=== PATIENT | female | born 1980 | race Caucasian/White ===

== ENCOUNTER 2019-08-19 11:46 | Outpatient (CLI) | payer BC, SELFPAY ==
--- NOTE | ~2019-08-19 | XR_ITS ---
EXAMINATION: XR abdomen/kub 1V INDICATION: Left flank pain TECHNIQUE: Supine views of the abdomen were obtained on 2 radiographs. COMPARISON: 09/08/2018 FINDINGS: There is unchanged bilateral nephrolithiasis. The largest stone on the right measures 5 mm. The largest on the left measures 8 mm. No stones are identified along the expected courses of the ur eters or in the bladder. Surgical clips in the right upper quadrant are likely from prior cholecystec brian. Phleboliths noted in the right pelvis. The bowel gas pattern is normal. IMPRESSION: 1. Unchanged bilateral nephrolithiasis. Reviewed, dictated and finalized at location A.
[2019-08-19 12:22] LABS: Add Urine Microscopic? YES; Appearance Urine Cloudy (Clear); Bacteria Urine 1+ /hpf; Bilirubin Urine Negative (Negative); Blood Urine 1+ (Negative); Color Urine Straw (Yellow); Glucose Urine UA Negative (Negative); Ketones Urine Negative (Negative); Leukocyte Esterase Ur 2+ LEU/UL (NEGATIVE); Mucus Urine Rare /lpf; Nitrate Urine Negative (Negative); Protein Urine Negative (Negative); Specific Grav Ur 1.005 (1.001-1.035); Squamous Epithelial Cell Urine Many /hpf (Few); Urobilinogen Urine Negative mg/dL (<2.0); WBC Urine 16-20 /hpf (0-3)
== END 2019-08-19 11:47 | disposition home or self-care (01) ==
LOC: ANHLAB 11:50
PROVIDERS: Visit Provider Nurse Practitioner Adult Health
DX: R10.9 Unspecified abdominal pain (principal)
CPT/HCPCS: 74018; 81001; 87086; 87088

== ENCOUNTER 2020-01-25 16:48 | Outpatient (CLI) | payer BC, SELFPAY ==
--- NOTE | ~2020-01-25 | XR_ITS ---
XR abdomen/kub 1V 01/25/2020 17:12 Indication: History of kidney stones. Procedure: KUB Comparison: Comparison to multiple prior studies sequentially, with oldest reviewed study dated 12/17. Findings: Bowel gas pattern is nonobstructive. There are multiple bilateral renal stones. There are c holecystectomy clips. No acute osseous abnormality. Lung bases unremarkable. Impression: 1: Bilateral nephrolithiasis without significant interval change. Reviewed, dictated and finalized at location A. Impression: 1: Bilateral nephrolithiasis without significant interval change.
== END 2020-01-25 16:49 | disposition home or self-care (01) ==
PROVIDERS: PCP Internal Medicine; Visit Provider Urology
DX: N20.0 Calculus of kidney (principal)
CPT/HCPCS: 74018

== ENCOUNTER 2020-06-27 09:01 | Outpatient (CLI) | payer BC, SELFPAY ==
--- NOTE | ~2020-06-27 | XR_ITS ---
XR abdomen/kub 1V 06/27/2020 09:16 Indication: History of kidney stones Procedure: KUB Comparison: Comparison to multiple prior studies sequentially, with oldest reviewed study dated 05/12. Findings: There are multiple bilateral renal stones, unchanged from prior examination. Bowel gas preet arturo nonobstructive. No acute osseous abnormality. There are cholecystectomy clips. Impression: 1: Stable bilateral nephrolithiasis. Reviewed, dictated and finalized at location B. Impression: 1: Stable bilateral nephrolithiasis.
== END 2020-06-27 09:02 | disposition home or self-care (01) ==
LOC: ANHIMG 09:03
PROVIDERS: PCP Internal Medicine; Visit Provider Urology
DX: N20.0 Calculus of kidney (principal)
CPT/HCPCS: 74018

== ENCOUNTER 2020-06-29 11:51 | Outpatient (CLI) | payer BC, SELFPAY ==
--- NOTE | ~2020-06-29 | CT_ITS ---
EXAMINATION: CT abdomen pelvis wo con DATE: 06/29/2020 12:13 INDICATION: Left-sided renal stone. One week of right flank pain. TECHNIQUE: Computed tomography (CT) of the abdomen and pelvis was performed without intravenous contr ast. Automated exposure control and iterative reconstruction technique were employed. The dose-length product was 583.92 mGy-cm. COMPARISON: 11/20/2017 FINDINGS: Subtle mosaic attenuation along with small pneumatocele at the posterior left lower lobe which sugges ts possibility of mild emphysema/small airway disease. Heart size is normal. No pericardial or pleura l effusion. Cholecystectomy clips at the gallbladder fossa. Diffuse hepatic steatosis. Spleen, pancre as and bilateral adrenal glands are normal. No bowel obstruction. Normal appendix. Bilateral nephrolithiasis with approximately 10 stones on the left measuring up to 1 mm and 15-20 sto dena on the right measuring up to 3-4 mm. No ureteral stones or hydronephrosis. Bladder is normal. 3.7 cm cystic structure in the region of the cervix, likely a nabothian cyst. No free intraperitoneal ga s or fluid. No pathologically enlarged abdominal or pelvic lymphadenopathy. Minimal scattered degener ative skeletal changes. IMPRESSION: 1. Bilateral nonobstructing nephrolithiasis. 2. 3.7 cm cystic structure in the region of the cervix, likely a corpus luteum cyst but would correla te with beta hCG level to exclude ectopic . Could consider ultrasound for further evaluation . Reviewed, dictated and finalized at location A. IMPRESSION: 1. Bilateral nonobstructing nephrolithiasis. 2. 3.7 cm cystic structure in the region of the cervix, likely a corpus luteum cyst but would correlate with beta hCG level to exclude ectopic . Coul d consider ultrasound for further evaluation.
== END 2020-06-29 11:52 | disposition home or self-care (01) ==
LOC: ANHIMG 11:58
PROVIDERS: PCP Internal Medicine; Visit Provider Urology
DX: N20.0 Calculus of kidney (principal)
CPT/HCPCS: 74176

== ENCOUNTER 2020-08-12 11:00 | Emergency (ER) | payer BC, SELFPAY ==
[2020-08-12] VITALS (7 sets, daily range): BP systolic 93–137; BP diastolic 52–87; PULSE 80–96; RESP 18–20; TEMP 36.8; O2SAT 98–100
--- NOTE | ~2020-08-12 | US_ITS ---
US pelvic complete w TV DATE: 08/12/2020 13:18 INDICATION: Pelvic pain. Irregular vaginal bleeding. TECHNIQUE: Real-time imaging via transabdominal and transvaginal approaches COMPARISON: 06/29/2020 CT abdomen pelvis examination FINDINGS: The uterus measures approximately 12 cm height and 5 cm AP dimension, up to 6.3 cm transver se dimension. There is enlargement of the uterus and the cervical area with a large approximately 4.9 x 5.2 x 3.5 c m heterogeneous irregular hypoechoic mass. Cervical carcinoma must be excluded. The central inner lateral there is up to 1.4 cm in the uterine fundus. Obstetrical consultation and possible diagnostic uterine dilatation and curettage should be considere d. Right ovary measures 3.1 x 2.3 x 1.9 cm, with evidence of vascular flow. Left ovary measures 5 x 2.8 x 2.5 cm, with evidence of vascular flow. 3.5 x 1.9 x 1.8 cm right ovaria n cyst. 1.1 x 0.9 x 1.1 cm interval involuting cyst. No pelvic free fluid collection is noted. IMPRESSION: Uterine cervical heterogeneous hypoechoic mass measuring up to 5.2 cm; cervical cancer ca nnot be excluded. Obstetrical consultation with consideration for uterine dilatation curettage is rec ommended Left ovarian cysts Reviewed, dictated and finalized at Location A. Reviewed, dictated and finalized at location A. IMPRESSION: Uterine cervical heterogeneous hypoechoic mass measuring up to 5.2 cm; cervical cancer cannot be excluded. Obstetrical consultation with considera tion for uterine dilatation curettage is recommended Left ovarian cysts
--- NOTE | ~2020-08-12 | CT_ITS ---
EXAMINATION: CT abdomen pelvis wo con EXAM DATE: 08/12/2020 14:41 INDICATION: Lower abdominal pain, hx kidney stones TECHNIQUE: Spiral CT of the abdomen and pelvis was performed without contrast. Axial, coronal and sag ittal images were reviewed. The dose-length product (DLP) for this examination was 1206.79 mGy-cm. The exposure was tailored according to patient size (auto mA exposure control), and iterative reconst ruction (ASIR) was used as additional dose reduction technique. Comparison is made to prior examinati on from 06/29/2020. FINDINGS: Patient had a cystic region in the cervix on prior study, which measured 3.7 cm. On today's examination this cystic region measures 5.5 cm, has heterogeneous density in the inferior portion, p robably layering protein (from blood more likely than infection). Nabothian cyst typically do not inc rease in size over short interval. Differential diagnosis includes infected nabothian cyst, hemorrhag ic nabothian cysts, cervical inflammation or cancer with obstruction of the cervical canal, ectopic c ervical . Correlated with laboratory evaluation, recommend follow-up NEUROPSYCHOLOGY MEDICAL CONSULTANT consult. Multiple bilateral kidney stones measuring up to about 1 cm. There are no ureteral stones, no hydrone phrosis. The bladder is unremarkable. There is hepatic steatosis without suspicious focal lesion id entified. Spleen, adrenal glands, pancreas are unremarkable. There are cholecystectomy clips. There is no retroperitoneal or pelvic lymphadenopathy. The appendix is normal. The stomach and small bowel are unremarkable. There is expected amount of c olonic stool. No free intraperitoneal gas. The heart is normal in size. There are no pericardial or pleural effusions. The lung bases are unremarkable. There are no osteoblastic or osteolytic les ions identified. IMPRESSION: 1. Increase in size of cervical cystic region or dilated cervical canal containing proteinaceous flui d now over 5 cm. Differential diagnosis includes infected or hemorrhagic nabothian cyst, cervical inf lammation or cancer with obstruction of the cervical canal, ectopic cervical . Correlate wit h laboratory evaluation, NEUROPSYCHOLOGY MEDICAL CONSULTANT consult. Pelvic sonogram could be obtained but would not likely change t he differential diagnosis. 2. Large bilateral nephrolithiasis. No obstructive nephropathy. 3. Hepatic steatosis. Reviewed, dictated and finalized at location A. IMPRESSION: 1. Increase in size of cervical cystic region or dilated cervical canal contain ing proteinaceous fluid now over 5 cm. Differential diagnosis includes infected or hemorrhagic nabothian cyst, cervical inflammation or cancer with obstructio n of the cervical canal, ectopic cervical . Correlate with laboratory evaluation, NEUROPSYCHOLOGY MEDICAL CONSULTANT consult. Pelvic sonogram could be obtained but would not likely change the differential diagnosis. 2. Large bilateral nephrolithiasis. No obstructive nephropathy. 3. Hepatic steatosis.
[2020-08-12 11:35] LABS: Basophils Absolute Auto 0.1 K/mm3 (0.0-0.1); Basophils Percent Auto 0.6 % (0.2-1.2); Eosinophils Absolute Auto 0.2 K/mm3 (0-0.3); Eosinophils Percent Auto 1.3 % (0-4.4); Hematocrit 40.9 % (37.0-47.0); Hemoglobin 13.7 g/dL (12.0-15.0); Immature Granulocyte Absolute 0.04 K/mm3 (0.00-0.031); Immature Granulocyte Percent A 0.3 % (0-0.5); Lymphocytes Absolute Auto 1.27 K/mm3 (0.9-3.2); Lymphocytes Percent Auto 10.2 % (18.3-44.2); Mean Corpuscular HGB Conc 33.5 g/dl (32-36); Mean Corpuscular Hemoglobin 28.9 pg (26-34); Mean Corpuscular Volume 86.3 fl (80-100); Mean Platelet Volume 9.8 fl (7.4-10.4); Monocytes Percent Auto 8.3 % (2.6-8.5); Neutrophils Absolute Auto 9.8 K/mm3 (1.3-6.7); Neutrophils Percent Auto 79.3 % (45.5-73.1); Platelet Count Result 209 k/mm3 (150-375); Red Blood Count 4.74 M/mm3 (4.2-5.4); Red Cell Distribution Width 12.8 % (11.5-14.5); White Blood Count 12.4 K/mm3 (4.5-10.0)
--- NOTE | 2020-08-12 11:48 | ED.ABDPAIN ---
HPI - Abdominal Pain General Chief Complaint: Abdominal Pain Stated Complaint: PELVIC PAIN Time Seen by Provider: 08/12/20 11:33 Source: patient Mode of arrival: ambulatory Limitations: no limitations History of Present Illness HPI narrative: This is a 40-year-old female that presents to the emergency department for pelvic pain starting this morning. Reports the pain is sharp and constant in nature. Reports she has been having trouble with abnormal cycles over the last 5 months. She has been constantly spotting and will intermittently have heavy cycles. Her OB started her on progesterone a couple of days ago for this. Reports she has history of ovarian cyst and has an ultrasound scheduled in the next couple of weeks. Does also report history of kidney stones, but that this pain feels different. Denies fever, vomiting, dysuria, or hematuria. Related Data Home Medications Medication Instructions Recorded Confirmed amlodipine 5 mg PO DAILY 02/21/19 02/21/19 buspirone 7.5 mg PO DAILY 02/21/19 02/21/19 escitalopram oxalate mg 08/12/20 esomeprazole magnesium [Nexium] mg 08/12/20 loratadine [Claritin] 10 mg PO DAILY 08/12/20 potassium chloride meq PO 08/12/20 progesterone micronized mg 08/12/20 Allergies Allergy/AdvReac Type Severity Reaction Status Date / Time sulfamethoxazole Allergy Unknown RASH Verified 08/12/20 11:19 trimethoprim Allergy Unknown RASH Verified 08/12/20 11:19 iohexol Allergy Unknown Verified 08/12/20 11:19 [From CONTRAST - CT, XRAY] moxifloxacin Allergy Unknown Verified 08/12/20 11:19 Review of Systems Review of Systems: Narrative: CONSTITUTIONAL: Denies fever GASTROINTESTINAL: Reports abdominal/pelvic pain. Denies nausea, vomiting GENITOURINARY: Denies dysuria or hematuria. All systems reviewed & are unremarkable except as noted in HPI and below PMFSH Past Medical History Medical History (Updated 08/12/20 @ 15:56 by Ermelinda Hdz PA-C) HTN (hypertension) Kidney stones Surgical History Surgical History H/O lithotripsy History of extraction of renal calculus Hx of cholecystectomy Family History Family History Mother Hypertension Family history of heart disease in male family member before age 55 Father Family history of elevated blood lipids Other Family history of allergic disorder Social History Social History Smoking status: Never smoker Gender identity (if verbalized by the patient): Female Exam Narrative: Exam Narrative: GENERAL: Well-appearing, obese, and in no acute distress. HEAD: Normocephalic, atraumatic. EYES: EOMI. CHEST: Clear to auscultation. No respiratory distress. No wheezes rales or rhonchi HEART: Regular rate and rhythm. No murmur heard. Normal peripheral pulses. ABDOMEN: Soft, nondistended, normal active bowel sounds. Tender to palpation throughout the lower abdomen/pelvis, without guarding. No CVA tenderness EXTREMITIES: Normal range of motion. No edema. SKIN: Warm, dry, no rash. NEURO: No focal deficits. Alert and oriented x3. PSYCH: Normal mood and affect PELVIC: Normal appearing cervix, small amount of dark red blood in the vaginal vault Course Vital Signs Vital signs: Vital Signs Temperature 98.3 F 08/12/20 11:14 Pulse Rate 95 08/12/20 11:14 Respiratory Rate 20 08/12/20 11:14 Blood Pressure 137/87 08/12/20 11:14 Pulse Oximetry 98 08/12/20 11:14 Temperature 98.3 F 08/12/20 12:40 Pulse Rate 80 08/12/20 15:12 Respiratory Rate 18 08/12/20 15:12 Blood Pressure 121/78 08/12/20 15:12 Pulse Oximetry 98 08/12/20 15:12 MDM - Abdominal Pain MDM Narrative Medical decision making narrative: Patient presents the emergency department for lower abdominal/pelvic pain since this morning. She is afebrile and nontoxic-appearing. Her vital
[2020-08-12 11:49] LABS: Alanine Aminotransferase 26 U/L (4-35); Albumin Level 4.1 g/dL (3.5-5.1); Alkaline Phosphatase 55 U/L (38-126); Anion Gap 7 mmol/L (8-16); Aspartate Amino Transferase 28 U/L (14-36); Bilirubin,Total 0.6 mg/dL (0.2-1.3); Blood Urea Nitrogen 10 mg/dL (7-17); Calcium 9.1 mg/dL (8.4-10.2); Carbon Dioxide 27 mmol/L (22-30); Chloride 104 mmol/L (98-107); Estimated CRCL calculation 96 ml/min; Estimated Glomerular Filt Rate > 60; Glucose 94 mg/dL (65-105); Lipase 142 U/L (23-300); Potassium 3.8 mmol/L (3.4-5.0); Sodium 138 mmol/L (137-145)
[2020-08-12 11:52] LABS: Add Urine Microscopic? YES; Appearance Urine Clear (Clear); Bilirubin Urine Negative (Negative); Blood Urine 3+ (Negative); Color Urine Yellow (Yellow); Glucose Urine UA Negative (Negative); Ketones Urine Negative (Negative); Leukocyte Esterase Ur Trace LEU/UL (Negative); Mucus Urine Rare /lpf; Nitrate Urine Negative (Negative); Protein Urine 1+ mg/dL (Negative); RBC Urine 0-2 /hpf (0-2); Specific Grav Ur 1.011 (1.001-1.035); Squamous Epithelial Cell Urine Moderate /hpf (Few); Urobilinogen Urine Negative mg/dL (<2.0)
[2020-08-12] MEDS: MORPHINE SULFATE (*CRX) 4 MG/ML INJ IV PUSH ×2 (12:10→15:12)
[2020-08-12] MEDS: ONDANSETRON INJ 4 MG/2 ML VIAL IV PUSH (12:10)
[2020-08-12 12:29] LABS: Prothrombin Time 13.5 Seconds (11.1-14.7)
[2020-08-12 12:30] LABS: Partial Thromboplastin Time 26.9 SECONDS (22.3-36.8)
== END 2020-08-12 16:18 | disposition home or self-care (01) ==
PROVIDERS: Physician Assistant; Emergency Provider Emergency Medicine; PCP Internal Medicine
DX: N83.202 Unspecified ovarian cyst, left side (principal); N88.9 Noninflammatory disorder of cervix uteri, unspecified; I10 Essential (primary) hypertension; Z87.442 Personal history of urinary calculi; N20.0 Calculus of kidney; K76.0 Fatty (change of) liver, not elsewhere classified
CPT/HCPCS: 36415; 74176; 76830; 76856; 80053; 81001; 81025; 83690; 85025; 85610; 85730; 86850; 86900; 86901; 96365; 96375; 99284; J0131; J2270; J2405

== ENCOUNTER 2020-08-15 16:10 | Outpatient (CLI) | payer BC, SELFPAY ==
[2020-08-15 17:18] LABS: Hematocrit 38.2 % (37.0-47.0); Hemoglobin 12.7 g/dL (12.0-15.0); Mean Corpuscular HGB Conc 33.2 g/dl (32-36); Mean Corpuscular Hemoglobin 28.6 pg (26-34); Mean Platelet Volume 10.1 fl (7.4-10.4); Platelet Count Result 259 k/mm3 (150-375); Red Blood Count 4.44 M/mm3 (4.2-5.4); Red Cell Distribution Width 13.2 % (11.5-14.5); White Blood Count 9.6 K/mm3 (4.5-10.0)
== END 2020-08-15 16:11 | disposition home or self-care (01) ==
LOC: ANHLAB 16:11
PROVIDERS: PCP Internal Medicine; Visit Provider Obstetrics & Gynecology
DX: N93.8 Other specified abnormal uterine and vaginal bleeding (principal)
CPT/HCPCS: 36415; 85027

== ENCOUNTER 2020-08-16 10:58 | Outpatient (CLI) | payer BC, SELFPAY ==
[2020-08-16 11:21] LABS: Basophils Absolute Auto 0.1 K/mm3 (0.0-0.1); Basophils Percent Auto 1.1 % (0.2-1.2); Eosinophils Absolute Auto 0.3 K/mm3 (0-0.3); Eosinophils Percent Auto 4.1 % (0-4.4); Hematocrit 36.1 % (37.0-47.0); Hemoglobin 11.9 g/dL (12.0-15.0); Immature Granulocyte Absolute 0.02 K/mm3 (0.00-0.031); Immature Granulocyte Percent A 0.3 % (0-0.5); Lymphocytes Absolute Auto 1.93 K/mm3 (0.9-3.2); Lymphocytes Percent Auto 27.3 % (18.3-44.2); Mean Corpuscular Hemoglobin 28.5 pg (26-34); Mean Corpuscular Volume 86.4 fl (80-100); Mean Platelet Volume 9.8 fl (7.4-10.4); Monocytes Absolute Auto 0.6 K/mm3 (0.1-0.6); Monocytes Percent Auto 7.9 % (2.6-8.5); Neutrophils Absolute Auto 4.2 K/mm3 (1.3-6.7); Neutrophils Percent Auto 59.3 % (45.5-73.1); Platelet Count Result 241 k/mm3 (150-375); Red Blood Count 4.18 M/mm3 (4.2-5.4); Red Cell Distribution Width 13.2 % (11.5-14.5); White Blood Count 7.1 K/mm3 (4.5-10.0)
== END 2020-08-16 10:59 | disposition home or self-care (01) ==
LOC: ANHLAB 11:00
PROVIDERS: PCP Internal Medicine; Visit Provider Obstetrics & Gynecology
DX: N92.0 Excessive and frequent menstruation with regular cycle (principal)
CPT/HCPCS: 36415; 85025

== ENCOUNTER → 2020-08-31 02:57 | Outpatient (CLI) | payer BC, SELFPAY ==
[2020-08-31 18:15] LABS: SARS-CoV-2 RNA PCR Negative
== END ==
PROVIDERS: PCP Internal Medicine; Visit Provider Obstetrics & Gynecology
DX: Z01.812 Encounter for preprocedural laboratory examination (principal); Z20.822 Contact with and (suspected) exposure to COVID-19
CPT/HCPCS: C9803; U0003; U0005

== ENCOUNTER 2020-08-31 08:37 | Outpatient (CLI) | payer BC, SELFPAY ==
--- NOTE | 2020-08-31 08:45 | ECG_ITS ---
Measurements Intervals [place] Rate: 79 P: 48 AL: 170 QRS: 53 QRSD: 95 T: 41 QT: 357 QTc: 410 Interpretive Statements SINUS RHYTHM DELAYED PRECORDIAL R/S TRANSITION BASELINE ARTIFACT- I, III, AVL BORDERLINE ECG Electronically Signed On 08-31-2020 9:15:36 CDT by Kyle Fontanez D.O.
== END 2020-08-31 08:38 | disposition home or self-care (01) ==
LOC: ANHSURGERY 08:41
PROVIDERS: PCP Internal Medicine; Visit Provider Obstetrics & Gynecology
DX: N92.1 Excessive and frequent menstruation with irregular cycle (principal); I10 Essential (primary) hypertension; Z01.818 Encounter for other preprocedural examination
CPT/HCPCS: 36415; 86850; 86900; 86901; 93005

== ENCOUNTER 2020-09-03 01:03 | Day surgery (SDC) | payer BC, SELFPAY ==
[2020-08-22 10:05] VITALS: BMI 40.8
[2020-09-03] VITALS (15 sets, daily range): BP systolic 103–140; BP diastolic 57–85; PULSE 83–103; RESP 14–24; TEMP 36.5–36.9; O2SAT 91–99
[2020-09-03] MEDS: LACTATED RINGERS 1,000 ML 30 ML IV CONT ×3 (11:20→15:50)
[2020-09-03] MEDS: ACETAMINOPHEN 500 MG TABLET 1000 MG PO (11:25)
[2020-09-03] MEDS: KETOROLAC 15 MG/ML VIAL (*BKC) IV PUSH (11:25)
--- NOTE | 2020-09-03 12:09 | WPDANESEPPF ---
Anes - Initial Pre Proc Eval Procedure: Operation Date: 09/03/20 12:30 Proposed Procedures p Total Laparoscopic Hysterectomy with Bilateral Salpingectomy - Violet Rushing MD Date/Time: 09/03/20 12:09 Surgeon: Violet Rushing MD Pre Op Diagnosis: menometrorrhaghia Patient Data Age: 40 Gender: F Height: 5 ft 4 in Weight: 110.9 kg Last Vital Signs Temp 97.7 F 09/03/20 10:38 Pulse 101 H 09/03/20 10:38 Resp 20 09/03/20 10:38 BP 140/85 09/03/20 10:38 Pulse Ox 99 09/03/20 10:38 Allergies Allergy/AdvReac Type Severity Reaction Status Date / Time iohexol AdvReac Mild Rash Verified 09/03/20 11:10 [From CONTRAST - CT, XRAY] moxifloxacin AdvReac Mild Rash Verified 09/03/20 11:10 sulfamethoxazole AdvReac Mild RASH Verified 09/03/20 11:10 trimethoprim AdvReac Mild RASH Verified 09/03/20 11:10 Home Medications Medication Instructions Recorded Confirmed Type amlodipine 5 mg PO DAILY 02/21/19 09/03/20 History buspirone 7.5 mg PO DAILY 02/21/19 09/03/20 History escitalopram oxalate 10 mg PO DAILY 08/12/20 09/03/20 History esomeprazole magnesium [Nexium] 20 mg PO DAILY 08/12/20 09/03/20 History loratadine [Claritin] 10 mg PO DAILY 08/12/20 09/03/20 History potassium chloride 20 meq PO DAILY 08/12/20 09/03/20 History progesterone micronized 200 mg PO DAILY 08/12/20 09/03/20 History Patient hx anesthesia problems: post op nausea/vomiting (given scopolamine patch) Family hx anesthesia problems: none PMFSH Past Medical History Medical History (Updated 08/13/20 @ 00:00 by Moises Jarvis) HTN (hypertension) Kidney stones Surgical History Surgical History H/O lithotripsy History of extraction of renal calculus Hx of cholecystectomy Family History Family History Mother Hypertension Family history of heart disease in male family member before age 55 Father Family history of elevated blood lipids Other Family history of allergic disorder Social History Social History Smoking status: Never smoker Alcohol intake: current Alcohol use details: RARE Substance use: never Substance use type: does not use Living arrangements: with family Additional living arrangements comments: DAUGHTER Gender identity (if verbalized by the patient): Female Spiritual care concerns: No Anes - Eval Final PreProcedure Day of Procedure 09/03/20 12:09 Patient weight: morbidly obese Heart: regular rate and rhythm Lungs: clear to auscultation Airway: Mallampati scale class III Neurological: alert and oriented Last oral intake: >/= 8 hours ASA classification: III Emergent: no Anesthetic plan: proceed Anesthesia type and monitoring: general ETT and standard monitoring Informed Consent: The patient's anesthetic plan and its attendant risks and benefits were discussed with the patient/family/POA. Questions were solicited and answers provided to the satisfaction of the patient/family/POA.
[2020-09-03] MEDS: SCOPOLAMINE 1.5 MG PATCH TRANSDERM (12:20)
--- NOTE | 2020-09-03 12:35 | WPDHPUPDATE1 ---
History and Physical Update Update Date/Time: 09/03/20 12:35 History and Physical has been reviewed, including an updated exam of the patient. There are NO changes in the patient's condition. Risks, benefits, and alternatives have been discussed and questions answered. Patient agrees to proceed with procedure.
[2020-09-03] MEDS: ceFAZolin 2 GM/D5W 50 ML 2 GM/50 ML BAG IVPB (12:44)
--- NOTE | 2020-09-03 14:56 | W.PM.PROC2 ---
Procedure Note - Detailed Date of Procedure 09/03/20 Pre-op Diagnosis menometrorrhaghia Post-op Diagnosis same Procedure Performed Total laparoscopic hysterectomy and bilateral salpingectomy. Surgeon Violet Rushing MD Anesthesia general Indications Severe menometrorrhagia, possible cervical mass Findings Moderate sized uterus with a long cervix, open space in the endocervical canal, normal appearing ovaries and normal-appearing tubes. Ovarian cyst on the left ovary that was removed. Description of Procedure This patient was taken to the operating room. She was prepped and draped in the dorsal lithotomy position after induction of general anesthesia. A 5 mm skin incision was made in the left upper quadrant the abdomen. A 5 mm trocar was inserted into the intrauterine cavity under direct visualization of the scope. Pneumoperitoneum was achieved. A left lower quadrant 11 mm incision was made with scalpel. An 11 mm trocar was inserted into the anterior abdominal cavity under direct visualization the scope. A 5 mm infraumbilical incision was made with a scalpel and a 5 mm trocar was inserted the intra-abdominal cavity under direct visualization of the scope. The uterine manipulator and Coke per were placed. This was done with a speculum. The speculum was placed. The cervix was grasped with a tenaculum. The stay sutures were placed at 3 and 9:00 a.m.. The stay sutures of 0 Vicryl were brought through the appropriately sized Taran cup. The tip of the TOMASA manipulator was placed in the intrauterine cavity. The cup was slid into place around the cervix and into the fornices. It was locked into place. The sutures were then wrapped around the handle and tied under tension. Bilateral ureteral lysis was performed. This was done from the pelvic brim down to the uterine artery. This was done with careful dissection using sharp and blunt dissection. The fallopian tubes were removed bilaterally. The mesosalpinx around the fallopian tubes were cauterized transected with LigaSure cautery. This was done in a bilateral fashion from the ovary to the uterine cornua. The fallopian tube was transected at the uterine cornu and amputated. The tube was taken out the left lower quadrant trocar site. In a stepwise fashion along the lateral aspects of the uterus the round ligament and broad ligaments were cauterized transected down to the level of the uterine arteries. A bladder flap was created in the bladder was moved distally to the end of the cervix and over the Taran cup. The bilateral uterine arteries were cauterized and transected. Colpotomy was then performed. In a circumferential fashion the vagina was transected using unipolar cautery. The incision was made down on the Taran. The uterus and cervix were taken out through the vagina. A pneumo occluder was placed in the vagina. The vaginal cuff was closed with a 0 V lock suture. The pelvis was irrigated with copious amounts antibiotic irrigation. The ureters were again examined and found to be intact and flowing freely under the uterine arteries into the bladder. The bladder was intact. It was examined directly. The vagina was irrigated with Betadine solution after removal of the Pneumo occluder. The patient was taken to recovery room. She was stable condition. Sponge lap and needle counts were correct x2. Drains Yes Packing No Pathology yes Complications No immediate complications Condition stable Disposition floor
[2020-09-03] MEDS: ONDANSETRON INJ 4 MG/2 ML VIAL IV PUSH ×2 (15:37→22:49)
[2020-09-03] MEDS: fentaNYL CITRATE INJ (*CRX) 100 MCG/2 ML VIAL 25 MCG IV PUSH ×2 (15:37→15:50)
[2020-09-03] MEDS: HYDROmorphone HCL INJ (*CRX) 1 MG/ML SYR 0.25 MG IV PUSH (16:16)
[2020-09-03] MEDS: DEXTROSE 5%/0.45% SOD CHL 1,000 ML 125 ML IV CONT (18:05)
[2020-09-03] MEDS: KETOROLAC 30 MG/ML VIAL (*BKC) IV PUSH (18:10)
[2020-09-03] MEDS: HYDROcodone/acetaminophen (*CRX) 5-325 MG TABLET 1 TAB PO (19:49)
--- NOTE | 2020-09-03 20:08 | PC.NURSE ---
1735 Pt admitted to room 280 per bed from PACU after total lap hyst, bilateral salpingectomy and L ovarian cyst removal today with Dr. Rushing. Pt awake, responding appropriately; her mother is present. Pt's VSS and assessment WNL.
[2020-09-03] MEDS: POTASSIUM CHLORIDE 20 MEQ TABLET.ER PO (20:50)
[2020-09-03] MEDS: HYDROcodone/acetaminophen (*CRX) 10-325 MG TABLET 1 TAB PO (22:49)
[2020-09-04 06:01] VITALS: BP 111/62; PULSE 91; RESP 18; TEMP 36.9; O2SAT 95
--- NOTE | 2020-09-04 07:47 | PM.GYNPNOP ---
MALLET CUTTER - A/P Postoperative Procedures: Procedures Operation Date: 09/03/20 12:30 Actual Procedure Side Surgeon p Total Laparoscopic Hysterectomy with Bilateral Salpingectomy, Left ovarian cystectomy Bilateral Violet Rushing MD Postoperative day: 1 Postoperative status: doing well and other (Tollerating Regular Diet) Postoperative plan: routine post-op care and discharge Time Spent With Patient Time: Total time spent is greater than 50% in coordination of care (as documented) at patient's floor/unit and/or counseling patient: Time with patient: 15 - 25 minutes MALLET CUTTER- PN:Subj Post-Op Subjective Date/time seen: 09/04/20 07:47 Subjective: patient reports feeling better, pain is well controlled and patient is tolerating oral intake Exam Const: General: cooperative, healthy appearing, comfortable and no acute distress Resp: Auscultation: no crackles, no rales, no rhonchi and no wheezes Cardio: Rhythm: regular rhythm Heart sounds: no click and no murmurs GI: Inspection: non-distended Auscultation: normal bowel sounds Other: Incisions - CDI Extrem: General: normal to inspection, no pedal edema and no calf tenderness MALLET CUTTER - PN: Obj Data Vital Signs Vital Signs: Vital Signs - 24 hr 09/03/20 10:38 09/03/20 14:59 09/03/20 15:14 Temperature 97.7 F 98.3 F Pulse Rate 101 H 83 92 Respiratory Rate 20 18 18 Blood Pressure 140/85 108/63 104/67 Pulse Oximetry 99 91 91 09/03/20 15:15 09/03/20 15:20 09/03/20 15:30 Temperature Pulse Rate 89 86 87 Respiratory Rate 17 16 16 Blood Pressure 103/63 103/60 Pulse Oximetry 92 96 92 09/03/20 15:45 09/03/20 16:00 09/03/20 16:15 Temperature Pulse Rate 83 86 87 Respiratory Rate 15 16 14 Blood Pressure 103/60 113/66 Pulse Oximetry 97 99 94 09/03/20 16:30 09/03/20 16:45 09/03/20 17:00 Temperature Pulse Rate 89 88 93 Respiratory Rate 24 H 19 18 Blood Pressure 103/60 107/57 L 107/58 L Pulse Oximetry 92 92 94 09/03/20 17:40 09/03/20 19:51 09/03/20 23:01 Temperature 97.7 F 98.4 F 98.4 F Pulse Rate 83 102 H 103 H Respiratory Rate 18 18 18 Blood Pressure 107/61 106/63 115/60 Pulse Oximetry 95 96 95 09/04/20 06:01 Temperature 98.5 F Pulse Rate 91 Respiratory Rate 18 Blood Pressure 111/62 Pulse Oximetry 95 Intake/Output Intake/Output: Intake & Output 09/01/20 09/02/20 09/03/20 09/04/20 23:59 23:59 23:59 23:59 Intake Total 1350 500 Output Total 110 1800 Balance 1240 -1300 Meds/Results Medications: Active Medications Generic Name Dose Route Start Last Admin Trade Name Freq PRN Reason Stop Dose Admin Hydrocodone Bitart/Acetaminophen 1 tab 09/03/20 17:16 09/03/20 19:49 Hydrocodone/Acetaminophen (*Crx) 5-325 Mg Tablet PO 1 tab Q3H PRN Administration Pain Rated 5 or Less Hydrocodone Bitart/Acetaminophen 1 tab 09/03/20 17:16 09/03/20 22:49 Hydrocodone/Acetaminophen (*Crx) 10-325 Mg Tablet PO 1 tab Q3H PRN Administration Pain Rated 6 or Greater Amlodipine Besylate 5 mg 09/04/20 09:00 Amlodipine Besylate 5 Mg Tablet PO DAILY DIANDRA Buspirone HCl 2.5 mg 09/04/20 09:00 Buspirone Hcl 2.5 Mg Tablet PO DAILY DIANDRA Buspirone HCl 5 mg 09/04/20 09:00 Buspirone Hcl 5 Mg Tablet PO DAILY DIANDRA Escitalopram Oxalate 10 mg 09/04/20 09:00 Escitalopram Oxalate 10 Mg Tablet PO DAILY DIANDRA Dextrose/Sodium Chloride 1,000 mls @ 125 mls/hr 09/03/20 17:16 09/04/20 05:33 Dextrose 5% Sodium Chloride 0.45% IV CONT Not Given .Q8H DIANDRA Ibuprofen 600 mg 09/03/20 17:16 Ibuprofen 600 Mg Tablet PO Q6H PRN Cramping Ketorolac Tromethamine 30 mg 09/03/20 17:16 09/03/20 18:10 Ketorolac 30 Mg/Ml Vial (*Bkc) IV PUSH 09/08/20 17:17 30 mg Q6H PRN Administration Pain Rated 4-6 Loratadine 10 mg 09/04/20 09:00 Loratadine 10 Mg Tablet PO DAILY [facility] Naloxone HCl 0.1 mg 09/03/20 17:16 Naloxone Hcl 0.4 Mg/Ml Vial IV PUSH Q2M PRN Respir
[2020-09-04 08:30] VITALS: BP 114/62; PULSE 87; RESP 16; TEMP 37.1; O2SAT 100
[2020-09-04] MEDS: POTASSIUM CHLORIDE 20 MEQ TABLET.ER PO (10:33)
[2020-09-04] MEDS: amLODIPine BESYLATE 5 MG TABLET PO (10:34)
[2020-09-04] MEDS: busPIRone HCL 2.5 MG TABLET PO (10:35)
[2020-09-04] MEDS: busPIRone HCL 5 MG TABLET PO (10:35)
[2020-09-04] MEDS: ESCITALOPRAM OXALATE 10 MG TABLET PO (10:35)
[2020-09-04] MEDS: PANTOPRAZOLE 40 MG TABLET PO (10:36)
[2020-09-04] MEDS: HYDROcodone/acetaminophen (*CRX) 10-325 MG TABLET 1 TAB PO (10:36)
[2020-09-04] MEDS: LORATADINE 10 MG TABLET PO (10:36)
--- NOTE | 2020-09-04 10:53 | WPDANESPN ---
Anes - Prog Note Post-Op Date/Time: 09/04/20 10:53 Cardiovascular status: normal Respiratory status: normal Airway patency: baseline Mental status: baseline Post-Op hydration status: normal Vital Signs: Last Vital Signs Temp 37.1 C 09/04/20 08:30 Pulse 87 09/04/20 08:30 Resp 16 09/04/20 08:30 BP 114/62 09/04/20 08:30 Pulse Ox 100 09/04/20 08:30 Pain Score (VAS): 0/10. Patient resting in bed at time of assessment, appears comfortable. Patient described mild nausea with relief with prn meds. I/O: Intake & Output 09/03/20 09/04/20 09/04/20 23:59 07:59 15:59 Intake Total 800 500 Output Total 110 1800 Balance 690 -1300 Post-procedural complaints: nausea (with relief with prn meds. ) Patient Feedback: Patient satisfied with anesthetic care.
[2020-09-04 11:53] VITALS: BP 123/70; PULSE 91; RESP 16; TEMP 37.1; O2SAT 97
== END 2020-09-04 12:36 | disposition home or self-care (01) ==
LOC: ANHSURGERY 12:14 → ANHOB2 17:17
PROVIDERS: PCP Internal Medicine; Visit Provider Obstetrics & Gynecology
PROC: 0UT9FZZ Resection of Uterus, Via Natural or Artificial Opening With Percutaneous Endoscopic Assistance (ICD-10-PCS; CPT 58570; principal; 2020-09-03 12:30)
DX: N92.1 Excessive and frequent menstruation with irregular cycle (principal); N83.02 Follicular cyst of left ovary; N80.0 Endometriosis of uterus; I10 Essential (primary) hypertension; E66.01 Morbid (severe) obesity due to excess calories; Z68.41 Body mass index [BMI] 40.0-44.9, adult
CPT/HCPCS: 58570; 58662; 88305; 88307; 94660; 99199; A9270; J0690; J1100; J1170; J1885; J2250; J2405; J2704; J2710; J3010; J7030; J7120

== ENCOUNTER 2021-04-22 09:30 | Emergency (ER) | payer BC, SELFPAY ==
--- NOTE | ~2021-04-22 | XR_ITS ---
XR abdomen/kub 1V 04/22/2021 14:09 Indication: Renal stones Procedure: KUB Comparison: Comparison to multiple prior studies sequentially, with oldest reviewed study dated 09/08. Findings: There are multiple bilateral renal stones. Bowel gas pattern is nonobstructive. There are c holecystectomy clips. No acute osseous abnormality. Impression: 1: Bilateral nephrolithiasis. Reviewed, dictated and finalized at location B. GAGE CLOSING CLERK Impression: 1: Bilateral nephrolithiasis.
--- NOTE | ~2021-04-22 | CT_ITS ---
EXAMINATION: CT abdomen pelvis wo con DATE: 04/22/2021 12:06 INDICATION: Right flank pain TECHNIQUE: Computed tomography (CT) of the abdomen and pelvis was performed without intravenous contr ast. The dose-length product was 1402.18 mGy-cm. Automated exposure control and iterative reconstruct ion technique were employed. COMPARISON: CT dated 08/12/2020. FINDINGS: Lung bases are unremarkable. Heart size normal. No significant pleural or pericardial effus ion. No significant vascular abnormality. No lymphadenopathy. Fatty infiltration of the liver. Status post cholecystectomy. The spleen, pancreas, adrenal glands ar e unremarkable. There are multiple nonobstructing bilateral renal stones. There is an 8 mm left UPJ s tone with mild hydronephrosis. There is no right ureteral stone or significant hydronephrosis. Bladde r is decompressed. No free air or free fluid. Status post hysterectomy. No acute osseous abnormality. IMPRESSION: 1. Bilateral nephrolithiasis with a left UPJ stone causing mild hydronephrosis. 2: Hepatic steatosis. Reviewed, dictated and finalized at location B. STERED VASCULAR TECHNOLOGIST (RVT)
[2021-04-22 09:33] VITALS: BP 138/80; PULSE 104; RESP 20; TEMP 36.9; O2SAT 98
[2021-04-22] MEDS: SODIUM CHLORIDE 0.9% IV 1,000 ML 999 ML IV CONT (11:52)
[2021-04-22] MEDS: ONDANSETRON INJ 4 MG/2 ML VIAL IV PUSH (11:53)
[2021-04-22] MEDS: HYDROmorphone HCL INJ (*CRX) 1 MG/ML SYR 0.5 MG IV PUSH (11:53)
[2021-04-22 12:11] LABS: Basophils Absolute Auto 0.1 K/mm3 (0.0-0.1); Basophils Percent Auto 0.8 % (0.2-1.2); Eosinophils Absolute Auto 0.2 K/mm3 (0-0.3); Eosinophils Percent Auto 2.4 % (0-4.4); Hematocrit 34.2 % (37.0-47.0); Hemoglobin 10.6 g/dL (12.0-15.0); Immature Granulocyte Absolute 0.05 K/mm3 (0.00-0.031); Immature Granulocyte Percent A 0.6 % (0-0.5); Mean Corpuscular Hemoglobin 25.5 pg (26-34); Mean Corpuscular Volume 82.2 fl (80-100); Mean Platelet Volume 9.4 fl (7.4-10.4); Monocytes Absolute Auto 1.2 K/mm3 (0.1-0.6); Neutrophils Absolute Auto 5.3 K/mm3 (1.3-6.7); Neutrophils Percent Auto 63.2 % (45.5-73.1); Platelet Count Result 311 k/mm3 (150-375); Red Blood Count 4.16 M/mm3 (4.2-5.4); Red Cell Distribution Width 17.1 % (11.5-14.5); White Blood Count 8.4 K/mm3 (4.5-10.0)
[2021-04-22 12:18] LABS: Alanine Aminotransferase 29 U/L (4-35); Alkaline Phosphatase 104 U/L (38-126); Anion Gap 13 mmol/L (8-16); Aspartate Amino Transferase 34 U/L (14-36); Bilirubin,Total 0.6 mg/dL (0.2-1.3); Blood Urea Nitrogen 6 mg/dL (7-17); Calcium 8.9 mg/dL (8.4-10.2); Carbon Dioxide 22 mmol/L (22-30); Chloride 106 mmol/L (98-107); Estimated CRCL calculation 88 ml/min; Estimated Glomerular Filt Rate > 60; Glucose 121 mg/dL (65-110); Sodium 141 mmol/L (137-145)
[2021-04-22 12:34] LABS: Add Urine Microscopic? YES; Appearance Urine Cloudy (Clear); Bacteria Urine Trace /hpf; Bilirubin Urine Negative (Negative); Blood Urine 2+ (Negative); Color Urine Yellow (Yellow); Glucose Urine UA Negative (Negative); Ketones Urine Negative (Negative); Leukocyte Esterase Ur 3+ LEU/UL (Negative); Mucus Urine Rare /lpf; Nitrate Urine Negative (Negative); Protein Urine 1+ mg/dL (Negative); Specific Grav Ur 1.006 (1.001-1.035); Squamous Epithelial Cell Urine Rare /hpf (Few); Urobilinogen Urine Negative mg/dL (<2.0); WBC Clumps Urine Present /HPF; WBC Urine >75 /hpf
[2021-04-22 12:45] VITALS: BP 137/74; PULSE 100; RESP 12; O2SAT 97
[2021-04-22] MEDS: cefTRIAXone 2 GM in SODIUM CHLORIDE 0.9% IV 100 ML 200 ML IVPB (13:59)
--- NOTE | 2021-04-22 14:04 | ED.GENADULT ---
HPI - General Adult General Chief complaint: Urogenital-Female <JULIO Mckinley Last Filed: 04/22/21 15:38> Stated complaint: flank pain, fever <JULIO Mckinley Last Filed: 04/22/21 15:38> Time Seen by Provider: 04/22/21 11:28 <JULIO Mckinley Last Filed: 04/22/21 15:38> Source: patient <JULIO Mckinley Last Filed: 04/22/21 15:38> Mode of arrival: ambulatory <JULIO Mckinley Last Filed: 04/22/21 15:38> Limitations: no limitations <JULIO Mckinley Last Filed: 04/22/21 15:38> History of Present Illness HPI narrative: Patient is a 40-year-old female with history of kidney stones presenting with chief complaint of right flank pain, increased urination, nausea and vomiting that began on Thursday. Patient reports she has history of kidney stones and normally sees Dr. Schrader. She reports that she began taking the Flomax and Toradol that she had at home but her symptoms persisted so she came to the emergency department. He denies fever, syncope, chest pain, shortness of breath. Patient denies chance of . <JULIO Mckinley Last Filed: 04/22/21 15:38> Related Data Home medications: Home Medications Medication Instructions Recorded Confirmed amlodipine 5 mg PO DAILY 02/21/19 09/03/20 buspirone 7.5 mg PO DAILY 02/21/19 09/03/20 escitalopram oxalate 10 mg PO DAILY 08/12/20 09/03/20 esomeprazole magnesium [Nexium] 20 mg PO DAILY 08/12/20 09/03/20 loratadine [Claritin] 10 mg PO DAILY 08/12/20 09/03/20 potassium chloride 20 meq PO DAILY 08/12/20 09/03/20 progesterone micronized 200 mg PO DAILY 08/12/20 09/03/20 <JULIO Mckinley Last Filed: 04/22/21 15:38> Allergies/adverse reactions: Allergies Allergy/AdvReac Type Severity Reaction Status Date / Time iohexol Allergy Mild Rash Verified 09/03/20 13:56 [From CONTRAST - CT, XRAY] moxifloxacin Allergy Mild Rash Verified 09/03/20 13:56 sulfamethoxazole Allergy Mild RASH Verified 09/03/20 13:56 trimethoprim Allergy Mild RASH Verified 09/03/20 13:56 <Sandra Mathias PA-C - Last Filed: 04/22/21 15:38> Review of Systems Review of Systems: CONSTITUTIONAL: Denies fever, chills, or sweats. EYES: Denies visual changes, redness, or discharge. ENT: Denies rhinorrhea, congestion, sore throat, or otalgia. CARDIOVASCULAR: Denies chest pain, palpitations, or edema. RESPIRATORY: Denies cough or dyspnea. GASTROINTESTINAL: Reports nausea and vomiting denies abdominal pain or diarrhea. GENITOURINARY: Reports increased urinary frequency and right flank pain denies dysuria or hematuria. SKIN: Denies rash or itching. MUSCULOSKELETAL: Denies back pain, joint pain, or myalgia. NEUROLOGIC: Denies headache, numbness, dizziness, or weakness. PSYCHIATRIC: Denies anxiety or depression. <Sandra Mathias PA-C - Last Filed: 04/22/21 15:38> [facility] Past Medical History Medical History: Medical History (Updated 04/22/21 @ 15:30 by Sandra Mathias PA-C) HTN (hypertension) Kidney stones <Sandra Mathias PA-C - Last Filed: 04/22/21 15:38> Surgical History Surgical History: Surgical History H/O lithotripsy History of extraction of renal calculus Hx of cholecystectomy <Sandra Mathias PA-C - Last Filed: 04/22/21 15:38> Family History Family History: Family History Mother Hypertension Family history of heart disease in male family member before age 55 Father Family history of elevated blood lipids Other Family history of allergic disorder <Sandra Mathias PA-C - Last Filed: 04/22/21 15:38> Social History Social History: Social History Smoking status: Never smoker Alcohol intake: never Alcohol use details: RARE Substance use: never Substance use type: does not use Additional living a
[2021-04-22 15:33] VITALS: BP 116/68; PULSE 99; RESP 18; O2SAT 96
== END 2021-04-22 16:03 | disposition home or self-care (01) ==
PROVIDERS: Physician Assistant; Emergency Provider Emergency Medicine; PCP Internal Medicine
DX: N13.2 Hydronephrosis with renal and ureteral calculous obstruction (principal); N30.01 Acute cystitis with hematuria; I10 Essential (primary) hypertension; Z87.442 Personal history of urinary calculi; K76.0 Fatty (change of) liver, not elsewhere classified
CPT/HCPCS: 36415; 74018; 74176; 80053; 81001; 85025; 87077; 87086; 87186; 96361; 96365; 96375; 99284; J0696; J1170; J2405; J7030

== ENCOUNTER 2021-04-24 13:26 | Outpatient (CLI) | payer BC, SELFPAY ==
[2021-04-24 14:18] LABS: INR 1.1; Prothrombin Time 13.8 Seconds (11.1-14.7)
[2021-04-24 14:19] LABS: Partial Thromboplastin Time 30.7 SECONDS (22.3-36.8)
== END 2021-04-24 13:27 | disposition home or self-care (01) ==
LOC: ANHSURGERY 13:29
PROVIDERS: PCP Internal Medicine; Visit Provider Urology
DX: N20.0 Calculus of kidney (principal); Z01.818 Encounter for other preprocedural examination
CPT/HCPCS: 36415; 85610; 85730

== ENCOUNTER 2021-04-26 00:48 | Day surgery (SDC) | payer BC, SELFPAY ==
[2021-04-24 09:39] VITALS: BMI 42.9
--- NOTE | 2021-04-24 09:47 | PC.NURSE ---
Report to the Outpatient Waiting Room, entrance under the green pavilion located off [facility], at time 8:30 on date 04/26/21. OR Time: 10:30. - You will be asked a series of questions to screen for COVID 19 for your protection. - A mask is required within the hospital. - No visitors are allowed at this time. Preoperative COVID Testing Requirements: No COVID Test needed if: (proof is required; if not received patient will have Rapid Test prior to entry) - Patient has received COVID Vaccine at least 14 days prior to procedure date or - Patient has positive COVID test result within last 90 days of surgery date. COVID Test needed if above criteria is not met Patients may have clear liquids (water, carbonated beverages, clear teas, apple juice) until 3 hours prior to surgery (7:30) with a maximum of 20 ounces. - No food from midnight until time of surgery Take the following medications with a SIP of water the morning of surgery: AMLODIPINE, BUSPIRONE, ANTIBIOTIC, ESCITALOPRAM, PAIN PILL (IF NEEDED) Medications to discontinue per physician: VITAMINS/SUPPLEMENTS Date to take last dose: 04/24/21 Please no make-up, nail faroese, hairspray, perfume, deodorant, or body powder the day of surgery. No jewelry (including any body piercings) or valuables the day of surgery, leave them at home. Please take a shower or bath the night before, or the morning of, surgery with an antibacterial soap. Wear comfortable, loose fitting clothing. - Jewelry must be removed prior to entering the operating room. Rings and piercings that are not removed may be cut off. - The hospital will not accept responsibility for valuables. - Please leave all valuables, including medications, at home the day of surgery. If you are going home after surgery, a licensed electric mule driver must drive you home. - NO public transportation without another adult. - We recommend that an adult stay with you for 24 hours following discharge. - We also recommend that you do not drive, make important decision, drink alcoholic beverages, or take any drugs that were not prescribed by your health care provider for at least 24 hours after your discharge time. Follow any additional instructions given to you from your surgeon. Telephone instructions given to EMORY WILLIS and asked if any additional questions and then verbalized understanding. Patient advised to call surgeon office or pre surgery nurse liaison [phone] if any additional questions.
--- NOTE | 2021-04-24 13:16 | PM.HPGS ---
History of Present Illness History of Present Illness Consent: Risks, benefits, and alternatives have been discussed and questions answered. Patient agrees to proceed with procedure. Chief complaint: left ureteral stone Narrative: Annalisa Lemus is a 40 year old female who is well known to our practice with recurrent urolithiasis. She recently called was seen as a virtual visit with left flank pain. Imaging demonstrates an obstructing calcified left proximal ureteral / UPJ stone. After discussion of options she has elected for left ESWL. She is aware of the risk including, but not limited to, persistent residual fragments, recurrent urolithiasis an injury to her kidney. Review of Systems Cardiovascular: Cardiovascular: Denies chest pain, Denies lightheadedness, Denies palpitations and Denies dyspnea Respiratory: Respiratory: Denies dyspnea Gastrointestinal: Gastrointestinal: Denies diarrhea, Denies nausea and Denies vomiting Genitourinary: Genitourinary: Denies hematuria and Denies dysuria Endocrine: Endocrine: Denies palpitations PMFSH Past Medical History Medical History (Updated 04/24/21 @ 13:17 by Leroy Rubio MD) HTN (hypertension) Kidney stones Surgical History Surgical History H/O lithotripsy History of extraction of renal calculus Hx of cholecystectomy Family History Family History Mother Hypertension Family history of heart disease in male family member before age 55 Father Family history of elevated blood lipids Other Family history of allergic disorder Social History Social History Smoking status: Never smoker Alcohol intake: never Alcohol use details: RARE Substance use: never Substance use type: does not use Additional living arrangements comments: DAUGHTER Gender identity (if verbalized by the patient): Female Sexual Orientation (if Verbalized by the Patient): Straight or Heterosexual Spiritual care concerns: No Meds Home Medications and Allergies Home Medications Medication Instructions Recorded Confirmed Type amlodipine 5 mg PO DAILY 02/21/19 04/24/21 History buspirone 7.5 mg PO DAILY 02/21/19 04/24/21 History escitalopram oxalate 10 mg PO DAILY 08/12/20 04/24/21 History esomeprazole magnesium [Nexium] 20 mg PO DAILY 08/12/20 04/24/21 History loratadine [Claritin] 10 mg PO DAILY 08/12/20 04/24/21 History potassium chloride 20 meq PO DAILY 08/12/20 04/24/21 History cephalexin 500 mg PO Q8H 7 Days #21 cap 04/22/21 04/24/21 Rx hydrocodone-acetaminophen 1 tablet PO Q6H PRN 4 Days #14 04/22/21 04/24/21 Rx tablet ondansetron 4 mg PO Q8H PRN #10 tablet 04/22/21 04/24/21 Rx Allergies Allergy/AdvReac Type Severity Reaction Status Date / Time iohexol Allergy Mild Rash Verified 04/24/21 09:37 [From CONTRAST - CT, XRAY] moxifloxacin Allergy Mild Rash Verified 04/24/21 09:37 Exam Const: General: no acute distress Resp: Effort & Inspection: normal respiratory effort GI: Inspection: non-distended GI Palp: No abdominal tenderness and No Guarding due to palpation present (GI) Auscultation: normal bowel sounds Assessment and Plan Assessment and plan (1) Bilateral renal stones: Code(s): N20.0 - Calculus of kidney Status: Acute Assessment and Plan: Left ESWL
[2021-04-26] VITALS (10 sets, daily range): BP systolic 124–136; BP diastolic 64–96; PULSE 80–92; RESP 15–20; TEMP 36.8–36.9; O2SAT 93–98
--- NOTE | ~2021-04-26 | XR_ITS ---
EXAMINATION: XR abdomen/kub 1V DATE: 04/26/2021 07:52 INDICATION: Left kidney stone. TECHNIQUE: A supine view of the abdomen on 2 radiographs was obtained. COMPARISON: CT abdomen and pelvis 04/22/2021 FINDINGS: There are no dilated loops of bowel. There are vascular calcifications in the pelvis. There is a 6 mm stone at left ureteropelvic junction. There are greater than 10 stones in left kidney tita uring up to 5 mm. There are greater than 10 stones in right kidney measuring up to 5 mm. Surgical cli ps in the right upper quadrant are likely from cholecystectomy. IMPRESSION: 1. 6 mm stone at left ureteropelvic junction. 2. Bilateral kidney stones. Reviewed, dictated and finalized at location A. TING TEACHER
--- NOTE | ~2021-04-26 | XR_ITS ---
EXAMINATION: XR retrograde pyelo w/stent LT DATE: 04/26/2021 10:30 INDICATION: Left internal ureteral stent placement TECHNIQUE: Fluoroscopic images from a left internal ureteral stent placement are submitted for review . 22 seconds of fluoroscopy time. FINDINGS: There is a left double-J internal ureteral stent projecting in expected position, with proximal [place] loop at the level of the renal pelvis and distal loop in the pelvis within the bladder lumen. IMPRESSION: 1. Left internal ureteral stent placement. Please refer to real-time procedural findings for detail s. Reviewed, dictated and finalized at location B. OR ADVISOR IMPRESSION: 1. Left internal ureteral stent placement. Please refer to real-time procedur al findings for details.
--- NOTE | 2021-04-26 06:57 | WPDHPUPDATE1 ---
History and Physical Update Update Date/Time: 04/26/21 06:57 History and Physical has been reviewed, including an updated exam of the patient. There are NO changes in the patient's condition. Risks, benefits, and alternatives have been discussed and questions answered. Patient agrees to proceed with procedure.
[2021-04-26 08:19] LABS: Add Urine Microscopic? YES; Appearance Urine Clear (Clear); Bacteria Urine Trace /hpf; Bilirubin Urine Negative (Negative); Blood Urine 1+ (Negative); Color Urine Yellow (Yellow); Glucose Urine UA Negative (Negative); Ketones Urine Negative (Negative); Leukocyte Esterase Ur 3+ LEU/UL (Negative); Mucus Urine Few /lpf; Nitrate Urine Negative (Negative); Protein Urine Negative (Negative); RBC Urine 21-50 /hpf (0-2); Squamous Epithelial Cell Urine Moderate /hpf (Few); Urobilinogen Urine Negative mg/dL (<2.0); WBC Urine >75 /hpf
--- NOTE | 2021-04-26 08:20 | WPDANESEPPF ---
Anes - Initial Pre Proc Eval Procedure: Operation Date: 04/26/21 10:30 Proposed Procedures p Left Extracorporeal Shock Wave Lithotripsy - Leroy Rubio MD Date/Time: 04/26/21 08:20 Surgeon: Leroy Rubio MD Pre Op Diagnosis: left ureteral stone Patient Data Age: 40 Gender: F Height: 1.63 m Weight: 113.4 kg Allergies Allergy/AdvReac Type Severity Reaction Status Date / Time iohexol Allergy Mild Rash Verified 04/26/21 07:51 [From CONTRAST - CT, XRAY] moxifloxacin Allergy Mild Rash Verified 04/26/21 07:51 Home Medications Medication Instructions Recorded Confirmed Type amlodipine 5 mg PO DAILY 02/21/19 04/26/21 History buspirone 7.5 mg PO DAILY 02/21/19 04/26/21 History escitalopram oxalate 10 mg PO DAILY 08/12/20 04/24/21 History esomeprazole magnesium [Nexium] 20 mg PO DAILY 08/12/20 04/24/21 History loratadine [Claritin] 10 mg PO DAILY 08/12/20 04/24/21 History potassium chloride 20 meq PO DAILY 08/12/20 04/24/21 History hydrocodone-acetaminophen 1 tablet PO Q6H PRN 4 Days #14 04/22/21 04/24/21 Rx tablet ondansetron 4 mg PO Q8H PRN #10 tablet 04/22/21 04/24/21 Rx amoxicillin-pot clavulanate 1 tablet PO BID 04/26/21 04/26/21 History Laboratory Tests 04/26/21 08:04 Urine Color Yellow (Yellow) Urine Appearance Clear (Clear) Urine pH 6.0 (5.0-9.0) Ur Specific [place] 1.010 (1.001-1.035) Urine Protein Negative mg/dL mg/dL (Negative) Urine Glucose (UA) Negative mg/dL mg/dL (Negative) Urine Ketones Negative mg/dL mg/dL (Negative) Ur Blood (Man) 1+ H (Negative) Urine Nitrate Negative (Negative) Urine Bilirubin Negative (Negative) Urine Urobilinogen Negative mg/dL mg/dL (<2.0) Leukocyte Esterase Rfl 3+ MADELINE/UL H MADELINE/UL (Negative) Urine RBC 21-50 /hpf H /hpf (0-2) Urine WBC >75 /hpf H /hpf Ur Squamous Epith Cells Moderate /hpf H /hpf (Few) Urine Bacteria Trace /hpf /hpf Urine Mucus Few /lpf H /lpf Patient hx anesthesia problems: none Family hx anesthesia problems: none Results Review: All pre-operative results and documents have been reviewed as part of the pre-operative evaluation. [facility] Past Medical History Medical History (Updated 04/26/21 @ 08:21 by Carlos Branch MD) HTN (hypertension) Kidney stones Morbid obesity Surgical History Surgical History H/O lithotripsy History of extraction of renal calculus Hx of cholecystectomy Family History Family History Mother Hypertension Family history of heart disease in male family member before age 55 Father Family history of elevated blood lipids Other Family history of allergic disorder Social History Social History Smoking status: Never smoker Alcohol intake: never Alcohol use details: RARE Substance use: never Substance use type: does not use Living arrangements: with family Additional living arrangements comments: DAUGHTER Gender identity (if verbalized by the patient): Female Sexual Orientation (if Verbalized by the Patient): Straight or Heterosexual Spiritual care concerns: No Anes - Eval Final PreProcedure Day of Procedure 04/26/21 08:20 Patient weight: morbidly obese Heart: regular rate and rhythm Lungs: clear to auscultation Airway: Mallampati scale class III Neurological: alert and oriented Last oral intake: >/= 8 hours ASA classification: III Emergent: no Anesthetic plan: proceed Anesthesia type and monitoring: general LMA and standard monitoring Results Review: All pre-operative results and documents have been reviewed as part of the pre-operative evaluation. Informed Consent: The patient's anesthetic plan and its attendant risks and benefits were discussed with the patient/family/POA. Questions were aurora
[2021-04-26] MEDS: SCOPOLAMINE 1.5 MG PATCH TRANSDERM (08:58)
[2021-04-26] MEDS: LACTATED RINGERS 1,000 ML 30 ML IV CONT (09:25)
[2021-04-26] MEDS: ceFAZolin 2 GM/D5W 50 ML 2 GM/50 ML BAG IVPB (10:03)
--- NOTE | 2021-04-26 10:27 | W.PM.PROC2 ---
Procedure Note - Detailed Date of Procedure 04/26/21 Pre-op Diagnosis Left ureteral stone, UTI Post-op Diagnosis same Procedure Performed Cystoscopy, left retrograde pyelography and left ureteral stent placement Surgeon Leroy Rubio MD Anesthesia general Description of Procedure She has prepped draped in routine sterile fashion while in dorsal lithotomy position. This is done after the uneventful induction of a general LMA anesthetic. cystoscopy revealed a normal bladder without foreign body or signs of neoplasm. She has a single orthotopic ureteral orifice bilaterally. Angiographic catheter is used to obtain a left retrograde pyelogram in an outline the collecting system. A 4.8 F variable length double-J ureteral stent was placed over 0.035 in glidewire with the proximal coil in an upper pole calyx and the distal coil in the bladder. Scopes wires were removed she was taken recovery room good condition. Estimated Blood Loss 0 Drains Yes Packing No Pathology none sent Complications No immediate complications Condition stable Disposition PACU
== END 2021-04-26 12:10 | disposition home or self-care (01) ==
PROVIDERS: PCP Internal Medicine; Visit Provider Urology
PROC: (CPT 50590; principal; 2021-04-26 10:30)
DX: N20.1 Calculus of ureter (principal); N39.0 Urinary tract infection, site not specified; I10 Essential (primary) hypertension; E66.01 Morbid (severe) obesity due to excess calories; Z68.41 Body mass index [BMI] 40.0-44.9, adult
CPT/HCPCS: 52332; 74018; 74420; 81001; 87086; A9270; C1769; C1887; C2617; J0690; J2250; J2405; J2704; J3010; J7120; Q9966

== ENCOUNTER 2021-05-03 01:12 | Day surgery (SDC) | payer BC, SELFPAY ==
[2021-04-26 15:12] VITALS: BMI 44.1
--- NOTE | 2021-04-26 15:15 | PC.NURSE ---
Report to the Outpatient Waiting Room, entrance under the green pavilion located off [facility], at time 0630 on date 05/03/21. OR Time: 0830. - You will be asked a series of questions to screen for COVID 19 for your protection. - A mask is required within the hospital. - No visitors are allowed at this time. Preoperative COVID Testing Requirements: No COVID Test needed if: (proof is required; if not received patient will have Rapid Test prior to entry) - Patient has received COVID Vaccine at least 14 days prior to procedure date or - Patient has positive COVID test result within last 90 days of surgery date. COVID Test needed if above criteria is not met Patients may have clear liquids (water, carbonated beverages, clear teas, apple juice) until 3 hours prior to surgery with a maximum of 20 ounces. - No food from midnight until time of surgery Take the following medications with a SIP of water the morning of surgery: AMLODIPINE, BUSPIRONE, ANTIBIOTIC, ESCITALOPRAM, PAIN PILL (IF NEEDED) Medications to discontinue per physician: VITAMINS/SUPPLEMENTS Date to take last dose: 04/30/21 Please no make-up, nail estonian, hairspray, perfume, deodorant, or body powder the day of surgery. No jewelry (including any body piercings) or valuables the day of surgery, leave them at home. Please take a shower or bath the night before, or the morning of, surgery with an antibacterial soap. Wear comfortable, loose fitting clothing. - Jewelry must be removed prior to entering the operating room. Rings and piercings that are not removed may be cut off. - The hospital will not accept responsibility for valuables. - Please leave all valuables, including medications, at home the day of surgery. If you are going home after surgery, a licensed warehouse driver must drive you home. - NO public transportation without another adult. - We recommend that an adult stay with you for 24 hours following discharge. - We also recommend that you do not drive, make important decision, drink alcoholic beverages, or take any drugs that were not prescribed by your health care provider for at least 24 hours after your discharge time. Follow any additional instructions given to you from your surgeon. Telephone instructions given to EMORY WILLIS and asked if any additional questions and then verbalized understanding. Patient advised to call surgeon office or pre surgery nurse liaison [phone] if any additional questions.
--- NOTE | 2021-05-02 14:27 | P.PNAN_ITS ---
Anes - Eval Pre Procedure Procedure: Operation Date: 05/03/21 08:30 Proposed Procedures p Left Renal Extracorporeal Shock Wave Lithotripsy - Shaheen Bello MD s Possible Cystoscopy with Left Stent Removal - Shaheen Bello MD Date/Time: 05/02/21 14:27 Pre Op Diagnosis: left renal stone Patient Data Age: 40 Gender: F Height: 1.63 m Weight: 116.6 kg Allergies Allergy/AdvReac Type Severity Reaction Status Date / Time iohexol Allergy Mild Rash Verified 04/26/21 15:11 [From CONTRAST - CT, XRAY] moxifloxacin Allergy Mild Rash Verified 04/26/21 15:11 Home Medications Medication Instructions Recorded Confirmed Type amlodipine 5 mg PO DAILY 02/21/19 04/26/21 History buspirone 7.5 mg PO DAILY 02/21/19 04/26/21 History escitalopram oxalate 10 mg PO DAILY 08/12/20 04/26/21 History esomeprazole magnesium [Nexium] 20 mg PO DAILY 08/12/20 04/26/21 History loratadine [Claritin] 10 mg PO DAILY 08/12/20 04/26/21 History potassium chloride 20 meq PO DAILY 08/12/20 04/26/21 History hydrocodone-acetaminophen 1 tablet PO Q6H PRN 4 Days #14 04/22/21 04/26/21 Rx tablet ondansetron 4 mg PO Q8H PRN #10 tablet 04/22/21 04/26/21 Rx amoxicillin-pot clavulanate 1 tablet PO BID 04/26/21 04/26/21 History hydrocodone-acetaminophen 1 - 2 tablet PO Q6H PRN #20 tablet 04/26/21 04/26/21 Rx hyoscyamine sulfate 0.125 mg PO Q6H PRN #20 tablet 04/26/21 04/26/21 Rx Patient hx anesthesia problems: post op nausea/vomiting Family hx anesthesia problems: none Results Review: All pre-operative results and documents have been reviewed as part of the pre-operative evaluation. [facility] Past Medical History Medical History (Updated 05/02/21 @ 14:28 by Chelita Alan CRNA) Anxiety GERD (gastroesophageal reflux disease) HTN (hypertension) Kidney stones Morbid obesity ES (obstructive sleep apnea) Surgical History Surgical History H/O lithotripsy History of extraction of renal calculus Hx of cholecystectomy Family History Family History Mother Hypertension Family history of heart disease in male family member before age 55 Father Family history of elevated blood lipids Other Family history of allergic disorder Social History Social History Smoking status: Never smoker Alcohol intake: never Alcohol use details: RARE Substance use: never Substance use type: does not use Living arrangements: with family Additional living arrangements comments: DAUGHTER Gender identity (if verbalized by the patient): Female Sexual Orientation (if Verbalized by the Patient): Straight or Heterosexual Spiritual care concerns: No Exam Day of Procedure 05/02/21 14:27
[2021-05-03] VITALS (7 sets, daily range): BP systolic 118–135; BP diastolic 72–84; PULSE 85–96; RESP 14–24; TEMP 36.1–36.5; O2SAT 92–99
--- NOTE | ~2021-05-03 | XR_ITS ---
EXAMINATION: XR abdomen/kub 1V DATE: 05/03/2021 07:27 INDICATION: Left ureteral stone. TECHNIQUE: A supine view of the abdomen on 2 radiographs was obtained. COMPARISON: Abdomen radiographs 04/26/21, CT abdomen and pelvis 04/22/21 FINDINGS: There are no dilated loops of bowel. There is a left internal ureteral stent in expected po sition. There are greater than 10 stones in right kidney measuring up to 8 mm. There are greater than 10 stones in left kidney measuring up to 6 mm. There is a 6 mm stone in proximal left ureter. IMPRESSION: 1. 6 mm stone in proximal left ureter with left internal ureteral stent in expected position. 2. Bilateral nonobstructing kidney stones. Reviewed, dictated and finalized at location E. REFINISHER IMPRESSION: 1. 6 mm stone in proximal left ureter with left internal ureteral stent in expe cted position. 2. Bilateral nonobstructing kidney stones.
[2021-05-03] MEDS: LACTATED RINGERS 1,000 ML 30 ML IV CONT ×2 (07:40→09:38)
--- NOTE | 2021-05-03 07:43 | PM.IMHP ---
H&P: HPI History of Present Illness Date/Time: 05/03/21 07:43 Chief Complaint: 6mm left ureteral calculus Narrative: 40 yr old female with obstructing 6 mm left proximal ureteral calculus who was stented by Dr Rubio. She now presents for eswl of the stone.. Review of Systems Review of Systems: All systems reviewed & are unremarkable except as noted in HPI and below PMFSH Past Medical History Medical History Anxiety GERD (gastroesophageal reflux disease) HTN (hypertension) Kidney stones Morbid obesity ES (obstructive sleep apnea) Surgical History Surgical History H/O lithotripsy History of extraction of renal calculus Hx of cholecystectomy Family History Family History Mother Hypertension Family history of heart disease in male family member before age 55 Father Family history of elevated blood lipids Other Family history of allergic disorder Social History Social History Smoking status: Never smoker Alcohol intake: never Alcohol use details: RARE Substance use: never Substance use type: does not use Living arrangements: with family Additional living arrangements comments: DAUGHTER Gender identity (if verbalized by the patient): Female Sexual Orientation (if Verbalized by the Patient): Straight or Heterosexual Spiritual care concerns: No Meds Home Medications and Allergies Home Medications Medication Instructions Recorded Confirmed Type amlodipine 5 mg PO DAILY 02/21/19 05/03/21 History buspirone 7.5 mg PO DAILY 02/21/19 05/03/21 History escitalopram oxalate 10 mg PO DAILY 08/12/20 05/03/21 History esomeprazole magnesium [Nexium] 20 mg PO DAILY 08/12/20 05/03/21 History loratadine [Claritin] 10 mg PO DAILY 08/12/20 05/03/21 History potassium chloride 20 meq PO DAILY 08/12/20 05/03/21 History hydrocodone-acetaminophen 1 tablet PO Q6H PRN 4 Days #14 04/22/21 04/26/21 Rx tablet ondansetron 4 mg PO Q8H PRN #10 tablet 04/22/21 05/03/21 Rx amoxicillin-pot clavulanate 1 tablet PO BID 04/26/21 05/03/21 History hydrocodone-acetaminophen 1 - 2 tablet PO Q6H PRN #20 tablet 04/26/21 05/03/21 Rx hyoscyamine sulfate 0.125 mg PO Q6H PRN #20 tablet 04/26/21 05/03/21 Rx nitrofurantoin monohyd/m-cryst 100 mg PO BID 05/03/21 05/03/21 History Allergies Allergy/AdvReac Type Severity Reaction Status Date / Time iohexol Allergy Mild Rash Verified 05/03/21 07:08 [From CONTRAST - CT, XRAY] moxifloxacin Allergy Mild Rash Verified 05/03/21 07:08 Exam Const: General: comfortable Eyes: General: appearance normal, both eyes and all related structures Resp: Effort & Inspection: normal respiratory effort Cardio: Rate: regular rate Rhythm: regular rhythm Assessment and Plan Assessment and plan (1) Left ureteral calculus: Code(s): N20.1 - Calculus of ureter Status: Acute Assessment and Plan: ESWL of left ureteral calculus.
--- NOTE | 2021-05-03 07:46 | WPDHPUPDATE1 ---
History and Physical Update Update Date/Time: 05/03/21 07:46 History and Physical has been reviewed, including an updated exam of the patient. There are NO changes in the patient's condition. Risks, benefits, and alternatives have been discussed and questions answered. Patient agrees to proceed with procedure. Proceed wtih left ureteral eswl
[2021-05-03] MEDS: ceFAZolin 2 GM/D5W 50 ML 2 GM/50 ML BAG IVPB (08:35)
--- NOTE | 2021-05-03 10:52 | W.PM.PROC2 ---
Procedure Note - Detailed Date of Procedure 05/03/21 Pre-op Diagnosis left ureteral stone Post-op Diagnosis same Procedure Performed Lithotripsy of left ureteral calculus Surgeon Shaheen Bello MD Anesthesia general Description of Procedure Patient is taken the operative suite and correctly identified. Once anesthesia was obtained the stone was localized in both planes. Three thousand shocks were given to the stone. Patient tolerated procedure well without any complications taken recovery stable condition. She will follow up 7-10 days with KUB. Drains Yes Packing No Pathology none sent Complications No immediate complications Condition stable Disposition PACU
== END 2021-05-03 11:23 | disposition home or self-care (01) ==
PROVIDERS: PCP Internal Medicine; Visit Provider Urology
PROC: (CPT 50590; principal; 2021-05-03 08:30)
DX: N20.1 Calculus of ureter (principal); F41.9 Anxiety disorder, unspecified; K21.9 Gastro-esophageal reflux disease without esophagitis; I10 Essential (primary) hypertension; G47.33 Obstructive sleep apnea (adult) (pediatric)
CPT/HCPCS: 50590; 74018; A9270; J0690; J1100; J2250; J2405; J2704; J3010; J7030; J7120

== ENCOUNTER 2021-05-15 17:59 | Outpatient (CLI) | payer BC, SELFPAY ==
--- NOTE | ~2021-05-15 | XR_ITS ---
EXAMINATION: XR abdomen/kub 1V DATE: 05/15/2021 18:12 INDICATION: Left-sided renal stone TECHNIQUE: A supine view of the abdomen on 2 radiographs was obtained. COMPARISON: 05/03/2021 FINDINGS: Bilateral nephrolithiasis with at least 9 stones measuring up to 7 mm in the right kidney and 3 stone s in the left kidney measuring up to 9 mm. Left internal ureteral stent with loops formed at the blad channing and left renal pelvis. Previously seen stone alongside the ureteral stent at the proximal left ur eter is no longer visualized and has likely passed. Cholecystectomy clips in right upper quadrant. Re lative paucity of gas seen in the stomach and distal colon. No dilated gas-filled bowel to suggest ob struction. Visualized left lung bases clear. IMPRESSION: 1. Bilateral nephrolithiasis with interval passage of a stone previously seen in the proximal left ur eter along the unchanged left internal ureteral stent. Reviewed, dictated and finalized at location A. AIN'S ASSISTANT IMPRESSION: 1. Bilateral nephrolithiasis with interval passage of a stone previously seen i n the proximal left ureter along the unchanged left internal ureteral stent.
== END 2021-05-15 18:00 | disposition home or self-care (01) ==
LOC: ANHIMG 18:03
PROVIDERS: PCP Internal Medicine; Visit Provider Urology
DX: N20.0 Calculus of kidney (principal)
CPT/HCPCS: 74018

== ENCOUNTER 2021-06-17 17:15 | Outpatient (CLI) | payer BC, SELFPAY ==
--- NOTE | ~2021-06-17 | XR_ITS ---
EXAMINATION: XR abdomen/kub 1V INDICATION: Left-sided kidney stone TECHNIQUE: Supine views of the abdomen were obtained on 2 radiographs. COMPARISON: 05/15/2021 FINDINGS: The left internal ureteral stent has been removed. There are left kidney stones measuring 8 mm, 4 mm, and 5 mm in the lower pole, mid kidney, and upper pole, respectively. There are at least n ine stones of the right kidney which measure up to 8 mm. No definite stones are identified along the expected courses of the ureters or within the urinary bladder. There are phleboliths of the pelvis. IMPRESSION: 1. Bilateral nephrolithiasis. Reviewed, dictated and finalized at location B.
== END 2021-06-17 17:16 | disposition home or self-care (01) ==
PROVIDERS: PCP Internal Medicine; Visit Provider Urology
DX: N20.0 Calculus of kidney (principal)
CPT/HCPCS: 74018

== ENCOUNTER 2021-10-02 13:46 | Outpatient (CLI) | payer BC, SELFPAY ==
--- NOTE | ~2021-10-02 | XR_ITS ---
XR abdomen/kub 1V 10/02/2021 14:01 Indication: Left ureteral stone history. New pain on the right side. Procedure: KUB Comparison: 06/17/2021 Findings: There are multiple bilateral renal stones. There is new calcifications in the right pelvis, suspicious for distal ureteral stones. There are cholecystectomy clips. Bowel gas pattern nonobstruc tive. Impression: 1: Probable new distal right ureteral stones near the UVJ. 2: Nonobstructing bilateral nephrolithiasis. Reviewed, dictated and finalized at location A. Impression: 1: Probable new distal right ureteral stones near the UVJ. 2: Nonobstructing bilateral nephrolithiasis.
== END 2021-10-02 13:47 | disposition home or self-care (01) ==
PROVIDERS: PCP Internal Medicine; Visit Provider Urology
DX: N20.2 Calculus of kidney with calculus of ureter (principal)
CPT/HCPCS: 74018

== ENCOUNTER 2021-10-05 12:47 | Outpatient (CLI) | payer BC, SELFPAY ==
--- NOTE | ~2021-10-05 | CT_ITS ---
EXAMINATION: CT abdomen pelvis wo con DATE: 10/05/2021 16:26 INDICATION: Right ureteral stone TECHNIQUE: Computed tomography (CT) of the abdomen and pelvis was performed without intravenous contr ast. The dose-length product was 493.17 mGy-cm. Automated exposure control and iterative reconstructi on technique were employed. COMPARISON: CT dated 04/22/2021 FINDINGS: Lung bases are unremarkable. Heart size normal. No significant pleural or pericardial effus ion. Status post cholecystectomy. The liver, spleen, pancreas, adrenal glands are unremarkable. There are multiple nonobstructing bilateral renal stones. There are at least 3 distal right ureteral stones wit h mild hydronephrosis. No left ureteral stones. Bladder is decompressed. No abnormal pelvic masses or fluid collections. Nonobstructive bowel gas pattern. Mild osteoarthritis of the hips. IMPRESSION: 1. Multiple distal right ureteral stones in the pelvis with mild hydronephrosis. 2: Nonobstructing bilateral nephrolithiasis. Reviewed, dictated and finalized at location A. IMPRESSION: 1. Multiple distal right ureteral stones in the pelvis with mild hydronephrosis . 2: Nonobstructing bilateral nephrolithiasis.
== END 2021-10-05 12:48 | disposition home or self-care (01) ==
LOC: ANHIMG 12:51
PROVIDERS: PCP Internal Medicine; Visit Provider Urology
DX: N20.2 Calculus of kidney with calculus of ureter (principal)
CPT/HCPCS: 74176

== ENCOUNTER 2021-10-11 01:54 | Day surgery (SDC) | payer BC, SELFPAY ==
[2021-10-08 12:50] VITALS: BMI 39.4
--- NOTE | 2021-10-08 12:58 | PC.NURSE ---
Report to the Outpatient Waiting Room, entrance under the green pavilion located off [facility], at time 1000 on date 10/11/21. OR Time: 1200. - You and your visitor will be asked a series of questions to screen for COVID 19 for your protection. - Only one visitor is allowed at this time. - The patient visitor is requested to leave or wait in car when not with patient. - A mask is required within the hospital. Patients may have clear liquids (water, carbonated beverages, clear teas, apple juice) until 3 hours prior to surgery with a maximum of 20 ounces. - No food from midnight until time of surgery Take the following medications with a SIP of water the morning of surgery: NONE Medications to discontinue per physician: VITAMINS/SUPPLEMENTS Date to take last dose: 10/08/21 Please no make-up, nail ukrainian, hairspray, perfume, deodorant, or body powder the day of surgery. No jewelry (including any body piercings) or valuables the day of surgery, leave them at home. Please take a shower or bath the night before, or the morning of, surgery with an antibacterial soap. Wear comfortable, loose fitting clothing. - Jewelry must be removed prior to entering the operating room. Rings and piercings that are not removed may be cut off. - The hospital will not accept responsibility for valuables. - Please leave all valuables, including medications, at home the day of surgery. If you are going home after surgery, a licensed p d driver must drive you home. - NO public transportation without another adult. - We recommend that an adult stay with you for 24 hours following discharge. - We also recommend that you do not drive, make important decision, drink alcoholic beverages, or take any drugs that were not prescribed by your health care provider for at least 24 hours after your discharge time. Follow any additional instructions given to you from your surgeon. If you or anyone in your household have experienced Covid symptoms in the past week, please notify your surgeon or the nurse liaison at the phone number below for possible testing. Telephone instructions given to PT - EMORY WILLIS and asked if any additional questions and then verbalized understanding. Patient advised to call surgeon office or pre surgery nurse liaison [phone] if any additional questions.
--- NOTE | 2021-10-09 06:33 | PM.HPGS ---
History of Present Illness History of Present Illness Consent: Risks, benefits, and alternatives have been discussed and questions answered. Patient agrees to proceed with procedure. Chief complaint: Rt Ureteral Kidney Stone Narrative: Annalisa Lemus is a 41 year old female, who has had multiple renal and ureteral stones in the past, recently presented with right flank pain and imaging that shows at least 3 stones in her right distal ureter in addition to bilateral nonobstructing renal stones. After discussion of therapeutic options she has elected to proceed with right ureteroscopy with stone extraction. She is aware of the risk including and limited to, ureteral injury, need to place a stent and recurrent urol PMFSH Past Medical History Medical History (Reviewed 09/11/21 @ 09:22 by Twyla Frank [facility] [address]) Allergies Anxiety GERD (gastroesophageal reflux disease) HTN (hypertension) Kidney stones Morbid obesity ES (obstructive sleep apnea) Surgical History Surgical History (Reviewed 09/11/21 @ 09:22 by Twyla Frank [facility]) H/O lithotripsy H/O: hysterectomy History of extraction of renal calculus Hx of cholecystectomy Family History Family History (Reviewed 09/11/21 @ 09:22 by Twyla Frank [facility]) Mother Hypertension Family history of heart disease in male family member before age 55 Father Family history of elevated blood lipids Other Family history of allergic disorder Social History Social History (Reviewed 09/11/21 @ 09:22 by Twyla Frank [facility]) Smoking status: Never smoker Alcohol intake: never Alcohol use details: RARE Substance use: never Substance use type: does not use Living arrangements: with family Additional living arrangements comments: DAUGHTER Gender identity (if verbalized by the patient): Female Sexual Orientation (if Verbalized by the Patient): Straight or Heterosexual Spiritual care concerns: No Meds Home Medications and Allergies Home Medications Medication Instructions Recorded Confirmed Type esomeprazole magnesium 20 mg 20 mg PO DAILY 08/12/20 10/08/21 History capsule,delayed release (Nexium) loratadine 10 mg tablet (Claritin) 10 mg PO DAILY 08/12/20 10/08/21 History potassium chloride 20 mEq 20 meq PO DAILY 08/12/20 10/08/21 History tablet,extended release(part/cryst) cholecalciferol (vitamin D3) 1,250 1,250 mcg PO WEEKLY #8 caps 09/11/21 10/08/21 Rx mcg (50,000 unit) capsule metformin 1,000 mg tablet 1,000 mg PO BIDWMEAL 3 months #180 09/11/21 10/08/21 Rx tabs amlodipine 5 mg tablet 5 mg PO HS 10/08/21 10/08/21 History escitalopram oxalate 20 mg tablet 20 mg PO HS 10/08/21 10/08/21 History (Lexapro) ketorolac 10 mg tablet 1 tablet PO DAILY 10/08/21 10/08/21 History nitrofurantoin 1 cap PO BID 10/08/21 10/08/21 History monohydrate/macrocrystals 100 mg capsule tamsulosin 0.4 mg capsule 1 cap PO DAILY 10/08/21 10/08/21 History Allergies Allergy/AdvReac Type Severity Reaction Status Date / Time iohexol Allergy Mild Rash Verified 10/08/21 12:48 [From CONTRAST - CT, XRAY] moxifloxacin Allergy Mild Rash Verified 10/08/21 12:48 Exam Const: General: no acute distress Resp: Effort & Inspection: normal respiratory effort GI: Inspection: non-distended GI Palp: No abdominal tenderness and No Guarding due to palpation present (GI) Auscultation: normal bowel sounds Assessment and Plan Assessment and plan (1) Right distal ureteral calculus: Code(s): N20.1 - Calculus of ureter Status: Acute (2) Bilateral renal stones: Code(s): N20.0 - Calculus of kidney Status: Acute Assessment and Plan: cystoscopy, right ureteroscopy with stone extraction, possible laser lithotripsy and stent placement
[2021-10-11] VITALS (7 sets, daily range): BP systolic 110–121; BP diastolic 68–81; PULSE 74–85; RESP 12–18; TEMP 36.8–36.9; O2SAT 93–98
--- NOTE | ~2021-10-11 | XR_ITS ---
XR fluoroscopy no charge 10/11/2021 12:42 Indication: Stone extraction on the right. Cystoscopy. TECHNIQUE: Fluoroscopy used during stone extraction performed by [Leroy Rubio MD] on 10/11. 13 seconds of fluoroscopy with 3 fluoroscopic images images captured. ] FINDINGS: Correlate with procedure note. IMPRESSION: Fluoroscopy used during stone extraction. Please refer to procedural report. Reviewed, dictated and finalized at location A. IMPRESSION: Fluoroscopy used during stone extraction. Please refer to procedura l report.
--- NOTE | 2021-10-11 06:49 | WPDHPUPDATE1 ---
History and Physical Update Update Date/Time: 10/11/21 06:49 History and Physical has been reviewed, including an updated exam of the patient. There are NO changes in the patient's condition. Risks, benefits, and alternatives have been discussed and questions answered. Patient agrees to proceed with procedure.
[2021-10-11 10:01] LABS: Glucose Point of Care 106 mg/dl (65-105)
[2021-10-11] MEDS: LACTATED RINGERS 1,000 ML 30 ML IV CONT (10:24)
--- NOTE | 2021-10-11 11:00 | SUR.PREOP ---
Discussed delay with patient and her dad. Voices understanding.
--- NOTE | 2021-10-11 12:00 | WPDANESEPPF ---
Anes - Initial Pre Proc Eval Procedure: Operation Date: 10/11/21 11:30 Proposed Procedures p Cystoscopy, Right Ureteroscopy, Right Retrograde Pyelogram, Right Stone Extraction, Possible Right Stent Placement, Possible Holmium Laser Procedure - Leroy Rubio MD Date/Time: 10/11/21 12:00 Surgeon: Leroy Rubio MD Pre Op Diagnosis: Rt Ureteral Kidney Stone Patient Data Age: 41 Gender: F Height: 1.63 m Weight: 106.8 kg Last Vital Signs Temp 36.9 C 10/11/21 09:54 Pulse 83 10/11/21 09:54 Resp 16 10/11/21 09:54 BP 121/70 10/11/21 09:54 Pulse Ox 97 10/11/21 09:54 O2 Del Method Room Air 10/11/21 09:54 Allergies Allergy/AdvReac Type Severity Reaction Status Date / Time iohexol Allergy Mild Rash Verified 10/11/21 09:38 [From CONTRAST - CT, XRAY] moxifloxacin Allergy Mild Rash Verified 10/11/21 09:38 Home Medications Medication Instructions Recorded Confirmed Type esomeprazole magnesium 20 mg 20 mg PO DAILY 08/12/20 10/11/21 History capsule,delayed release (Nexium) loratadine 10 mg tablet (Claritin) 10 mg PO DAILY 08/12/20 10/11/21 History potassium chloride 20 mEq 20 meq PO DAILY 08/12/20 10/11/21 History tablet,extended release(part/cryst) cholecalciferol (vitamin D3) 1,250 1,250 mcg PO WEEKLY #8 caps 09/11/21 10/11/21 Rx mcg (50,000 unit) capsule metformin 1,000 mg tablet 1,000 mg PO BIDWMEAL 3 months #180 09/11/21 10/11/21 Rx tabs amlodipine 5 mg tablet 5 mg PO HS 10/08/21 10/11/21 History escitalopram oxalate 20 mg tablet 20 mg PO HS 10/08/21 10/11/21 History (Lexapro) ketorolac 10 mg tablet 1 tablet PO DAILY 10/08/21 10/11/21 History tamsulosin 0.4 mg capsule 1 cap PO DAILY 10/08/21 10/11/21 History Laboratory Tests 10/11/21 09:59 POC Capillary Glucose 106 mg/dl H mg/dl (65-105) Patient hx anesthesia problems: post op nausea/vomiting Family hx anesthesia problems: none Results Review: All pre-operative results and documents have been reviewed as part of the pre-operative evaluation. [facility] Past Medical History Medical History Allergies Anxiety Diabetes GERD (gastroesophageal reflux disease) HTN (hypertension) Kidney stones Morbid obesity ES (obstructive sleep apnea) Surgical History Surgical History H/O lithotripsy H/O: hysterectomy History of extraction of renal calculus Hx of cholecystectomy Family History Family History Mother Hypertension Family history of heart disease in male family member before age 55 Father Family history of elevated blood lipids Other Family history of allergic disorder Social History Social History Smoking status: Never smoker Alcohol intake: never Alcohol use details: RARE Substance use: never Substance use type: does not use Living arrangements: with family Additional living arrangements comments: DAUGHTER Gender identity (if verbalized by the patient): Female Sexual Orientation (if Verbalized by the Patient): Straight or Heterosexual Spiritual care concerns: No Anes - Eval Final PreProcedure Day of Procedure 10/11/21 12:00 Patient weight: morbidly obese Heart: regular rate and rhythm Lungs: clear to auscultation Airway: Mallampati scale class III Neurological: alert and oriented Last oral intake: >/= 8 hours ASA classification: III Emergent: no Anesthetic plan: proceed Anesthesia type and monitoring: general LMA and standard monitoring Results Review: All pre-operative results and documents have been reviewed as part of the pre-operative evaluation. Informed Consent: The patient's anesthetic plan and its attendant risks and benefits were discussed with the patient/family/POA. Questions were solicited and answers pro
[2021-10-11] MEDS: ceFAZolin 2 GM/D5W 50 ML 2 GM/50 ML BAG IVPB (12:11)
[2021-10-11] MEDS: LIDOCAINE HCL 2% GEL UROJET 10 ML PKG MUCOUS MEM (12:27)
[2021-10-11] MEDS: KETOROLAC 30 MG/ML VIAL (*BKC) IV PUSH (12:39)
[2021-10-11 12:51] LABS: Glucose Point of Care 96 mg/dl (65-105)
--- NOTE | 2021-10-11 13:00 | W.PM.PROC2 ---
Procedure Note - Detailed Date of Procedure 10/11/21 Pre-op Diagnosis Rt Ureteral Stone Post-op Diagnosis Same Procedure Performed Cystoscopy, right ureteroscopy with stone extraction x3 Surgeon Leroy Rubio MD Anesthesia General Description of Procedure The patient was brought to the operative suite where she is prepped and draped in a routine sterile fashion while in the dorsal lithotomy position after the uneventful induction of a general LMA anesthetic. A 19F rigid cystoscope was placed in the bladder. The patient had no evidence of urethral stricture or bladder neck contracture. The bladder mucosa was endoscopically normal without hyperemia or neoplasm. There was a single, orthotopic ureteral orifice bilaterally. A 0.035 glidewire was advanced into the right renal pelvis under fluoroscopy. The distal ureter was dilated with an 8F/10F ureteral dilator. Ureteroscopy was undertaken with a short, tapered, semi-rigid ureteroscope and 3 stones was extracted (separately)with ease using a 1.9F Escape disposable stone basket. Due to the ease of this manipulation I opted not to place a ureteral stent. The patient's bladder was emptied and was taken to the recovery room having tolerated this procedure well.
== END 2021-10-11 14:20 | disposition home or self-care (01) ==
PROVIDERS: PCP Internal Medicine; Visit Provider Urology
PROC: (CPT 52352; principal; 2021-10-11 11:30)
DX: N20.1 Calculus of ureter (principal); I10 Essential (primary) hypertension; K21.9 Gastro-esophageal reflux disease without esophagitis; E11.9 Type 2 diabetes mellitus without complications; G47.33 Obstructive sleep apnea (adult) (pediatric); F41.9 Anxiety disorder, unspecified; E66.01 Morbid (severe) obesity due to excess calories; Z68.41 Body mass index [BMI] 40.0-44.9, adult; Z79.84 Long term (current) use of oral hypoglycemic drugs
CPT/HCPCS: 52352; 82365; 82948; 88300; 99199; A9270; C1769; J0690; J1100; J1885; J2250; J2405; J2704; J3010; J7120

== ENCOUNTER 2021-10-30 02:08 | Emergency (ER) | payer BC, SELFPAY ==
[2021-10-30] VITALS (24 sets, daily range): BP systolic 122–163; BP diastolic 69–83; PULSE 78–103; RESP 16–25; TEMP 36.1; O2SAT 92–97
--- NOTE | ~2021-10-30 | XR_ITS ---
EXAMINATION: XR chest 2V DATE: 10/30/2021 02:47 INDICATION: Left chest pain. TECHNIQUE: Frontal and lateral views of the chest were obtained. COMPARISON: CT abdomen and pelvis 10/05/2021 FINDINGS: The chest demonstrates clear lungs without pneumonia, pleural effusion, or pneumothorax. Th e heart size is normal. Surgical clips in the right upper quadrant are likely from cholecystectomy. IMPRESSION: 1. No acute cardiopulmonary disease. Reviewed, dictated and finalized at location A.
--- NOTE | 2021-10-30 02:15 | ECG_ITS ---
Measurements Intervals [place] Rate: 94 P: 58 CO: 178 QRS: 57 QRSD: 96 T: 49 QT: 374 QTc: 469 Interpretive Statements SINUS RHYTHM POSSIBLE LEFT ATRIAL ENLARGEMENT BORDERLINE ECG COMPARED TO ECG 08/31/2020 08:52:55 NO SIGNIFICANT CHANGES Electronically Signed On 10-30-2021 12:33:59 CDT by Nestor Valdez M.D.
[2021-10-30 02:25] LABS: Basophils Absolute Auto 0.1 K/mm3 (0.0-0.1); Basophils Percent Auto 0.9 % (0.2-1.2); Eosinophils Absolute Auto 0.3 K/mm3 (0-0.3); Eosinophils Percent Auto 3.4 % (0-4.4); Hematocrit 39.1 % (37.0-47.0); Hemoglobin 12.1 g/dL (12.0-15.0); Immature Granulocyte Absolute 0.02 K/mm3 (0.00-0.031); Immature Granulocyte Percent A 0.2 % (0-0.5); Lymphocytes Absolute Auto 2.06 K/mm3 (0.9-3.2); Mean Corpuscular HGB Conc 30.9 g/dl (32-36); Mean Corpuscular Hemoglobin 24.5 pg (26-34); Mean Corpuscular Volume 79.1 fl (80-100); Mean Platelet Volume 9.2 fl (7.4-10.4); Monocytes Absolute Auto 0.9 K/mm3 (0.1-0.6); Monocytes Percent Auto 9.9 % (2.6-8.5); Neutrophils Absolute Auto 5.3 K/mm3 (1.3-6.7); Neutrophils Percent Auto 61.6 % (45.5-73.1); Platelet Count Result 270 k/mm3 (150-375); Red Blood Count 4.94 M/mm3 (4.2-5.4); Red Cell Distribution Width 17.9 % (11.5-14.5); White Blood Count 8.6 K/mm3 (4.5-10.0)
[2021-10-30 02:38] LABS: Alanine Aminotransferase 59 U/L (6-35); Alkaline Phosphatase 68 U/L (38-126); Anion Gap 17 mmol/L (8-16); Aspartate Amino Transferase 93 U/L (14-36); Bilirubin,Total 0.7 mg/dL (0.2-1.3); Blood Urea Nitrogen 13 mg/dL (7-17); Calcium 9.4 mg/dL (8.4-10.2); Carbon Dioxide 20 mmol/L (22-30); Chloride 102 mmol/L (98-107); Estimated CRCL calculation 93 ml/min; Estimated Glomerular Filt Rate > 60; Glucose 115 mg/dL (65-110); Lipase 189 U/L (23-300); Potassium 3.8 mmol/L (3.4-5.0); Sodium 139 mmol/L (137-145)
[2021-10-30 02:41] LABS: Prothrombin Time 13.1 Seconds (11.1-14.7)
[2021-10-30 02:42] LABS: Partial Thromboplastin Time 31.5 SECONDS (22.3-36.8)
[2021-10-30 02:49] LABS: Troponin I < 0.012 ng/mL (0.000-0.034)
[2021-10-30] MEDS: ASPIRIN 81 MG CHEWABLE TABLET 324 MG PO (03:25)
[2021-10-30] MEDS: MORPHINE SULFATE (*CRX) 4 MG/ML INJ IV PUSH (03:25)
--- NOTE | 2021-10-30 03:54 | ED.CHESTPAIN ---
HPI - Chest Pain General Chief Complaint: Chest Pain Stated Complaint: CHEST PAIN Time Seen by Provider: 10/30/21 02:44 History of Present Illness HPI narrative: Patient is a 41-year-old female who presents ER with left-sided chest pain. Reports tonight she was laying in bed and felt like her blood pressure was high. She went to check it and she noticed that it was 155 systolic. She reports she then noticed that she was having some pain on the left side of her chest. Nonradiating. No aggravating or alleviating factors. No pain with deep breath. No hemoptysis. No lower extremity swelling or cramping. Denies fevers or chills or sweats. No history of coronary disease. Related Data Home Medications Medication Instructions Recorded Confirmed esomeprazole magnesium 20 mg 20 mg PO DAILY 08/12/20 10/11/21 capsule,delayed release (Nexium) loratadine 10 mg tablet (Claritin) 10 mg PO DAILY 08/12/20 10/11/21 potassium chloride 20 mEq 20 meq PO DAILY 08/12/20 10/11/21 tablet,extended release(part/cryst) amlodipine 5 mg tablet 5 mg PO HS 10/08/21 10/11/21 escitalopram oxalate 20 mg tablet 20 mg PO HS 10/08/21 10/11/21 (Lexapro) ketorolac 10 mg tablet 1 tablet PO DAILY 10/08/21 10/11/21 tamsulosin 0.4 mg capsule 1 cap PO DAILY 10/08/21 10/11/21 Allergies Allergy/AdvReac Type Severity Reaction Status Date / Time iohexol Allergy Mild Rash Verified 10/30/21 02:57 [From CONTRAST - CT, XRAY] moxifloxacin Allergy Mild Rash Verified 10/30/21 02:57 Review of Systems Review of Systems: All systems reviewed & are unremarkable except as noted in HPI and below Constitutional: Constitutional: Denies chills, Denies fatigue and Denies fever(s) ENT: Denies nasal congestion and Denies sore throat Cardiovascular: Cardiovascular: Reports chest pain, Denies rapid heart rate and Denies radiating jaw, neck or arm pain Respiratory: Respiratory: Denies cough and Denies dyspnea Gastrointestinal: Gastrointestinal: Denies abdominal pain, Denies nausea and Denies vomiting Musculoskeletal: Musculoskeletal: Denies back pain and Denies myalgias [facility] Past Medical History Medical History Allergies Anxiety Diabetes GERD (gastroesophageal reflux disease) HTN (hypertension) Kidney stones Morbid obesity ES (obstructive sleep apnea) Surgical History Surgical History H/O lithotripsy H/O: hysterectomy History of extraction of renal calculus Hx of cholecystectomy Family History Family History Mother Hypertension Family history of heart disease in male family member before age 55 Father Family history of elevated blood lipids Other Family history of allergic disorder Social History Social History Smoking status: Never smoker Alcohol intake: never Alcohol use details: RARE Substance use: never Substance use type: does not use Additional living arrangements comments: DAUGHTER Gender identity (if verbalized by the patient): Female Sexual Orientation (if Verbalized by the Patient): Straight or Heterosexual Spiritual care concerns: No Exam Narrative: GENERAL: Well-appearing, well-nourished, and in no acute distress. HEAD: Normocephalic, atraumatic. EYES: PERRL and EOMI. NECK: Supple. CHEST: Clear to auscultation. No respiratory distress. No reproducible chest discomfort. HEART: Regular rate and rhythm. Normal peripheral pulses. ABDOMEN: Soft, nontender, nondistended. EXTREMITIES: Normal range of motion. No edema. SKIN: Warm, dry, no rash. NEURO: Alert and oriented x3. PSYCH: Mildly anxious with normal thought content. Course Course Emergency Course: Patient resting comfortably. Troponin negative x2. D-dimer negative. Discharge home. Vital Signs Vital signs: Vit
[2021-10-30 04:27] LABS: D Dimer 0.39 ug/mL (<0.48)
[2021-10-30 06:09] LABS: Troponin I < 0.012 ng/mL (0.000-0.034)
== END 2021-10-30 07:23 | disposition home or self-care (01) ==
PROVIDERS: Emergency Provider Emergency Medicine; PCP Internal Medicine
DX: R07.89 Other chest pain (principal); F41.9 Anxiety disorder, unspecified; E11.9 Type 2 diabetes mellitus without complications; K21.9 Gastro-esophageal reflux disease without esophagitis; I10 Essential (primary) hypertension; Z87.442 Personal history of urinary calculi
CPT/HCPCS: 36415; 71046; 80053; 83690; 84484; 85025; 85380; 85610; 85730; 93005; 96374; 99284; A9270; J2270

== ENCOUNTER 2021-11-02 01:04 | Emergency (ER) | payer BC, SELFPAY ==
[2021-11-02] VITALS (43 sets, daily range): BP systolic 116–141; BP diastolic 72–91; PULSE 72–101; RESP 12–29; TEMP 36.2; O2SAT 91–100
[2021-11-02 03:15] LABS: Glucose Point of Care 108 mg/dl (65-105)
--- NOTE | 2021-11-02 06:11 | ED.GENADULT ---
HPI - General Adult General Chief complaint: Recheck/Abnormal Lab/Rx Stated complaint: HTN Time Seen by Provider: 11/02/21 03:52 History of Present Illness HPI narrative: This is a 41-year-old female history of anxiety and hypertension presenting ED because of her blood pressure. Patient woke up with her heart racing with feelings of intense anxiety. She checked her blood pressure and it was 185/110. Her family practice physician and told her that she needs to go to the emergency department if ever goes above 170. The patient only other complaint is a frontal headache which is her typical headache. The patient has no other symptoms. The patient was evaluated here several days ago for similar complaints and had negative chest pain workup that time. Related Data Home Medications Medication Instructions Recorded Confirmed esomeprazole magnesium 20 mg 20 mg PO DAILY 08/12/20 10/11/21 capsule,delayed release (Nexium) loratadine 10 mg tablet (Claritin) 10 mg PO DAILY 08/12/20 10/11/21 potassium chloride 20 mEq 20 meq PO DAILY 08/12/20 10/11/21 tablet,extended release(part/cryst) amlodipine 5 mg tablet 5 mg PO HS 10/08/21 10/11/21 escitalopram oxalate 20 mg tablet 20 mg PO HS 10/08/21 10/11/21 (Lexapro) ketorolac 10 mg tablet 1 tablet PO DAILY 10/08/21 10/11/21 tamsulosin 0.4 mg capsule 1 cap PO DAILY 10/08/21 10/11/21 Allergies Allergy/AdvReac Type Severity Reaction Status Date / Time iohexol Allergy Mild Rash Verified 11/02/21 01:51 [From CONTRAST - CT, XRAY] moxifloxacin Allergy Mild Rash Verified 11/02/21 01:51 Review of Systems Review of Systems: CONSTITUTIONAL: Denies night sweats. EYES: No eye pain ENT: Denies rhinorrhea CARDIOVASCULAR: Denies palpitations RESPIRATORY: Denies hemoptysis GASTROINTESTINAL: Denies hematemesis GENITOURINARY: Denies hematuria. SKIN: Denies rash MUSCULOSKELETAL: Denies myalgia. NEUROLOGIC: Denies weakness. PSYCHIATRIC: Denies delusions PMFSH Past Medical History Medical History Allergies Anxiety Diabetes GERD (gastroesophageal reflux disease) HTN (hypertension) Kidney stones Morbid obesity ES (obstructive sleep apnea) Surgical History Surgical History H/O lithotripsy H/O: hysterectomy History of extraction of renal calculus Hx of cholecystectomy Family History Family History Mother Hypertension Family history of heart disease in male family member before age 55 Father Family history of elevated blood lipids Other Family history of allergic disorder Social History Social History Smoking status: Never smoker Alcohol intake: never Alcohol use details: RARE Substance use: never Substance use type: does not use Additional living arrangements comments: DAUGHTER Gender identity (if verbalized by the patient): Female Sexual Orientation (if Verbalized by the Patient): Straight or Heterosexual Spiritual care concerns: No Exam Narrative: APPEARANCE: No apparent distress. patient appears very anxious Head atraumatic. EYES: PERRLA/EOMI, NOSE: Normal no drainage NECK: Supple, Trachea midline RESPIRATORY: CTAB, No increased work of breathing. CARDIOVASCULAR: S1S2 appreciated ABDOMINAL: Soft, nontender, nondistended, MUSCULOSKELETAl: No obvious deformities NEURO: Alert. Cranial nerves 2-12 grossly intact. Sensation light touch, motor function cerebellar function intact for 4 extremities. Gait exam was normal. SKIN:: Warm, dry. Normal color PSYCHIATRIC: Normal affect Course Vital Signs Vital signs: Vital Signs Temperature 97.2 F L 11/02/21 01:52 Pulse Rate 92 11/02/21 01:52 Respiratory Rate 20 11/02/21 01:52 Blood Pressure 133/81 11/02/21 01:52 Pulse Oximetry 97 11/02/21 01:52 Oxygen Delive
[2021-11-02] MEDS: IBUPROFEN 400 MG TABLET 800 MG PO (06:29)
[2021-11-02] MEDS: ACETAMINOPHEN 500 MG TABLET 1000 MG PO (06:29)
[2021-11-02] MEDS: LORazepam (*CRX) 1 MG TABLET PO (06:30)
== END 2021-11-02 08:52 | disposition home or self-care (01) ==
PROVIDERS: Emergency Provider Emergency Medicine; PCP Internal Medicine
DX: F41.9 Anxiety disorder, unspecified (principal); R51.9 Headache, unspecified; I10 Essential (primary) hypertension; E11.9 Type 2 diabetes mellitus without complications; K21.9 Gastro-esophageal reflux disease without esophagitis; E66.01 Morbid (severe) obesity due to excess calories; Z68.39 Body mass index [BMI] 39.0-39.9, adult; G47.33 Obstructive sleep apnea (adult) (pediatric); Z87.442 Personal history of urinary calculi; Z90.710 Acquired absence of both cervix and uterus; Z79.84 Long term (current) use of oral hypoglycemic drugs
CPT/HCPCS: 82948; 99283; A9270

== ENCOUNTER 2021-12-26 09:15 | Outpatient (RCR) | payer BC, SELFPAY | END 2022-01-20 10:20 | disposition home or self-care (01) | LOC: ANHDMC 09:15 | PROVIDERS: PCP Internal Medicine; Visit Provider Nurse Practitioner | DX: E11.9 Type 2 diabetes mellitus without complications (principal); Z71.89 Other specified counseling | CPT/HCPCS: G0108 ==

== ENCOUNTER 2021-12-31 10:48 | Outpatient (CLI) | payer BC, SELFPAY ==
--- NOTE | ~2021-12-31 | XR_ITS ---
EXAM: XR sacroiliac joints min 3V DATE: 12/31/2021 11:06 HISTORY: R76.8 - Other specified abnormal immunological findings i... . COMPARISON: CT 10/05/2021. FINDINGS: Normal mineralization. No fracture or dislocation. No lytic or blastic lesion. Mild degene rative change in the lumbar spine, bilateral hip osteoarthritis, bilateral SI joint degenerative sims ge, and mild osteitis pubis. No erosion or periosteal change. Soft tissues within normal limits. IMPRESSION: Mild degenerative changes, detailed above. Reviewed, dictated and finalized at location K.
--- NOTE | ~2021-12-31 | XR_ITS ---
XR lumbar spine 2-3V 12/31/2021 11:06 Indication: Low back pain Procedure: 3 views lumbar spine Comparison: No prior studies for comparison. Findings: Vertebral body heights are maintained. There is facet hypertrophy at L4-5 and L5-S1. No fra cture, subluxation or spondylolisthesis. There are bilateral renal stones. Pedicles intact. Sacral fo ramen are symmetric. Impression: 1: Bilateral nephrolithiasis. 2: No significant abnormality of the lumbar spine. Reviewed, dictated and finalized at location A. Impression: 1: Bilateral nephrolithiasis. 2: No significant abnormality of the lumbar spine.
== END 2021-12-31 10:49 | disposition home or self-care (01) ==
LOC: ANHIMG 10:50
PROVIDERS: PCP Internal Medicine; Visit Provider Internal Medicine
DX: R76.8 Other specified abnormal immunological findings in serum (principal); L40.9 Psoriasis, unspecified; N20.0 Calculus of kidney
CPT/HCPCS: 72100; 72202

== ENCOUNTER 2022-01-15 07:30 | Emergency (ER) | payer BC, SELFPAY ==
--- NOTE | ~2022-01-15 | XR_ITS ---
EXAMINATION: XR chest 2V DATE: 01/15/2022 08:11 INDICATION: Left chest and shoulder pain. TECHNIQUE: Frontal and lateral views of the chest were obtained. COMPARISON: Chest 2 views 10/30/2021 FINDINGS: The chest demonstrates clear lungs without pneumonia, pleural effusion, or pneumothorax. Th e heart size is normal. IMPRESSION: 1. No acute cardiopulmonary disease. Reviewed, dictated and finalized at location B.
--- NOTE | 2022-01-15 07:31 | ECG_ITS ---
Measurements Intervals [place] Rate: 81 P: 63 VT: 166 QRS: 73 QRSD: 98 T: 55 QT: 381 QTc: 444 Interpretive Statements SINUS RHYTHM WITH OCCASIONAL SUPRAVENTRICULAR PREMATURE COMPLEXES BORDERLINE ECG COMPARED TO ECG 10/30/2021 02:17:33 NO SIGNIFICANT CHANGES Electronically Signed On 01-15-2022 10:21:31 CDT by Nikita Coleman M.D.
[2022-01-15 07:35] VITALS: BP 149/90; PULSE 79; RESP 18; TEMP 36.6; O2SAT 97
--- NOTE | 2022-01-15 07:40 | ED.CHESTPAIN ---
HPI - Chest Pain General Chief Complaint: Chest Pain Stated Complaint: Left shoulder/arm pain Time Seen by Provider: 01/15/22 07:39 Source: patient Mode of arrival: ambulatory Limitations: no limitations History of Present Illness HPI narrative: 41 years old white female with Breath this morning with sharp pain at the left upper back. Worse with certain position. Patient been having neck pain for the last 3 to 4 weeks, been to chiropractor with a lot of massage and adjustment, also planning to go to her chiropractor today. Patient denies chest pain or shortness of breath. History of allergy, acid reflux and anxiety. Does not smoke or drink or uses drugs. Family history of coronary artery disease. Related Data Home Medications Medication Instructions Recorded Confirmed esomeprazole magnesium 20 mg 20 mg PO DAILY 08/12/20 11/07/21 capsule,delayed release (Nexium) loratadine 10 mg tablet (Claritin) 10 mg PO DAILY 08/12/20 11/07/21 potassium chloride 20 mEq 20 meq PO DAILY 08/12/20 11/07/21 tablet,extended release(part/cryst) amlodipine 5 mg tablet 5 mg PO HS 10/08/21 11/07/21 escitalopram oxalate 20 mg tablet 20 mg PO HS 10/08/21 11/07/21 (Lexapro) ketorolac 10 mg tablet 1 tablet PO DAILY 10/08/21 11/07/21 tamsulosin 0.4 mg capsule 0.4 mg PO DAILY PRN 11/07/21 11/07/21 Allergies Allergy/AdvReac Type Severity Reaction Status Date / Time iohexol Allergy Mild Rash Verified 01/15/22 07:42 [From CONTRAST - CT, XRAY] moxifloxacin Allergy Mild Rash Verified 01/15/22 07:42 Review of Systems Review of Systems: All systems reviewed & are unremarkable except as noted in HPI and below PMFSH Past Medical History Medical History Allergies ALAN positive Anxiety Diabetes GERD (gastroesophageal reflux disease) HTN (hypertension) Kidney stones Morbid obesity ES (obstructive sleep apnea) Scalp psoriasis Surgical History Surgical History H/O lithotripsy H/O: hysterectomy History of extraction of renal calculus Hx of cholecystectomy Family History Family History Mother Hypertension Family history of heart disease in male family member before age 55 Father Family history of elevated blood lipids Other Family history of allergic disorder Social History Social History Smoking status: Never smoker Alcohol intake: never Alcohol use details: RARE Substance use: never Substance use type: does not use Additional living arrangements comments: DAUGHTER Gender identity (if verbalized by the patient): Female Sexual Orientation (if Verbalized by the Patient): Straight or Heterosexual Spiritual care concerns: No Exam Narrative: General appearance: Well-developed, well-nourished Skin: Normal color Head: Normocephalic, nontraumatic Eyes: Clear conjunctiva ENT: Oropharynx normal, ears normal, nose normal Neck: Supple, nontender Chest and respiratory: Airway patent, no respiratory distress, no accessory muscle use Heart: Regular rate/rhythm Abdomen: Soft, nontender, no organomegaly, quiet bowel sounds Vascular: Normal peripheral pulses, normal capillary refill. Musculoskeletal: Normal range of motion, mild tenderness left upper back with deep palpation, no bruises, no mass no rash Neurologic: Alert and oriented ?3, [employer] is normal as tested, no gross motor deficit Course Vital Signs Vital signs: Vital Signs Temperature 36.6 C 01/15/22 07:35 Pulse Rate 79 01/15/22 07:35 Respiratory Rate 18
[2022-01-15 08:04] LABS: Basophils Absolute Auto 0.1 K/mm3 (0.0-0.1); Basophils Percent Auto 1.3 % (0.2-1.2); Eosinophils Absolute Auto 0.3 K/mm3 (0-0.3); Eosinophils Percent Auto 4.6 % (0-4.4); Hematocrit 36.9 % (37.0-47.0); Hemoglobin 11.5 g/dL (12.0-15.0); Immature Granulocyte Absolute 0.02 K/mm3 (0.00-0.031); Immature Granulocyte Percent A 0.3 % (0-0.5); Lymphocytes Absolute Auto 1.46 K/mm3 (0.9-3.2); Lymphocytes Percent Auto 22.9 % (18.3-44.2); Mean Corpuscular HGB Conc 31.2 g/dl (32-36); Mean Corpuscular Hemoglobin 24.6 pg (26-34); Mean Platelet Volume 9.3 fl (7.4-10.4); Monocytes Absolute Auto 0.7 K/mm3 (0.1-0.6); Monocytes Percent Auto 11.3 % (2.6-8.5); Neutrophils Absolute Auto 3.8 K/mm3 (1.3-6.7); Neutrophils Percent Auto 59.6 % (45.5-73.1); Platelet Count Result 218 k/mm3 (150-375); Red Blood Count 4.67 M/mm3 (4.2-5.4); Red Cell Distribution Width 15.3 % (11.5-14.5); White Blood Count 6.4 K/mm3 (4.5-10.0)
[2022-01-15 08:13] LABS: Alanine Aminotransferase 20 U/L (6-35); Albumin Level 4.3 g/dL (3.5-5.1); Alkaline Phosphatase 71 U/L (38-126); Anion Gap 12 mmol/L (8-16); Aspartate Amino Transferase 27 U/L (14-36); Bilirubin,Total 0.6 mg/dL (0.2-1.3); Blood Urea Nitrogen 12 mg/dL (7-17); Calcium 8.8 mg/dL (8.4-10.2); Carbon Dioxide 26 mmol/L (22-30); Chloride 101 mmol/L (98-107); Estimated CRCL calculation 91 ml/min; Estimated Glomerular Filt Rate > 60; Glucose 108 mg/dL (65-110); Lipase 160 U/L (23-300); Potassium 3.9 mmol/L (3.4-5.0); Sodium 139 mmol/L (137-145)
[2022-01-15 08:17] LABS: INR 1.1; Partial Thromboplastin Time 31.7 SECONDS (22.3-36.8); Prothrombin Time 14.2 Seconds (11.1-14.7)
[2022-01-15 08:19] LABS: D Dimer 0.43 ug/mL (<0.48)
[2022-01-15 08:28] LABS: Troponin I < 0.012 ng/mL (0.000-0.034)
[2022-01-15 08:57] VITALS: BP 131/82; PULSE 76; RESP 18; O2SAT 96
== END 2022-01-15 08:59 | disposition home or self-care (01) ==
PROVIDERS: Emergency Provider Emergency Medicine; PCP Internal Medicine
DX: M54.6 Pain in thoracic spine (principal); E11.9 Type 2 diabetes mellitus without complications; I10 Essential (primary) hypertension; K21.9 Gastro-esophageal reflux disease without esophagitis; G47.33 Obstructive sleep apnea (adult) (pediatric); E66.01 Morbid (severe) obesity due to excess calories; Z68.37 Body mass index [BMI] 37.0-37.9, adult; F41.9 Anxiety disorder, unspecified; Z87.442 Personal history of urinary calculi; Z90.710 Acquired absence of both cervix and uterus
CPT/HCPCS: 36415; 71046; 80053; 83690; 84484; 85025; 85380; 85610; 85730; 93005; 99284

== ENCOUNTER 2022-01-18 08:05 | Emergency (ER) | payer BC, SELFPAY ==
[2022-01-18 08:10] VITALS: BP 130/81; PULSE 82; RESP 20; TEMP 36.7; O2SAT 100
--- NOTE | 2022-01-18 08:17 | ED.GENADULT ---
HPI - General Adult General Chief complaint: Neck Pain/Injury Stated complaint: pinched nerve in neck Time Seen by Provider: 01/18/22 08:18 Source: patient Mode of arrival: ambulatory Limitations: no limitations History of Present Illness HPI narrative: 41-year-old female presents with complaint of pain to left shoulder blade radiating into left side of neck and down left arm for several days. Denies injury. States that she woke up with this pain. Was seen at ER to rule out cardiac origin. Was given Flexeril and naproxen at ER and reports no relief of pain. States that she is also using ice, heat, Biofreeze and stretching at home. Is seeing her chiropractor without relief. Was told by her brother who is a physical therapist that steroids may help. Patient has not called her primary care physician she is ambulatory with steady gait. She is requesting a prescription for steroids and stronger pain medication. All systems reviewed and negative except as noted above. Related Data Home Medications Medication Instructions Recorded Confirmed esomeprazole magnesium 20 mg 20 mg PO DAILY 08/12/20 11/07/21 capsule,delayed release (Nexium) loratadine 10 mg tablet (Claritin) 10 mg PO DAILY 08/12/20 11/07/21 potassium chloride 20 mEq 20 meq PO DAILY 08/12/20 11/07/21 tablet,extended release(part/cryst) amlodipine 5 mg tablet 5 mg PO HS 10/08/21 11/07/21 escitalopram oxalate 20 mg tablet 20 mg PO HS 10/08/21 11/07/21 (Lexapro) ketorolac 10 mg tablet 1 tablet PO DAILY 10/08/21 11/07/21 Allergies Allergy/AdvReac Type Severity Reaction Status Date / Time iohexol Allergy Mild Rash Verified 01/18/22 08:25 [From CONTRAST - CT, XRAY] moxifloxacin Allergy Mild Rash Verified 01/18/22 08:25 Review of Systems Review of Systems: CONSTITUTIONAL: Denies fever, chills, or sweats. EYES: Denies visual changes, redness, or discharge. ENT: Denies rhinorrhea, congestion, sore throat, or otalgia. CARDIOVASCULAR: Denies chest pain, palpitations, or edema. RESPIRATORY: Denies cough or dyspnea. GASTROINTESTINAL: Denies abdominal pain, nausea, vomiting, or diarrhea. GENITOURINARY: Denies dysuria or hematuria. SKIN: Denies rash or itching. MUSCULOSKELETAL: Reports left upper back pain left neck pain radiating to left upper arm. NEUROLOGIC: Denies headache, numbness, or weakness. PSYCHIATRIC: Denies anxiety or depression. All other systems reviewed are negative, except as documented in HPI. [facility] Past Medical History Medical History Allergies ALAN positive Anxiety Diabetes GERD (gastroesophageal reflux disease) HTN (hypertension) Kidney stones Morbid obesity ES (obstructive sleep apnea) Scalp psoriasis Surgical History Surgical History H/O lithotripsy H/O: hysterectomy History of extraction of renal calculus Hx of cholecystectomy Family History Family History Mother Hypertension Family history of heart disease in male family member before age 55 Father Family history of elevated blood lipids Other Family history of allergic disorder Social History Social History Smoking status: Never smoker Alcohol intake: never Alcohol use details: RARE Substance use: never Substance use type: does not use Additional living arrangements comments: DAUGHTER Gender identity (if verbalized by the patient): Female Sexual Orientation (if Verbalized by the Patient): Straight or Heterosexual Spiritual care concerns: No Comments At time of signature, agree with nursing past medical, surgical, social and family history. There is no relevant family history pertinent to the presenting complaint. Exam Narrative: GENERAL: This is a well-nourished, well-developed patient, in no apparent distress. HEAD: normocephalic, atraum
== END 2022-01-18 08:41 | disposition home or self-care (01) ==
PROVIDERS: Emergency Provider Nurse Practitioner Family; PCP Internal Medicine
DX: M54.12 Radiculopathy, cervical region (principal); E11.9 Type 2 diabetes mellitus without complications; K21.9 Gastro-esophageal reflux disease without esophagitis; I10 Essential (primary) hypertension; E66.01 Morbid (severe) obesity due to excess calories; Z68.37 Body mass index [BMI] 37.0-37.9, adult; G47.33 Obstructive sleep apnea (adult) (pediatric)
CPT/HCPCS: 99213; G0463

== ENCOUNTER 2022-02-06 12:58 | Outpatient (RCR) | payer BC, SELFPAY | END 2022-05-05 14:34 | disposition home or self-care (01) | LOC: ANHDMC 12:58 | PROVIDERS: PCP Internal Medicine; Visit Provider Nurse Practitioner | DX: E11.9 Type 2 diabetes mellitus without complications (principal); Z71.89 Other specified counseling | CPT/HCPCS: G0108 ==

== ENCOUNTER 2022-02-08 10:23 | Outpatient (CLI) | payer BC, SELFPAY ==
--- NOTE | ~2022-02-08 | XR_ITS ---
XR abdomen/kub 1V DATE: 02/08/2022 10:39 INDICATION: Right ureteral stone follow-up TECHNIQUE: AP projection, 2 views COMPARISON: 10/05/[address] abdomen pelvis 10/02/2021 KUB KUB FINDINGS: There is interval resolution of distal right ureteral calcified calculi since 10/02/2021. Persistent bilateral nephrolithiasis. Status post cholecystectomy. The psoas shadows are intact. No visceromegaly is detected. No evidence of bowel obstruction. IMPRESSION: Resolution of distal right ureteral calcified calculi since 10/02/2021 9 bilateral nephroli thiasis Reviewed, dictated and finalized at Location A. Reviewed, dictated and finalized at location A. GER COMPLETIONS IMPRESSION: Resolution of distal right ureteral calcified calculi since 2 9 bilateral nephrolithiasis
== END 2022-02-08 10:24 | disposition home or self-care (01) ==
LOC: ANHIMG 10:24
PROVIDERS: PCP Internal Medicine; Visit Provider Urology
DX: N20.1 Calculus of ureter (principal)
CPT/HCPCS: 74018

== ENCOUNTER 2022-08-07 17:06 | Outpatient (CLI) | payer BC, SELFPAY ==
--- NOTE | ~2022-08-07 | XR_ITS ---
EXAMINATION: XR abdomen/kub 1V DATE: 08/07/2022 17:19 INDICATION: Kidney stones. TECHNIQUE: A supine view of the abdomen on 2 radiographs was obtained. COMPARISON: Abdomen radiographs 02/08/2022, CT abdomen and pelvis 10/05/2021 FINDINGS: There are no dilated loops of bowel. Surgical clips in the right upper quadrant are likely from cholecystectomy. There are greater than 10 stones in right kidney measuring up to 6 mm. There ar e least 4 stones in left kidney measuring up to 9 mm. There are phleboliths in the pelvis. IMPRESSION: 1. Bilateral kidney stones. Reviewed, dictated and finalized at location E. IMPRESSION: 1. Bilateral kidney stones.
== END 2022-08-07 17:07 | disposition home or self-care (01) ==
LOC: ANHIMG 17:09
PROVIDERS: PCP Internal Medicine; Visit Provider Urology
DX: Z87.442 Personal history of urinary calculi (principal); N20.0 Calculus of kidney
CPT/HCPCS: 74018

== ENCOUNTER 2022-08-19 19:20 | Emergency (ER) | payer BC, SELFPAY ==
[2022-08-19 19:24] VITALS: BP 135/75; PULSE 92; RESP 20; TEMP 36.2; O2SAT 96
--- NOTE | 2022-08-19 19:24 | ED.URI ---
HPI - URI/Sore Throat General Chief Complaint: Upper Respiratory Infection Stated Complaint: cold flu Source: patient and RN notes reviewed Limitations: no limitations History of Present Illness HPI Narrative: Patient is a 42-year-old female who presents to the [facility] with multiple complaints. She has complaints of left ear pain, fever, nasal congestion/drainage for the past 5 days. Patient states that she had fevers Thursday-Thursday, but has not had any the last couple days. She denies sore throat, difficulty breathing, chest pain. She reports infrequent nonproductive cough. Denies abdominal pain, nausea, vomiting. Related Data Home Medications Medication Instructions Recorded Confirmed esomeprazole magnesium 20 mg 20 mg PO DAILY 08/12/20 08/19/22 capsule,delayed release (Nexium) loratadine 10 mg tablet (Claritin) 10 mg PO DAILY 08/12/20 08/19/22 amlodipine 5 mg tablet 5 mg PO HS 10/08/21 08/19/22 Allergies Allergy/AdvReac Type Severity Reaction Status Date / Time iohexol Allergy Mild Rash Verified 08/19/22 19:27 [From CONTRAST - CT, XRAY] moxifloxacin Allergy Mild Rash Verified 08/19/22 19:27 Review of Systems Review of Systems: CONSTITUTIONAL: Denies fever, chills, or sweats. EYES: Denies visual changes, redness, or discharge. ENT: Reports nasal congestion and drainage; denies sore throat. Reports ear pain. CARDIOVASCULAR: Denies chest pain, palpitations, or edema. RESPIRATORY: Reports cough, but denies dyspnea. GASTROINTESTINAL: Denies abdominal pain, nausea, vomiting, or diarrhea. GENITOURINARY: Denies dysuria or hematuria. SKIN: Denies rash or itching. MUSCULOSKELETAL: Denies back pain, joint pain, or myalgia. NEUROLOGIC: Denies headache, numbness, or weakness. Pertinent positives per HPI. [facility] Past Medical History Medical History Allergies ALAN positive Anxiety Diabetes GERD (gastroesophageal reflux disease) HTN (hypertension) Kidney stones Morbid obesity ES (obstructive sleep apnea) Scalp psoriasis Surgical History Surgical History H/O lithotripsy H/O: hysterectomy History of extraction of renal calculus Hx of cholecystectomy Family History Family History Mother Hypertension Family history of heart disease in male family member before age 55 Father Family history of elevated blood lipids Other Family history of allergic disorder Social History Social History Smoking status: Never smoker Alcohol intake: never Alcohol use details: RARE Substance use: never Substance use type: does not use Lack of Transportation: No Lack of Food: Never True Current Housing: I Have Housing Concerned About Future Housing: No Difficulty Paying Gas/Electric Bills: No Difficulty Paying for Meds: No Currently Unemployed: No Education: Bachelor's Degree Difficulty w/ Childcare or Family Care: No Living arrangements: with family Additional living arrangements comments: DAUGHTER Gender identity (if verbalized by the patient): Female Sexual Orientation (if Verbalized by the Patient): Straight or Heterosexual Spiritual care concerns: No Comments At the time of my signature, I reviewed and agree with the nursing past medical, surgical, social, and family history. There is no relevant family history pertinent to the patient complaint. Exam Narrative: GENERAL: This is a well-nourished, well-developed patient, in no apparent distress. HEAD: normocephalic, atraumatic. EYES: Sclera clear/white. Vision is grossly intact. EARS: External ears normal, auditory canals clear and without drainage, Right TMs normal without perforation. Left TM erythematous without performation. Hearing grossly intact. NOSE: External nose. + congestion and rhin
[2022-08-19 19:28] VITALS: BP 135/75; PULSE 92; RESP 20; TEMP 36.2; O2SAT 96
== END 2022-08-19 19:34 | disposition home or self-care (01) ==
PROVIDERS: Emergency Provider Nurse Practitioner; PCP Internal Medicine
DX: H66.92 Otitis media, unspecified, left ear (principal); E11.9 Type 2 diabetes mellitus without complications; K21.9 Gastro-esophageal reflux disease without esophagitis; E66.01 Morbid (severe) obesity due to excess calories; Z68.39 Body mass index [BMI] 39.0-39.9, adult; L40.9 Psoriasis, unspecified
CPT/HCPCS: 99213; G0463

== ENCOUNTER 2022-11-07 19:43 | Emergency (ER) | payer BC, SELFPAY ==
--- NOTE | 2022-11-07 19:47 | ED.SKABFB ---
HPI - Skin/Abscess/Foreign Bdy General Chief complaint: Skin/Abscess/Foreign Body Stated complaint: Cellulitis Time Seen by Provider: 11/07/22 19:47 Source: patient and RN notes reviewed History of Present Illness HPI narrative: 42 yo F presents to urgent care with complaints of a tender, red, area to left mcallister that she noticed today. Pt states she has psoriasis and she has lesions to her legs but those are itchy. Pt states she has never had a lesion that was painful. Denies any fevers, chills, or vomiting. Related Data Home Medications Medication Instructions Recorded Confirmed esomeprazole magnesium 20 mg 20 mg PO DAILY 08/12/20 11/07/22 capsule,delayed release (Nexium) loratadine 10 mg tablet (Claritin) 10 mg PO DAILY 08/12/20 11/07/22 amlodipine 5 mg tablet 5 mg PO HS 10/08/21 11/07/22 Allergies Allergy/AdvReac Type Severity Reaction Status Date / Time iodine Allergy Mild Rash Verified 08/21/22 09:39 iohexol Allergy Mild Rash Verified 08/21/22 09:39 [From CONTRAST - CT, XRAY] moxifloxacin Allergy Mild Rash Verified 08/21/22 09:39 Review of Systems Review of Systems: CONSTITUTIONAL: Denies fever, chills, or sweats. EYES: Denies visual changes, redness, or discharge. ENT: Denies otalgia and sore throat CARDIOVASCULAR: Denies chest pain, palpitations, or edema. RESPIRATORY: Denies cough or dyspnea. GASTROINTESTINAL: Denies abdominal pain, nausea, vomiting, or diarrhea. GENITOURINARY: Denies dysuria or hematuria. SKIN: Tender rash to left mcallister MUSCULOSKELETAL: Denies back pain, joint pain, or myalgia. NEUROLOGIC: Denies headache, numbness, or weakness. Pertinent positives per HPI. [facility] Past Medical History Medical History (Updated 11/07/22 @ 19:54 by Christelle Anguiano, JUVENTINO) Allergies ALAN positive Anxiety Bilateral renal stones Breast abscess Diabetes Elevated glucose level Encounter for surgical aftercare following surgery on the skin and subcutaneous tissue Encounter to establish care GERD (gastroesophageal reflux disease) HTN (hypertension) Kidney stones Left ureteral injury Morbid obesity ES (obstructive sleep apnea) Post-op pain Right distal ureteral calculus Scalp psoriasis Vitamin D deficiency Surgical History Surgical History (Reviewed 08/21/22 @ 09:40 by Genevieve Quarles [facility]) H/O lithotripsy H/O: hysterectomy History of extraction of renal calculus Hx of cholecystectomy Family History Family History (Reviewed 08/21/22 @ 09:40 by Genevieve Quarles [facility]) Mother Hypertension Family history of heart disease in male family member before age 55 Father Family history of elevated blood lipids Other Family history of allergic disorder Social History Social History (Reviewed 08/21/22 @ 09:40 by Genevieve Quarles [facility]) Smoking status: Never smoker Alcohol intake: never Alcohol use details: RARE Substance use: never Substance use type: does not use Lack of Transportation: No Lack of Food: Never True Current Housing: I Have Housing Concerned About Future Housing: No Difficulty Paying Gas/Electric Bills: No Difficulty Paying for Meds: No Currently Unemployed: No Education: Bachelor's Degree Difficulty w/ Childcare or Family Care: No Living arrangements: with family Additional living arrangements comments: DAUGHTER Gender identity (if verbalized by the patient): Female Sexual Orientation (if Verbalized by the Patient): Straight or Heterosexual Spiritual care concerns: No Comments At the time of my signature, I reviewed and agree with the nursing past medical, surgical, social, and family history. There is no relevant family history pertinent to the patient complaint. Exam Narrative: GENERAL: This is a well-nourished, well-developed patient, in no apparent distress. HEAD: normocephalic, atraumatic. EYES: Sclera clear/white. Vision is grossly intact. EARS: External ears normal, auditory canals clear and without drainage. Hea
[2022-11-07 19:49] VITALS: BP 144/89; PULSE 88; RESP 16; TEMP 36.2; O2SAT 97
== END 2022-11-07 19:58 | disposition home or self-care (01) ==
PROVIDERS: Emergency Provider Nurse Practitioner Family; PCP Internal Medicine
DX: L03.116 Cellulitis of left lower limb (principal); E11.9 Type 2 diabetes mellitus without complications; K21.9 Gastro-esophageal reflux disease without esophagitis; I10 Essential (primary) hypertension; E66.01 Morbid (severe) obesity due to excess calories; Z68.41 Body mass index [BMI] 40.0-44.9, adult; F41.9 Anxiety disorder, unspecified
CPT/HCPCS: 99213; G0463

== ENCOUNTER 2023-02-10 16:50 | Outpatient (CLI) | payer BC, SELFPAY ==
--- NOTE | ~2023-02-10 | XR_ITS ---
Supine and upright views of the abdomen Clinical history: Kidney stones COMPARISON: 08/07/2022 Findings: Bowel gas pattern is nonspecific. No evidence for obstruction or free air. Numerous bilater al kidney stones appears similar to prior exam. Cholecystectomy clips are present. Osseous structures are intact. Impression: Bilateral nephrolithiasis, essentially unchanged. Reviewed, dictated and finalized at location . LAINT INSPECTOR Impression: Bilateral nephrolithiasis, essentially unchanged.
== END 2023-02-10 16:51 | disposition home or self-care (01) ==
PROVIDERS: PCP Internal Medicine; Visit Provider Urology
DX: N20.0 Calculus of kidney (principal); Z87.442 Personal history of urinary calculi
CPT/HCPCS: 74018

== ENCOUNTER 2023-02-16 18:18 | Emergency (ER) | payer BC, SELFPAY ==
--- NOTE | ~2023-02-16 | CT_ITS ---
EXAMINATION: CT abdomen pelvis wo con DATE: 02/16/2023 19:00 INDICATION: Right flank pain TECHNIQUE: Computed tomography (CT) of the abdomen and pelvis was performed without intravenous contr ast. The dose-length product (DLP) was 682.34 mGy-cm. Automated exposure control and iterative recons truction technique were employed. COMPARISON: 10/05/2021 FINDINGS: The lung bases are clear. The heart size is normal. Changes of cholecystectomy are noted. T he liver, spleen, pancreas, and adrenal glands are normal. There is a 6 mm stone of the proximal righ t ureter causing mild hydronephrosis. There are 10 nonobstructing stones right kidney which measure u p to 9 mm. There are seven nonobstructing stones of the left kidney which measure up to 15 mm. No pat hologically enlarged abdominal or pelvic lymph nodes are identified. No free intraperitoneal gas or e vidence of bowel obstruction. There is mild lumbar spondylosis. The appendix is normal. IMPRESSION: 1. 6 mm stone of the proximal right ureter causing mild hydronephrosis. 2. Nonobstructing bilateral nephrolithiasis. Reviewed, dictated and finalized at location F. OVISUAL PRODUCTION SPECIALIST
[2023-02-16 18:18] VITALS: BP 153/74; PULSE 82; RESP 18; TEMP 36.2; O2SAT 99
--- NOTE | 2023-02-16 18:38 | ED.ABDPAIN ---
HPI - Abdominal Pain General Chief Complaint: Abdominal Pain <JULIO Diamond Last Filed: 02/16/23 18:42> Stated Complaint: RLQ pain <JULIO Diamond Last Filed: 02/16/23 18:42> Time Seen by Provider: 02/16/23 19:48 <JULIO Diamond Last Filed: 02/16/23 18:42> Source: patient <JULIO Diamond Last Filed: 02/16/23 18:42> Mode of arrival: ambulatory <JULIO Diamond Filed: 02/16/23 18:42> Limitations: no limitations <JULIO Diamond Last Filed: 02/16/23 18:42> History of Present Illness HPI narrative: Patient is a 42 y/o female who presents to the ED with c/o RLQ pain. Patient reports pain began around 2am this morning. Has progressively worsening and began to radiate around to her R lower back. She had a f/u appt today at Urology d/t Hx of kidney stones, thought it was her appendix, referred her to get CT scan. Then referred here. She states pain does not feel typical of her previous kidney stones. Reports nausea. Denies dysuria, hematuria, fevers, vomiting. Took Tylenol earlier today. <JULIO Diamond Last Filed: 02/16/23 18:42> Related Data Home Medications: Home Medications Medication Instructions Recorded Confirmed esomeprazole magnesium 20 mg 20 mg PO DAILY 08/12/20 12/25/22 capsule,delayed release (Nexium) loratadine 10 mg tablet (Claritin) 10 mg PO DAILY 08/12/20 12/25/22 <JULIO Diamond Last Filed: 02/16/23 18:42> Allergies/Adverse Reactions: Allergies Allergy/AdvReac Type Severity Reaction Status Date / Time iodine Allergy Mild Rash Verified 02/16/23 19:52 iohexol Allergy Mild Rash Verified 02/16/23 19:52 [From CONTRAST - CT, XRAY] moxifloxacin Allergy Mild Rash Verified 02/16/23 19:52 <Leonor Zaragoza PA-C - Last Filed: 02/16/23 18:42> [facility] Past Medical History Medical History: Medical History (Updated 02/17/23 @ 00:00 by Moises Jarvis) Allergies ALAN positive Anxiety Bilateral renal stones Breast abscess Diabetes Elevated glucose level Encounter for surgical aftercare following surgery on the skin and subcutaneous tissue Encounter to establish care GERD (gastroesophageal reflux disease) HTN (hypertension) Kidney stones Left ureteral injury Melanoma of forearm Morbid obesity ES (obstructive sleep apnea) Post-op pain Right distal ureteral calculus Scalp psoriasis Vitamin D deficiency <Leonor Zaragoza PA-C - Last Filed: 02/16/23 18:42> Surgical History Surgical History: Surgical History H/O lithotripsy H/O: hysterectomy History of extraction of renal calculus Hx of cholecystectomy <Leonor Zaragoza PA-C - Last Filed: 02/16/23 18:42> Family History Family History: Family History Mother Hypertension Family history of heart disease in male family member before age 55 Father Family history of elevated blood lipids Other Family history of allergic disorder <JULIO Diamond Last Filed: 02/16/23 18:42> Social History Social History: Social History (Reviewed 12/25/22 @ 10:16 by Genevieve Quarles [facility]) Smoking status: Never smoker Alcohol intake: never Alcohol use details: RARE Substance use: never Substance use type: does not use Lack of Transportation: No Lack of Food: Never True Current Housing: I Have Housing Concerned About Future Housing: No Difficulty Paying Gas/Electric Bills: No Difficulty Paying for Meds: No Currently Unemployed: No Education: Bachelor's Degree Difficulty w/ Childcare or Family Care: No Living arrangements: with family Additional living arrangements comments: DAUGHTER Gender identity (if verbalized by the patient): Female Sexual Orientation (if Verbalized by the Patient): Straight or Heterosex
[2023-02-16] MEDS: ONDANSETRON HCL ODT 4 MG TABLET PO (18:52)
[2023-02-16] MEDS: ACETAMINOPHEN 500 MG TABLET 1000 MG PO (18:52)
[2023-02-16 18:58] LABS: Basophils Absolute Auto 0.1 K/mm3 (0.0-0.1); Basophils Percent Auto 1.1 % (0.2-1.2); Eosinophils Absolute Auto 0.2 K/mm3 (0-0.3); Eosinophils Percent Auto 2.6 % (0-4.4); Hematocrit 41.6 % (37.0-47.0); Hemoglobin 13.1 g/dL (12.0-15.0); Immature Granulocyte Absolute 0.02 K/mm3 (0.00-0.031); Immature Granulocyte Percent A 0.2 % (0-0.5); Lymphocytes Absolute Auto 2.52 K/mm3 (0.9-3.2); Lymphocytes Percent Auto 31.4 % (18.3-44.2); Mean Corpuscular HGB Conc 31.5 g/dl (32-36); Mean Corpuscular Hemoglobin 26.5 pg (26-34); Mean Platelet Volume 9.5 fl (7.4-10.4); Monocytes Absolute Auto 0.7 K/mm3 (0.1-0.6); Monocytes Percent Auto 8.4 % (2.6-8.5); Neutrophils Absolute Auto 4.5 K/mm3 (1.3-6.7); Neutrophils Percent Auto 56.3 % (45.5-73.1); Platelet Count Result 232 k/mm3 (150-375); Red Blood Count 4.95 M/mm3 (4.2-5.4); Red Cell Distribution Width 14.9 % (11.5-14.5)
[2023-02-16 19:09] LABS: Alanine Aminotransferase 30 U/L (6-35); Albumin Level 4.3 g/dL (3.5-5.1); Alkaline Phosphatase 72 U/L (38-126); Anion Gap 10 mmol/L (8-16); Aspartate Amino Transferase 30 U/L (14-36); Bilirubin,Total 0.9 mg/dL (0.2-1.3); Blood Urea Nitrogen 11 mg/dL (7-17); Calcium 9.4 mg/dL (8.4-10.2); Carbon Dioxide 26 mmol/L (22-30); Chloride 101 mmol/L (98-107); Estimated CRCL calculation 109 ml/min; Estimated Glomerular Filt Rate > 60; Glucose 149 mg/dL (65-110); Potassium 3.5 mmol/L (3.4-5.0); Sodium 137 mmol/L (137-145)
[2023-02-16 19:20] LABS: Appearance Urine Clear (Clear); Bacteria Urine None Seen /hpf; Bilirubin Urine Negative (Negative); Blood Urine 3+ (Negative); Color Urine Yellow (Yellow); Glucose Urine UA Negative (Negative); Ketones Urine Negative (Negative); Leukocyte Esterase Ur Trace LEU/UL (Negative); Nitrate Urine Negative (Negative); Non Pathogenic Casts 0-2; Protein Urine Trace mg/dL (Negative); RBC Urine >100 /hpf (0-2); Squamous Epithelial Cell Urine Occasional /hpf (Few); Urobilinogen Urine 0.2 mg/dL (<2.0); WBC Urine 0-5 /hpf
[2023-02-16 19:27] LABS: Add Urine Microscopic? YES
[2023-02-16 19:48] VITALS: BP 194/97; PULSE 81; RESP 18; O2SAT 98
[2023-02-16] MEDS: MORPHINE SULFATE (*CRX) 4 MG/ML INJ IV PUSH (19:58)
[2023-02-16] MEDS: KETOROLAC 30 MG/ML VIAL (*BKC) IV PUSH (20:48)
[2023-02-16 22:14] VITALS: BP 147/80; PULSE 80; RESP 18; O2SAT 96
[2023-02-16] MEDS: TAMSULOSIN HCL 0.4 MG CAPSULE PO (22:33)
[2023-02-16 22:37] VITALS: BP 147/88; PULSE 89; RESP 18; O2SAT 98
== END 2023-02-16 22:38 | disposition home or self-care (01) ==
PROVIDERS: Physician Assistant; Emergency Provider Physician Assistant; PCP Internal Medicine
DX: N20.1 Calculus of ureter (principal); F41.9 Anxiety disorder, unspecified; E11.9 Type 2 diabetes mellitus without complications; K21.9 Gastro-esophageal reflux disease without esophagitis; I10 Essential (primary) hypertension; G47.30 Sleep apnea, unspecified
CPT/HCPCS: 36415; 74176; 80053; 81001; 85025; 96374; 96375; 99284; A9270; J1885; J2270

== ENCOUNTER 2023-02-24 08:31 | Outpatient (CLI) | payer BC, SELFPAY ==
--- NOTE | 2023-02-24 08:30 | ECG_ITS ---
Measurements Intervals Cato Rate: 86 P: 7 MS: 169 QRS: 5 QRSD: 98 T: 16 QT: 377 QTc: 451 Interpretive Statements SINUS RHYTHM BASELINE ARTIFACT- I, II, AVR, AVL, AVF NORMAL ECG COMPARED TO ECG 01/15/2022 07:36:57 NO SIGNIFICANT CHANGES Electronically Signed On 02-24-2023 9:01:29 PROCUREMENT COORDINATOR by Kyle Fontanez D.O.
== END 2023-02-24 08:32 | disposition home or self-care (01) ==
LOC: ANHSURGERY 08:35
PROVIDERS: PCP Internal Medicine; Visit Provider Urology
DX: E78.5 Hyperlipidemia, unspecified (principal); Z01.818 Encounter for other preprocedural examination
CPT/HCPCS: 93005

== ENCOUNTER 2023-02-26 02:15 | Day surgery (SDC) | payer BC, SELFPAY ==
[2023-02-18 08:32] VITALS: BMI 41.2
--- NOTE | 2023-02-18 08:37 | PC.NURSE ---
Report to the Outpatient Waiting Room, entrance under the green pavilion located off [facility], at time 1:30 on date 02/26/23. Planned Procedure Time: 3:30. Time changes happen often and if your time is changed the preop area will call you the afternoon before. - You and your visitor will be asked to self-screen and do not enter if you have any COVID symptoms. - A mask is optional within the hospital at this time. Patients may have clear liquids (water, carbonated beverages, clear teas, apple juice) until 3 hours prior to surgery (12:30) with a maximum of 20 ounces. - No food from midnight until time of surgery Take the following medications with a SIP of water the morning of surgery: PAIN PILL IF NEEDED DO NOT STOP ANY OF YOUR OTHER PRESCRIPTION MEDICATIONS PRIOR TO SURGERY ?EXCEPT THE FOLLOWING Medications to discontinue per physician: N/A Date to take last dose: N/A Please no make-up, nail french, hairspray, perfume, deodorant, or body powder the day of surgery. No jewelry (including any body piercings) or valuables the day of surgery, leave them at home. Please take a shower or bath the night before, or the morning of, surgery with an antibacterial soap. Wear comfortable, loose fitting clothing. - Jewelry must be removed prior to entering the operating room. Rings and piercings that are not removed may be cut off. - The hospital will not accept responsibility for valuables. - Please leave all valuables, including medications, at home the day of surgery. If you are going home after surgery, a licensed power truck driver must drive you home. - NO public transportation without another adult if you receive anesthesia. - We recommend that an adult stay with you for 24 hours following discharge. - We also recommend that you do not drive, make important decision, drink alcoholic beverages, or take any drugs that were not prescribed by your health care provider for at least 24 hours after your discharge time. Follow any additional instructions given to you from your surgeon. If you or anyone in your household have experienced Covid symptoms in the past week, please notify your surgeon or the nurse liaison at the phone number below for possible testing. Telephone instructions given to PT - EMORY WILLIS and asked if any additional questions and then verbalized understanding. Patient advised to call surgeon office or pre surgery nurse liaison [phone] if any additional questions.
[2023-02-26] VITALS (7 sets, daily range): BP systolic 120–148; BP diastolic 72–90; PULSE 72–90; RESP 14–20; TEMP 37.1–37.6; O2SAT 92–100; BMI 41.5
--- NOTE | ~2023-02-26 | XR_ITS ---
XR fluoroscopy no charge Indication: Right ureteral stone extraction TECHNIQUE: Fluoroscopy used during Right ureteral stone extraction performed by [Leroy souza MD] on 02/26/2023. 17 seconds of fluoroscopy time with 3 fluoroscopic images captured. FINDINGS: Correlate with procedure note. IMPRESSION: Fluoroscopy used during Right ureteral stone extraction. Reviewed, dictated and finalized at location L. ER PACKER
--- NOTE | 2023-02-26 06:31 | WPDHPUPDATE1 ---
History and Physical Update Update Date/Time: 02/26/23 06:31 History and Physical has been reviewed, including an updated exam of the patient. There are NO changes in the patient's condition. Risks, benefits, and alternatives have been discussed and questions answered. Patient agrees to proceed with procedure.
--- NOTE | 2023-02-26 12:23 | WPDANESEPPF ---
Anes - Initial Pre Proc Eval Procedure: Operation Date: 02/26/23 13:30 Proposed Procedures p Cystoscopy, Right Ureteroscopy with Holmium Laser Lithotripsy, Right Stone Extraction, Possible Retrograde Pyelogram, Possible Right Stent Placement - Leroy Rubio MD Date/Time: 02/26/23 12:23 Surgeon: Leroy Rubio MD Pre Op Diagnosis: Right Ureteral Stone Patient Data Age: 42 Gender: F Height: 1.63 m Weight: 108.9 kg Allergies Allergy/AdvReac Type Severity Reaction Status Date / Time iodine Allergy Mild Rash Verified 02/18/23 08:30 iohexol Allergy Mild Rash Verified 02/18/23 08:30 [From CONTRAST - CT, XRAY] moxifloxacin Allergy Mild Rash Verified 02/18/23 08:30 Home Medications Medication Instructions Recorded Confirmed Type esomeprazole magnesium 20 mg 20 mg PO DAILY 08/12/20 02/18/23 History capsule,delayed release (Nexium) loratadine 10 mg tablet (Claritin) 10 mg PO DAILY 08/12/20 02/18/23 History atorvastatin 20 mg tablet 20 mg PO QHS #90 tabs 04/16/22 02/18/23 Rx amlodipine 5 mg tablet 5 mg PO HS #90 tabs 12/08/22 02/18/23 Rx escitalopram oxalate 20 mg tablet 20 mg PO HS #90 tabs 01/06/23 02/18/23 Rx (Lexapro) hydrocodone 5 mg-acetaminophen 325 1 tablet PO Q8H PRN pain #12 tabs 02/16/23 02/18/23 Rx mg tablet ondansetron 4 mg disintegrating 4 mg PO Q8H PRN nausea and 02/16/23 02/18/23 Rx tablet vomiting #10 tabs tamsulosin 0.4 mg capsule (Flomax) 0.4 mg PO DAILY #10 caps 02/16/23 02/18/23 Rx ketorolac 10 mg tablet 10 mg PO Q6H PRN Pain 02/18/23 02/18/23 History Patient hx anesthesia problems: post op nausea/vomiting Family hx anesthesia problems: none Results Review: All pre-operative results and documents have been reviewed as part of the pre-operative evaluation. [facility] Past Medical History Medical History Allergies ALAN positive Anxiety Bilateral renal stones Breast abscess Diabetes Elevated glucose level Encounter for surgical aftercare following surgery on the skin and subcutaneous tissue Encounter to establish care GERD (gastroesophageal reflux disease) HTN (hypertension) Kidney stones Left ureteral injury Melanoma of forearm Morbid obesity ES (obstructive sleep apnea) Post-op pain Right distal ureteral calculus Scalp psoriasis Vitamin D deficiency Surgical History Surgical History H/O lithotripsy H/O: hysterectomy History of extraction of renal calculus Hx of cholecystectomy Family History Family History Mother Hypertension Family history of heart disease in male family member before age 55 Father Family history of elevated blood lipids Other Family history of allergic disorder Social History Social History Smoking status: Never smoker Alcohol intake: never Alcohol use details: RARE Substance use: never Substance use type: does not use Lack of Transportation: No Lack of Food: Never True Current Housing: I Have Housing Concerned About Future Housing: No Difficulty Paying Gas/Electric Bills: No Difficulty Paying for Meds: No Currently Unemployed: No Education: Bachelor's Degree Difficulty w/ Childcare or Family Care: No Living arrangements: with family Additional living arrangements comments: DAUGHTER Gender identity (if verbalized by the patient): Female Sexual Orientation (if Verbalized by the Patient): Straight or Heterosexual Spiritual care concerns: No Anes - Eval Final PreProcedure Day of Procedure 02/26/23 12:23 Patient weight: morbidly obese Heart: regular rate and rhythm Lungs: clear to auscultation Airway: Mallampati scale class II Neurological: alert and oriented Last oral intake: >/= 8 hours ASA classification: III Emergent: no Anesthetic plan: proceed
[2023-02-26] MEDS: SCOPOLAMINE 1.5 MG PATCH TRANSDERM (12:24)
[2023-02-26] MEDS: ceFAZolin 2 GM/D5W 50 ML 2 GM/50 ML BAG IVPB (12:30)
[2023-02-26] MEDS: LACTATED RINGERS 1,000 ML 30 ML IV CONT ×2 (13:02→13:27)
[2023-02-26] MEDS: LIDOCAINE HCL 2% GEL UROJET 10 ML PKG MUCOUS MEM (13:05)
[2023-02-26] MEDS: fentaNYL CITRATE INJ (*CRX) 100 MCG/2 ML VIAL 25 MCG IV PUSH ×2 (13:21→13:25)
[2023-02-26] MEDS: KETOROLAC 30 MG/ML VIAL (*BKC) IV PUSH (13:38)
[2023-02-26] MEDS: oxyCODONE HCL (*CRX) 5 MG TAB IR PO (14:05)
--- NOTE | 2023-02-26 14:06 | W.PM.PROC2 ---
Procedure Note - Detailed Date of Procedure 02/26/23 Pre-op Diagnosis Right Ureteral Stone Post-op Diagnosis Same Procedure Performed Cystoscopy, right ureteroscopy with laser lithotripsy, stone extraction Surgeon Leroy Rubio MD Anesthesia General Description of Procedure The patient was brought to the operative suite where she is prepped and draped in a routine sterile fashion while in the dorsal lithotomy position after the uneventful induction of a general LMA anesthetic. A 19F rigid cystoscope was placed in the bladder. The patient had no evidence of urethral stricture or bladder neck contracture. The bladder mucosa was endoscopically normal without hyperemia or neoplasm. There was a single, orthotopic ureteral orifice bilaterally. A 0.035 glidewire was advanced into the right renal pelvis under fluoroscopy. The distal ureter was dilated with an 8F/10F ureteral dilator. Ureteroscopy was undertaken with a short tapered semi-rigid ureteroscope. With ureteroscopy I fractured the stone into smaller pieces using a 273micron Holmium laser fiber with the Holmium laser. I was able to then extract the stone pieces using a 1.9F Escape, Nitinol, disposable stone basket. this is all done with great care to avoid any injury to the ureteral mucosa using a dusting technique. Due to the minimal residual ureteral edema and atraumatic nature of this procedure opted not to place ureteral stent. Scopes and wires removed she was taken to the recovery room in good condition. Drains Yes Packing Yes Complications No immediate complications
== END 2023-02-26 14:48 | disposition home or self-care (01) ==
PROVIDERS: PCP Internal Medicine; Visit Provider Urology
PROC: (CPT 52352; principal; 2023-02-26 13:30)
DX: N20.1 Calculus of ureter (principal); I10 Essential (primary) hypertension; K21.9 Gastro-esophageal reflux disease without esophagitis; G47.33 Obstructive sleep apnea (adult) (pediatric); F41.9 Anxiety disorder, unspecified; E11.9 Type 2 diabetes mellitus without complications; E66.01 Morbid (severe) obesity due to excess calories; Z68.41 Body mass index [BMI] 40.0-44.9, adult
CPT/HCPCS: 52353; 82365; 88300; 99199; A9270; C1769; J0690; J1100; J1885; J2371; J2704; J3010; J7120

== ENCOUNTER 2023-07-08 13:24 | Emergency (ER) | payer BC, SELFPAY ==
[2023-07-08 13:29] VITALS: BP 159/78; PULSE 87; RESP 16; TEMP 36.4; O2SAT 97
--- NOTE | 2023-07-08 13:51 | ED.URI ---
HPI - URI/Sore Throat General Chief Complaint: Upper Respiratory Infection Stated Complaint: throat Time Seen by Provider: 07/08/23 13:42 Source: patient, RN notes reviewed and old records reviewed Mode of arrival: ambulatory Limitations: no limitations History of Present Illness HPI Narrative: 43-year-old woman to [facility] for complaint of sore throat, headache, bilateral ear pain for 2 days. Patient has treated at home with ibuprofen Patient states her daughter was recently diagnosed with strep and it is likely that she has strep from her daughter. Patient currently endorsing 5/10 head pain. Patient denies nausea, vomiting, dizziness. Patient in no acute distress. Patient able tolerate fluids by mouth. Related Data Home Medications Medication Instructions Recorded Confirmed esomeprazole magnesium 20 mg 20 mg PO DAILY 08/12/20 06/18/23 capsule,delayed release (Nexium) loratadine 10 mg tablet (Claritin) 10 mg PO DAILY 08/12/20 06/18/23 Allergies Allergy/AdvReac Type Severity Reaction Status Date / Time iodine Allergy Mild Rash Verified 06/18/23 11:26 iohexol Allergy Mild Rash Verified 06/18/23 11:26 [From CONTRAST - CT, XRAY] moxifloxacin Allergy Mild Rash Verified 06/18/23 11:26 Review of Systems Review of Systems: All systems reviewed & are unremarkable except as noted in HPI and below Constitutional: Constitutional: Reports as per HPI, Denies fever(s) and Reports headache(s) Eyes: Eyes: Reports no additional eye complaints ENT: Reports as per HPI, Reports otalgia ( Bilateral) and Reports sore throat Cardiovascular: Cardiovascular: Reports no additional cardiovascular complaints, Denies chest pain and Denies dyspnea Respiratory: Respiratory: Reports no additional respiratory complaints, Denies cough and Denies dyspnea Musculoskeletal: Musculoskeletal: Reports no additional musculoskeletal complaints Neurologic: Reports system reviewed and no additional complaints, except as documented Psychiatric: Psychiatric: Reports no additional psychiatric complaints [facility] Past Medical History Medical History Allergies ALAN positive Anxiety Bilateral renal stones Breast abscess Diabetes Elevated glucose level Encounter for surgical aftercare following surgery on the skin and subcutaneous tissue Encounter to establish care GERD (gastroesophageal reflux disease) HTN (hypertension) Kidney stones Left ureteral injury Melanoma of forearm Morbid obesity ES (obstructive sleep apnea) Post-op pain Right distal ureteral calculus Scalp psoriasis Vitamin D deficiency Surgical History Surgical History H/O lithotripsy H/O: hysterectomy History of extraction of renal calculus Hx of cholecystectomy Family History Family History Mother Hypertension Family history of heart disease in male family member before age 55 Father Family history of elevated blood lipids Other Family history of allergic disorder Social History Social History Smoking status: Never smoker Alcohol intake: never Alcohol use details: RARE Substance use: never Substance use type: does not use Lack of Transportation: No Lack of Food: Never True Current Housing: I Have Housing Concerned About Future Housing: No Difficulty Paying Gas/Electric Bills: No Difficulty Paying for Meds: No Currently Unemployed: No Education: Bachelor's Degree Difficulty w/ Childcare or Family Care: No Living arrangements: with family Additional living arrangements comments: DAUGHTER Gender identity (if verbalized by the patient): Female Sexual Orientation (if Verbalized by the Patient): Straight or Heterosexual Spiritual care concerns: No Comments At the time of my si
== END 2023-07-08 14:20 | disposition home or self-care (01) ==
PROVIDERS: Emergency Provider Nurse Practitioner Family; PCP Internal Medicine
DX: J02.0 Streptococcal pharyngitis (principal); E11.9 Type 2 diabetes mellitus without complications; K21.9 Gastro-esophageal reflux disease without esophagitis; I10 Essential (primary) hypertension; E66.01 Morbid (severe) obesity due to excess calories; Z68.41 Body mass index [BMI] 40.0-44.9, adult; L40.9 Psoriasis, unspecified
CPT/HCPCS: 87081; 87880; 99213; G0463

== ENCOUNTER 2023-09-13 16:27 | Emergency (ER) | payer BC, SELFPAY ==
[2023-09-13 16:40] VITALS: BP 129/74; PULSE 86; RESP 20; TEMP 38.1; O2SAT 94
--- NOTE | 2023-09-13 17:15 | ED.URI ---
HPI - URI/Sore Throat General Chief Complaint: Upper Respiratory Infection Stated Complaint: cough/fever Time Seen by Provider: 09/13/23 16:50 Source: patient, RN notes reviewed and old records reviewed Mode of arrival: ambulatory Limitations: no limitations History of Present Illness HPI Narrative: 43 year old female who presents to [facility] care with complaints of productive cough and fevers up to 102F for the past 3 days, with, fatigue and headache discomfort aith sinus drainage and ear pressure. 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 Patient reports that she has taken home COVID tests X 2 which were both negative. Patient states that she has been taking Ibuprofen and also Mucinex with no improvement in her symptoms. Mucinex, ibuprofen MD elicited complaint: fever and cough Onset (ago): day(s) (3) Pain scale (0-10): 5 Treatments prior to arrival: ibuprofen and other (mucinex) Related Data Home Medications Medication Instructions Recorded Confirmed esomeprazole magnesium 20 mg 20 mg PO DAILY 08/12/20 09/13/23 capsule,delayed release (Nexium) loratadine 10 mg tablet (Claritin) 10 mg PO DAILY 08/12/20 09/13/23 Allergies Allergy/AdvReac Type Severity Reaction Status Date / Time iodine Allergy Mild Rash Verified 09/13/23 16:51 iohexol Allergy Mild Rash Verified 09/13/23 16:51 [From CONTRAST - CT, XRAY] moxifloxacin Allergy Mild Rash Verified 09/13/23 16:51 Review of Systems Review of Systems: CONSTITUTIONAL:Reports malaise, chills, sweats, or fever. EYES: Denies visual changes, redness, or discharge. ENT: Reports rhinorrhea, congestion, sinus pain, otalgia and scratchy sore throat. CARDIOVASCULAR: Denies chest pain, palpitations, or edema. RESPIRATORY: Reports cough.? Denies dyspnea. GASTROINTESTINAL: Denies abdominal pain, nausea, vomiting, diarrhea SKIN: Denies rash or itching. MUSCULOSKELETAL: Denies myalgia. NEUROLOGIC:Reports headache. All systems reviewed & are unremarkable except as noted in HPI and below PMFSH Past Medical History Medical History Allergies ALAN positive Anxiety Bilateral renal stones Breast abscess Diabetes Elevated glucose level Encounter for surgical aftercare following surgery on the skin and subcutaneous tissue Encounter to establish care GERD (gastroesophageal reflux disease) HTN (hypertension) Kidney stones Left ureteral injury Melanoma of forearm Morbid obesity ES (obstructive sleep apnea) Post-op pain Right distal ureteral calculus Scalp psoriasis Vitamin D deficiency Surgical History Surgical History H/O lithotripsy H/O: hysterectomy History of extraction of renal calculus Hx of cholecystectomy Family History Family History Mother Hypertension Family history of heart disease in male family member before age 55 Father Family history of elevated blood lipids Other Family history of allergic disorder Social History Social History Smoking status: Never smoker Alcohol intake: never Alcohol use details: RARE Substance use: never Substance use type: does not use Lack of Transportation: No Lack of Food: Never True Current Housing: I Have Housing Concerned About Future Housing: No Difficulty Paying Gas/Electric Bills: No Difficulty Paying for Meds: No Currently Unemployed: No Education: Bachelor's Degree Difficulty w/ Childcare or Family Care: No Living arrangements: with family Additional living arrangements comments: DAUGHTER Gender identity (if verbalized by the patient): Female Sexual Orientation (if Verbalized by the Patient): Straight or Heterosexual Spiritual care concerns: No Comments At time of signature, agree with katia
== END 2023-09-13 17:35 | disposition home or self-care (01) ==
PROVIDERS: Emergency Provider Registered Nurse; PCP Internal Medicine
DX: H65.01 Acute serous otitis media, right ear (principal); E11.9 Type 2 diabetes mellitus without complications; K21.9 Gastro-esophageal reflux disease without esophagitis; I10 Essential (primary) hypertension; E66.01 Morbid (severe) obesity due to excess calories; Z68.41 Body mass index [BMI] 40.0-44.9, adult; Z85.820 Personal history of malignant melanoma of skin
CPT/HCPCS: 99213; G0463

== ENCOUNTER 2023-09-30 13:27 | Outpatient (CLI) | payer BC, SELFPAY ==
--- NOTE | ~2023-09-30 | CT_ITS ---
EXAMINATION: CT abdomen pelvis wo con DATE: 09/30/2023 13:49 INDICATION: Right flank pain. TECHNIQUE: Computed tomography (CT) of the abdomen and pelvis was performed without intravenous contr ast. Automated exposure control and iterative reconstruction technique were employed. The dose-length product was 1323.38 mGy-cm. COMPARISON: CT abdomen and pelvis 02/16/2023 FINDINGS: The visualized portions of the lung bases demonstrate mild atelectasis. No pleural effusion . The heart size is normal. No pericardial effusion. There is diffuse hepatic steatosis. There are ch anges of cholecystectomy. The spleen, pancreas, and adrenal glands are normal. There are greater than 10 stones in right kidney measuring up to 7 mm. There are greater than 10 stones in left kidney tita uring up to 12 mm. There is diverticulosis of the colon without evidence of diverticulitis. The appen devonte is normal. There are no pathologically enlarged lymph nodes. There is no free intraperitoneal flu id. There is mild resting lumbar spondylosis. IMPRESSION: 1. Bilateral nonobstructing kidney stones. 2. Diffuse hepatic steatosis. Reviewed, dictated and finalized at location E.
== END 2023-09-30 13:28 | disposition home or self-care (01) ==
PROVIDERS: PCP Internal Medicine; Visit Provider Physician Assistant
DX: R10.9 Unspecified abdominal pain (principal); N20.0 Calculus of kidney; K76.0 Fatty (change of) liver, not elsewhere classified
CPT/HCPCS: 74176

== ENCOUNTER 2023-10-01 23:15 | Observation (INO) | payer BC, SELFPAY ==
--- NOTE | ~2023-10-01 | XR_ITS ---
XR stent kub - surgery Ordering provider: Leroy Rubio MD History: . LEFT SIDE STENT . Comparison: None. FINDINGS impression: Fluoroscopy time is 11.1 seconds. Cumulative dose is 5.93 mGy/0.509wBir7 Reviewed, dictated and finalized at location A.
--- NOTE | ~2023-10-01 | CT_ITS ---
Non-contrast CT scan of the Abdomen and Pelvis Clinical indication: Left flank pain Technique: 2.5 mm axial scans were obtained through the abdomen and pelvis without intravenous or or al contrast. Dose reduction technique was used on this scan by utilizing automated exposure control a nd iterative reconstruction technique. The dose-length product (DLP) was 1322.46 mGy-cm. COMPARISON: 09/30/2023 Findings: Images through the lung bases reveal no abnormalities. There is a 3 mm mid left ureteral stone (axial image 136), with mild to moderate left hydronephrosis, which is worsened from prior exam. Numerous additional bilateral nonobstructing renal stones are oth erwise unchanged. No right ureteral stone or right hydronephrosis. There is diffuse hepatic steatosis. Cholecystectomy clips are present. The spleen, pancreas, and adre nals appear normal. There is no aortic aneurysm. There is no evidence of bowel obstruction. Images through the pelvis were performed. There is no evidence of ascites or lymphadenopathy. Urinary bladder unremarkable. No pelvic mass seen. Status post hysterectomy. Impression: 3 mm mid left ureteral stone with moderate left hydronephrosis. Multiple additional bilateral nonobstructing renal stones are otherwise unchanged. Diffuse hepatic steatosis. Reviewed, dictated and finalized at location . Impression: 3 mm mid left ureteral stone with moderate left hydronephrosis. Multiple additional bilateral nonobstructing renal stones are otherwise unchang ed. Diffuse hepatic steatosis.
[2023-10-01 23:16] VITALS: BP 147/79; PULSE 90; RESP 16; TEMP 36.4; O2SAT 98
[2023-10-02] VITALS (15 sets, daily range): BP systolic 118–161; BP diastolic 61–97; PULSE 89–110; RESP 16–28; TEMP 36.2–37.2; O2SAT 90–100; BMI 43.3
[2023-10-02 01:10] LABS: Basophils Absolute Auto 0.1 K/mm3 (0.0-0.1); Basophils Percent Auto 0.8 % (0.2-1.2); Eosinophils Absolute Auto 0.2 K/mm3 (0-0.3); Eosinophils Percent Auto 2.3 % (0-4.4); Hematocrit 37.7 % (37.0-47.0); Hemoglobin 12.5 g/dL (12.0-15.0); Immature Granulocyte Absolute 0.03 K/mm3 (0.00-0.031); Immature Granulocyte Percent A 0.3 % (0-0.5); Lymphocytes Absolute Auto 1.88 K/mm3 (0.9-3.2); Lymphocytes Percent Auto 18.5 % (18.3-44.2); Mean Corpuscular HGB Conc 33.2 g/dl (32-36); Mean Corpuscular Hemoglobin 26.9 pg (26-34); Mean Corpuscular Volume 81.3 fl (80-100); Mean Platelet Volume 9.5 fl (7.4-10.4); Monocytes Percent Auto 9.5 % (2.6-8.5); Neutrophils Percent Auto 68.6 % (45.5-73.1); Platelet Count Result 271 k/mm3 (150-375); Red Blood Count 4.64 M/mm3 (4.2-5.4); Red Cell Distribution Width 15.3 % (11.5-14.5); White Blood Count 10.2 K/mm3 (4.5-10.0)
[2023-10-02 01:14] LABS: Appearance Urine Turbid (Clear); Bacteria Urine 4+ /hpf; Bilirubin Urine Negative (Negative); Blood Urine 3+ (Negative); Color Urine Yellow (Yellow); Glucose Urine UA Negative (Negative); Ketones Urine Negative (Negative); Leukocyte Esterase Ur 3+ LEU/UL (Negative); Nitrate Urine Positive (Negative); Non Pathogenic Casts 0-2; Protein Urine 1+ mg/dL (Negative); RBC Urine 21-50 /hpf (0-2); Specific Grav Ur 1.013 (1.001-1.035); Squamous Epithelial Cell Urine None Seen /hpf (Few); Urobilinogen Urine 0.2 mg/dL (<2.0); WBC Urine >100 /hpf (0-3)
[2023-10-02 01:15] LABS: Add Urine Microscopic? YES
[2023-10-02 01:19] LABS: Alanine Aminotransferase 37 U/L (6-35); Albumin Level 4.4 g/dL (3.5-5.1); Alkaline Phosphatase 85 U/L (38-126); Anion Gap 7 mmol/L (4-12); Aspartate Amino Transferase 31 U/L (14-36); Bilirubin,Total 0.5 mg/dL (0.2-1.3); Blood Urea Nitrogen 11 mg/dL (7-17); Calcium 9.1 mg/dL (8.4-10.2); Carbon Dioxide 28 mmol/L (22-30); Chloride 103 mmol/L (98-107); Estimated CRCL calculation 108 ml/min; Estimated Glomerular Filt Rate > 60; Glucose 186 mg/dL (65-110); Lipase 158 U/L (23-300); Potassium 3.7 mmol/L (3.4-5.0); Sodium 138 mmol/L (137-145)
--- NOTE | 2023-10-02 02:18 | ED.FEMALEGU ---
HPI - Female Genitourinary General Chief complaint: Urogenital-Female Stated complaint: kidney stone attack Time Seen by Provider: 10/02/23 01:56 Source: patient Limitations: no limitations History of Present Illness HPI Narrative: Patient is a 43-year-old female presents to the emergency department complaining of kidney stone. Patient states she has been having left flank pain since around 5 this morning, sometimes radiates down her left groin, feels like her history of kidney stones, notes that she recently had a kidney stone on the right mcallister lesion past, follows with urologist Dr. Rubio, is no stents in place, took Toradol at home for the pain with minimal relief. Patient denies nausea or vomiting, fever. Patient admits to dysuria. Patient admits to having regular bowel movements. Patient denies any recent injuries, recent illness. Related Data Home Medications Medication Instructions Recorded Confirmed esomeprazole magnesium 20 mg 20 mg PO DAILY 08/12/20 09/13/23 capsule,delayed release (Nexium) loratadine 10 mg tablet (Claritin) 10 mg PO DAILY 08/12/20 09/13/23 Allergies Allergy/AdvReac Type Severity Reaction Status Date / Time iodine Allergy Mild Rash Verified 09/13/23 16:51 iohexol Allergy Mild Rash Verified 09/13/23 16:51 [From CONTRAST - CT, XRAY] moxifloxacin Allergy Mild Rash Verified 09/13/23 16:51 Review of Systems Review of Systems: A 10 system review of systems was completed on the patient and is negative except for what is stated in the HPI. Nursing and ancillary documentation was reviewed. [facility] Past Medical History Medical History Allergies ALAN positive Anxiety Bilateral renal stones Breast abscess Diabetes Elevated glucose level Encounter for surgical aftercare following surgery on the skin and subcutaneous tissue Encounter to establish care GERD (gastroesophageal reflux disease) HTN (hypertension) Kidney stones Left ureteral injury Melanoma of forearm Morbid obesity ES (obstructive sleep apnea) Post-op pain Right distal ureteral calculus Scalp psoriasis Vitamin D deficiency Surgical History Surgical History H/O lithotripsy H/O: hysterectomy History of extraction of renal calculus Hx of cholecystectomy Family History Family History Mother Hypertension Family history of heart disease in male family member before age 55 Father Family history of elevated blood lipids Other Family history of allergic disorder Social History Social History Smoking status: Never smoker Alcohol intake: never Alcohol use details: RARE Substance use: never Substance use type: does not use Lack of Transportation: No Lack of Food: Never True Current Housing: I Have Housing Concerned About Future Housing: No Difficulty Paying Gas/Electric Bills: No Difficulty Paying for Meds: No Currently Unemployed: No Education: Bachelor's Degree Difficulty w/ Childcare or Family Care: No Living arrangements: with family Additional living arrangements comments: DAUGHTER Gender identity (if verbalized by the patient): Female Sexual Orientation (if Verbalized by the Patient): Straight or Heterosexual Spiritual care concerns: No Comments At time of signature, I have reviewed and agree with nursing past medical, surgical, social and family history unless otherwise noted. Please see the nursing chart for further information. There is no relevant family history pertinent to the presenting complaint. Exam Narrative: CONST: No acute distress. Well nourished. HENMT: Head is normocephalic and atraumatic. Moist mucous membranes. No posterior oropharynx erythema. EYES: No conjunctival icterus, injection, or pallor. PERRL. NECK: No me
[2023-10-02] MEDS: SODIUM CHLORIDE 0.9% IV 1,000 ML 999 ML IV CONT (02:19)
[2023-10-02] MEDS: MORPHINE SULFATE (*CRX) 4 MG/ML INJ IV PUSH ×3 (02:19→09:34)
[2023-10-02] MEDS: CEFEPIME 1 GM/NS 50 ML 1 GM/50 ML BAG IVPB (02:31)
[2023-10-02] MEDS: TAMSULOSIN HCL 0.4 MG CAPSULE PO (02:33)
[2023-10-02 03:05] LABS: Lactic Acid Reflex 1.7 mmol/L (0.7-2.0)
--- NOTE | 2023-10-02 04:31 | PC.NURSE ---
Patient states that her pain is about a 7/10. Notified EDP Dr. Hernandez
[2023-10-02] MEDS: SODIUM CHLORIDE 0.9% IV 1,000 ML 125 ML IV CONT ×2 (05:15→14:00)
--- NOTE | 2023-10-02 07:06 | PM.IMHP ---
H&P: HPI History of Present Illness Date/Time: 10/02/23 07:06 Chief Complaint: LT sided flank pain/ABD pain Narrative: Patient is a 43 year old female who presented to the emergency department with complaints of left flank pain that began early today prior to arrival. Patient reported she does have a history of HTN, HLD, obesity, GERD, and kidney stones of which she had a previous cystoscopy with lithotripsy and stone extraction 02/26/2023. Patient denied any CP, SOB, Fever, chills or dizziness. Initial CT ABD showed multiple bilateral non-obstructing kidney stones, however patient pain worsened and a second CT ABD was performed later that evening that showed 3 MM mid left ureteral stone with moderate left hydronephrosis. Labs were significant for WBC 10.2, glucose of 186 and UA that was leukocyte, nitrate, and Ur blood positive. Patient was started on Cefepime based on previous UTI with ECOLI ESBL in the ED. She was admitted to medical unit for further evaluation and treatment of urolithiasis and UTI with a consult to Urology. Review of Systems Review of Systems: All systems reviewed & are unremarkable except as noted in HPI and below PMFSH Past Medical History Medical History (Updated 10/02/23 @ 07:08 by Elizabeth Myles APRN) Allergies ALAN positive Anxiety Bilateral renal stones Breast abscess Diabetes Elevated glucose level Encounter for surgical aftercare following surgery on the skin and subcutaneous tissue Encounter to establish care GERD (gastroesophageal reflux disease) HTN (hypertension) Kidney stones Left ureteral injury Melanoma of forearm Morbid obesity ES (obstructive sleep apnea) Post-op pain Right distal ureteral calculus Scalp psoriasis Vitamin D deficiency Surgical History Surgical History H/O lithotripsy H/O: hysterectomy History of extraction of renal calculus Hx of cholecystectomy Family History Family History Mother Hypertension Family history of heart disease in male family member before age 55 Father Family history of elevated blood lipids Other Family history of allergic disorder Social History Social History Smoking status: Never smoker Second hand tobacco smoke exposure: No Alcohol intake: never Alcohol use details: RARE Substance use: never Substance use type: does not use Do You Feel Safe in your Home?: Yes Lack of Transportation: No Lack of Food: Never True Current Housing: I Have Housing Concerned About Future Housing: No Difficulty Paying Gas/Electric Bills: No Difficulty Paying for Meds: No Currently Unemployed: No Education: Bachelor's Degree Difficulty w/ Childcare or Family Care: No Living arrangements: with family Additional living arrangements comments: DAUGHTER Gender identity (if verbalized by the patient): Female Sexual Orientation (if Verbalized by the Patient): Straight or Heterosexual Spiritual care concerns: No Meds Home Medications and Allergies Home Medications Medication Instructions Recorded Confirmed Type esomeprazole magnesium 20 mg 20 mg PO DAILY 08/12/20 10/02/23 History capsule,delayed release (Nexium) loratadine 10 mg tablet (Claritin) 10 mg PO DAILY 08/12/20 10/02/23 History atorvastatin 20 mg tablet 20 mg PO QHS #90 tabs 03/25/23 10/02/23 Rx amlodipine 5 mg tablet 5 mg PO HS #90 tabs 07/01/23 10/02/23 Rx escitalopram oxalate 20 mg tablet 20 mg PO HS #90 tabs 08/13/23 10/02/23 Rx (Lexapro) Allergies Allergy/AdvReac Type Severity Reaction Status Date / Time iodine Allergy Mild Rash Verified 09/13/23 16:51 iohexol Allergy Mild Rash Verified 09/13/23 16:51 [From CONTRAST - CT, XRAY] moxifloxacin Allergy Mild Rash Verified 09/13/23 16:51 Vital Signs Vital Signs - 24 hr 10/01/23 23:
--- NOTE | 2023-10-02 07:23 | WPDURCON ---
Assessment and Plan Assessment and plan (1) Ureterolithiasis: Code(s): N20.1 - Calculus of ureter Status: Acute (2) UTI (urinary tract infection): Qualifiers: Hematuria presence: with hematuria Urinary tract infection type: site unspecified Qualified Code(s): N39.0 - Urinary tract infection, site not specified; R31.9 - Hematuria, unspecified Code(s): N39.0 - Urinary tract infection, site not specified Status: Acute (3) Bilateral renal stones: Code(s): N20.0 - Calculus of kidney Status: Acute Assessment and Plan: Cystoscopy, left ureteroscopy with stone extraction, stent placement, possible retrograde pyelography and laser lithotripsy stone Urology Consult Note HPI Date Seen: 10/02/23 Requesting Physician: Elizabeth Myles APRN Primary Care Provider: Matthew Ramirez DO Consult Narrative Narrative: Annalisa Lemus is a 43 year old female who is well known to me with a history recurrent urolithiasis. She presents to emergency department with left flank pain and symptoms of urinary tract infection. She has had no fevers chills or gross hematuria. Urinalysis suggested infection. CT imaging shows an obstructing 4 mm left distal ureteral calculus and nonobstructing bilateral renal calculi. Review of Systems Review of Systems: All systems reviewed & are unremarkable except as noted in HPI and below Cardiovascular: Cardiovascular: Denies chest pain, Denies lightheadedness, Denies palpitations and Denies dyspnea Respiratory: Respiratory: Denies dyspnea Gastrointestinal: Gastrointestinal: Denies diarrhea, Denies nausea and Denies vomiting Genitourinary: Genitourinary: Denies hematuria and Denies dysuria Endocrine: Endocrine: Denies palpitations [facility] Past Medical History Medical History (Updated 10/02/23 @ 07:08 by Elizabeth Myles APRN) Allergies ALAN positive Anxiety Bilateral renal stones Breast abscess Diabetes Elevated glucose level Encounter for surgical aftercare following surgery on the skin and subcutaneous tissue Encounter to establish care GERD (gastroesophageal reflux disease) HTN (hypertension) Kidney stones Left ureteral injury Melanoma of forearm Morbid obesity ES (obstructive sleep apnea) Post-op pain Right distal ureteral calculus Scalp psoriasis Vitamin D deficiency Surgical History Surgical History H/O lithotripsy H/O: hysterectomy History of extraction of renal calculus Hx of cholecystectomy Family History Family History Mother Hypertension Family history of heart disease in male family member before age 55 Father Family history of elevated blood lipids Other Family history of allergic disorder Social History Social History Smoking status: Never smoker Second hand tobacco smoke exposure: No Alcohol intake: never Alcohol use details: RARE Substance use: never Substance use type: does not use Do You Feel Safe in your Home?: Yes Lack of Transportation: No Lack of Food: Never True Current Housing: I Have Housing Concerned About Future Housing: No Difficulty Paying Gas/Electric Bills: No Difficulty Paying for Meds: No Currently Unemployed: No Education: Bachelor's Degree Difficulty w/ Childcare or Family Care: No Living arrangements: with family Additional living arrangements comments: DAUGHTER Gender identity (if verbalized by the patient): Female Sexual Orientation (if Verbalized by the Patient): Straight or Heterosexual Spiritual care concerns: No Meds Home Medications and Allergies Home Medications Medication Instructions Recorded Confirmed Type esomeprazole magnesium 20 mg 20 mg PO DAILY 08/12/20 10/02/23 History capsule,delayed release (Nexium) loratadin
--- NOTE | 2023-10-02 07:27 | WPDHPUPDATE1 ---
History and Physical Update Update Date/Time: 10/02/23 07:27 History and Physical has been reviewed, including an updated exam of the patient. There are NO changes in the patient's condition. Risks, benefits, and alternatives have been discussed and questions answered. Patient agrees to proceed with procedure.
[2023-10-02] MEDS: PANTOPRAZOLE SODIUM IV 40 MG VIAL IV PUSH (09:33)
[2023-10-02] MEDS: ONDANSETRON INJ 4 MG/2 ML VIAL IV PUSH (14:02)
--- NOTE | 2023-10-02 15:01 | WPDANESEPPF ---
Anes - Initial Pre Proc Eval Procedure: Operation Date: 10/02/23 15:30 Proposed Procedures p Left Cystoscopy, Possible Left Retrograde Pylogram, Possible Left Stone Extraction, Possible Holmium Laser Lithrotripsy, Possbile Left Stent Placement - Leroy Rubio MD Date/Time: 10/02/23 15:01 Surgeon: Elizabeth Myles APRN Pre Op Diagnosis: Ureterolithiasis Patient Data Age: 43 Gender: F Height: 1.63 m Weight: 114.5 kg Last Vital Signs Temp 37.2 C 10/02/23 14:43 Pulse 95 10/02/23 14:43 Resp 16 10/02/23 14:43 BP 134/73 10/02/23 14:43 Pulse Ox 94 10/02/23 14:43 O2 Del Method Room Air 10/02/23 14:43 Allergies Allergy/AdvReac Type Severity Reaction Status Date / Time iodine Allergy Mild Rash Verified 10/02/23 14:41 iohexol Allergy Mild Rash Verified 10/02/23 14:41 [From CONTRAST - CT, XRAY] moxifloxacin Allergy Mild Rash Verified 10/02/23 14:41 Home Medications Medication Instructions Recorded Confirmed Type esomeprazole magnesium 20 mg 20 mg PO DAILY 08/12/20 10/02/23 History capsule,delayed release (Nexium) loratadine 10 mg tablet (Claritin) 10 mg PO DAILY 08/12/20 10/02/23 History atorvastatin 20 mg tablet 20 mg PO QHS #90 tabs 03/25/23 10/02/23 Rx amlodipine 5 mg tablet 5 mg PO HS #90 tabs 07/01/23 10/02/23 Rx escitalopram oxalate 20 mg tablet 20 mg PO HS #90 tabs 08/13/23 10/02/23 Rx (Lexapro) Laboratory Tests 10/02/23 10/02/23 01:04 02:52 WBC 10.2 H K/mm3 (4.5-10.0) RBC 4.64 M/mm3 (4.2-5.4) Hgb 12.5 g/dL (12.0-15.0) Hct 37.7 % (37.0-47.0) MCV 81.3 fl (80-100) MCH 26.9 pg (26-34) MCHC 33.2 g/dl (32-36) RDW 15.3 H % (11.5-14.5) Plt Count 271 k/mm3 (150-375) MPV 9.5 fl (7.4-10.4) Immature Gran % (Auto) 0.3 % (0-0.5) Neut % (Auto) 68.6 % (45.5-73.1) Lymph % (Auto) 18.5 % (18.3-44.2) [place] % (Auto) 9.5 H % (2.6-8.5) Eos % (Auto) 2.3 % (0-4.4) Baso % (Auto) 0.8 % (0.2-1.2) Lymph # (Auto) 1.88 K/mm3 (0.9-3.2) [place] # (Auto) 1.0 H K/mm3 (0.1-0.6) Eos # (Auto) 0.2 K/mm3 (0-0.3) Baso # (Auto) 0.1 K/mm3 (0.0-0.1) Abs Immat Gran (auto) 0.03 K/mm3 (0.00-0.031) Absolute Neuts (auto) 7.0 H K/mm3 (1.3-6.7) Absolute Nucleated RBC 0.000 K/mm3 (0.0-0.012) Nucleated RBC % 0.0 % (0.0-0.2) Sodium 138 mmol/L (137-145) Potassium 3.7 mmol/L (3.4-5.0) Chloride 103 mmol/L (98-107) Carbon Dioxide 28 mmol/L (22-30) Anion Gap 7 mmol/L (4-12) BUN 11 mg/dL (7-17) Creatinine 0.70 mg/dL (0.7-1.0) Estim Creat Clear Calc 108 ml/min Estimated GFR > 60 (59 - ) Glucose 186 H mg/dL (65-110) Lactic Acid 1.7 mmol/L (0.7-2.0) Calcium 9.1 mg/dL (8.4-10.2) Total Bilirubin 0.5 mg/dL (0.2-1.3) AST 31 U/L (14-36) ALT 37 H U/L (6-35) Alkaline Phosphatase 85 U/L (38-126) Total Protein 8.0 g/dL (6.3-8.2) Albumin 4.4 g/dL (3.5-5.1) Lipase 158 U/L (23-300) Urine Color Yellow (Yellow) Urine Appearance Turbid H (Clear) Urine pH 6.0 (5.0-9.0) Ur Specific [place] 1.013 (1.001-1.035) Urine Protein 1+ H mg/dL (Negative) Urine Glucose (UA) Negative mg/dL (Negative) Urine Ketones Negative mg/dL (Negative) Ur Blood (Man) 3+ H (Negative) Urine Nitrate Positive H (Negative) Urine Bilirubin Negative (Negative) Urine Urobilinogen 0.2 mg/dL (<2.0) Leukocyte Esterase Rfl 3+ H MADELINE/UL (Negative) Urine RBC 21-50 H /hpf (0-2) Urine WBC >100 H /hpf (0-3) Ur Squamous Epith Cells None seen /hpf (Few) Urine Bacteria 4+ H /hpf Urine Casts 0-2 Patient hx anesthesia problems: none Famil
[2023-10-02] MEDS: SCOPOLAMINE 1 MG PATCH 1 PATCH TRANSDERM (16:25)
[2023-10-02] MEDS: ceFAZolin 2 GM/D5W 50 ML 2 GM/50 ML BAG IVPB (16:27)
--- NOTE | 2023-10-02 16:48 | W.PM.PROC2 ---
Procedure Note - Detailed Date of Procedure 10/02/23 Pre-op Diagnosis Ureterolithiasis Post-op Diagnosis Same Procedure Performed Cystoscopy, left ureteroscopy with stone extraction, left ureteral stent placement Surgeon Leroy Rubio MD Anesthesia General Description of Procedure Patient is brought to the operative suite where she was prepped and draped in routine sterile fashion while in dorsal lithotomy position after the uneventful induction of a general LMA anesthetic. Cystoscopy was undertaken with a 19 F rigid cystoscope. Bladder neck and urethra endoscopically normal. Her bladder mucosa was normal without hyperemia. There was no intravesical foreign body or neoplasm. A 0.035 in glidewire was advanced into her left renal pelvis and the distal ureter is dilated with an 8 F 10 F dilator. Ureteroscopy undertaken with a short tapered semi-rigid ureteral scope. Her obstructing left distal ureteral stone is grasped and extracted with a 1.9 F disposable stone basket. Placed a 4.8 F variable length stent with the proximal coil in renal pelvis and distal coil in her bladder. Scopes and wires removed she was taken the recovery room having tolerated the procedure well. Drains Yes Packing No Pathology None sent Complications No immediate complications Condition Stable Disposition PACU
[2023-10-02] MEDS: LACTATED RINGERS 1,000 ML 30 ML IV CONT ×2 (16:58)
[2023-10-02] MEDS: ESCITALOPRAM OXALATE 10 MG TABLET 20 MG PO (20:47)
[2023-10-02] MEDS: ATORVASTATIN 20 MG TABLET PO (20:47)
[2023-10-02] MEDS: amLODIPine BESYLATE 5 MG TABLET PO (20:47)
[2023-10-03 04:59] LABS: Hematocrit 36.3 % (37.0-47.0); Hemoglobin 11.2 g/dL (12.0-15.0); Mean Corpuscular HGB Conc 30.9 g/dl (32-36); Mean Corpuscular Hemoglobin 26.2 pg (26-34); Mean Platelet Volume 9.8 fl (7.4-10.4); Platelet Count Result 239 k/mm3 (150-375); Red Blood Count 4.27 M/mm3 (4.2-5.4); Red Cell Distribution Width 15.3 % (11.5-14.5); White Blood Count 7.7 K/mm3 (4.5-10.0)
[2023-10-03 05:18] LABS: Alanine Aminotransferase 67 U/L (6-35); Albumin Level 3.8 g/dL (3.5-5.1); Alkaline Phosphatase 84 U/L (38-126); Anion Gap 9 mmol/L (4-12); Aspartate Amino Transferase 54 U/L (14-36); Bilirubin,Total 0.7 mg/dL (0.2-1.3); Blood Urea Nitrogen 11 mg/dL (7-17); Calcium 8.5 mg/dL (8.4-10.2); Carbon Dioxide 25 mmol/L (22-30); Chloride 105 mmol/L (98-107); Estimated CRCL calculation 109 ml/min; Estimated Glomerular Filt Rate > 60; Glucose 200 mg/dL (65-110); Potassium 4.2 mmol/L (3.4-5.0); Sodium 139 mmol/L (137-145)
[2023-10-03 05:24] LABS: Hemoglobin A1C 6.8 % (<5.7)
[2023-10-03] MEDS: SODIUM CHLORIDE 0.9% IV 1,000 ML 125 ML IV CONT (05:25)
[2023-10-03 05:47] VITALS: BP 114/61; PULSE 91; RESP 18; TEMP 36.4; O2SAT 93
[2023-10-03] MEDS: LORATADINE 10 MG TABLET PO (09:18)
[2023-10-03] MEDS: PANTOPRAZOLE 40 MG TABLET PO (09:18)
[2023-10-03] MEDS: ACETAMINOPHEN 325 MG TABLET 650 MG PO (09:34)
[2023-10-03 10:39] VITALS: O2SAT 95
--- NOTE | 2023-10-03 11:09 | WPDANESPN ---
Anes - Prog Note Post-Op Date/Time: 10/03/23 11:09 Cardiovascular status: normal Respiratory status: normal Airway patency: baseline Mental status: baseline Post-Op hydration status: normal Vital Signs: Last Vital Signs Temp 36.4 C 10/03/23 05:47 Pulse 91 10/03/23 05:47 Resp 18 10/03/23 05:47 BP 114/61 10/03/23 05:47 Pulse Ox 95 10/03/23 10:39 O2 Del Method Room Air 10/03/23 10:39 O2 Flow Rate 6 10/02/23 17:30 Pain Score (VAS): 04/08 I/O: Intake & Output 10/02/23 10/03/23 10/03/23 23:59 07:59 15:59 Intake Total 700 979.2 0 Output Total 1300 600 Balance -600 979.2 -600 Laboratory Tests 10/03/23 04:30 10/03/23 04:30 10/03/23 04:30 WBC 7.7 RBC 4.27 Hgb 11.2 L Hct 36.3 L MCV 85.0 MCH 26.2 MCHC 30.9 L RDW 15.3 H Plt Count 239 MPV 9.8 Sodium 139 Potassium 4.2 Chloride 105 Carbon Dioxide 25 Anion Gap 9 BUN 11 Creatinine 0.70 Estim Creat Clear Calc 109 Estimated GFR > 60 Glucose 200 H Hemoglobin A1c 6.8 H Calcium 8.5 Total Bilirubin 0.7 AST 54 H ALT 67 H Alkaline Phosphatase 84 Total Protein 7.0 Albumin 3.8 Post-procedural complaints: none Patient Feedback: Patient satisfied with anesthetic care.
--- NOTE | 2023-10-03 11:12 | WPDUROPN2 ---
Progress Note: A&P Assessment and Plan (1) Ureterolithiasis: Code(s): N20.1 - Calculus of ureter Status: Acute (2) UTI (urinary tract infection): Qualifiers: Hematuria presence: with hematuria Urinary tract infection type: site unspecified Qualified Code(s): N39.0 - Urinary tract infection, site not specified; R31.9 - Hematuria, unspecified Code(s): N39.0 - Urinary tract infection, site not specified Status: Acute Assessment and Plan: Given that she is comfortable, afebrile and normal serum white blood cell count I am comfortable with her being discharged on oral Omnicef despite the fact that urine culture is not yet available. Follow-up in 5-10 days for stent removal Subjective Subjective Date/Time Seen: 10/03/23 11:12 Interval history: Comfortable, no complaints, tolerating stent Review of Systems Review of Systems: All systems reviewed & are unremarkable except as noted in HPI and below Exam Const: General: no acute distress Resp: Effort & Inspection: normal respiratory effort GI: Inspection: non-distended GI Palp: No abdominal tenderness and No Guarding due to palpation present (GI) Auscultation: normal bowel sounds Objective Data Vital Signs Vital Signs: Vital Signs - 24 hr 10/02/23 14:43 10/02/23 16:58 10/02/23 17:13 Temperature 98.9 F 98.1 F Pulse Rate 95 103 H 110 H Respiratory Rate 16 28 H 18 Blood Pressure 134/73 161/93 H 144/72 H Pulse Oximetry 94 96 97 Oxygen Delivery Room Air Simple Face Mask Simple Face Mask Oxygen Flow Rate 8 8 10/02/23 17:30 10/02/23 17:45 10/02/23 17:54 Temperature Pulse Rate 102 H 92 99 Respiratory Rate 22 H 16 18 Blood Pressure 125/75 118/78 121/89 Pulse Oximetry 96 95 95 Oxygen Delivery Simple Face Mask Room Air Room Air Oxygen Flow Rate 6 10/02/23 18:20 10/02/23 18:35 10/02/23 19:35 Temperature 97.2 F L 97.4 F L 98.3 F Pulse Rate 100 94 96 Respiratory Rate 20 16 18 Blood Pressure 123/67 127/68 136/67 Pulse Oximetry 100 90 90 Oxygen Delivery Oxygen Flow Rate 10/02/23 20:00 10/02/23 22:30 10/03/23 03:07 Temperature Pulse Rate 96 Respiratory Rate 18 Blood Pressure Pulse Oximetry 90 Oxygen Delivery Room Air Autopap Autopap Oxygen Flow Rate 10/03/23 05:47 10/03/23 10:39 10/03/23 09:40 Temperature 97.6 F Pulse Rate 91 Respiratory Rate 18 Blood Pressure 114/61 Pulse Oximetry 93 95 Oxygen Delivery Room Air Room Air Oxygen Flow Rate Intake/Output Intake/Output: Intake & Output 09/30/23 10/01/23 10/02/23 10/03/23 23:59 23:59 23:59 23:59 Intake Total 2770.8 979.2 Output Total 1300 600 Balance 1470.8 379.2 Meds/Results Medications: Active Medications Generic Name Dose Route Start Last Admin Trade Name Freq PRN Reason Stop Dose Admin Acetaminophen 650 mg 10/02/23 07:01 10/03/23 09:34 Acetaminophen 325 Mg Tablet PO 650 mg Q4H PRN Administration Mild Pain (1-3) or Fever Amlodipine Besylate 5 mg 10/02/23 21:00 10/02/23 20:47 Amlodipine Besylate 5 Mg Tablet PO 5 mg HS DIANDRA Administration Atorvastatin Calcium 20 mg 10/02/23 21:00 10/02/23 20:47 Atorvastatin 20 Mg Tablet PO 20 mg QHS DIANDRA Administration Escitalopram Oxalate 20 mg 10/02/23 21:00 10/02/23 20:47 Escitalopram Oxalate 10 Mg Tablet PO 20 mg HS DIANDRA Administration Fentanyl Citrate 25 mcg 10/02/23 15:00 Fentanyl Citrate Inj (*Crx) 100 Mcg/2 Ml Vial IV PUSH Q2M PRN Pain Sodium Chloride 1,000 mls @ 125 mls/hr 10/02/23 05:10 10/03/23 05:25 Normal Saline Iv IV CONT 125 mls/hr .Q8H DIANDRA Administration Lactated Ringer's 1,000 mls @ 30 mls/hr 10/02/23 15:00 10/02/23 16:58 Lr - Lactated Ringers Iv IV CONT 30 mls/hr .Q24H DIANDRA Administration Lactated Ringer's 1,000 mls @ 30 mls/hr 10/02/23 15:00 10/02/23 17:57 Lr - Lactated Ringers Iv IV CONT Infused .Q24H DIANDRA Infusion Loratadine
--- NOTE | 2023-10-03 11:43 | PM.DS ---
DS: Admitting Diagnosis Discharge Date 10/03/2023 Admitting Diagnosis Ureterolithiasis LT calculus/UTI DS: Discharge Diagnosis Discharge Diagnosis (1) Ureterolithiasis: Code(s): N20.1 - Calculus of ureter Status: Acute (2) UTI (urinary tract infection): Qualifiers: Hematuria presence: with hematuria Urinary tract infection type: site unspecified Qualified Code(s): N39.0 - Urinary tract infection, site not specified; R31.9 - Hematuria, unspecified Code(s): N39.0 - Urinary tract infection, site not specified Status: Acute (3) Diabetes: Code(s): E11.9 - Type 2 diabetes mellitus without complications Status: Acute (4) Class 2 obesity with body mass index (BMI) of 38.0 to 38.9 in adult: Code(s): E66.9 - Obesity, unspecified; Z68.38 - Body mass index [BMI] 38.0-38.9, adult Status: Acute (5) HTN (hypertension): Qualifiers: Hypertension type: primary hypertension Qualified Code(s): I10 - Essential (primary) hypertension Code(s): I10 - Essential (primary) hypertension Status: Acute (6) Hyperlipidemia: Qualifiers: Hyperlipidemia type: unspecified Qualified Code(s): E78.5 - Hyperlipidemia, unspecified Code(s): E78.5 - Hyperlipidemia, unspecified Status: Acute Plan Ureterolithiasis CT: 3 mm mid left ureteral stone with moderate left hydronephrosis. Previous cycto/lithotripsy with Dr. Ibarra 01/2023 Urology consulted NPO for possible intervention Pain control IV fluids strain all urine UTI UA with leukocytes and nitrated + Previous UTI with ECOLI ESBL Cefepime IV LT hydronephrosis on CT IV fluids Diabetes Hemoglobin A1c Last was 7.1 BS 186 Repeat A1c Pending Patient does not take any current diabetic medication Diabetic diet consult to dietitian encourage lifestyle modifications and weight loss Optimize Yossi inhibitors and statins. Obesity encourage increased on physical activity and lifestyle modifications encourage outpatient weight loss clinic BMI . 43.3 Diet exercise counseling done. consult to dietitian HX HLD: will resume statin HX HTN: resumed amlodapine HX GERD: PPI Disposition: Patient discharged to home follow-up with Urology 5-10 days DS: Summary Hospital Course Reason for hospitalization: Ureterolithiasis LT calculus/UTI Hospital Course: LT sided flank pain/ABD pain Narrative: Patient is a 43 year old female who presented to the emergency department with complaints of left flank pain that began early today prior to arrival. Patient reported she does have a history of HTN, HLD, obesity, GERD, and kidney stones of which she had a previous cystoscopy with lithotripsy and stone extraction 02/26/2023. Patient denied any CP, SOB, Fever, chills or dizziness. Initial CT ABD showed multiple bilateral non-obstructing kidney stones, however patient pain worsened and a second CT ABD was performed later that evening that showed 3 MM mid left ureteral stone with moderate left hydronephrosis. Labs were significant for WBC 10.2, glucose of 186 and UA that was leukocyte, nitrate, and Ur blood positive. Patient was started on Cefepime based on previous UTI with ECOLI ESBL in the ED. She was admitted to medical unit for further evaluation and treatment of urolithiasis and UTI with a consult to Urology. 10/03/2023: DISCHARGED Patient had underwent a cystoscopy of the left ureters copy with stone extraction as well as left ureteral stent placement patient had tolerated the procedure well. Patient remained afebrile overnight with normal wbc's urine culture was still pending however Urology did clear patient for discharge from their standpoint to follow-up in 5-10 days in their office. Patient reported overall improvement to flank pain and was tolerating stent placement. Patient was discharged home with cefdinir and follow-up with Urology. Status
[2023-10-03] MEDS: KETOROLAC 30 MG/ML VIAL (*BKC) IV PUSH (12:18)
[2023-10-03 14:00] VITALS: BP 132/70; PULSE 99; RESP 24; TEMP 36.5; O2SAT 97
== END 2023-10-03 15:45 | disposition home or self-care (01) ==
LOC: ANHED 10-02 05:09 → ANH2MED 10-02 06:44
PROVIDERS: Urology; Admitting Provider General Practice; Emergency Provider Student in an Organized Health Care Education/Training Program; PCP Internal Medicine; Visit Provider Nurse Practitioner Family
PROC: (CPT 52352; principal; 2023-10-02 15:30)
DX: N13.2 Hydronephrosis with renal and ureteral calculous obstruction (principal); N39.0 Urinary tract infection, site not specified; I10 Essential (primary) hypertension; E78.5 Hyperlipidemia, unspecified; E11.9 Type 2 diabetes mellitus without complications; K21.9 Gastro-esophageal reflux disease without esophagitis; E66.01 Morbid (severe) obesity due to excess calories; Z68.41 Body mass index [BMI] 40.0-44.9, adult; G47.33 Obstructive sleep apnea (adult) (pediatric)
CPT/HCPCS: 52332; 52352; 36415; 74176; 80053; 81001; 81025; 82365; 83036; 83605; 83690; 85025; 85027; 87077; 87086; 87088; 87186; 88300; 96365; 96375; 99285; A9270; C1758; C1769; C2617; G0378; J0330; J0690; J0692; J1100; J1200; J1885; J2250; J2270; J2405; J2470; J2704; J3010; J7030; J7120

== ENCOUNTER 2023-12-03 11:44 | Inpatient (IN) | payer BC, SELFPAY ==
[2023-12-03] VITALS (17 sets, daily range): BP systolic 90–128; BP diastolic 52–79; PULSE 88–113; RESP 16–24; TEMP 36.7–37.7; O2SAT 90–99; BMI 43.1
--- NOTE | ~2023-12-03 | XR_ITS ---
XR abdomen/kub 1V 12/04/2023 08:59 Indication: Left ureteral stent position Procedure: KUB Comparison: 02/10/2023 Findings: There is a left internal ureteral stent present. There are multiple bilateral renal stones. There is a left ureteral stone at the sacral level. There is a right pelvic phlebolith. Pelvis patte rn is nonobstructive. Impression: 1: Left mid ureteral stone at the sacral level. 2: Bilateral nephrolithiasis. Reviewed, dictated and finalized at location B. Impression: 1: Left mid ureteral stone at the sacral level. 2: Bilateral nephrolithiasis.
--- NOTE | ~2023-12-03 | CT_ITS ---
Non-contrast CT scan of the Abdomen and Pelvis Clinical indication: Left flank pain Technique: 2.5 mm axial scans were obtained through the abdomen and pelvis without intravenous or or al contrast. Dose reduction technique was used on this scan by utilizing automated exposure control a nd iterative reconstruction technique. The dose-length product (DLP) was 657.84 mGy-cm. COMPARISON: 10/02/2023 Findings: Images through the lung bases reveal no abnormalities. There is an 8 x 7 mm stone at the mid left ureter, with moderate left hydroureteronephrosis to this l evel. No right ureteral stone or right hydronephrosis. There are multiple additional nonobstructing b ilateral renal stones present. The liver, spleen, pancreas, and adrenals appear normal. Cholecystectomy clips are present. There is no aortic aneurysm. There is no evidence of bowel obstruction. Images through the pelvis were performed. There is no evidence of ascites or lymphadenopathy. Urinary bladder unremarkable. No pelvic mass seen. Impression: 8 x 7 mid left ureteral stone, with moderate left hydroureteronephrosis to this level. Multiple additional bilateral nonobstructing renal calculi. Reviewed, dictated and finalized at location . Impression: 8 x 7 mid left ureteral stone, with moderate left hydroureteronephrosis to this level. Multiple additional bilateral nonobstructing renal calculi.
--- NOTE | ~2023-12-03 | XR_ITS ---
EXAMINATION: XR retrograde pyelo w/stent LT DATE: 12/03/2023 17:24 INDICATION: Left ureteral stone. TECHNIQUE: 5 intraoperative fluoroscopic views of the abdomen and pelvis were obtained. I was not pre sent. Fluoroscopy exposure time was 32 seconds. COMPARISON: CT abdomen pelvis 12/03/2023 FINDINGS: The left-sided retrograde pyelogram demonstrates hydronephrosis. The final images demonstra te a left internal ureteral stent in expected position. IMPRESSION: 1. Left hydronephrosis. Left internal ureteral stent in expected position. Reviewed, dictated and finalized at location A.
[2023-12-03 12:45] LABS: Basophils Percent Auto 0.5 % (0.2-1.2); Eosinophils Absolute Auto 0.1 K/mm3 (0-0.3); Eosinophils Percent Auto 0.8 % (0-4.4); Hematocrit 38.4 % (37.0-47.0); Hemoglobin 12.7 g/dL (12.0-15.0); Immature Granulocyte Absolute 0.02 K/mm3 (0.00-0.031); Immature Granulocyte Percent A 0.2 % (0-0.5); Lymphocytes Absolute Auto 0.56 K/mm3 (0.9-3.2); Lymphocytes Percent Auto 6.5 % (18.3-44.2); Mean Corpuscular HGB Conc 33.1 g/dl (32-36); Mean Corpuscular Hemoglobin 27.1 pg (26-34); Mean Corpuscular Volume 81.9 fl (80-100); Monocytes Absolute Auto 0.5 K/mm3 (0.1-0.6); Monocytes Percent Auto 6.2 % (2.6-8.5); Neutrophils Absolute Auto 7.4 K/mm3 (1.3-6.7); Neutrophils Percent Auto 85.8 % (45.5-73.1); Platelet Count Result 177 k/mm3 (150-375); Red Blood Count 4.69 M/mm3 (4.2-5.4); Red Cell Distribution Width 14.9 % (11.5-14.5); White Blood Count 8.6 K/mm3 (4.5-10.0)
[2023-12-03 13:06] LABS: Add Urine Microscopic? YES; Appearance Urine Cloudy (Clear); Bacteria Urine 4+ /hpf; Bilirubin Urine Negative (Negative); Blood Urine 3+ (Negative); Color Urine Yellow (Yellow); Glucose Urine UA Negative (Negative); Ketones Urine Negative (Negative); Leukocyte Esterase Ur 3+ LEU/UL (Negative); Nitrate Urine Positive (Negative); Non Pathogenic Casts 0-2; Protein Urine 1+ mg/dL (Negative); RBC Urine >100 /hpf (0-2); Squamous Epithelial Cell Urine Moderate /hpf (Few); WBC Urine >100 /hpf (0-3); pH Urine 6.5 (5.0-9.0)
[2023-12-03 13:13] LABS: Alanine Aminotransferase 46 U/L (6-35); Albumin Level 4.2 g/dL (3.5-5.1); Alkaline Phosphatase 75 U/L (38-126); Anion Gap 11 mmol/L (4-12); Aspartate Amino Transferase 66 U/L (14-36); Blood Urea Nitrogen 13 mg/dL (7-17); Calcium 8.7 mg/dL (8.4-10.2); Carbon Dioxide 26 mmol/L (22-30); Chloride 97 mmol/L (98-107); Estimated CRCL calculation 65 ml/min; Estimated Glomerular Filt Rate 49; Glucose 145 mg/dL (65-110); Potassium 3.9 mmol/L (3.4-5.0); Sodium 134 mmol/L (137-145)
[2023-12-03] MEDS: cefTRIAXone 2 GM/NS 100 ML 2 GM/100 ML BAG IVPB (13:57)
--- NOTE | 2023-12-03 14:19 | WPDURCON ---
Assessment and Plan Assessment and plan (1) Ureterolithiasis: Code(s): N20.1 - Calculus of ureter Status: Acute Assessment and Plan: 8 mm left ureteral stone with moderate left hydronephrosis. Will proceed with cystoscopy and left ureteral stent placement today with Dr. Rubio. Discussed risks versus benefits of procedure and patient is agreeable to proceed. Understands temporary nature of stent and need for definitive stone management at a later date. Continue NPO diet. (2) UTI (urinary tract infection): Qualifiers: Hematuria presence: with hematuria Urinary tract infection type: site unspecified Qualified Code(s): N39.0 - Urinary tract infection, site not specified; R31.9 - Hematuria, unspecified Code(s): N39.0 - Urinary tract infection, site not specified Status: Acute Assessment and Plan: UA grossly abnormal, concerning for UTI. Urine culture is pending at this time. Continue IV ceftriaxone while awaiting culture results. Urology Consult Note HPI Date Seen: 12/03/23 Primary Care Provider: Matthew Ramirez, Consult Narrative Narrative: Annalisa Lemus is a 43 year old female well known to our practice with history of recurrent urolithiasis most recently underwent left ureteroscopy 09/2023 who is being seen in consultation for left ureteral stone. She reports awaking at 1:00 a.m. with severe left flank pain and associated nausea. She did not have vomiting, fever, chills, dysuria, hematuria. Her pain progressively worsened and therefore she presented to the emergency department this afternoon. Upon arrival, her vital signs were stable and she was afebrile, white blood cell count normal at 8.6, creatinine slightly elevated at 1.2, UA abnormal with nitrates, leukocytes, and blood. Urine culture is pending at this time. CT of the abdomen/pelvis was completed which demonstrates an 8 mm mid left ureteral stone with moderate left hydroureteronephrosis as well as multiple nonobstructing bilateral renal stones. At the time of my evaluation, the patient continues to endorse left flank pain. She is voiding without difficulty. We discussed plans for left ureteral stent placement today and she is agreeable to proceed. Review of Systems Review of Systems: All systems reviewed & are unremarkable except as noted in HPI and below PMFSH Past Medical History Medical History Allergies ALAN positive Anxiety Bilateral renal stones Breast abscess Diabetes Elevated glucose level Encounter for surgical aftercare following surgery on the skin and subcutaneous tissue Encounter to establish care GERD (gastroesophageal reflux disease) HTN (hypertension) Kidney stones Left ureteral injury Melanoma of forearm Morbid obesity ES (obstructive sleep apnea) Post-op pain Right distal ureteral calculus Scalp psoriasis Vitamin D deficiency Surgical History Surgical History H/O lithotripsy H/O: hysterectomy History of extraction of renal calculus Hx of cholecystectomy Family History Family History Mother Hypertension Family history of heart disease in male family member before age 55 Father Family history of elevated blood lipids Other Family history of allergic disorder Social History Social History Smoking status: Never smoker Second hand tobacco smoke exposure: No Alcohol intake: never Alcohol use details: RARE Substance use: never Substance use type: does not use Do You Feel Safe in your Home?: Yes Lack of Transportation: No Lack of Food: Never True Current Housing: I Have Housing Concerned About Future Housing: No Difficulty Paying Gas/Electric Bills: No Difficulty Paying for Meds: No Currently Unemployed: No Education:
--- NOTE | 2023-12-03 14:47 | ED.ABDPAIN ---
HPI - Abdominal Pain General Chief Complaint: Abdominal Pain Stated Complaint: flank pian Time Seen by Provider: 12/03/23 12:40 History of Present Illness HPI narrative: Patient with left flank pain worsening today, she does have history of kidney stones as well as UTIs, and has had to have stents before. Had taken some Zofran and Toradol for her pain and nausea Related Data Home Medications Medication Instructions Recorded Confirmed esomeprazole magnesium 20 mg 20 mg PO DAILY 08/12/20 10/02/23 capsule,delayed release (Nexium) loratadine 10 mg tablet (Claritin) 10 mg PO DAILY 08/12/20 10/02/23 Allergies Allergy/AdvReac Type Severity Reaction Status Date / Time iodine Allergy Mild Rash Verified 12/03/23 18:45 iohexol Allergy Mild Rash Verified 12/03/23 18:45 [From CONTRAST - CT, XRAY] moxifloxacin Allergy Mild Rash Verified 12/03/23 18:45 Review of Systems Review of Systems: All systems reviewed & are unremarkable except as noted in HPI and below PMFSH Past Medical History Medical History Allergies ALAN positive Anxiety Bilateral renal stones Breast abscess Diabetes Elevated glucose level Encounter for surgical aftercare following surgery on the skin and subcutaneous tissue Encounter to establish care GERD (gastroesophageal reflux disease) HTN (hypertension) Kidney stones Left ureteral injury Melanoma of forearm Morbid obesity ES (obstructive sleep apnea) Post-op pain Right distal ureteral calculus Scalp psoriasis Vitamin D deficiency Surgical History Surgical History H/O lithotripsy H/O: hysterectomy History of extraction of renal calculus Hx of cholecystectomy Family History Family History Mother Hypertension Family history of heart disease in male family member before age 55 Father Family history of elevated blood lipids Other Family history of allergic disorder Social History Social History Smoking status: Never smoker Second hand tobacco smoke exposure: No Alcohol intake: never Alcohol use details: RARE Substance use: never Substance use type: does not use Do You Feel Safe in your Home?: Yes Lack of Transportation: No Lack of Food: Never True Current Housing: I Have Housing Concerned About Future Housing: No Difficulty Paying Gas/Electric Bills: No Difficulty Paying for Meds: No Currently Unemployed: No Education: Bachelor's Degree Difficulty w/ Childcare or Family Care: No Living arrangements: with family Additional living arrangements comments: DAUGHTER Gender identity (if verbalized by the patient): Female Sexual Orientation (if Verbalized by the Patient): Straight or Heterosexual Spiritual care concerns: No Exam Narrative: EXAMINATION OF ORGAN SYSTEMS/BODY AREAS: Constitutional: Vital signs per nursing GENERAL: Appears slightly uncomfortable HEAD: Normal with no signs of head trauma. EYES: EOMI, conjunctiva normal ENT: Hearing grossly intact LUNGS: Nonlabored breathing. HEART: [Regular rate and rhythm] ABD: [Soft], slightly tender to palpation left abdomen EXT: Normal range of motion SKIN: [No rashes or lesions.] NEURO: [Alert and oriented x 3. No gross focal sensory or strength deficits.] PSYCH: Normal affect Course Vital Signs Vital signs: Vital Signs Pulse Rate 96 12/03/23 12:40 Respiratory Rate 16 12/03/23 12:40 Blood Pressure 119/71 12/03/23 12:40 Pulse Oximetry 98 12/03/23 12:40 Temperature 99.1 F 12/03/23 18:50 Pulse Rate 101 H 12/03/23 18:50 Respiratory Rate 18 12/03/23 18:50 Blood Pressure 105/66 12/03/23 18:50 Pulse Oximetry 92 12/03/23 18:50 Oxygen Delivery Room Air 12/03/23 18:53 Oxygen Flow Rate 8 12/03/23 17:35
[2023-12-03 16:45] LABS: Glucose Point of Care 134 mg/dl (65-105)
--- NOTE | 2023-12-03 16:53 | WPDANESEPPF ---
Anes - Initial Pre Proc Eval Procedure: Operation Date: 12/03/23 17:45 Proposed Procedures p Cystoscopy,Left Stent Placement - Leroy Rubio MD Date/Time: 12/03/23 16:53 Surgeon: Julienne Bernal MD Pre Op Diagnosis: Infected Stone Patient Data Age: 43 Gender: F Height: 1.63 m Weight: 114 kg Last Vital Signs Temp 99.8 F H 12/03/23 16:40 Pulse 110 H 12/03/23 16:40 Resp 20 12/03/23 16:40 BP 122/63 12/03/23 16:40 Pulse Ox 96 12/03/23 16:40 O2 Del Method Room Air 12/03/23 16:40 Allergies Allergy/AdvReac Type Severity Reaction Status Date / Time iodine Allergy Mild Rash Verified 12/03/23 11:47 iohexol Allergy Mild Rash Verified 12/03/23 11:47 [From CONTRAST - CT, XRAY] moxifloxacin Allergy Mild Rash Verified 12/03/23 11:47 Home Medications Medication Instructions Recorded Confirmed Type esomeprazole magnesium 20 mg 20 mg PO DAILY 08/12/20 10/02/23 History capsule,delayed release (Nexium) loratadine 10 mg tablet (Claritin) 10 mg PO DAILY 08/12/20 10/02/23 History amlodipine 5 mg tablet 5 mg PO HS #90 tabs 07/01/23 10/02/23 Rx escitalopram oxalate 20 mg tablet 20 mg PO HS #90 tabs 08/13/23 10/02/23 Rx (Lexapro) cefdinir 300 mg capsule 300 mg PO Q12H #20 caps 10/03/23 Rx ketorolac 10 mg tablet 10 mg PO Q8H PRN pain #15 tabs 10/03/23 Rx nitrofurantoin 100 mg PO Q12H 7 days #14 caps 10/05/23 Rx monohydrate/macrocrystals 100 mg capsule (Macrobid) atorvastatin 20 mg tablet 20 mg PO QHS #90 tabs 10/12/23 Rx Laboratory Tests 12/03/23 12/03/23 12/03/23 12:41 12:49 16:43 WBC 8.6 K/mm3 (4.5-10.0) RBC 4.69 M/mm3 (4.2-5.4) Hgb 12.7 g/dL (12.0-15.0) Hct 38.4 % (37.0-47.0) MCV 81.9 fl (80-100) MCH 27.1 pg (26-34) MCHC 33.1 g/dl (32-36) RDW 14.9 H % (11.5-14.5) Plt Count 177 k/mm3 (150-375) MPV 9.0 fl (7.4-10.4) Immature Gran % (Auto) 0.2 % (0-0.5) Neut % (Auto) 85.8 H % (45.5-73.1) Lymph % (Auto) 6.5 L % (18.3-44.2) [place] % (Auto) 6.2 % (2.6-8.5) Eos % (Auto) 0.8 % (0-4.4) Baso % (Auto) 0.5 % (0.2-1.2) Lymph # (Auto) 0.56 L K/mm3 (0.9-3.2) [place] # (Auto) 0.5 K/mm3 (0.1-0.6) Eos # (Auto) 0.1 K/mm3 (0-0.3) Baso # (Auto) 0.0 K/mm3 (0.0-0.1) Abs Immat Gran (auto) 0.02 K/mm3 (0.00-0.031) Absolute Neuts (auto) 7.4 H K/mm3 (1.3-6.7) Absolute Nucleated RBC 0.000 K/mm3 (0.0-0.012) Nucleated RBC % 0.0 % (0.0-0.2) Sodium 134 L mmol/L (137-145) Potassium 3.9 mmol/L (3.4-5.0) Chloride 97 L mmol/L (98-107) Carbon Dioxide 26 mmol/L (22-30) Anion Gap 11 mmol/L (4-12) BUN 13 mg/dL (7-17) Creatinine 1.20 H mg/dL (0.7-1.0) Estim Creat Clear Calc 65 ml/min Estimated GFR 49 L (59 - ) Glucose 145 H mg/dL (65-110) POC Capillary Glucose 134 H mg/dl (65-105) Calcium 8.7 mg/dL (8.4-10.2) Total Bilirubin 1.0 mg/dL (0.2-1.3) AST 66 H U/L (14-36) ALT 46 H U/L (6-35) Alkaline Phosphatase 75 U/L (38-126) Total Protein 8.0 g/dL (6.3-8.2) Albumin 4.2 g/dL (3.5-5.1) Urine Color Yellow (Yellow) Urine Appearance Cloudy H (Clear) Urine pH 6.5 (5.0-9.0) Ur Specific [place] 1.020 (1.001-1.035) Urine Protein 1+ H mg/dL (Negative) Urine Glucose (UA) Negative mg/dL (Negative) Urine Ketones Negative mg/dL (Negative) Ur Blood (Man) 3+ H (Negative) Urine Nitrate Positive H (Negative) Urine Bilirubin Negative (Negative) Urine Urobilinogen 1.0 mg/dL (<2.0) Leukocyte Esterase
[2023-12-03] MEDS: SCOPOLAMINE 1 MG PATCH 1 PATCH TRANSDERM (16:59)
[2023-12-03] MEDS: LACTATED RINGERS 1,000 ML 30 ML IV CONT ×2 (16:59→17:51)
--- NOTE | 2023-12-03 17:03 | WPDHPUPDATE1 ---
History and Physical Update Update Date/Time: 12/03/23 17:03 History and Physical has been reviewed, including an updated exam of the patient. There are NO changes in the patient's condition. Risks, benefits, and alternatives have been discussed and questions answered. Patient agrees to proceed with procedure.
[2023-12-03] MEDS: LIDOCAINE HCL 2% GEL UROJET 10 ML PKG MUCOUS MEM (17:16)
--- NOTE | 2023-12-03 17:18 | W.PM.PROC2 ---
Procedure Note - Detailed Date of Procedure 12/03/23 Pre-op Diagnosis Left mid-ureteral stone, obstructive left pyelonephritis Post-op Diagnosis Same Procedure Performed Cystoscopy, left retrograde pyelography, left ureteral stent placement Surgeon Leroy Rubio MD Anesthesia General Description of Procedure patient is brought to the operative suite where she is prepped draped in routine sterile fashion while in dorsal lithotomy position after the uneventful induction of a general LMA anesthetic. Cystoscopy was undertaken with a 19 F rigid cystoscope. Bladder neck and urethra endoscopically normal. Bladder mucosa is normal but urine is quite purulent. She has a single orthotopic ureteral orifice. A 0.035 in glidewire was advanced in the left renal pelvis and an angiographic catheter was used to obtain a retrograde pyelogram to ensure appropriate positioning of a 4.8 F variable length ureteral stent with proximal coil in the renal pelvis and distal coil in the bladder. Scopes and wires removed. Patient was taken recovery room in good condition. Drains Yes Packing No Pathology None sent Complications No immediate complications Condition Stable
--- NOTE | 2023-12-03 18:44 | ADMGEN ---
This patient, Annalisa Lemus, was admitted to Medical Room 349-01. Patient/family oriented to hospital policies and general routines including ID bracelet, bed and alarms, visiting hours, pain management, procedures, bathroom and other care routines, personal items, smoking policy, room service/diet, and visiting hours. Information on how to activate the Rapid Response Team has been discussed. Patient/Family are encouraged to report perceived risks to care and to ask questions if they do not understand what they are told or what they should do.
--- NOTE | 2023-12-03 22:02 | PM.IMHP ---
H&P: HPI History of Present Illness Date/Time: 12/03/23 22:02 Chief Complaint: Flank Pain Narrative: 43 y/o F presents here with flank pain with PMH of kidney stones, diabetes, GERD, HTN, obesity, ES, scalp psoriasis, and vitamin-D deficiency. The patient presents here from home for further evaluation of left flank pain. She reports onset of flank pain at 1:00 a.m. this morning. She describes the pain as sharp, nonradiating, constant, and no aggravating/alleviating factors. Took PO Toradol at home with minimal relief. Flank pain is accompanied by nausea without vomiting. Did take home Zofran with partial relief. Reports mild increase in temp, temp was 99.8F. Denies abdominal pain, fever, chills, body aches, or diarrhea. Patient reports history of kidney stones, last occurrence was 2 months ago. Initial VS at presentation: 99.8? F, HR 96, R 16, 119/71, and 98% on RA ED workup showed: No leukocytosis, no anemia, sodium 134, creatinine 1.2 and GFR 49 (previously 0.7 and GFR >60 on 10/03/2023), glucose 145, mild bump in LFTs, and UA consistent with UTI. CT of the abdomen/pelvis showed an 8 x 7 mid left ureteral stone with moderate left hydroureteronephrosis at that level and multiple additional bilateral nonobstructing renal calculi. Review of Systems Review of Systems: All systems reviewed & are unremarkable except as noted in HPI and below PMFSH Past Medical History Medical History (Updated 12/03/23 @ 22:15 by Anayeli Ordoñez APRN) Allergies Anemia Anxiety Breast abscess Diabetes Elevated glucose level GERD (gastroesophageal reflux disease) HTN (hypertension) Hyperlipidemia Kidney stones Left ureteral injury Melanoma of forearm Obesity, Class III, BMI 40-49.9 (morbid obesity) ES (obstructive sleep apnea) Polymyalgia Positive ALAN (antinuclear antibody) Scalp psoriasis Vitamin D deficiency Surgical History Surgical History H/O lithotripsy H/O: hysterectomy History of extraction of renal calculus Hx of cholecystectomy Family History Family History Mother Hypertension Family history of heart disease in male family member before age 55 Father Family history of elevated blood lipids Other Family history of allergic disorder Social History Social History Smoking status: Never smoker Second hand tobacco smoke exposure: No Alcohol intake: never Alcohol use details: RARE Substance use: never Substance use type: does not use Do You Feel Safe in your Home?: Yes Lack of Transportation: No Lack of Food: Never True Current Housing: I Have Housing Concerned About Future Housing: No Difficulty Paying Gas/Electric Bills: No Difficulty Paying for Meds: No Currently Unemployed: No Education: Bachelor's Degree Difficulty w/ Childcare or Family Care: No Living arrangements: with family Additional living arrangements comments: DAUGHTER Gender identity (if verbalized by the patient): Female Sexual Orientation (if Verbalized by the Patient): Straight or Heterosexual Spiritual care concerns: No Meds Home Medications and Allergies Home Medications Medication Instructions Recorded Confirmed Type esomeprazole magnesium 20 mg 20 mg PO DAILY 08/12/20 12/03/23 History capsule,delayed release (Nexium) loratadine 10 mg tablet (Claritin) 10 mg PO DAILY 08/12/20 12/03/23 History ketorolac 10 mg tablet 10 mg PO Q8H PRN pain #15 tabs 10/03/23 12/03/23 Rx amlodipine 5 mg tablet 5 mg PO DAILY 12/03/23 12/03/23 History atorvastatin 20 mg tablet 20 mg PO DAILY 12/03/23 12/03/23 History escitalopram oxalate 20 mg tablet 20 mg PO DAILY 12/03/23 12/03/23 History (Lexapro) ondansetron 4 mg disintegrating 4 mg PO Q8-12H PRN Nausea 12/03/23 12/03/23 History tablet Allergies Allergy/AdvReac Type Sever
[2023-12-03] MEDS: SODIUM CHLORIDE 0.9% IV 1,000 ML 100 ML IV CONT (22:38)
[2023-12-03 22:41] LABS: Glucose Point of Care 363 mg/dl (65-105)
[2023-12-03] MEDS: MEROPENEM 2 GM in SODIUM CHLORIDE 0.9% IV 100 ML IVPB (23:28)
[2023-12-04] MEDS: SODIUM CHLORIDE 0.9% IV 1,000 ML 999 ML IV CONT (00:07)
[2023-12-04 02:05] VITALS: PULSE 80; RESP 24; O2SAT 95
[2023-12-04 03:33] VITALS: BP 117/63; PULSE 83; RESP 18; TEMP 37.1; O2SAT 94
[2023-12-04 05:36] LABS: Basophils Percent Auto 0.3 % (0.2-1.2); Eosinophils Absolute Auto 0.1 K/mm3 (0-0.3); Eosinophils Percent Auto 0.6 % (0-4.4); Hematocrit 36.8 % (37.0-47.0); Hemoglobin 11.9 g/dL (12.0-15.0); Immature Granulocyte Absolute 0.09 K/mm3 (0.00-0.031); Immature Granulocyte Percent A 0.7 % (0-0.5); Lymphocytes Absolute Auto 0.66 K/mm3 (0.9-3.2); Lymphocytes Percent Auto 5.1 % (18.3-44.2); Mean Corpuscular HGB Conc 32.3 g/dl (32-36); Mean Corpuscular Hemoglobin 26.9 pg (26-34); Mean Corpuscular Volume 83.3 fl (80-100); Mean Platelet Volume 9.9 fl (7.4-10.4); Monocytes Absolute Auto 1.1 K/mm3 (0.1-0.6); Monocytes Percent Auto 8.2 % (2.6-8.5); Neutrophils Percent Auto 85.1 % (45.5-73.1); Platelet Count Result 177 k/mm3 (150-375); Red Blood Count 4.42 M/mm3 (4.2-5.4); Red Cell Distribution Width 15.4 % (11.5-14.5)
[2023-12-04 05:45] LABS: Anion Gap 9 mmol/L (4-12); Blood Urea Nitrogen 14 mg/dL (7-17); Calcium 8.5 mg/dL (8.4-10.2); Carbon Dioxide 26 mmol/L (22-30); Chloride 104 mmol/L (98-107); Estimated CRCL calculation 78 ml/min; Estimated Glomerular Filt Rate 60; Glucose 202 mg/dL (65-110); Potassium 3.9 mmol/L (3.4-5.0); Sodium 139 mmol/L (137-145)
[2023-12-04] MEDS: MEROPENEM 2 GM in SODIUM CHLORIDE 0.9% IV 100 ML IVPB ×3 (06:11→23:04)
--- NOTE | 2023-12-04 08:13 | WPDUROPN2 ---
Progress Note: A&P Assessment and Plan (1) Calculus, ureteral: Code(s): N20.1 - Calculus of ureter Status: Acute (2) UTI (urinary tract infection): Qualifiers: Hematuria presence: without hematuria Urinary tract infection type: acute cystitis Qualified Code(s): N30.00 - Acute cystitis without hematuria Code(s): N39.0 - Urinary tract infection, site not specified Status: Acute Assessment and Plan: Tolerating stent (unlike prior stints with a stent) well Will get KUB and make decision about definitive stone intervention (ESWL vs. ureteroscopy). Will set-up outpatient procedure in 7-14 days without need for f/u in office prior. Home on oral abx. x10 days when culture complete. Subjective Subjective Date/Time Seen: 12/04/23 08:13 Interval history: Feels/looks much better Tolerating stent Review of Systems Cardiovascular: Cardiovascular: Denies chest pain, Denies lightheadedness, Denies palpitations and Denies dyspnea Respiratory: Respiratory: Denies dyspnea Gastrointestinal: Gastrointestinal: Denies diarrhea, Denies nausea and Denies vomiting Genitourinary: Genitourinary: Denies hematuria and Denies dysuria Endocrine: Endocrine: Denies palpitations Exam Const: General: no acute distress Resp: Effort & Inspection: normal respiratory effort GI: Inspection: non-distended GI Palp: No abdominal tenderness and No Guarding due to palpation present (GI) Auscultation: normal bowel sounds Objective Data Vital Signs Vital Signs: Vital Signs - 24 hr 12/03/23 12:40 12/03/23 13:30 12/03/23 14:30 Temperature Pulse Rate 96 104 H 105 H Respiratory Rate 16 20 20 Blood Pressure 119/71 123/68 123/76 Pulse Oximetry 98 96 95 Oxygen Delivery Oxygen Flow Rate 12/03/23 15:00 12/03/23 16:10 12/03/23 16:40 Temperature 99.8 F H Pulse Rate 108 H 113 H 110 H Respiratory Rate 20 20 20 Blood Pressure 124/79 90/78 L 122/63 Pulse Oximetry 96 96 96 Oxygen Delivery Room Air Oxygen Flow Rate 12/03/23 17:25 12/03/23 17:35 12/03/23 17:45 Temperature 99.2 F Pulse Rate 111 H 106 H 107 H Respiratory Rate 16 20 20 Blood Pressure 111/69 100/60 98/66 L Pulse Oximetry 93 99 94 Oxygen Delivery Simple Face Mask Simple Face Mask Room Air Oxygen Flow Rate 8 8 12/03/23 18:00 12/03/23 18:13 12/03/23 18:53 Temperature 98.4 F 98.4 F Pulse Rate 103 H 101 H Respiratory Rate 20 20 Blood Pressure 97/57 L 102/61 Pulse Oximetry 93 93 Oxygen Delivery Room Air Room Air Room Air Oxygen Flow Rate 12/03/23 18:35 12/03/23 18:50 12/03/23 19:20 Temperature 99.0 F 99.1 F 99.0 F Pulse Rate 101 H 101 H 98 Respiratory Rate 18 18 18 Blood Pressure 104/69 105/66 119/59 L Pulse Oximetry 90 92 91 Oxygen Delivery Oxygen Flow Rate 12/03/23 19:48 12/03/23 20:46 12/03/23 23:48 Temperature 98.6 F 98.0 F Pulse Rate 97 88 Respiratory Rate 18 18 Blood Pressure 128/69 102/52 L Pulse Oximetry 92 93 Oxygen Delivery Room Air Oxygen Flow Rate 12/03/23 22:20 12/04/23 02:05 12/04/23 03:33 Temperature 98.8 F Pulse Rate 89 80 83 Respiratory Rate 24 H 24 H 18 Blood Pressure 117/63 Pulse Oximetry 93 95 94 Oxygen Delivery CPAP CPAP Oxygen Flow Rate Intake/Output Intake/Output: Intake & Output 12/01/23 12/02/23 12/03/23 12/04/23 23:59 23:59 23:59 23:59 Intake Total 990 1120 Output Total 1700 Balance 990 -580 Meds/Results Medications: Active Medications Generic Name Dose Route Start Last Admin Trade Name Freq PRN Reason Stop Dose Admin Acetaminophen 650 mg 12/03/23 22:16 Acetaminophen 325 Mg Tablet PO Q4H PRN Mild Pain (1-3) or Fever Hydrocodone Bitart/Acetaminophen 1 tab 12/03/23 22:16 Hydrocodone/Acetaminophen (*Crx) 5-325 Mg Tablet PO Q4H PRN Pain Rated 4-6 Amlodipine Besylate 5 mg 12/04/23 09:00 Amlodipine Besylate 5 Mg Tablet PO DAILY DIANDRA Atorvastatin Calci
[2023-12-04 08:36] LABS: Glucose Point of Care 172 mg/dl (65-105)
[2023-12-04] MEDS: PANTOPRAZOLE 40 MG TABLET PO (08:39)
[2023-12-04] MEDS: LORATADINE 10 MG TABLET PO (08:39)
[2023-12-04] MEDS: amLODIPine BESYLATE 5 MG TABLET PO (08:39)
[2023-12-04] MEDS: ATORVASTATIN 20 MG TABLET PO (08:39)
[2023-12-04] MEDS: ESCITALOPRAM OXALATE 10 MG TABLET 20 MG PO (08:39)
--- NOTE | 2023-12-04 09:07 | PM.IMPN ---
Progress Note: A&P Assessment and Plan (1) UTI (urinary tract infection): Qualifiers: Hematuria presence: without hematuria Urinary tract infection type: acute cystitis Qualified Code(s): N30.00 - Acute cystitis without hematuria Code(s): N39.0 - Urinary tract infection, site not specified Status: Acute Assessment and Plan: - did not meet SIRS criteria - UA: Cloudy, 1+ protein, 3+ blood, positive nitrates, 3+ leuks, greater than 100 RBC and WBC, moderate epithelial cells, 4+ bacteria - UC pending - previous micro reviewed, confirmed ESBL history in 2021, most recent culture on 10/02/23 grew E. coli with resistance to Augmentin, Unasyn, ceftriaxone, and Bactrim and intermediate to cipro and Levaquin - started on Ceftriaxone on 12/02, given most recent culture will transition to meropenem (2) Calculus, ureteral: Code(s): N20.1 - Calculus of ureter Status: Acute Assessment and Plan: - CT abdomen/pelvis: 8 x 7 mid left ureteral stone, with moderate left hydroureteronephrosis to this level. Multiple additional bilateral nonobstructing renal calculi. - urology consult, provided the following recs: Underwent cystoscopy this afternoon, left ureteral stent placed Will need definitive stone treatment - Repeat KUB shows stone at the sacral level - strain urine (3) CECILIA (acute kidney injury): Code(s): N17.9 - Acute kidney failure, unspecified Status: Acute Assessment and Plan: - creatinine 1.2 and GFR 49, previously 0.7 and GFR >60 on 10/03/2023 - suspect injury related to kidney stones/hydronephrosis and UTI, started on antibiotics and IV fluids - trend renal function and monitor I&Os - trend electrolytes, correct as needed - Creatinine 1.0 (4) Type 2 diabetes mellitus: Qualifiers: Diabetes mellitus complication status: without complication 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 insulin use: without nursing home use Qualified Code(s): E11.9 - Type 2 diabetes mellitus without complications Code(s): E11.9 - Type 2 diabetes mellitus without complications Status: Acute Assessment and Plan: - hypoglycemia protocol - POC blood glucose ACHS - not currently on medications - correct regimen ordered - low dose TIDWM - A1C 6.8% on 10/03/2023 (5) HTN (hypertension): Qualifiers: Hypertension type: primary hypertension Qualified Code(s): I10 - Essential (primary) hypertension Code(s): I10 - Essential (primary) hypertension Status: Acute Assessment and Plan: - chronic, currently 128/69 - continue home medications: Amlodipine 5 mg daily - monitor (6) ES (obstructive sleep apnea): Code(s): G47.33 - Obstructive sleep apnea (adult) (pediatric) Status: Acute Assessment and Plan: - continue home CPAP Plan Diet: Diabetic DVT Prophylaxis: SCDs Lines: Peripheral Code Status: Full code Dispo: 43 year old female presents with flank pain and was found to have kidney stones. She had a stent placed by urology. She is being treated with IV antibiotics. Awaiting urine cultures. Subjective Date/time seen: 12/04/23 09:07 Interval history: 43 y/o F presents here with flank pain with PMH of kidney stones, diabetes, GERD, HTN, obesity, ES, scalp psoriasis, and vitamin-D deficiency. The patient presents here from home for further evaluation of left flank pain. 12/03: Doing well. She does not have any pain and is tolerating her stent. Can stop her IV fluids today. She is tolerating a diet. Awaiting urine cultures. Review of Systems Review of Systems: All systems reviewed & are unremarkable except as noted in HPI and below Exam Narrative: General: well appearing, appears stated age. HEENT: normocephalic, atraumatic. Mucous membranes moist. EOMI, PERRLA, bilateral sclera anicteric, no conjunctival injection. Neck supple without JVD, lymphadenopathy, or bruit. Respiratory: clear
--- NOTE | 2023-12-04 10:31 | WPDANESPN ---
Anes - Prog Note Post-Op Date/Time: 12/04/23 10:31 Cardiovascular status: normal Respiratory status: normal Airway patency: baseline Mental status: baseline Post-Op hydration status: normal Vital Signs: Last Vital Signs Temp 37.1 C 12/04/23 03:33 Pulse 83 12/04/23 03:33 Resp 18 12/04/23 03:33 BP 117/63 12/04/23 03:33 Pulse Ox 94 12/04/23 03:33 O2 Del Method Room Air 12/04/23 08:40 O2 Flow Rate 8 12/03/23 17:35 Pain Score (VAS): 0/10 I/O: Intake & Output 12/03/23 12/04/23 12/04/23 23:59 07:59 15:59 Intake Total 890 1120 790 Output Total 1700 Balance 890 -580 790 Laboratory Tests 12/04/23 05:17 12/04/23 05:17 12/03/23 12/03/23 12/03/23 12:41 12:49 16:43 WBC 8.6 RBC 4.69 Hgb 12.7 Hct 38.4 MCV 81.9 MCH 27.1 MCHC 33.1 RDW 14.9 H Plt Count 177 MPV 9.0 Immature Gran % (Auto) 0.2 Neut % (Auto) 85.8 H Lymph % (Auto) 6.5 L [place] % (Auto) 6.2 Eos % (Auto) 0.8 Baso % (Auto) 0.5 Lymph # (Auto) 0.56 L [place] # (Auto) 0.5 Eos # (Auto) 0.1 Baso # (Auto) 0.0 Abs Immat Gran (auto) 0.02 Absolute Neuts (auto) 7.4 H Absolute Nucleated RBC 0.000 Nucleated RBC % 0.0 Sodium 134 L Potassium 3.9 Chloride 97 L Carbon Dioxide 26 Anion Gap 11 BUN 13 Creatinine 1.20 H Estim Creat Clear Calc 65 Estimated GFR 49 L Glucose 145 H POC Capillary Glucose 134 H Calcium 8.7 Total Bilirubin 1.0 AST 66 H ALT 46 H Alkaline Phosphatase 75 Total Protein 8.0 Albumin 4.2 Urine Color Yellow Urine Appearance Cloudy H Urine pH 6.5 Ur Specific [place] 1.020 Urine Protein 1+ H Urine Glucose (UA) Negative Urine Ketones Negative Ur Blood (Man) 3+ H Urine Nitrate Positive H Urine Bilirubin Negative Urine Urobilinogen 1.0 Leukocyte Esterase Rfl 3+ H Urine RBC >100 H Urine WBC >100 H Ur Squamous Epith Cells Moderate Urine Bacteria 4+ H Urine Casts 0-2 12/03/23 12/04/23 12/04/23 22:34 05:17 08:33 WBC 13.0 H RBC 4.42 Hgb 11.9 L Hct 36.8 L MCV 83.3 MCH 26.9 MCHC 32.3 RDW 15.4 H Plt Count 177 MPV 9.9 Immature Gran % (Auto) 0.7 H Neut % (Auto) 85.1 H Lymph % (Auto) 5.1 L [place] % (Auto) 8.2 Eos % (Auto) 0.6 Baso % (Auto) 0.3 Lymph # (Auto) 0.66 L [place] # (Auto) 1.1 H Eos # (Auto) 0.1 Baso # (Auto) 0.0 Abs Immat Gran (auto) 0.09 H Absolute Neuts (auto) 11.0 H Absolute Nucleated RBC 0.000 Nucleated RBC % 0.0 Sodium 139 Potassium 3.9 Chloride 104 Carbon Dioxide 26 Anion Gap 9 BUN 14 Creatinine 1.00 Estim Creat Clear Calc 78 Estimated GFR 60 Glucose 202 H POC Capillary Glucose 363 H 172 H Calcium 8.5 Total Bilirubin AST ALT Alkaline Phosphatase Total Protein Albumin Urine Color Urine Appearance Urine pH Ur Specific [place] Urine Protein Urine Glucose (UA) Urine Ketones Ur Blood (Man) Urine Nitrate Urine Bilirubin Urine Urobilinogen Leukocyte Esterase Rfl Urine RBC Urine WBC Ur Squamous Epith Cells Urine Bacteria Urine Casts Post-procedural complaints: none Patient Feedback: Patient satisfied with anesthetic care.
[2023-12-04 12:17] LABS: Glucose Point of Care 157 mg/dl (65-105)
[2023-12-04 14:49] VITALS: BP 118/61; PULSE 94; RESP 17; TEMP 36.5; O2SAT 95
[2023-12-04] MEDS: ACETAMINOPHEN 325 MG TABLET 650 MG PO (15:51)
[2023-12-04 17:13] LABS: Glucose Point of Care 140 mg/dl (65-105)
[2023-12-04 21:36] LABS: Glucose Point of Care 223 mg/dl (65-105)
[2023-12-04 22:00] VITALS: BP 112/83; PULSE 87; RESP 18; TEMP 36.8; O2SAT 90
[2023-12-04 23:00] VITALS: PULSE 87; RESP 19; O2SAT 90
[2023-12-05 03:41] VITALS: RESP 20; O2SAT 93
[2023-12-05 05:20] LABS: Basophils Percent Auto 0.3 % (0.2-1.2); Eosinophils Percent Auto 0.3 % (0-4.4); Hematocrit 35.5 % (37.0-47.0); Immature Granulocyte Absolute 0.09 K/mm3 (0.00-0.031); Immature Granulocyte Percent A 0.7 % (0-0.5); Lymphocytes Absolute Auto 1.13 K/mm3 (0.9-3.2); Lymphocytes Percent Auto 9.4 % (18.3-44.2); Mean Corpuscular Hemoglobin 26.2 pg (26-34); Mean Corpuscular Volume 84.5 fl (80-100); Mean Platelet Volume 9.9 fl (7.4-10.4); Monocytes Absolute Auto 1.2 K/mm3 (0.1-0.6); Monocytes Percent Auto 9.6 % (2.6-8.5); Neutrophils Absolute Auto 9.6 K/mm3 (1.3-6.7); Neutrophils Percent Auto 79.7 % (45.5-73.1); Platelet Count Result 180 k/mm3 (150-375); Red Cell Distribution Width 15.9 % (11.5-14.5)
[2023-12-05 05:35] LABS: Anion Gap 9 mmol/L (4-12); Blood Urea Nitrogen 16 mg/dL (7-17); Calcium 8.7 mg/dL (8.4-10.2); Carbon Dioxide 26 mmol/L (22-30); Chloride 105 mmol/L (98-107); Estimated CRCL calculation 86 ml/min; Estimated Glomerular Filt Rate > 60; Glucose 139 mg/dL (65-110); Potassium 3.6 mmol/L (3.4-5.0); Sodium 140 mmol/L (137-145)
[2023-12-05 06:00] VITALS: BP 114/74; PULSE 86; RESP 18; TEMP 36.8; O2SAT 96
[2023-12-05] MEDS: MEROPENEM 2 GM in SODIUM CHLORIDE 0.9% IV 100 ML IVPB (07:59)
[2023-12-05] MEDS: PANTOPRAZOLE 40 MG TABLET PO (08:00)
[2023-12-05] MEDS: amLODIPine BESYLATE 5 MG TABLET PO (08:00)
[2023-12-05] MEDS: LORATADINE 10 MG TABLET PO (08:01)
[2023-12-05] MEDS: ESCITALOPRAM OXALATE 10 MG TABLET 20 MG PO (08:01)
[2023-12-05] MEDS: ATORVASTATIN 20 MG TABLET PO (08:01)
[2023-12-05 08:20] LABS: Glucose Point of Care 139 mg/dl (65-105)
--- NOTE | 2023-12-05 09:09 | PM.IMPN ---
Progress Note: A&P Assessment and Plan (1) UTI (urinary tract infection): Qualifiers: Hematuria presence: without hematuria Urinary tract infection type: acute cystitis Qualified Code(s): N30.00 - Acute cystitis without hematuria Code(s): N39.0 - Urinary tract infection, site not specified Status: Acute Assessment and Plan: - did not meet SIRS criteria - UA: Cloudy, 1+ protein, 3+ blood, positive nitrates, 3+ leuks, greater than 100 RBC and WBC, moderate epithelial cells, 4+ bacteria - UC pending - previous micro reviewed, confirmed ESBL history in 2021, most recent culture on 10/02/23 grew E. coli with resistance to Augmentin, Unasyn, ceftriaxone, and Bactrim and intermediate to cipro and Levaquin - started on Ceftriaxone on 12/02, given most recent culture will transition to meropenem - Culture growing ECOLI which is rather resistant but can be treated with nitrofurantoin. Started on nitrofurantoin b.i.d. for 10 days. -anticipate discharge tomorrow (2) Calculus, ureteral: Code(s): N20.1 - Calculus of ureter Status: Acute Assessment and Plan: - CT abdomen/pelvis: 8 x 7 mid left ureteral stone, with moderate left hydroureteronephrosis to this level. Multiple additional bilateral nonobstructing renal calculi. - urology consult, provided the following recs: Underwent cystoscopy this afternoon, left ureteral stent placed Will need definitive stone treatment - Repeat KUB shows stone at the sacral level - strain urine (3) CECILIA (acute kidney injury): Code(s): N17.9 - Acute kidney failure, unspecified Status: Acute Assessment and Plan: - creatinine 1.2 and GFR 49, previously 0.7 and GFR >60 on 10/03/2023 - suspect injury related to kidney stones/hydronephrosis and UTI, started on antibiotics and IV fluids - trend renal function and monitor I&Os - trend electrolytes, correct as needed - Creatinine 1.0 (4) Type 2 diabetes mellitus: Qualifiers: Diabetes mellitus complication status: without complication Diabetes mellitus correction insulin use: 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 Qualified Code(s): E11.9 - Type 2 diabetes mellitus without complications Code(s): E11.9 - Type 2 diabetes mellitus without complications Status: Acute Assessment and Plan: - hypoglycemia protocol - POC blood glucose ACHS - not currently on medications - correct regimen ordered - low dose TIDWM - A1C 6.8% on 10/03/2023 (5) HTN (hypertension): Qualifiers: Hypertension type: primary hypertension Qualified Code(s): I10 - Essential (primary) hypertension Code(s): I10 - Essential (primary) hypertension Status: Acute Assessment and Plan: - chronic, currently 128/69 - continue home medications: Amlodipine 5 mg daily - monitor (6) ES (obstructive sleep apnea): Code(s): G47.33 - Obstructive sleep apnea (adult) (pediatric) Status: Acute Assessment and Plan: - continue home CPAP Plan Diet: Diabetic DVT Prophylaxis: SCDs Lines: Peripheral Code Status: Full code Dispo: 43 year old female presents with flank pain and was found to have kidney stones. She had a stent placed by urology. She is being treated with IV antibiotics. Awaiting urine cultures. Subjective Date/time seen: 12/05/23 09:09 Interval history: 43 y/o F presents here with flank pain with PMH of kidney stones, diabetes, GERD, HTN, obesity, ES, scalp psoriasis, and vitamin-D deficiency. The patient presents here from home for further evaluation of left flank pain. 12/03: Doing well. She does not have any pain and is tolerating her stent. Can stop her IV fluids today. She is tolerating a diet. Awaiting urine cultures. 12/04: No acute events overnight. She is having some upset stomach today which she thinks is from the diarrhea. Review of Systems Review of Systems: All systems reviewed & are unremarkable except as noted in
[2023-12-05 12:19] LABS: Glucose Point of Care 187 mg/dl (65-105)
--- NOTE | 2023-12-05 12:33 | WPDUROPN2 ---
Progress Note: A&P Assessment and Plan (1) UTI (urinary tract infection): Qualifiers: Hematuria presence: without hematuria Urinary tract infection type: acute cystitis Qualified Code(s): N30.00 - Acute cystitis without hematuria Code(s): N39.0 - Urinary tract infection, site not specified Status: Acute (2) Calculus, ureteral: Code(s): N20.1 - Calculus of ureter Status: Acute Assessment and Plan: Large left ureteral stone and UTI -> s/p left ureteral stent placement Urine culture -> resistant e. coli.. Swith to oral Macrobid x10 days. Likely home later today or tomorrow depending on how she feels. Subjective Subjective Date/Time Seen: 12/05/23 12:33 Interval history: Pt. feels a bit feverish - no pain or nausea Review of Systems Cardiovascular: Cardiovascular: Denies chest pain, Denies lightheadedness, Denies palpitations and Denies dyspnea Respiratory: Respiratory: Denies dyspnea Gastrointestinal: Gastrointestinal: Denies diarrhea, Denies nausea and Denies vomiting Genitourinary: Genitourinary: Denies hematuria and Denies dysuria Endocrine: Endocrine: Denies palpitations Exam Const: General: no acute distress Resp: Effort & Inspection: normal respiratory effort GI: Inspection: non-distended GI Palp: No abdominal tenderness and No Guarding due to palpation present (GI) Auscultation: normal bowel sounds Objective Data Vital Signs Vital Signs: Vital Signs - 24 hr 12/04/23 14:49 12/04/23 22:00 12/04/23 23:00 Temperature 97.7 F 98.2 F Pulse Rate 94 87 87 Respiratory Rate 17 18 19 Blood Pressure 118/61 112/83 Pulse Oximetry 95 90 90 Oxygen Delivery CPAP 12/05/23 03:41 12/05/23 06:00 12/05/23 08:00 Temperature 98.2 F Pulse Rate 86 Respiratory Rate 20 18 Blood Pressure 114/74 Pulse Oximetry 93 96 Oxygen Delivery CPAP Room Air Intake/Output Intake/Output: Intake & Output 12/02/23 12/03/23 12/04/23 12/05/23 23:59 23:59 23:59 23:59 Intake Total 990 5770 260 Output Total 4100 300 Balance 990 1670 -40 Meds/Results Medications: Active Medications Generic Name Dose Route Start Last Admin Trade Name Freq PRN Reason Stop Dose Admin Acetaminophen 650 mg 12/03/23 22:16 12/04/23 15:51 Acetaminophen 325 Mg Tablet PO 650 mg Q4H PRN Administration Mild Pain (1-3) or Fever Hydrocodone Bitart/Acetaminophen 1 tab 12/03/23 22:16 Hydrocodone/Acetaminophen (*Crx) 5-325 Mg Tablet PO Q4H PRN Pain Rated 4-6 Amlodipine Besylate 5 mg 12/04/23 09:00 12/05/23 08:00 Amlodipine Besylate 5 Mg Tablet PO 5 mg DAILY DIANDRA Administration Atorvastatin Calcium 20 mg 12/04/23 09:00 12/05/23 08:01 Atorvastatin 20 Mg Tablet PO 20 mg DAILY DIANDRA Administration Dextrose 12.5 gm 12/03/23 22:18 Dextrose 50% 25 Gm/50 Ml Syringe IV PUSH PRN PRN Hypoglycemia Protocol Escitalopram Oxalate 20 mg 12/04/23 09:00 12/05/23 08:01 Escitalopram Oxalate 10 Mg Tablet PO 20 mg DAILY DIANDRA Administration Glucagon 1 mg 12/03/23 22:18 Glucagon For Inj 1 Mg Vial IM PRN PRN Hypoglycemia Protocol Glucose 15 gm 12/03/23 22:18 Glucose Oral Gel 15 Gm Of Glucse In 37.5 Gm Tube PO PRN PRN Hypoglycemia Protocol Dextrose 1,000 mls @ 100 mls/hr 12/03/23 22:18 Dextrose 5% 1,000 Ml IVPB PRN PRN Hypoglycemia Protocol Insulin Aspart 2 - 5 units 12/04/23 08:00 12/05/23 12:23 Insulin Aspart (*Bkc) 100 Units/Ml SUB-Q Not Given TIDWM [facility] Protocol Ketorolac Tromethamine 10 mg 12/03/23 22:16 Ketorolac 10 Mg Tablet PO Q8H PRN pain Loratadine 10 mg 12/04/23 09:00 12/05/23 08:01 Loratadine 10 Mg Tablet PO 10 mg DAILY [facility] Administration Nitrofurantoin Macrocrystals 100 mg 12/05/23 12:30 Nitrofurantoin Monohyd Macrocr 100 Mg Cap PO Q12HR DIANDRA Ondansetron HCl 4 mg 12/03/23 22:16
[2023-12-05] MEDS: NITROFURANTOIN MONOHYD MACROCR 100 MG CAP PO ×2 (12:48→20:56)
[2023-12-05 15:08] VITALS: BP 119/75; PULSE 91; RESP 18; TEMP 36.7; O2SAT 95
[2023-12-05 18:07] LABS: Glucose Point of Care 106 mg/dl (65-105)
[2023-12-05 21:13] LABS: Glucose Point of Care 165 mg/dl (65-105)
[2023-12-05 22:00] VITALS: BP 127/79; PULSE 93; RESP 20; TEMP 37; O2SAT 94
[2023-12-05 22:50] VITALS: PULSE 93; RESP 23; O2SAT 94
[2023-12-06 05:11] LABS: Basophils Absolute Auto 0.1 K/mm3 (0.0-0.1); Basophils Percent Auto 0.5 % (0.2-1.2); Eosinophils Absolute Auto 0.2 K/mm3 (0-0.3); Eosinophils Percent Auto 2.4 % (0-4.4); Hematocrit 34.2 % (37.0-47.0); Immature Granulocyte Absolute 0.05 K/mm3 (0.00-0.031); Immature Granulocyte Percent A 0.5 % (0-0.5); Lymphocytes Absolute Auto 1.78 K/mm3 (0.9-3.2); Lymphocytes Percent Auto 19.1 % (18.3-44.2); Mean Corpuscular HGB Conc 32.2 g/dl (32-36); Mean Corpuscular Hemoglobin 26.8 pg (26-34); Mean Corpuscular Volume 83.4 fl (80-100); Mean Platelet Volume 9.9 fl (7.4-10.4); Monocytes Absolute Auto 1.2 K/mm3 (0.1-0.6); Monocytes Percent Auto 12.5 % (2.6-8.5); Neutrophils Absolute Auto 6.1 K/mm3 (1.3-6.7); Platelet Count Result 184 k/mm3 (150-375); Red Cell Distribution Width 15.7 % (11.5-14.5); White Blood Count 9.3 K/mm3 (4.5-10.0)
[2023-12-06 05:23] LABS: Anion Gap 9 mmol/L (4-12); Blood Urea Nitrogen 13 mg/dL (7-17); Calcium 8.4 mg/dL (8.4-10.2); Carbon Dioxide 27 mmol/L (22-30); Chloride 102 mmol/L (98-107); Estimated CRCL calculation 86 ml/min; Estimated Glomerular Filt Rate > 60; Glucose 122 mg/dL (65-110); Potassium 3.6 mmol/L (3.4-5.0); Sodium 138 mmol/L (137-145)
[2023-12-06 06:00] VITALS: BP 113/75; PULSE 87; RESP 20; TEMP 36.9; O2SAT 95
[2023-12-06 08:14] LABS: Glucose Point of Care 113 mg/dl (65-105)
[2023-12-06] MEDS: NITROFURANTOIN MONOHYD MACROCR 100 MG CAP PO (09:16)
[2023-12-06] MEDS: PANTOPRAZOLE 40 MG TABLET PO (09:16)
[2023-12-06] MEDS: amLODIPine BESYLATE 5 MG TABLET PO (09:16)
[2023-12-06] MEDS: ATORVASTATIN 20 MG TABLET PO (09:16)
[2023-12-06] MEDS: ESCITALOPRAM OXALATE 10 MG TABLET 20 MG PO (09:16)
[2023-12-06] MEDS: LORATADINE 10 MG TABLET PO (09:16)
--- NOTE | 2023-12-06 09:59 | WPDUROPN2 ---
Progress Note: A&P Assessment and Plan (1) CECILIA (acute kidney injury): Code(s): N17.9 - Acute kidney failure, unspecified Status: Acute (2) UTI (urinary tract infection): Qualifiers: Hematuria presence: without hematuria Urinary tract infection type: acute cystitis Qualified Code(s): N30.00 - Acute cystitis without hematuria Code(s): N39.0 - Urinary tract infection, site not specified Status: Acute (3) Calculus, ureteral: Code(s): N20.1 - Calculus of ureter Status: Acute Assessment and Plan: Doing much better with Nitrofurantoin. Would recommend a 10 day course of therapy discharge today is fine with me. My office will contact to arrange management of left ureteral stone Subjective Subjective Date/Time Seen: 12/06/23 09:59 Interval history: Feeling much better today Review of Systems Review of Systems: All systems reviewed & are unremarkable except as noted in HPI and below Exam Const: General: no acute distress Resp: Effort & Inspection: normal respiratory effort GI: Inspection: non-distended GI Palp: No abdominal tenderness and No Guarding due to palpation present (GI) Auscultation: normal bowel sounds Objective Data Vital Signs Vital Signs: Vital Signs - 24 hr 12/05/23 15:08 12/05/23 22:00 12/05/23 22:50 Temperature 98.1 F 98.6 F Pulse Rate 91 93 93 Respiratory Rate 18 20 23 H Blood Pressure 119/75 127/79 Pulse Oximetry 95 94 94 Oxygen Delivery CPAP 12/06/23 06:00 Temperature 98.4 F Pulse Rate 87 Respiratory Rate 20 Blood Pressure 113/75 Pulse Oximetry 95 Oxygen Delivery Intake/Output Intake/Output: Intake & Output 12/03/23 12/04/23 12/05/23 12/06/23 23:59 23:59 23:59 23:59 Intake Total 990 5770 1750 480 Output Total 4100 300 Balance 990 1670 1450 480 Meds/Results Medications: Active Medications Generic Name Dose Route Start Last Admin Trade Name Freq PRN Reason Stop Dose Admin Acetaminophen 650 mg 12/03/23 22:16 12/04/23 15:51 Acetaminophen 325 Mg Tablet PO 650 mg Q4H PRN Administration Mild Pain (1-3) or Fever Hydrocodone Bitart/Acetaminophen 1 tab 12/03/23 22:16 Hydrocodone/Acetaminophen (*Crx) 5-325 Mg Tablet PO Q4H PRN Pain Rated 4-6 Amlodipine Besylate 5 mg 12/04/23 09:00 12/06/23 09:16 Amlodipine Besylate 5 Mg Tablet PO 5 mg DAILY DIANDRA Administration Atorvastatin Calcium 20 mg 12/04/23 09:00 12/06/23 09:16 Atorvastatin 20 Mg Tablet PO 20 mg DAILY DIANDRA Administration Dextrose 12.5 gm 12/03/23 22:18 Dextrose 50% 25 Gm/50 Ml Syringe IV PUSH PRN PRN Hypoglycemia Protocol Escitalopram Oxalate 20 mg 12/04/23 09:00 12/06/23 09:16 Escitalopram Oxalate 10 Mg Tablet PO 20 mg DAILY DIANDRA Administration Glucagon 1 mg 12/03/23 22:18 Glucagon For Inj 1 Mg Vial IM PRN PRN Hypoglycemia Protocol Glucose 15 gm 12/03/23 22:18 Glucose Oral Gel 15 Gm Of Glucse In 37.5 Gm Tube PO PRN PRN Hypoglycemia Protocol Dextrose 1,000 mls @ 100 mls/hr 12/03/23 22:18 Dextrose 5% 1,000 Ml IVPB PRN PRN Hypoglycemia Protocol Insulin Aspart 2 - 5 units 12/04/23 08:00 12/06/23 09:15 Insulin Aspart (*Bkc) 100 Units/Ml SUB-Q Not Given TIDWM [facility] Protocol Ketorolac Tromethamine 10 mg 12/03/23 22:16 Ketorolac 10 Mg Tablet PO Q8H PRN pain Loratadine 10 mg 12/04/23 09:00 12/06/23 09:16 Loratadine 10 Mg Tablet PO 10 mg DAILY DIANDRA Administration Nitrofurantoin Macrocrystals 100 mg 12/05/23 12:30 12/06/23 09:16 Nitrofurantoin Monohyd Macrocr 100 Mg Cap PO 100 mg Q12HR DIANDRA Administration Ondansetron HCl 4 mg 12/03/23 22:16 Ondansetron Hcl Odt 4 Mg Tablet PO Q8-12H PRN Nausea Pantoprazole Sodium 40 mg 12/04/23 09:00 12/06/23 09:16 Pantoprazole 40 Mg Tablet PO 40 mg QAM DIANDRA Administration Radiolog
[2023-12-06 12:13] LABS: Glucose Point of Care 103 mg/dl (65-105)
[2023-12-06 14:03] LABS: Toxigenic C. Diff NEGATIVE (NEGATIVE)
--- NOTE | 2023-12-06 16:02 | PM.DS ---
DS: Admitting Diagnosis Discharge Date 12/06/23 Admitting Diagnosis flank pain DS: Discharge Diagnosis Discharge Diagnosis (1) UTI (urinary tract infection): Qualifiers: Hematuria presence: without hematuria Urinary tract infection type: acute cystitis Qualified Code(s): N30.00 - Acute cystitis without hematuria Code(s): N39.0 - Urinary tract infection, site not specified Status: Acute Assessment and Plan: - did not meet SIRS criteria - UA: Cloudy, 1+ protein, 3+ blood, positive nitrates, 3+ leuks, greater than 100 RBC and WBC, moderate epithelial cells, 4+ bacteria - UC pending - previous micro reviewed, confirmed ESBL history in 2021, most recent culture on 10/02/23 grew E. coli with resistance to Augmentin, Unasyn, ceftriaxone, and Bactrim and intermediate to cipro and Levaquin - started on Ceftriaxone on 12/02, given most recent culture will transition to meropenem - Culture growing ECOLI which is rather resistant but can be treated with nitrofurantoin. Started on nitrofurantoin b.i.d. for 10 days. -anticipate discharge tomorrow (2) Calculus, ureteral: Code(s): N20.1 - Calculus of ureter Status: Acute Assessment and Plan: - CT abdomen/pelvis: 8 x 7 mid left ureteral stone, with moderate left hydroureteronephrosis to this level. Multiple additional bilateral nonobstructing renal calculi. - urology consult, provided the following recs: Underwent cystoscopy this afternoon, left ureteral stent placed Will need definitive stone treatment - Repeat KUB shows stone at the sacral level - strain urine (3) CECILIA (acute kidney injury): Code(s): N17.9 - Acute kidney failure, unspecified Status: Acute Assessment and Plan: - creatinine 1.2 and GFR 49, previously 0.7 and GFR >60 on 10/03/2023 - suspect injury related to kidney stones/hydronephrosis and UTI, started on antibiotics and IV fluids - trend renal function and monitor I&Os - trend electrolytes, correct as needed - Creatinine 1.0 (4) Type 2 diabetes mellitus: Qualifiers: Diabetes mellitus nursing home insulin use: 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 Diabetes mellitus complication status: without complication Qualified Code(s): E11.9 - Type 2 diabetes mellitus without complications Code(s): E11.9 - Type 2 diabetes mellitus without complications Status: Acute Assessment and Plan: - hypoglycemia protocol - POC blood glucose ACHS - not currently on medications - correct regimen ordered - low dose TIDWM - A1C 6.8% on 10/03/2023 (5) HTN (hypertension): Qualifiers: Hypertension type: primary hypertension Qualified Code(s): I10 - Essential (primary) hypertension Code(s): I10 - Essential (primary) hypertension Status: Acute Assessment and Plan: - chronic, currently 128/69 - continue home medications: Amlodipine 5 mg daily - monitor (6) ES (obstructive sleep apnea): Code(s): G47.33 - Obstructive sleep apnea (adult) (pediatric) Status: Acute Assessment and Plan: - continue home CPAP Plan Diet: Diabetic DVT Prophylaxis: SCDs Lines: Peripheral Code Status: Full code Dispo: 43 year old female presents with flank pain and was found to have kidney stones. She had a stent placed by urology. She is being treated with IV antibiotics. Awaiting urine cultures. DS: Summary Hospital Course Reason for hospitalization: kidney stone Hospital Course: 43 y/o F presents here with flank pain with PMH of kidney stones, diabetes, GERD, HTN, obesity, ES, scalp psoriasis, and vitamin-D deficiency. The patient presents here from home for further evaluation of left flank pain. She reports onset of flank pain at 1:00 a.m. this morning. She describes the pain as sharp, nonradiating, constant, and no aggravating/alleviating factors. Took PO Toradol at home with minimal relief. Flank pain is accompanied by nausea without vom
== END 2023-12-06 13:35 | disposition home or self-care (01) | DRG 660 ==
LOC: ANHED 14:05 → ANH3MED 16:11
PROVIDERS: Urology; Admitting Provider Family Medicine; Emergency Provider Emergency Medicine; PCP Internal Medicine; Visit Provider Nurse Practitioner Acute Care
PROC: 0T778DZ Dilation of Left Ureter with Intraluminal Device, Via Natural or Artificial Opening Endoscopic (ICD-10-PCS; CPT 52352; principal; 2023-12-03 17:45)
DX: N13.6 Pyonephrosis (principal); Z68.41 Body mass index [BMI] 40.0-44.9, adult; R31.9 Hematuria, unspecified; N17.9 Acute kidney failure, unspecified; B96.20 Unspecified Escherichia coli [E. coli] as the cause of diseases classified elsewhere; I10 Essential (primary) hypertension; E11.9 Type 2 diabetes mellitus without complications; G47.33 Obstructive sleep apnea (adult) (pediatric); E66.01 Morbid (severe) obesity due to excess calories; K21.9 Gastro-esophageal reflux disease without esophagitis; L40.9 Psoriasis, unspecified; E55.9 Vitamin D deficiency, unspecified; Z85.820 Personal history of malignant melanoma of skin; Z90.49 Acquired absence of other specified parts of digestive tract; Z90.710 Acquired absence of both cervix and uterus
CPT/HCPCS: 36415; 74018; 74176; 74420; 80048; 80053; 81001; 82948; 85025; 87077; 87086; 87088; 87186; 87493; 94002; 99285; A9270; C1769; C2617; J0696; J2185; J2250; J3010; J7030; J7120

== ENCOUNTER 2023-12-17 01:56 | Day surgery (SDC) | payer BC, SELFPAY ==
[2023-12-14 15:40] VITALS: BMI 43.0
--- NOTE | 2023-12-14 15:41 | PC.NURSE ---
Report to the Outpatient Waiting Room, entrance under the green pavilion located off [facility], at time _1230_ on date _[id number]_. Planned Procedure Time: _230pm_.? Time changes happen often and if your time is changed the preop area will call you the afternoon before. - You and your visitor will be asked to self-screen and do not enter if you have any COVID symptoms. Please call surgeon if you need to reschedule. - A mask is optional within the hospital at this time. Patients may have clear liquids (water, carbonated beverages, clear teas, apple juice) until 3 hours prior to surgery with a maximum of 20 ounces. - No food from midnight until time of surgery and no smoking Take only the following medications with a SIP of water on the morning of surgery: ____Amlodipine and Escitalopram DO NOT STOP ANY OF YOUR OTHER PRESCRIPTION MEDICATIONS PRIOR TO SURGERY EXCEPT THE FOLLOWING Medications to discontinue per physician None Date to take last dose Please no make-up, nail hebrew, hairspray, perfume, deodorant, or body powder the day of surgery.? No jewelry (including any body piercings) or valuables the day of surgery, leave them at home.? Please take a shower or bath the night before, or the morning of, surgery with an antibacterial soap.? Wear comfortable, loose fitting clothing.? - Jewelry must be removed prior to entering the operating room.? Rings and piercings that are not removed may be cut off. - The hospital will not accept responsibility for valuables.? - Please leave all valuables, including medications, at home the day of surgery. If you are going home after surgery, a licensed mechanic driver must drive you home.? - NO public transportation without another adult if you receive anesthesia. - We recommend that an adult stay with you for 24 hours following discharge. - We also recommend that you do not drive, make important decision, drink alcoholic beverages, or take any drugs that were not prescribed by your health care provider for at least 24 hours after your discharge time. Follow any additional instructions given to you from your surgeon. Telephone instructions given to __Crystal___and asked if any additional questions and then verbalized understanding. Patient advised to call surgeon office or pre surgery nurse liaison [phone] if any additional questions.
[2023-12-17] VITALS (7 sets, daily range): BP systolic 123–141; BP diastolic 73–83; PULSE 82–99; RESP 16–20; TEMP 36.4–36.7; O2SAT 92–97
--- NOTE | ~2023-12-17 | XR_ITS ---
EXAMINATION: XR stent kub - surgery DATE: 12/17/2023 08:22 INDICATION: Left ureteral stone. TECHNIQUE: 6 intraoperative fluoroscopic views of the abdomen and pelvis were obtained. I was not pre sent. Fluoroscopy exposure time was 14 seconds. COMPARISON: CT abdomen and pelvis 12/03/2023 FINDINGS: There is an 8 mm stone in the left ureter with left internal ureteral stent in expected pos ition. Images demonstrate removal of the stone and placement of a new left internal ureteral stent in expected position. IMPRESSION: 1. 8 mm stone in left ureter status post removal. 2. New left internal ureteral stent in expected position. Reviewed, dictated and finalized at location A.
[2023-12-17] MEDS: LACTATED RINGERS 1,000 ML 30 ML IV CONT (06:25)
--- NOTE | 2023-12-17 06:43 | WPDHPUPDATE1 ---
History and Physical Update Update Date/Time: 12/17/23 06:43 History and Physical has been reviewed, including an updated exam of the patient. There are NO changes in the patient's condition. Risks, benefits, and alternatives have been discussed and questions answered. Patient agrees to proceed with procedure. Plan: Cystoscopy, left ureteroscopy with laser lithotripsy, stone extraction, possible retrograde pyelogram and stent replacement
--- NOTE | 2023-12-17 07:03 | WPDANESEPPF ---
Anes - Initial Pre Proc Eval Procedure: Operation Date: 12/17/23 07:30 Proposed Procedures p Cystoscopy, Left Ureteroscopy, Possible Left Retrograde Pyelogram, Possible Left Stone Extraction, Left Stent Removal/Replacement, Possible Holmium Laser Procedure - Leroy Rubio MD Date/Time: 12/17/23 07:03 Surgeon: Leroy Rubio MD Pre Op Diagnosis: left ureteral stone Patient Data Age: 43 Gender: F Height: 1.63 m Weight: 110.4 kg Last Vital Signs Temp 36.4 C L 12/17/23 06:15 Pulse 97 12/17/23 06:15 Resp 16 12/17/23 06:15 BP 141/83 H 12/17/23 06:15 Pulse Ox 97 12/17/23 06:15 O2 Del Method Room Air 12/17/23 06:15 Allergies Allergy/AdvReac Type Severity Reaction Status Date / Time iodine Allergy Mild Rash Verified 12/17/23 06:13 iohexol Allergy Mild Rash Verified 12/17/23 06:13 [From CONTRAST - CT, XRAY] moxifloxacin Allergy Mild Rash Verified 12/17/23 06:13 Home Medications Medication Instructions Recorded Confirmed Type esomeprazole magnesium 20 mg 20 mg PO DAILY 08/12/20 12/17/23 History capsule,delayed release (Nexium) loratadine 10 mg tablet (Claritin) 10 mg PO DAILY 08/12/20 12/17/23 History ketorolac 10 mg tablet 10 mg PO Q8H PRN pain #15 tabs 10/03/23 12/17/23 Rx amlodipine 5 mg tablet 5 mg PO DAILY 12/03/23 12/17/23 History atorvastatin 20 mg tablet 20 mg PO DAILY 12/03/23 12/17/23 History escitalopram oxalate 20 mg tablet 20 mg PO DAILY 12/03/23 12/17/23 History (Lexapro) ondansetron 4 mg disintegrating 4 mg PO Q8-12H PRN Nausea 12/03/23 12/17/23 History tablet Patient hx anesthesia problems: post op nausea/vomiting Family hx anesthesia problems: none Results Review: All pre-operative results and documents have been reviewed as part of the pre-operative evaluation. [facility] Past Medical History Medical History Allergies Anemia Anxiety Breast abscess Diabetes Elevated glucose level GERD (gastroesophageal reflux disease) HTN (hypertension) Hyperlipidemia Kidney stones Left ureteral injury Melanoma of forearm Obesity, Class III, BMI 40-49.9 (morbid obesity) ES (obstructive sleep apnea) Polymyalgia Positive ALAN (antinuclear antibody) Scalp psoriasis Vitamin D deficiency Surgical History Surgical History H/O lithotripsy H/O: hysterectomy History of extraction of renal calculus Hx of cholecystectomy Family History Family History Mother Hypertension Family history of heart disease in male family member before age 55 Father Family history of elevated blood lipids Other Family history of allergic disorder Social History Social History Smoking status: Never smoker Second hand tobacco smoke exposure: No Alcohol intake: never Alcohol use details: RARE Substance use: never Substance use type: does not use Do You Feel Safe in your Home?: Yes Lack of Transportation: No Lack of Food: Never True Current Housing: I Have Housing Concerned About Future Housing: No Difficulty Paying Gas/Electric Bills: No Difficulty Paying for Meds: No Currently Unemployed: No Education: Bachelor's Degree Difficulty w/ Childcare or Family Care: No Living arrangements: with family Additional living arrangements comments: DAUGHTER Gender identity (if verbalized by the patient): Female Sexual Orientation (if Verbalized by the Patient): Straight or Heterosexual Spiritual care concerns: No Anes - Eval Final PreProcedure Day of Procedure 12/17/23 07:03 Patient weight: morbidly obese Heart: regular rate and rhythm Lungs: clear to auscultation Airway: Mallampati scale class III Neurological: alert and oriented Last oral intake: >/= 8 hours ASA classification: III Emergent: no Anesthet
[2023-12-17] MEDS: SCOPOLAMINE 1 MG PATCH 1 PATCH TRANSDERM (07:22)
[2023-12-17] MEDS: ceFAZolin 2 GM/D5W 50 ML 2 GM/50 ML BAG IVPB (07:27)
--- NOTE | 2023-12-17 08:14 | W.PM.PROC2 ---
Procedure Note - Detailed Date of Procedure 12/17/23 Pre-op Diagnosis Left ureteral stone Post-op Diagnosis Same Procedure Performed Cystoscopy, left ureteral stent removal, left ureteroscopy with laser lithotripsy, stone extraction and ureteral stent replacement Surgeon Leroy Rubio MD Anesthesia General Description of Procedure Patient is brought to the operative suite she was prepped and draped in routine sterile fashion while in dorsal lithotomy position after the uneventful induction of a general LMA anesthetic. Cystoscopy was undertaken with a 19 F rigid cystoscope. The tip of the indwelling stent is grasped and removed with ease. A 0.035 in glidewire was advanced in the left renal pelvis and the distal ureter is dilated with an 8 F 10 F dilator. Ureteroscopy was undertaken with a short tapered semi-rigid ureteral scope. She has a large impacted 8 mm left mid ureteral stone that I fractured using a 200 micron Nimesh laser fiber with settings on soft ureteral stone. All fragments were extracted with a 1.9 F disposable stone basket. A 4.8 F variable length stent was repositioned with the proximal coil in the renal pelvis and distal coil in the bladder. She tolerated the procedure well was taken recovery room in good condition. Drains Yes
[2023-12-17] MEDS: fentaNYL CITRATE INJ (*CRX) 100 MCG/2 ML VIAL 25 MCG IV PUSH ×2 (08:54→08:58)
[2023-12-17] MEDS: KETOROLAC 30 MG/ML VIAL (*BKC) IV PUSH (08:59)
== END 2023-12-17 09:45 | disposition home or self-care (01) ==
PROVIDERS: PCP Internal Medicine; Visit Provider Urology
PROC: (CPT 52352; principal; 2023-12-17 07:30)
DX: N20.1 Calculus of ureter (principal); I10 Essential (primary) hypertension; E55.9 Vitamin D deficiency, unspecified; D64.9 Anemia, unspecified; E11.9 Type 2 diabetes mellitus without complications; K21.9 Gastro-esophageal reflux disease without esophagitis; G47.33 Obstructive sleep apnea (adult) (pediatric); F41.9 Anxiety disorder, unspecified; L40.8 Other psoriasis; E66.01 Morbid (severe) obesity due to excess calories; Z68.41 Body mass index [BMI] 40.0-44.9, adult; Z98.890 Other specified postprocedural states; Z90.49 Acquired absence of other specified parts of digestive tract; Z87.442 Personal history of urinary calculi; Z85.820 Personal history of malignant melanoma of skin; Z82.49 Family history of ischemic heart disease and other diseases of the circulatory system
CPT/HCPCS: 52356; 82365; 88300; A9270; C1769; C2617; J0690; J1100; J1885; J2250; J2371; J2405; J2704; J3010; J7120

== ENCOUNTER 2023-12-18 10:07 | Inpatient (IN) | payer BC, SELFPAY ==
[2023-12-18] VITALS (7 sets, daily range): BP systolic 104–149; BP diastolic 56–64; PULSE 94–115; RESP 18–22; TEMP 36.7–39.3; O2SAT 94–97; BMI 43.7
--- NOTE | ~2023-12-18 | XR_ITS ---
EXAMINATION: XR chest 2V DATE: 12/18/2023 13:03 INDICATION: Sepsis. Fever and chills. TECHNIQUE: Frontal and lateral views of the chest were obtained. COMPARISON: Chest 2 views 01/15/2022 FINDINGS: There is no pneumonia, pleural effusion, or pneumothorax. The heart size is normal. IMPRESSION: 1. No acute cardiopulmonary disease. Reviewed, dictated and finalized at location A.
--- NOTE | ~2023-12-18 | CT_ITS ---
EXAMINATION: CT abdomen pelvis wo con DATE: 12/18/2023 14:38 INDICATION: Fever. Flank pain. TECHNIQUE: Computed tomography (CT) of the abdomen and pelvis was performed without intravenous contr ast. Automated exposure control and iterative reconstruction technique were employed. The dose-length product was 948.54 mGy-cm. COMPARISON: CT abdomen and pelvis 12/03/2023 FINDINGS: The visualized portions of the lung bases demonstrate mild atelectasis. No pleural effusion . The heart size is normal. No pericardial effusion. There is diffuse hepatic steatosis. There are ch anges of cholecystectomy. The spleen, pancreas, and adrenal glands are normal. There are greater than 10 stones in right kidney measuring up to 7 mm. There are approximately 9 stones in left kidney tita uring up to 5 mm. There is mild left hydronephrosis. There is a left internal ureteral stent in expec yariel position. There is diverticulosis of the colon without evidence of diverticulitis. There are no d ilated loops of bowel. The appendix is normal. There is mild left para-aortic lymphadenopathy, likely reactive. There is no ascites. There is mild thoracic and lumbar spondylosis. IMPRESSION: 1. Mild left hydronephrosis. Left internal ureteral stent in expected position. 2. Bilateral nonobstructing kidney stones. Reviewed, dictated and finalized at location A.
[2023-12-18] MEDS: ACETAMINOPHEN 500 MG TABLET 1000 MG PO (13:55)
[2023-12-18 14:04] LABS: Basophils Absolute Auto 0.1 K/mm3 (0.0-0.1); Basophils Percent Auto 0.4 % (0.2-1.2); Eosinophils Percent Auto 0.2 % (0-4.4); Hematocrit 32.3 % (37.0-47.0); Hemoglobin 10.8 g/dL (12.0-15.0); Immature Granulocyte Absolute 0.15 K/mm3 (0.00-0.031); Immature Granulocyte Percent A 0.9 % (0-0.5); Lymphocytes Absolute Auto 1.29 K/mm3 (0.9-3.2); Lymphocytes Percent Auto 7.9 % (18.3-44.2); Mean Corpuscular HGB Conc 33.4 g/dl (32-36); Mean Corpuscular Hemoglobin 27.4 pg (26-34); Mean Platelet Volume 9.6 fl (7.4-10.4); Monocytes Absolute Auto 1.9 K/mm3 (0.1-0.6); Monocytes Percent Auto 11.7 % (2.6-8.5); Neutrophils Absolute Auto 12.9 K/mm3 (1.3-6.7); Neutrophils Percent Auto 78.9 % (45.5-73.1); Platelet Count Result 191 k/mm3 (150-375); Red Blood Count 3.94 M/mm3 (4.2-5.4); Red Cell Distribution Width 15.7 % (11.5-14.5); White Blood Count 16.4 K/mm3 (4.5-10.0)
[2023-12-18 14:08] LABS: Add Urine Microscopic? YES; Appearance Urine Cloudy (Clear); Bacteria Urine None Seen /hpf; Bilirubin Urine Negative (Negative); Blood Urine 3+ (Negative); Color Urine Yellow (Yellow); Glucose Urine UA Negative (Negative); Ketones Urine Trace mg/dL (Negative); Leukocyte Esterase Ur 2+ LEU/UL (Negative); Nitrate Urine Negative (Negative); Protein Urine 3+ mg/dL (Negative); RBC Urine >100 /hpf (0-2); Specific Grav Ur 1.019 (1.001-1.035); Squamous Epithelial Cell Urine Few /hpf (Few); Urobilinogen Urine 0.2 mg/dL (<2.0); WBC Urine >100 /hpf (0-3)
[2023-12-18 14:15] LABS: Lactic Acid Reflex 2.2 mmol/L (0.7-2.0)
[2023-12-18 14:16] LABS: Alanine Aminotransferase 22 U/L (6-35); Albumin Level 3.5 g/dL (3.5-5.1); Alkaline Phosphatase 71 U/L (38-126); Anion Gap 12 mmol/L (4-12); Aspartate Amino Transferase 19 U/L (14-36); Bilirubin,Total 0.8 mg/dL (0.2-1.3); Blood Urea Nitrogen 18 mg/dL (7-17); Calcium 9.4 mg/dL (8.4-10.2); Carbon Dioxide 20 mmol/L (22-30); Chloride 100 mmol/L (98-107); Estimated CRCL calculation 69 ml/min; Estimated Glomerular Filt Rate 54; Glucose 239 mg/dL (65-110); Magnesium 1.5 mg/dL (1.6-2.3); Potassium 3.8 mmol/L (3.4-5.0); Sodium 132 mmol/L (137-145)
--- NOTE | 2023-12-18 14:31 | ED.FEVER ---
HPI - Fever General Chief Complaint: Fever <JULIO Howard Last Filed: 12/18/23 17:08> Stated Complaint: fever <JULIO Howard Last Filed: 12/18/23 17:08> Time Seen by Provider: 12/18/23 13:40 <JULIO Howard Last Filed: 12/18/23 17:08> Source: patient <JULIO Howard Last Filed: 12/18/23 17:08> Mode of arrival: ambulatory <JULIO Howard Last Filed: 12/18/23 17:08> Limitations: no limitations <JULIO Howard Last Filed: 12/18/23 17:08> History of Present Illness HPI Narrative: This is a 43-year-old female that presents to the emergency department for fevers. Reports she had a ureteral stent placed yesterday with Dr. Rubio. she woke up at 3:00 a.m. with fevers. Also reports left flank pain and dysuria. Reports a headache. Reports some vomiting. Denies cough, congestion, sore throat, diarrhea. <JULIO Howard Last Filed: 12/18/23 17:08> Related Data Home Medications: Home Medications Medication Instructions Recorded Confirmed esomeprazole magnesium 20 mg 20 mg PO DAILY 08/12/20 12/18/23 capsule,delayed release (Nexium) loratadine 10 mg tablet (Claritin) 10 mg PO DAILY 08/12/20 12/18/23 amlodipine 5 mg tablet 5 mg PO DAILY 12/03/23 12/18/23 atorvastatin 20 mg tablet 20 mg PO DAILY 12/03/23 12/18/23 escitalopram oxalate 20 mg tablet 20 mg PO DAILY 12/03/23 12/18/23 (Lexapro) ondansetron 4 mg disintegrating 4 mg PO Q8-12H PRN Nausea 12/03/23 12/18/23 tablet <JULIO Howard Last Filed: 12/18/23 17:08> Allergies/Adverse Reactions: Allergies Allergy/AdvReac Type Severity Reaction Status Date / Time iodine Allergy Mild Rash Verified 12/17/23 06:13 iohexol Allergy Mild Rash Verified 12/17/23 06:13 [From CONTRAST - CT, XRAY] moxifloxacin Allergy Mild Rash Verified 12/17/23 06:13 <Ermelinda Hdz PA-C - Last Filed: 12/18/23 17:08> Review of Systems Review of Systems: CONSTITUTIONAL: Reports fever ENT: Denies rhinorrhea, congestion, sore throat RESPIRATORY: Denies cough GASTROINTESTINAL: Reports abdominal pain, nausea, vomiting GENITOURINARY: Reports dysuria. Denies hematuria. <JULIO Howard Last Filed: 12/18/23 17:08> All systems reviewed & are unremarkable except as noted in HPI and below <Ermelinda Hdz PA-C - Last Filed: 12/18/23 17:08> [facility] Past Medical History Medical History: Medical History Allergies Anemia Anxiety Breast abscess Diabetes Elevated glucose level GERD (gastroesophageal reflux disease) HTN (hypertension) Hyperlipidemia Kidney stones Left ureteral injury Melanoma of forearm Obesity, Class III, BMI 40-49.9 (morbid obesity) ES (obstructive sleep apnea) Polymyalgia Positive ALAN (antinuclear antibody) Scalp psoriasis Vitamin D deficiency <JULIO Howard Last Filed: 12/18/23 17:08> Surgical History Surgical History: Surgical History H/O lithotripsy H/O: hysterectomy History of extraction of renal calculus Hx of cholecystectomy <JULIO Howard Last Filed: 12/18/23 17:08> Family History Family History: Family History Mother Hypertension Family history of heart disease in male family member before age 55 Father Family history of elevated blood lipids Other Family history of allergic disorder <JULIO Howard Last Filed: 12/18/23 17:08> Social History Social History: Social History Smoking status: Never smoker Second hand tobacco smoke exposure: No Alcohol intake: never Alcohol use details: RARE Substance use: never Substance use type: does not use Do You Feel Safe in your Home?: Yes Lack of Transportation: No Lack of F
[2023-12-18 15:10] LABS: Influenza A QL RT-PCR Negative (Negative); Influenza B QL RT-PCR Negative (Negative); RSV RNA, RT-PCR Negative (Negative); SARS-CoV-2 RNA PCR Negative (Negative)
[2023-12-18] MEDS: MEROPENEM 1 GM/NS 100 ML 1 GM/100 ML BAG IVPB ×2 (15:22→20:31)
[2023-12-18] MEDS: SODIUM CHLORIDE 0.9% IV 1,000 ML 999 ML IV CONT ×3 (15:22→17:48)
[2023-12-18] MEDS: MAGNESIUM SULF 1 GM/D5W 100 ML 1 GM/100 ML BAG IVPB (16:30)
--- NOTE | 2023-12-18 16:57 | PM.IMHP ---
H&P: HPI History of Present Illness Date/Time: 12/18/23 16:57 Chief Complaint: Fever Narrative: 43 y/o F presents here with fever with PMH of kidney stones, ureteral stent placement, MDR UTIs, diabetes, HTN, HLD, ES, scalp psoriasis, anxiety, and vitamin-D deficiency. The patient presents here from home for further evaluation of fever. The patient reports onset of fever of 102F at 3:00 a.m. this morning (12/17). The patient has an extensive urologic history including MDR UTIs, ureteral stent placement, and kidney stones. Most recent hospitalization from 12/02 to 12/05 for an obstructive left mid ureteral stone, went for cystoscopy with stent placement. Started on meropenem due to ESBL history, urine culture grew E coli that was sensitive to Macrobid. Patient had follow-up with Urology and underwent a cystoscopy yesterday, 12/16, for left ureteral stent removal, laser lithotripsy, stone extraction, and ureteral stent replacement. Since onset of fevers, patient is also endorsing chills, left flank pain, headache, suprapubic pain. Denies cough, shortness of breath, chest pain, hematuria, or rhinorrhea. Initial VS at presentation: 100.7? F, HR 115, RR 22, 149/64, and 96% on RA. ED workup showed: WBC 16.4, hemoglobin 10.8 (previously 11.0 on 12/06/2023), sodium 132, creatinine 1.1 and GFR 54 (previously 0.9 and GFR >60 on 9024), glucose 239, lactic acid 2.2, magnesium 1.5, and UA suggestive of UTI. CT of the abdomen/pelvis showed mild left hydronephrosis, left internal ureteral stent in expected position, and bilateral nonobstructing kidney stones. CXR showed no acute cardiopulmonary disease. Review of Systems Review of Systems: All systems reviewed & are unremarkable except as noted in HPI and below [facility] Past Medical History Medical History Allergies Anemia Anxiety Breast abscess Diabetes Elevated glucose level GERD (gastroesophageal reflux disease) HTN (hypertension) Hyperlipidemia Kidney stones Left ureteral injury Melanoma of forearm Obesity, Class III, BMI 40-49.9 (morbid obesity) ES (obstructive sleep apnea) Polymyalgia Positive ALAN (antinuclear antibody) Scalp psoriasis Vitamin D deficiency Surgical History Surgical History H/O lithotripsy H/O: hysterectomy History of extraction of renal calculus Hx of cholecystectomy Family History Family History Mother Hypertension Family history of heart disease in male family member before age 55 Father Family history of elevated blood lipids Other Family history of allergic disorder Social History Social History Smoking status: Never smoker Second hand tobacco smoke exposure: No Alcohol intake: never Alcohol use details: RARE Substance use: never Substance use type: does not use Do You Feel Safe in your Home?: Yes Lack of Transportation: No Lack of Food: Never True Current Housing: I Have Housing Concerned About Future Housing: No Difficulty Paying Gas/Electric Bills: No Difficulty Paying for Meds: No Currently Unemployed: No Education: Bachelor's Degree Difficulty w/ Childcare or Family Care: No Living arrangements: with family Additional living arrangements comments: DAUGHTER Gender identity (if verbalized by the patient): Female Sexual Orientation (if Verbalized by the Patient): Straight or Heterosexual Spiritual care concerns: No Meds Home Medications and Allergies Home Medications Medication Instructions Recorded Confirmed Type esomeprazole magnesium 20 mg 20 mg PO DAILY 08/12/20 12/18/23 History capsule,delayed release (Nexium) loratadine 10 mg tablet (Claritin) 10 mg PO DAILY 08/12/20 12/18/23 History ketorolac 10 mg tablet 10 mg PO Q8H PRN pain #15 tabs 10/03/23 0
[2023-12-18 17:05] LABS: Reflex Lactic Acid Yes or No Add Lactic
--- NOTE | 2023-12-18 17:24 | PC.NURSE ---
This patient, Annalisa Lemus, was admitted to Medical Room 247-. Patient/family oriented to hospital policies and general routines including ID bracelet, bed and alarms, visiting hours, pain management, procedures, bathroom and other care routines, personal items, smoking policy, room service/diet, and visiting hours. Information on how to activate the Rapid Response Team has been discussed. Patient/Family are encouraged to report perceived risks to care and to ask questions if they do not understand what they are told or what they should do.
[2023-12-18 17:47] LABS: Lactic Acid 1.9 mmol/L (0.7-2.0)
[2023-12-18] MEDS: KETOROLAC 15 MG/ML VIAL (*BKC) IV PUSH (19:44)
[2023-12-18 20:24] LABS: Glucose Point of Care 176 mg/dl (65-105)
[2023-12-18] MEDS: HYDROcodone/acetaminophen (*CRX) 5-325 MG TABLET 1 TAB PO (20:30)
[2023-12-18] MEDS: ONDANSETRON INJ 4 MG/2 ML VIAL IV PUSH (20:40)
[2023-12-19] VITALS: BP 108/54; PULSE 94; RESP 18; TEMP 36.8; O2SAT 94
[2023-12-19 04:00] VITALS: BP 115/66; PULSE 92; RESP 20; TEMP 36.7; O2SAT 98
[2023-12-19 05:01] LABS: Basophils Absolute Auto 0.1 K/mm3 (0.0-0.1); Basophils Percent Auto 0.5 % (0.2-1.2); Eosinophils Absolute Auto 0.2 K/mm3 (0-0.3); Eosinophils Percent Auto 1.5 % (0-4.4); Hematocrit 31.9 % (37.0-47.0); Immature Granulocyte Absolute 0.12 K/mm3 (0.00-0.031); Lymphocytes Absolute Auto 1.25 K/mm3 (0.9-3.2); Lymphocytes Percent Auto 10.5 % (18.3-44.2); Mean Corpuscular HGB Conc 31.3 g/dl (32-36); Mean Corpuscular Hemoglobin 26.7 pg (26-34); Mean Corpuscular Volume 85.3 fl (80-100); Mean Platelet Volume 9.4 fl (7.4-10.4); Monocytes Absolute Auto 1.3 K/mm3 (0.1-0.6); Monocytes Percent Auto 11.1 % (2.6-8.5); Neutrophils Absolute Auto 8.9 K/mm3 (1.3-6.7); Neutrophils Percent Auto 75.4 % (45.5-73.1); Platelet Count Result 169 k/mm3 (150-375); Red Blood Count 3.74 M/mm3 (4.2-5.4); Red Cell Distribution Width 16.1 % (11.5-14.5); White Blood Count 11.9 K/mm3 (4.5-10.0)
[2023-12-19 05:16] LABS: Alanine Aminotransferase 19 U/L (6-35); Albumin Level 3.2 g/dL (3.5-5.1); Alkaline Phosphatase 66 U/L (38-126); Anion Gap 6 mmol/L (4-12); Aspartate Amino Transferase 18 U/L (14-36); Bilirubin,Total 0.9 mg/dL (0.2-1.3); Blood Urea Nitrogen 15 mg/dL (7-17); Calcium 8.8 mg/dL (8.4-10.2); Carbon Dioxide 25 mmol/L (22-30); Chloride 107 mmol/L (98-107); Estimated CRCL calculation 72 ml/min; Estimated Glomerular Filt Rate 54; Glucose 152 mg/dL (65-110); Potassium 4.2 mmol/L (3.4-5.0); Sodium 138 mmol/L (137-145)
[2023-12-19 05:19] LABS: Hemoglobin A1C 7.2 % (<5.7)
[2023-12-19] MEDS: MEROPENEM 1 GM/NS 100 ML 1 GM/100 ML BAG IVPB ×3 (06:08→20:25)
--- NOTE | 2023-12-19 06:53 | PM.IMPN ---
Progress Note: A&P Assessment and Plan (1) Sepsis: Qualifiers: Sepsis acute organ dysfunction status: without acute organ dysfunction Sepsis type: sepsis due to unspecified organism Qualified Code(s): A41.9 - Sepsis, unspecified organism Code(s): A41.9 - Sepsis, unspecified organism Status: Acute Assessment and Plan: Meets SIRS criteria: Febrile, HR, RR, WBC, Lactic acidosis. No hypotension or hypoxia. - lactic acid: 2.2 -> 1.9 - 30 mL/kg = 3450, given 3 L bolus - suspected source: UTI - started on meropenem given prior ESBL resistance - blood cultures drawn on 12/17: preliminary- gram negative bacilli - UA: Cloudy, 3+ protein, trace ketones, 3+ blood, 2+ leuk esterase, greater than 100 RBC and WBC, no bacteria, few epithelial cells - Urine culture collected on 12/17: pending - CXR: No acute cardiopulmonary disease - monitor I&Os (2) Acute UTI: Code(s): N39.0 - Urinary tract infection, site not specified Status: Acute Assessment and Plan: - UA: Cloudy, 3+ protein, trace ketones, 3+ blood, 2+ leuk esterase, greater than 100 RBC and WBC, no bacteria, few epithelial cells - UC: pending - previous micro reviewed 08/19/19 grew corynebacterium species confirmed ESBL history in 202110/02/2023 grew E. coli with resistance to Augmentin, Unasyn, ceftriaxone, and Bactrim and intermediate to cipro and Levaquin 12/03/2023 grew E coli with resistance to Bactrim, gentamicin, ceftriaxone, Ancef. Intermediate to Unasyn, Augmentin, cefepime, Cipro, Levaquin. - started on meropenem on 12/17 (3) CECILIA (acute kidney injury): Code(s): N17.9 - Acute kidney failure, unspecified Status: Acute Assessment and Plan: - creatinine 1.1 and GFR 54 on admission, previously 0.9 and GFR >60 on 12/06/2023 - BUN/Cr 15/1.1 on am labs - suspect mild increase related to kidney stones and UTI - trend renal function - trend electrolytes, correct as needed - monitor I/O - avoid nephrotoxic medications - renally dose medications (4) Bilateral renal stones: Code(s): N20.0 - Calculus of kidney Status: Chronic Assessment and Plan: - CT abdomen/pelvis: 1. Mild left hydronephrosis. Left internal ureteral stent in expected position. 2. Bilateral nonobstructing kidney stones. - IV fluids: 3L bolus, continue with oral hydration - s/p Cystoscopy, left ureteral stent removal, left ureteroscopy with laser lithotripsy, stone extraction and ureteral stent replacement on 12/[address] Rubio outpatient - patient reports she has been previously told the kidney stones were calcium stones - urology consulted, awaiting formal recs (5) Type 2 diabetes mellitus: Qualifiers: Diabetes mellitus complication status: without complication Diabetes mellitus chcf insulin use: without longwall foreman use Qualified Code(s): E11.9 - Type 2 diabetes mellitus without complications Code(s): E11.9 - Type 2 diabetes mellitus without complications Status: Suspected Assessment and Plan: - initial glucose 239, not currently on medications - hypoglycemia protocol - POC blood glucose ACHS - correct regimen ordered - high dose TIDWM, based off BMI - A1C 7.2 - Discussed with patient and her PCP is following A1c and plan is to treat with diet and exercise at this time (6) HTN (hypertension): Qualifiers: Hypertension type: primary hypertension Qualified Code(s): I10 - Essential (primary) hypertension Code(s): I10 - Essential (primary) hypertension Status: Chronic Assessment and Plan: - chronic, well controlled on home medications. - continue home medications: Amlodipine 5 mg daily - monitor (7) ES (obstructive sleep apnea): Code(s): G47.33 - Obstructive sleep apnea (adult) (pediatric) Status: Chronic Assessment and Plan: - continue home CPAP Plan Diet: Regular, NPO at midnight in case of ne
[2023-12-19 08:07] LABS: Glucose Point of Care 135 mg/dl (65-105)
[2023-12-19 08:26] VITALS: BP 128/67
[2023-12-19] MEDS: ESCITALOPRAM OXALATE 10 MG TABLET 20 MG PO (09:05)
[2023-12-19] MEDS: LORATADINE 10 MG TABLET PO (09:06)
[2023-12-19] MEDS: HYDROcodone/acetaminophen (*CRX) 5-325 MG TABLET 1 TAB PO ×3 (09:06→20:25)
[2023-12-19] MEDS: PANTOPRAZOLE 40 MG TABLET PO (09:06)
[2023-12-19] MEDS: ATORVASTATIN 20 MG TABLET PO (09:06)
[2023-12-19] MEDS: amLODIPine BESYLATE 5 MG TABLET PO (09:07)
[2023-12-19 12:11] LABS: Glucose Point of Care 186 mg/dl (65-105)
--- NOTE | 2023-12-19 14:37 | WPDURCON ---
Assessment and Plan Assessment and plan (1) Acute UTI: Code(s): N39.0 - Urinary tract infection, site not specified Status: Acute Assessment and Plan: cult pending and rec continue current treatment until we have cult results Meropenem looks to be good choice (2) Sepsis: Qualifiers: Sepsis acute organ dysfunction status: without acute organ dysfunction Sepsis type: sepsis due to unspecified organism Qualified Code(s): A41.9 - Sepsis, unspecified organism Code(s): A41.9 - Sepsis, unspecified organism Status: Acute Assessment and Plan: resolved with stable vitals and labs (3) CECILIA (acute kidney injury): Code(s): N17.9 - Acute kidney failure, unspecified Status: Acute Assessment and Plan: improving (4) Calculus, ureteral: Code(s): N20.1 - Calculus of ureter Status: Acute Assessment and Plan: removed left bilateral renal stone and none obstructing- treat as outpatient Urology Consult Note HPI Date Seen: 12/19/23 Requesting Physician: Marilyn Vasquez PA-C Primary Care Provider: Matthew Ramirez DO Consult Narrative Narrative: Annalisa Lemus is a 43 year old female SP left ureteroscopy and stone extraction and left stent. Yesterday with fever to 102 and chills. Mild stent pain. ER with CT no obstucting stones and left stent in place. PMHx of E coli in urine. Was treated with cephalosporins for procedure. Now on Meropenem. Review of Systems Review of Systems: Fever resolved over night PMFSH Past Medical History Medical History Allergies Anemia Anxiety Breast abscess Diabetes Elevated glucose level GERD (gastroesophageal reflux disease) HTN (hypertension) Hyperlipidemia Kidney stones Left ureteral injury Melanoma of forearm Obesity, Class III, BMI 40-49.9 (morbid obesity) ES (obstructive sleep apnea) Polymyalgia Positive ALAN (antinuclear antibody) Scalp psoriasis Vitamin D deficiency Surgical History Surgical History H/O lithotripsy H/O: hysterectomy History of extraction of renal calculus Hx of cholecystectomy Family History Family History Mother Hypertension Family history of heart disease in male family member before age 55 Father Family history of elevated blood lipids Other Family history of allergic disorder Social History Social History Smoking status: Never smoker Second hand tobacco smoke exposure: No Alcohol intake: never Alcohol use details: RARE Substance use: never Substance use type: does not use Do You Feel Safe in your Home?: Yes Lack of Transportation: No Lack of Food: Never True Current Housing: I Have Housing Concerned About Future Housing: No Difficulty Paying Gas/Electric Bills: No Difficulty Paying for Meds: No Currently Unemployed: No Education: Bachelor's Degree Difficulty w/ Childcare or Family Care: No Living arrangements: with family Additional living arrangements comments: DAUGHTER Gender identity (if verbalized by the patient): Female Sexual Orientation (if Verbalized by the Patient): Straight or Heterosexual Spiritual care concerns: No Meds Home Medications and Allergies Home Medications Medication Instructions Recorded Confirmed Type esomeprazole magnesium 20 mg 20 mg PO DAILY 08/12/20 12/18/23 History capsule,delayed release (Nexium) loratadine 10 mg tablet (Claritin) 10 mg PO DAILY 08/12/20 12/18/23 History ketorolac 10 mg tablet 10 mg PO Q8H PRN pain #15 tabs 10/03/23 12/18/23 Rx amlodipine 5 mg tablet 5 mg PO DAILY 12/03/23 12/18/23 History atorvastatin 20 mg tablet 20 mg PO DAILY 12/03/23 12/18/23 History escitalopram oxalate 20 mg tablet 20 mg PO RANDA
[2023-12-19 14:54] VITALS: BP 126/79; PULSE 100; RESP 16; TEMP 37.3; O2SAT 94
[2023-12-19] MEDS: ONDANSETRON INJ 4 MG/2 ML VIAL IV PUSH ×2 (14:56→21:12)
[2023-12-19 16:00] VITALS: BP 129/76; PULSE 109; RESP 16; TEMP 37.4; O2SAT 92
[2023-12-19 16:54] LABS: Glucose Point of Care 128 mg/dl (65-105)
[2023-12-19 19:39] LABS: Glucose Point of Care 192 mg/dl (65-105)
[2023-12-19 20:00] VITALS: BP 111/58; PULSE 89; RESP 19; TEMP 36.2; O2SAT 95
[2023-12-20] VITALS: BP 114/71; PULSE 89; RESP 19; TEMP 36.2; O2SAT 95
[2023-12-20 04:00] VITALS: BP 112/62; PULSE 90; RESP 19; TEMP 36.2; O2SAT 95
[2023-12-20] MEDS: MEROPENEM 1 GM/NS 100 ML 1 GM/100 ML BAG IVPB ×3 (06:05→21:58)
--- NOTE | 2023-12-20 07:01 | PM.IMPN ---
Progress Note: A&P Assessment and Plan (1) Sepsis: Qualifiers: Sepsis acute organ dysfunction status: without acute organ dysfunction Sepsis type: sepsis due to unspecified organism Qualified Code(s): A41.9 - Sepsis, unspecified organism Code(s): A41.9 - Sepsis, unspecified organism Status: Acute Assessment and Plan: Meets SIRS criteria: Febrile, HR, RR, WBC, Lactic acidosis. No hypotension or hypoxia. - lactic acid: 2.2 -> 1.9 - 30 mL/kg = 3450, given 3 L bolus - suspected source: UTI - started on meropenem given prior ESBL resistance - blood cultures drawn on 12/17: preliminary- gram negative bacilli - UA: Cloudy, 3+ protein, trace ketones, 3+ blood, 2+ leuk esterase, greater than 100 RBC and WBC, no bacteria, few epithelial cells - Urine culture collected on 12/17: negative - CXR: No acute cardiopulmonary disease - monitor I&Os 12/19: - vitals remain stable. WBC WNL on am labs. (2) Acute UTI: Code(s): N39.0 - Urinary tract infection, site not specified Status: Acute Assessment and Plan: - UA: Cloudy, 3+ protein, trace ketones, 3+ blood, 2+ leuk esterase, greater than 100 RBC and WBC, no bacteria, few epithelial cells - UC: negative - previous micro reviewed 08/19/19 grew corynebacterium species confirmed ESBL history in 202110/02/2023 grew E. coli with resistance to Augmentin, Unasyn, ceftriaxone, and Bactrim and intermediate to cipro and Levaquin 12/03/2023 grew E coli with resistance to Bactrim, gentamicin, ceftriaxone, Ancef. Intermediate to Unasyn, Augmentin, cefepime, Cipro, Levaquin. - started on meropenem on 12/17 (3) CECILIA (acute kidney injury): Code(s): N17.9 - Acute kidney failure, unspecified Status: Acute Assessment and Plan: - creatinine 1.1 and GFR 54 on admission, previously 0.9 and GFR >60 on 12/06/2023 - BUN/Cr 13/0.9 on am labs - suspect mild increase related to kidney stones and UTI - trend renal function - trend electrolytes, correct as needed - monitor I/O - avoid nephrotoxic medications - renally dose medications (4) Bilateral renal stones: Code(s): N20.0 - Calculus of kidney Status: Chronic Assessment and Plan: - CT abdomen/pelvis: 1. Mild left hydronephrosis. Left internal ureteral stent in expected position. 2. Bilateral nonobstructing kidney stones. - IV fluids: 3L bolus, continue with oral hydration - s/p Cystoscopy, left ureteral stent removal, left ureteroscopy with laser lithotripsy, stone extraction and ureteral stent replacement on 12/[address] Rubio outpatient - patient reports she has been previously told the kidney stones were calcium stones - urology consulted Continue current treatment until culture results return Treat as outpatient (5) Type 2 diabetes mellitus: Qualifiers: Diabetes mellitus complication status: without complication Diabetes mellitus penitentiary insulin use: without penitentiary use Qualified Code(s): E11.9 - Type 2 diabetes mellitus without complications Code(s): E11.9 - Type 2 diabetes mellitus without complications Status: Suspected Assessment and Plan: - initial glucose 239, not currently on medications - hypoglycemia protocol - POC blood glucose ACHS - correct regimen ordered - high dose TIDWM, based off BMI - A1C 7.2 - Discussed with patient and her PCP is following A1c and plan is to treat with diet and exercise at this time (6) HTN (hypertension): Qualifiers: Hypertension type: primary hypertension Qualified Code(s): I10 - Essential (primary) hypertension Code(s): I10 - Essential (primary) hypertension Status: Chronic Assessment and Plan: - chronic, well controlled on home medications. - continue home medications: Amlodipine 5 mg daily - monitor (7) ES (obstructive sleep apnea): Code(s): G47.33 - Obstructive sleep apnea (adult) (pediatric) Status: Chr
[2023-12-20 07:57] LABS: Glucose Point of Care 120 mg/dl (65-105)
[2023-12-20 08:00] VITALS: BP 104/61; PULSE 81; RESP 24; TEMP 36.6; O2SAT 93
[2023-12-20 08:10] LABS: Basophils Percent Auto 0.6 % (0.2-1.2); Eosinophils Absolute Auto 0.2 K/mm3 (0-0.3); Eosinophils Percent Auto 2.6 % (0-4.4); Hematocrit 29.1 % (37.0-47.0); Hemoglobin 9.2 g/dL (12.0-15.0); Immature Granulocyte Absolute 0.02 K/mm3 (0.00-0.031); Immature Granulocyte Percent A 0.3 % (0-0.5); Lymphocytes Absolute Auto 1.24 K/mm3 (0.9-3.2); Lymphocytes Percent Auto 18.2 % (18.3-44.2); Mean Corpuscular HGB Conc 31.6 g/dl (32-36); Mean Corpuscular Hemoglobin 26.6 pg (26-34); Mean Corpuscular Volume 84.1 fl (80-100); Mean Platelet Volume 9.6 fl (7.4-10.4); Monocytes Absolute Auto 0.7 K/mm3 (0.1-0.6); Monocytes Percent Auto 10.6 % (2.6-8.5); Neutrophils Absolute Auto 4.6 K/mm3 (1.3-6.7); Neutrophils Percent Auto 67.7 % (45.5-73.1); Platelet Count Result 177 k/mm3 (150-375); Red Blood Count 3.46 M/mm3 (4.2-5.4); White Blood Count 6.8 K/mm3 (4.5-10.0)
[2023-12-20 08:21] LABS: Alanine Aminotransferase 57 U/L (6-35); Albumin Level 3.3 g/dL (3.5-5.1); Alkaline Phosphatase 121 U/L (38-126); Anion Gap 8 mmol/L (4-12); Aspartate Amino Transferase 73 U/L (14-36); Bilirubin,Total 0.9 mg/dL (0.2-1.3); Blood Urea Nitrogen 13 mg/dL (7-17); Calcium 8.2 mg/dL (8.4-10.2); Carbon Dioxide 24 mmol/L (22-30); Chloride 103 mmol/L (98-107); Estimated CRCL calculation 86 ml/min; Estimated Glomerular Filt Rate > 60; Glucose 129 mg/dL (65-110); Potassium 3.7 mmol/L (3.4-5.0); Sodium 135 mmol/L (137-145)
[2023-12-20] MEDS: amLODIPine BESYLATE 5 MG TABLET PO (08:47)
[2023-12-20] MEDS: ATORVASTATIN 20 MG TABLET PO (08:47)
[2023-12-20] MEDS: PANTOPRAZOLE 40 MG TABLET PO (08:47)
[2023-12-20] MEDS: LORATADINE 10 MG TABLET PO (08:47)
[2023-12-20] MEDS: HYDROcodone/acetaminophen (*CRX) 5-325 MG TABLET 1 TAB PO ×2 (08:48→13:42)
[2023-12-20] MEDS: ESCITALOPRAM OXALATE 10 MG TABLET 20 MG PO (08:50)
[2023-12-20 12:00] VITALS: BP 113/68; PULSE 85; RESP 26; TEMP 37.1; O2SAT 93
[2023-12-20 12:19] LABS: Glucose Point of Care 120 mg/dl (65-105)
[2023-12-20 16:00] VITALS: BP 119/64; PULSE 84; RESP 22; TEMP 36.5; O2SAT 95
[2023-12-20 17:10] LABS: Glucose Point of Care 131 mg/dl (65-105)
[2023-12-20 20:00] VITALS: BP 124/72; PULSE 85; RESP 17; TEMP 37.1; O2SAT 95
[2023-12-20 21:06] LABS: Glucose Point of Care 153 mg/dl (65-105)
[2023-12-21 05:01] VITALS: BP 116/71; PULSE 77; RESP 20; TEMP 36.4; O2SAT 95
[2023-12-21] MEDS: MEROPENEM 1 GM/NS 100 ML 1 GM/100 ML BAG IVPB ×3 (06:02→20:14)
[2023-12-21 06:35] LABS: Basophils Absolute Auto 0.1 K/mm3 (0.0-0.1); Basophils Percent Auto 0.9 % (0.2-1.2); Eosinophils Absolute Auto 0.2 K/mm3 (0-0.3); Eosinophils Percent Auto 3.4 % (0-4.4); Hematocrit 28.8 % (37.0-47.0); Hemoglobin 9.1 g/dL (12.0-15.0); Immature Granulocyte Absolute 0.02 K/mm3 (0.00-0.031); Immature Granulocyte Percent A 0.4 % (0-0.5); Lymphocytes Absolute Auto 1.28 K/mm3 (0.9-3.2); Mean Corpuscular HGB Conc 31.6 g/dl (32-36); Mean Corpuscular Hemoglobin 26.7 pg (26-34); Mean Corpuscular Volume 84.5 fl (80-100); Mean Platelet Volume 10.2 fl (7.4-10.4); Monocytes Absolute Auto 0.7 K/mm3 (0.1-0.6); Monocytes Percent Auto 12.4 % (2.6-8.5); Neutrophils Absolute Auto 3.3 K/mm3 (1.3-6.7); Neutrophils Percent Auto 59.9 % (45.5-73.1); Platelet Count Result 216 k/mm3 (150-375); Red Blood Count 3.41 M/mm3 (4.2-5.4); Red Cell Distribution Width 15.9 % (11.5-14.5); White Blood Count 5.6 K/mm3 (4.5-10.0)
[2023-12-21 06:48] LABS: Alanine Aminotransferase 49 U/L (6-35); Albumin Level 3.2 g/dL (3.5-5.1); Alkaline Phosphatase 115 U/L (38-126); Anion Gap 8 mmol/L (4-12); Aspartate Amino Transferase 39 U/L (14-36); Bilirubin,Total 0.7 mg/dL (0.2-1.3); Blood Urea Nitrogen 13 mg/dL (7-17); Calcium 8.3 mg/dL (8.4-10.2); Carbon Dioxide 25 mmol/L (22-30); Chloride 104 mmol/L (98-107); Estimated CRCL calculation 86 ml/min; Estimated Glomerular Filt Rate > 60; Glucose 123 mg/dL (65-110); Potassium 3.7 mmol/L (3.4-5.0); Sodium 137 mmol/L (137-145)
--- NOTE | 2023-12-21 06:54 | PM.IMPN ---
Progress Note: A&P Assessment and Plan (1) Sepsis: Qualifiers: Sepsis acute organ dysfunction status: without acute organ dysfunction Sepsis type: sepsis due to unspecified organism Qualified Code(s): A41.9 - Sepsis, unspecified organism Code(s): A41.9 - Sepsis, unspecified organism Status: Acute Assessment and Plan: Meets SIRS criteria: Febrile, HR, RR, WBC, Lactic acidosis. No hypotension or hypoxia. - lactic acid: 2.2 -> 1.9 - 30 mL/kg = 3450, given 3 L bolus - suspected source: UTI - started on meropenem given prior ESBL resistance - blood cultures drawn on 12/17: Ecoli with ESBL resistance - UA: Cloudy, 3+ protein, trace ketones, 3+ blood, 2+ leuk esterase, greater than 100 RBC and WBC, no bacteria, few epithelial cells - Urine culture collected on 12/17: negative - CXR: No acute cardiopulmonary disease - monitor I&Os 12/19: - vitals remain stable. WBC WNL on am labs. 12/20: - vitals remain stable. BCx with ecoli ESBL resistance. Discussed with ID pharm and patient will require 10 day course of IV antibiotics. Care coordination following. (2) Acute UTI: Code(s): N39.0 - Urinary tract infection, site not specified Status: Ruled-out Assessment and Plan: - UA: Cloudy, 3+ protein, trace ketones, 3+ blood, 2+ leuk esterase, greater than 100 RBC and WBC, no bacteria, few epithelial cells - UC: negative - previous micro reviewed 08/19/19 grew corynebacterium species confirmed ESBL history in 202110/02/2023 grew E. coli with resistance to Augmentin, Unasyn, ceftriaxone, and Bactrim and intermediate to cipro and Levaquin 12/03/2023 grew E coli with resistance to Bactrim, gentamicin, ceftriaxone, Ancef. Intermediate to Unasyn, Augmentin, cefepime, Cipro, Levaquin. - started on meropenem on 12/17 (3) CECILIA (acute kidney injury): Code(s): N17.9 - Acute kidney failure, unspecified Status: Acute Assessment and Plan: - creatinine 1.1 and GFR 54 on admission, previously 0.9 and GFR >60 on 12/06/2023 - BUN/Cr 13/0.9 on am labs - suspect mild increase related to kidney stones and UTI - trend renal function - trend electrolytes, correct as needed - monitor I/O - avoid nephrotoxic medications - renally dose medications (4) Bilateral renal stones: Code(s): N20.0 - Calculus of kidney Status: Chronic Assessment and Plan: - CT abdomen/pelvis: 1. Mild left hydronephrosis. Left internal ureteral stent in expected position. 2. Bilateral nonobstructing kidney stones. - IV fluids: 3L bolus, continue with oral hydration - s/p Cystoscopy, left ureteral stent removal, left ureteroscopy with laser lithotripsy, stone extraction and ureteral stent replacement on 12/[address] Rubio outpatient - patient reports she has been previously told the kidney stones were calcium stones - urology consulted Continue current treatment until culture results return Treat as outpatient (5) Type 2 diabetes mellitus: Qualifiers: Diabetes mellitus complication status: without complication Diabetes mellitus exterminator helper termite insulin use: without exterminator helper termite use Qualified Code(s): E11.9 - Type 2 diabetes mellitus without complications Code(s): E11.9 - Type 2 diabetes mellitus without complications Status: Suspected Assessment and Plan: - initial glucose 239, not currently on medications - hypoglycemia protocol - POC blood glucose ACHS - correct regimen ordered - high dose TIDWM, based off BMI - A1C 7.2 - Discussed with patient and her PCP is following A1c and plan is to treat with diet and exercise at this time (6) HTN (hypertension): Qualifiers: Hypertension type: primary hypertension Qualified Code(s): I10 - Essential (primary) hypertension Code(s): I10 - Essential (primary) hypertension Status: Chronic Assessment and Plan: - chronic, well controlled on home medications. - continue home med
[2023-12-21 07:14] LABS: Iron 34 ug/dL (37-170)
[2023-12-21 07:23] LABS: Percent Iron Saturation 11 % (20-50)
[2023-12-21 07:43] LABS: Glucose Point of Care 116 mg/dl (65-105)
[2023-12-21 08:21] LABS: Folic Acid 8.5 ng/mL (2.76->20)
[2023-12-21 08:57] VITALS: BP 122/70; PULSE 83; O2SAT 95
[2023-12-21] MEDS: ESCITALOPRAM OXALATE 10 MG TABLET 20 MG PO (08:57)
[2023-12-21] MEDS: ATORVASTATIN 20 MG TABLET PO (08:57)
[2023-12-21] MEDS: LORATADINE 10 MG TABLET PO (08:57)
[2023-12-21] MEDS: amLODIPine BESYLATE 5 MG TABLET PO (08:58)
[2023-12-21] MEDS: FERROUS SULFATE 325 MG TABLET DR PO (08:58)
[2023-12-21] MEDS: PANTOPRAZOLE 40 MG TABLET PO (08:58)
--- NOTE | 2023-12-21 09:39 | WPDUROPN2 ---
Progress Note: A&P Assessment and Plan (1) Sepsis: Qualifiers: Sepsis acute organ dysfunction status: without acute organ dysfunction Sepsis type: sepsis due to unspecified organism Qualified Code(s): A41.9 - Sepsis, unspecified organism Code(s): A41.9 - Sepsis, unspecified organism Status: Acute Assessment and Plan: Sepsis has resolved. Vital signs are stable. WBC normalized. Lactic acid within normal limits. Blood cultures with growth of E coli. Continue meropenem (2) Acute UTI: Code(s): N39.0 - Urinary tract infection, site not specified Status: Ruled-out Assessment and Plan: Urine culture negative. Remains on broad-spectrum antibiotics. (3) CECILIA (acute kidney injury): Code(s): N17.9 - Acute kidney failure, unspecified Status: Acute Assessment and Plan: Resolved. Creatinine 0.9 today (4) Calculus, ureteral: Code(s): N20.1 - Calculus of ureter Status: Acute Assessment and Plan: S/p left ureteroscopy with laser lithotripsy, stone extraction, and left ureteral stent placement 12/17/2023. CT of abdomen/pelvis completed upon admission shows left internal stent in expected position. She has bilateral nonobstructing renal stones; plan for treatment as an outpatient Subjective Subjective Date/Time Seen: 12/21/23 09:39 Interval history: Annalisa is doing well today. Overall feels much improved. Denies abdominal pain, flank pain, back pain. Denies dysuria or hematuria. Denies nausea, vomiting, fever, or chills. Tolerating her diet. Review of Systems Review of Systems: All systems reviewed & are unremarkable except as noted in HPI and below Exam Narrative: General: Awake, alert, comfortable, no acute distress HEENT: Normocephalic, atraumatic, sclerae anicteric Respiratory: Normal respiratory effort, no accessory muscle use Abdomen: Nondistended, soft, nontender Skin: Normal coloration, warm and dry Neurologic: No focal neuro deficits noted Psychiatric: Appropriate mood and affect, judgment and insight intact Objective Data Vital Signs Vital Signs: Vital Signs - 24 hr 12/20/23 12:00 12/20/23 16:00 12/20/23 20:00 Temperature 98.8 F 97.7 F 98.8 F Pulse Rate 85 84 85 Respiratory Rate 26 H 22 H 17 Blood Pressure 113/68 119/64 124/72 Pulse Oximetry 93 95 95 Oxygen Delivery 12/20/23 20:00 12/20/23 23:10 12/21/23 05:01 Temperature 97.6 F Pulse Rate 85 77 Respiratory Rate 17 20 Blood Pressure 116/71 Pulse Oximetry 95 95 Oxygen Delivery Room Air CPAP 12/21/23 08:57 12/21/23 08:50 Temperature Pulse Rate 83 Respiratory Rate Blood Pressure 122/70 Pulse Oximetry 95 Oxygen Delivery Room Air Intake/Output Intake/Output: Intake & Output 12/18/23 12/19/23 12/20/23 12/21/23 23:59 23:59 23:59 23:59 Intake Total 3300 1260 1130 490 Balance 3300 1260 1130 490 Meds/Results Medications: Active Medications Generic Name Dose Route Start Last Admin Trade Name Freq PRN Reason Stop Dose Admin Acetaminophen 650 mg 12/18/23 19:00 Acetaminophen 325 Mg Tablet PO Q4H PRN Mild Pain (1-3) or Fever Hydrocodone Bitart/Acetaminophen 1 tab 12/18/23 19:00 12/20/23 13:42 Hydrocodone/Acetaminophen (*Crx) 5-325 Mg Tablet PO 1 tab Q4H PRN Administration Moderate Pain (4-6) Amlodipine Besylate 5 mg 12/19/23 09:00 12/21/23 08:58 Amlodipine Besylate 5 Mg Tablet PO 5 mg DAILY DIANDRA Administration Atorvastatin Calcium 20 mg 12/19/23 09:00 12/21/23 08:57 Atorvastatin 20 Mg Tablet PO 20 mg DAILY DIANDRA Administration Bisacodyl 5 mg 12/18/23 19:00 Bisacodyl 5 Mg Tablet Ec PO DAILY PRN Constipation Dextrose 12.5 gm 12/18/23 19:08 Dextrose 50% 25 Gm/50 Ml Syringe IV PUSH PRN PRN Hypoglycemia Protocol Escitalopram Oxalate 20 mg 12/19/23 09:00 12/21/23 08:57 Escitalopram Oxalate 10 Mg Table
[2023-12-21 11:51] LABS: Glucose Point of Care 122 mg/dl (65-105)
[2023-12-21] MEDS: LIDOCAINE HCL 1% LOCAL INJ 2 ML AMPUL 5 ML INFILTRATE (13:00)
[2023-12-21 14:00] VITALS: BP 112/69; PULSE 89; RESP 16; TEMP 36.6; O2SAT 98
[2023-12-21] MEDS: SALINE LOCK FLUSH 10 ML IV PUSH ×2 (14:10→20:15)
[2023-12-21 17:55] LABS: Glucose Point of Care 140 mg/dl (65-105)
[2023-12-21 20:00] VITALS: PULSE 91; RESP 18; O2SAT 94
[2023-12-21] MEDS: HYDROcodone/acetaminophen (*CRX) 5-325 MG TABLET 1 TAB PO (20:15)
[2023-12-21 20:50] LABS: Glucose Point of Care 135 mg/dl (65-105)
[2023-12-21 20:51] VITALS: BP 132/75; PULSE 91; RESP 18; TEMP 36.7; O2SAT 94
[2023-12-21] MEDS: ONDANSETRON INJ 4 MG/2 ML VIAL IV PUSH (20:58)
[2023-12-22] MEDS: MEROPENEM 1 GM/NS 100 ML 1 GM/100 ML BAG IVPB (04:29)
[2023-12-22] MEDS: SALINE LOCK FLUSH 10 ML IV PUSH ×2 (04:30→13:19)
[2023-12-22 05:14] VITALS: BP 126/78; PULSE 73; RESP 18; TEMP 37; O2SAT 96
[2023-12-22 05:45] LABS: Basophils Percent Auto 0.9 % (0.2-1.2); Eosinophils Absolute Auto 0.2 K/mm3 (0-0.3); Eosinophils Percent Auto 3.6 % (0-4.4); Hemoglobin 8.9 g/dL (12.0-15.0); Immature Granulocyte Absolute 0.01 K/mm3 (0.00-0.031); Immature Granulocyte Percent A 0.2 % (0-0.5); Lymphocytes Percent Auto 29.6 % (18.3-44.2); Mean Corpuscular HGB Conc 31.8 g/dl (32-36); Mean Corpuscular Hemoglobin 26.7 pg (26-34); Mean Corpuscular Volume 84.1 fl (80-100); Mean Platelet Volume 9.3 fl (7.4-10.4); Monocytes Absolute Auto 0.5 K/mm3 (0.1-0.6); Monocytes Percent Auto 11.6 % (2.6-8.5); Neutrophils Absolute Auto 2.4 K/mm3 (1.3-6.7); Neutrophils Percent Auto 54.1 % (45.5-73.1); Platelet Count Result 229 k/mm3 (150-375); Red Blood Count 3.33 M/mm3 (4.2-5.4); Red Cell Distribution Width 15.8 % (11.5-14.5); White Blood Count 4.4 K/mm3 (4.5-10.0)
[2023-12-22 06:06] LABS: Alanine Aminotransferase 39 U/L (6-35); Albumin Level 3.4 g/dL (3.5-5.1); Alkaline Phosphatase 105 U/L (38-126); Anion Gap 9 mmol/L (4-12); Aspartate Amino Transferase 28 U/L (14-36); Bilirubin,Total 0.4 mg/dL (0.2-1.3); Blood Urea Nitrogen 11 mg/dL (7-17); Calcium 8.7 mg/dL (8.4-10.2); Carbon Dioxide 25 mmol/L (22-30); Chloride 105 mmol/L (98-107); Estimated CRCL calculation 96 ml/min; Estimated Glomerular Filt Rate > 60; Glucose 119 mg/dL (65-110); Potassium 3.6 mmol/L (3.4-5.0); Sodium 139 mmol/L (137-145)
[2023-12-22 08:21] LABS: Glucose Point of Care 103 mg/dl (65-105)
[2023-12-22] MEDS: ATORVASTATIN 20 MG TABLET PO (08:25)
[2023-12-22] MEDS: LORATADINE 10 MG TABLET PO (08:25)
[2023-12-22] MEDS: ESCITALOPRAM OXALATE 10 MG TABLET 20 MG PO (08:25)
[2023-12-22] MEDS: amLODIPine BESYLATE 5 MG TABLET PO (08:25)
[2023-12-22] MEDS: PANTOPRAZOLE 40 MG TABLET PO (08:25)
[2023-12-22] MEDS: FERROUS SULFATE 325 MG TABLET DR PO (08:25)
[2023-12-22 11:59] LABS: Glucose Point of Care 111 mg/dl (65-105)
--- NOTE | 2023-12-22 13:14 | WPDUROPN2 ---
Progress Note: A&P Assessment and Plan (1) Sepsis: Qualifiers: Sepsis acute organ dysfunction status: without acute organ dysfunction Sepsis type: sepsis due to unspecified organism Qualified Code(s): A41.9 - Sepsis, unspecified organism Code(s): A41.9 - Sepsis, unspecified organism Status: Acute Assessment and Plan: Sepsis has resolved. Vital signs are stable. WBC normalized. Lactic acid within normal limits. Blood cultures with growth of E coli - she has had midline placed and will continue IV antibiotics x10 days (2) Acute UTI: Code(s): N39.0 - Urinary tract infection, site not specified Status: Ruled-out Assessment and Plan: Urine culture negative. Remains on broad-spectrum antibiotics. (3) CECILIA (acute kidney injury): Code(s): N17.9 - Acute kidney failure, unspecified Status: Acute Assessment and Plan: Resolved. Creatinine 0.8 today (4) Calculus, ureteral: Code(s): N20.1 - Calculus of ureter Status: Acute Assessment and Plan: S/p left ureteroscopy with laser lithotripsy, stone extraction, and left ureteral stent placement 12/17/2023. CT of abdomen/pelvis completed upon admission shows left internal stent in expected position. She has bilateral nonobstructing renal stones; plan for treatment as an outpatient. Scheduled for left stent removal as an outpatient today. Will cancel appt and reschedule for next week while still covered with appropriate antibiotics. Subjective Subjective Date/Time Seen: 12/22/23 13:14 Interval history: Annalisa is feeling better today. Had midline placed and going home today on course of IV antibiotics. Reports no concerns. Review of Systems Review of Systems: All systems reviewed & are unremarkable except as noted in HPI and below Exam Narrative: General: Awake, alert, comfortable, no acute distress HEENT: Normocephalic, atraumatic, sclerae anicteric Respiratory: Normal respiratory effort, no accessory muscle use Abdomen: Nondistended, soft, nontender Skin: Normal coloration, warm and dry Neurologic: No focal neuro deficits noted Psychiatric: Appropriate mood and affect, judgment and insight intact Objective Data Vital Signs Vital Signs: Vital Signs - 24 hr 12/21/23 14:00 12/21/23 20:51 12/21/23 20:00 Temperature 98 F 98.1 F Pulse Rate 89 91 91 Respiratory Rate 16 18 18 Blood Pressure 112/69 132/75 Pulse Oximetry 98 94 94 Oxygen Delivery Room Air 12/22/23 05:14 Temperature 98.6 F Pulse Rate 73 Respiratory Rate 18 Blood Pressure 126/78 Pulse Oximetry 96 Oxygen Delivery Intake/Output Intake/Output: Intake & Output 12/19/23 12/20/23 12/21/23 12/22/23 23:59 23:59 23:59 23:59 Intake Total 1260 1130 1170 540 Balance 1260 1130 1170 540 Meds/Results Medications: Active Medications Generic Name Dose Route Start Last Admin Trade Name Freq PRN Reason Stop Dose Admin Acetaminophen 650 mg 12/18/23 19:00 Acetaminophen 325 Mg Tablet PO Q4H PRN Mild Pain (1-3) or Fever Hydrocodone Bitart/Acetaminophen 1 tab 12/18/23 19:00 12/21/23 20:15 Hydrocodone/Acetaminophen (*Crx) 5-325 Mg Tablet PO 1 tab Q4H PRN Administration Moderate Pain (4-6) Amlodipine Besylate 5 mg 12/19/23 09:00 12/22/23 08:25 Amlodipine Besylate 5 Mg Tablet PO 5 mg DAILY DIANDRA Administration Atorvastatin Calcium 20 mg 12/19/23 09:00 12/22/23 08:25 Atorvastatin 20 Mg Tablet PO 20 mg DAILY DIANDRA Administration Bisacodyl 5 mg 12/18/23 19:00 Bisacodyl 5 Mg Tablet Ec PO DAILY PRN Constipation Dextrose 12.5 gm 12/18/23 19:08 Dextrose 50% 25 Gm/50 Ml Syringe IV PUSH PRN PRN Hypoglycemia Protocol Escitalopram Oxalate 20 mg 12/19/23 09:00 12/22/23 08:25 Escitalopram Oxalate 10 Mg Tablet PO 20 mg DAILY DIANDRA Administration Ferrous Sulfate 325 mg 12/21/23 09:00 12/22/23 08:25
[2023-12-22] MEDS: ERTAPENEM 1 GM/NS 50 ML 1 GM/50 ML BAG IVPB (13:18)
[2023-12-22 14:00] VITALS: BP 128/82; PULSE 70; RESP 18; TEMP 36.8; O2SAT 97
--- NOTE | 2023-12-22 14:19 | PM.DS ---
DS: Admitting Diagnosis Discharge Date 12/22/2023 Admitting Diagnosis sepsis acute UTI CECILIA Bilateral renal stones type 2 dm HTN ES DS: Discharge Diagnosis Discharge Diagnosis (1) Sepsis: Qualifiers: Sepsis acute organ dysfunction status: without acute organ dysfunction Sepsis type: sepsis due to unspecified organism Qualified Code(s): A41.9 - Sepsis, unspecified organism Code(s): A41.9 - Sepsis, unspecified organism Status: Acute (2) Acute UTI: Code(s): N39.0 - Urinary tract infection, site not specified Status: Ruled-out (3) CECILIA (acute kidney injury): Code(s): N17.9 - Acute kidney failure, unspecified Status: Acute (4) Bilateral renal stones: Code(s): N20.0 - Calculus of kidney Status: Chronic (5) Type 2 diabetes mellitus: Qualifiers: Diabetes mellitus complication status: without complication Diabetes mellitus jail insulin use: without terminologist use Qualified Code(s): E11.9 - Type 2 diabetes mellitus without complications Code(s): E11.9 - Type 2 diabetes mellitus without complications Status: Suspected (6) HTN (hypertension): Qualifiers: Hypertension type: primary hypertension Qualified Code(s): I10 - Essential (primary) hypertension Code(s): I10 - Essential (primary) hypertension Status: Chronic (7) ES (obstructive sleep apnea): Code(s): G47.33 - Obstructive sleep apnea (adult) (pediatric) Status: Chronic DS: Summary Hospital Course Reason for hospitalization: sepsis acute UTI CECILIA Bilateral renal stones type 2 dm HTN ES Hospital Course: 43 year old female with past medical history of kidney stones, ureteral stent placement, MDR UTIs, diabetes, HTN, HLD, ES, scalp psoriasis, anxiety, and vitamin-D deficiency presents to the hospital for fever. On admission she was meeting SIRS criteria with fever, HR, RR and lacitic acidosis. She received 3 L bolus and vitals stabilized and lactic returned to normal limits. Labs also showed a slight CECILIA which resolved with the fluids. A UA was concerning for UTI and patient was started on IV antibiotics. CT abdomen/pelvis showed mild left hydronephrosis, left internal ureteral stent in expected position. As well as, bilateral nonobstructing kidney stones. Of note, patient is S/p left ureteroscopy with laser lithotripsy, stone extraction, and left ureteral stent placement 12/17/2023. Urology consulted and plan to continue treatment outpatient. Urine culture was negative, however blood culture grew ecoli with ESBL resistance. Discussed with ID pharmacy and patient requiring IV antibiotics at discharge. Care coordination consulted and home health set up. Patient was trained for home antibiotics prior to discharge. She denied chest pain, shortness of breath, nausea/vomiting, abdominal pain, flank pain, dysuria, hematuria, and burning sensation. Patient discharged home with home health in stable condition. She is to continue her antibiotic as prescribed and follow up with her PCP in 1 week. Patient is also to follow up with urology for stent removal outpatient. Status at Discharge Functional status at discharge: independent ambulation Time Spent with Patient Time attestation: Total time spent providing and/or coordinating discharge services: Time spent: Greater than 30 minutes Exam Narrative: AF HR 70 RR 18 SpO2 97 BP 128/82 General: female in no acute respiratory distress who is nontoxic appearing, lying semi recumbent in bed. HEENT: Normocephalic. Atraumatic. Extraocular movement intact. Sclera clear and anicteric. Chest: Lungs are clear to auscultation bilaterally. No wheezes or crackles. CV: Heart was regular rate and rhythm. S1-S2. No murmurs, gallops, or rubs. Abd: Abdomen was soft. Nontender. Nondistended. Positive bowel sounds. No CVA tenderness. No organomegaly or masses. DS: Data Data Completed and Pending Completed studies collins
[2023-12-22] MEDS: ONDANSETRON INJ 4 MG/2 ML VIAL IV PUSH (14:56)
== END 2023-12-22 15:05 | disposition home health service (06) | DRG 872 ==
LOC: ANHED 13:54 → ANH2MED 16:27
PROVIDERS: Emergency Medicine; Student in an Organized Health Care Education/Training Program; Admitting Provider Internal Medicine; Emergency Provider Physician Assistant; PCP Internal Medicine; Visit Provider Student in an Organized Health Care Education/Training Program
DX: A41.51 Sepsis due to Escherichia coli [E. coli] (principal); N39.0 Urinary tract infection, site not specified; N17.9 Acute kidney failure, unspecified; Z68.41 Body mass index [BMI] 40.0-44.9, adult; N20.0 Calculus of kidney; I10 Essential (primary) hypertension; E11.9 Type 2 diabetes mellitus without complications; E55.9 Vitamin D deficiency, unspecified; E78.5 Hyperlipidemia, unspecified; E66.01 Morbid (severe) obesity due to excess calories; G47.33 Obstructive sleep apnea (adult) (pediatric); M35.3 Polymyalgia rheumatica; K21.9 Gastro-esophageal reflux disease without esophagitis; L40.9 Psoriasis, unspecified; F41.9 Anxiety disorder, unspecified; Z20.822 Contact with and (suspected) exposure to COVID-19; Z87.442 Personal history of urinary calculi
CPT/HCPCS: 36415; 36569; 71046; 74176; 80053; 81001; 82607; 82746; 82948; 83036; 83540; 83550; 83605; 83735; 85025; 87040; 87077; 87081; 87086; 87186; 87637; 96361; 96365; 96367; 96375; 96376; 99285; A9270; G0378; J1335; J1885; J2185; J2405; J3475; J7030

== ENCOUNTER 2024-02-05 09:41 | Outpatient (CLI) | payer BC, SELFPAY ==
--- NOTE | ~2024-02-05 | XR_ITS ---
EXAMINATION: XR abdomen/kub 1V DATE: 02/05/2024 09:57 INDICATION: Right flank pain. TECHNIQUE: A supine view of the abdomen on 2 radiographs was obtained. COMPARISON: Abdomen radiographs 12/04/2023, CT abdomen and pelvis 12/18/2023 FINDINGS: There are no dilated loops of bowel. There is a phlebolith in right pelvis. There are great er than 10 stones in right kidney measuring up to 6 mm. There are approximately 6 stones in left kidn ey measuring up to 4 mm. IMPRESSION: 1. Bilateral kidney stones. Reviewed, dictated and finalized at location A. L ATTENDANT IMPRESSION: 1. Bilateral kidney stones.
== END 2024-02-05 09:42 | disposition home or self-care (01) ==
LOC: ANHIMG 09:44
PROVIDERS: PCP Internal Medicine; Visit Provider Urology
DX: R10.9 Unspecified abdominal pain (principal); N20.0 Calculus of kidney
CPT/HCPCS: 74018

== ENCOUNTER 2024-08-05 16:30 | Outpatient (CLI) | payer BC, SELFPAY ==
--- NOTE | ~2024-08-05 | XR_ITS ---
Exam: Abdomen 1V HISTORY: RIGHT FLANK PAIN COMPARISON: None. TECHNIQUE: Supine images of the abdomen FINDINGS: Bowel gas pattern is non-obstructive. There is no free air or deep sulci. Redemonstration of innumerable bilateral renal calculi, right greater than left. The morphology and configuration is unchanged from 02/05/2024. Lung bases are unremarkable. Bones and soft tissues are unremarkable. IMPRESSION: Nonspecific, nonobstructive bowel gas pattern. Bilateral renal calculi, right greater than left, unchanged from prior Reviewed, dictated and finalized at location A.
--- OUTSIDE RECORDS SUMMARY | 2024-08-05 16:38 | XMS_ITS | Clinical Summary ---
Author Organization [facility] Address [address] [place] [id number] Phone Care Team Providers Care Boom Worker Name Role Phone Carlos Rivas MD Primary Care Provider [phone] Allergies Active Allergy Reactions Criticality Noted Date Comments Moxifloxacin Rash Low 08/18/2011 Reaction: Rash, Reaction: Rash, Other Hives Medium 2017 Sulfa Antibiotics Trimethoprim 12/09/2018 Other reaction(s): Unknown Medications loratadine (CLARITIN) 10 MG tablet 0 08/08/2017 Active amLODIPine (NORVASC) 5 MG tablet 1 daily 0 08/12/2017 Active esomeprazole (NexIUM) [address] capsule 1 daily 0 08/08/2017 Active Magnesium Oxide 400 MG capsule 1 daily 0 05/13/2018 Acti ve medroxyPROGESTER one (DEPO-PROVERA) 150 MG/ML suspension prefilled syringe injection syringe INJECT 1 ML Q 3 MONTHS 0 11/24/2018 Active hydroCHLOROthiaz keri (HYDRODIURIL) 25 MG tablet TAKE 1 TABLET BY MOUTH DAILY 30 tablet 03/11/2019 Active escitalopram (LEXAPRO) 10 MG tablet 06/14/2019 Active potassium chloride (KLOR-CON M20) 20 MEQ CR tablet 05/04/2019 Ac tive busPIRone (BUSPAR) 7.5 MG tablet 07/26/2019 Active Active Problems Problem Noted Date Diagnosed Date Calculus of kidney 08/12/2017 Essential (primary) hypertension 08/12/2017 Snoring 08/12/2017 Chronic nonalcoholic liver disease 08/13/2013 Overview (01/30/2019): Overview: CHRONIC LIVER DIS NEC Immunizations Immunization Administration Dates Next Due Influenza TIV (IM) 08/03/2019(Deferred: Patient Refused) Tdap 03/12/2007 Family History Medical History Relation Comments Kidney disease Neg Hx Social History Tobacco Use Types Packs/Day Years Used Date Smoking Tobacco: Never Smokeless Tobacco: Never Alcohol Use Standard Drinks/Week Comments No 0 (1 standard drink = 0.6 oz pur e alcohol) AUDIT-C Answer Date Recorded Frequency of Alcohol Consumption Never 07/24/2018 Average Number of Drinks Not on file 019 Frequency of Binge Drinking Not on file 06/29 Comments Unknown Sex and Gender Information Value Date Recorded Sex Assigned at Not on file Legal Sex Female 8:54 AM MST Gender Identity Not on file Sexual Orientation Not on file Last Filed Vital Signs Vital Sign Reading Time Taken Comments Blood Pressure 118/70 02/02/2019 3:55 PM SAAS ARCHITECT Pulse 84 02/02/2019 3:55 PM SAAS ARCHITECT Temperature 36.3 C (97.4 F) 02/02/2019 3:55 PM SAAS ARCHITECT Respiratory Rate - - Oxygen Saturation - - Inhaled Oxygen Concentration - - Weight 109 kg (240 lb) 02/02/2019 3:55 PM SAAS ARCHITECT Height 162.6 cm (5' 4 ) 02/02/2019 3:55 PM SAAS ARCHITECT Body Mass Index 41.2 02/02/2019 3:55 PM SAAS ARCHITECT Plan of Treatment Health Maintenance Due Date Last Done Comments Influenza Vaccine (Season Ended) 2024 Insurance [facility] Care Teams Boom Worker Relationship Specialty Start Date End Date Carlos Rivas MD PCP - General Internal Medicine 07/28/18
--- OUTSIDE RECORDS SUMMARY | 2024-08-05 16:38 | XMS_ITS | Referral Summary ---
Author Organization [facility] Address [address] [place] [address] Care Team Providers Care Rand Butter Name Role Phone Carlos Rivas MD Primary Care Provider [phone] Allergies Active Allergy Reactions Criticality Noted Date Comments Iodinated Contrast Media Hives Medium 2017 Moxifloxacin Rash Reaction: Rash, Other Hives Medium 2017 Sulfa (Sulfonamide Antibiotics) Rash Reaction: rash, Trimethoprim Unknown 12/09/2018 Other reaction(s): Unknown Medications esomeprazole DR (NexIUM) 20 mg capsule Take 20 mg by mouth daily 8 Active loratadine (CLARITIN) 10 mg tablet Take 10 mg by mouth daily 8 Active potassium chloride ER 20 mEq CR tablet 1 Active escitalopram (LEXAPRO) 10 mg tablet TAKE 1/2 TABLET BY MOUTH ONCE DAILY FOR 1 WEEK, THEN INCREASE TO 1 TABLET DAILY CONTINUOUSLY 90 tablet 3 1 Active hydroCHLOROthia zide (HYDRODIURIL) 25 mg tablet TAKE 1 TABLET(25 MG) BY MOUTH DAILY 90 tablet 1 2 Active amLODIPine (NORVASC) 5 mg tablet TAKE 1 TABLET(5 MG) BY MOUTH DAILY 30 tablet 11 2 Active Active Problems Problem Noted Date Diagnosed Date Nonalcoholic fatty liver disease 03/01/2020 History of kidney stones 09/07/2019 Anxiety 04/06/2019 Assessment & Plan (04/20/2019 9:20 AM INSURANCE CLAIMS SUPERVISOR): Improving. Cnt. With Lexapro as prior prescribed. Refilled BuSpar to take twice daily p.r.n.. S/Es of medication once encouraged, follow-up in office as scheduled or sooner as needed to discuss tapering off medication if desired Assessment & Plan (04/06/2019 2:34 PM INSURANCE CLAIMS SUPERVISOR): Straight Pt on low dose of Lexapro half tablet daily increasing to a full tablet week to she can also Cnt. Her BuSpar for the next 2 weeks while starting on Lexapro to assist with anxiety in the interim. S/Es were advised Pt given their similarity to Prozac advising that it typically takes 3-4 weeks for medication to take effect. Other nonpharmacologic recommendations made. F/U here in 2-3 weeks for evaluation. BMI 39.0-39.9,adult 04/06/2019 Adiposity 08/13/2013 Overview (07/02/2016): OBESITY NOS Atopic rhinitis 08/13/2013 Overview (07/02/2016): ALLERGIC RHINITIS NOS Resolved Problems Problem Noted Date Diagnosed Date Resolved Date Fatigue 04/20/2019 04/20/2019 Assessment & Plan (04/20/2019 9:22 AM INSURANCE CLAIMS SUPERVISOR): Ongoing fatigue with labs reviewed, detailed above, and WNL. Given her concerns of mono- EBV titers ordered along with PSG testing given mention of poor sleep pattern, snoring. Developing exercise regimen was also encouraged. From mg Hx of heart disease, per/for HTN, I did encourage her to F/U with pediatric nurse and discuss desire for stress testing if fatigue persist as well offered to order test today, she declined office. Further recommendations pending upcoming EBV titers, PSG testing. Low grade fever 04/06/2019 04/20/2019 Assessment & Plan (04/06/2019 2:33 PM INSURANCE CLAIMS SUPERVISOR): Uncertain etiology, likely more associated with circadian rhythm given them occurring in the evening w/ fatigue, nausea. Recommended CBC, ESR, TB. Given her mention of 3 weeks of diarrhea, heavy drawn check and I did encourage her to the complete a stool sample looking further into E coli. Further recommendations pending results of testing. Rotation of antipyretics only if myalgias, headache is noted. F/U here in 2 weeks to discuss need for additional testing regarding low-grade fever. Impacted cerumen of right ear 05/08/2018 11/11/2018 Assessment & Plan (05/08/2018 5:04 PM INSURANCE CLAIMS SUPERVISOR): Excessive Ear Wax Prevention Cerumen accumulation or excessive ear wax can cause symptoms like-Hearing loss ?Earache ?Ear fullness ?Itchiness ?Reflex cough ?Dizziness ?Tinnitus Normal ears use a cotton ball dipped in mineral oil, olive oil, Baby oil, or [employer] oil and place in the external canal for 10 to 20 minutes once per week. For Chronic cerumen impactions can perform on a scheduled baseis-3 drops of olive oil or Baby oil in each ear, three times daily for Three weeks, Three times per year. Routine cleaning of the ears by a health professional every 6 to 12 months is also suggested. Patients should be instructed that chronic use of cotton swabs or cerumenolytics should not be performed. Cerumenolytics are safe to use in patients with NO history of infections, perforations, or otologic surgery. Cerumenolytics should be avoided if tympanic membrane damage is suspected. If a patient has a history of drainage from the ear, ear pain, or frequent ear infections earlier in life, then the tympanic membrane may be impaired and cerumenolytics should not be employed. If safe for you, use Debrox drops, Hydrogen peroxide or Benzalkonium Chloride softening agents Chronic nonalcoholic liver disease 08/13/2013 03/01/2020 Overview (07/02/2016): CHRONIC LIVER DIS NEC Immunizations Immunization Administration Dates Next Due HPV, Unspecified 03/01/2020(Deferred: Patient Refused),12/28/2018(Deferred: Patient Refused) Influenza, Unspecified 04/20/2019(Deferr ed: Patient Refused),04/06/2019(Deferred: Patient Refused),03/11/2019(Deferred: Patient Refused),12/28/2018(Deferred: Patient Refused),12/28/2017(Deferred: Patient Refused),12/28/2017(Deferred: Patient Refused),12/28/2017(Deferred: Patient Refused) Tdap 03/12/2007 Social History Tobacco Use Types Packs/Day Years Used Date Smoking Tobacco: Never Smokeless Tobacco: Never Tobacco Cessation:Counseling Given: No Alcohol Use Standard Drinks/Week Comments Yes 0 (1 standard drink = 0.6 oz pur e alcohol) PHQ-2 Answer Date Recorded PHQ-2 Total Score (If total score is 3 or more points, staff should administer the PHQ-9) 0 03/01/2020 Comments No Sex and Gender Information Value Date Recorded Sex Assigned at Not on file Legal Sex Female 9:06 AM INSURANCE CLAIMS SUPERVISOR Gender Identity Not on file Sexual Orientation Not on file Last Filed Vital Signs Vital Sign Reading Time Taken Comments Blood Pressure 118/78 05/21/2020 2:26 PM INSURANCE CLAIMS SUPERVISOR Pulse 79 05/21/2020 2:26 PM INSURANCE CLAIMS SUPERVISOR Temperature 36.6 C (97.9 F) 05/21/2020 2:26 PM INSURANCE CLAIMS SUPERVISOR Respiratory Rate 18 05/21/2020 2:26 PM INSURANCE CLAIMS SUPERVISOR Oxygen Saturation 95% 02/24/2019 4:00 AM INSURANCE CLAIMS SUPERVISOR Inhaled Oxygen Concentration - - Weight 112.5 kg (248 lb) 05/21/2020 2:26 PM INSURANCE CLAIMS SUPERVISOR Height 162.6 cm (5' 4 ) 05/21/2020 2:26 PM INSURANCE CLAIMS SUPERVISOR Body Mass Index 42.57 05/21/2020 2:26 PM INSURANCE CLAIMS SUPERVISOR Plan of Treatment Not on file Procedures Procedure Name Priority Date/Time Associated Diagnosis Comments DIAGNOSTIC MAMMOGRAM BILATERAL W BRYAN Schedule Routine, Read Routine (OP Routine) 12/01/2019 from Last 3 Months or Most Recently Relevant to Health Maintenance Results * Diagnostic Mammogram Bilateral W Bryan (12/01/2019) Anatomical Region Laterality Modality Breast Bilateral Mammography Narrative 12/01/2019 Results are in Care Everywhere from [facility] us Historical Provider MD BRADLEY MAMMO PROCEDURES Altagracia l Result from Last 3 Months or Most Recently Relevant to Health Maintenance Insurance [facility] Care Teams Rand Butter Relationship Specialty Start Date End Date Carlos Rivas MD PCP - General 03/12/07
--- OUTSIDE RECORDS SUMMARY | 2024-08-05 16:38 | XMS_ITS | Clinical Summary ---
Author Organization [facility] Address [address] [place] [phone] Phone Care Team Providers Care Coke Still Cleaner Name Role Phone Carlos Rivas MD Primary Care Provider Unavailabl e Allergies Active Allergy Reactions Criticality Noted Date Comments Iodinated Contrast Media Hives High 2017 Moxifloxacin Rash Low 12/09/2018 Sulfa (Sulfonamide Antibiotics) Hives,Rash High 11/28 Trimethoprim Unknown 12/09/2018 Medications amLODIPine (NORVASC) 5 mg tablet Take by mouth. 05/25/2017 Active hydroCHLOROthiaz keri 25 mg tablet Take by mouth. 12/02/2017 Active busPIRone (BUSPAR) 15 mg Tablet Take 7.5 mg by mouth. 11/02/2018 Active loratadine (CLARITIN) 10 mg tablet 08/08/2017 Active esomeprazole (NexIUM) 20 mg Capsule, Delayed Release(E.C.) Take by mouth. 08/08/2017 Active escitalopram oxalate (LEXAPRO) 10 mg tablet Take 10 mg by mouth. 04/20/2019 Active Active Problems Patient Care Coordination No te Formatting of this note migh t be different from the original. Primary Care: Carlos Rivas MD Referring Provider: No referring provider defined for this encounter. Other: Dr Kary Mcclain MD Problem Noted Date Diagnosed Date Abnormal mammogram of right breast 12/10/2018 Kidney stones Family History Medical History Relation Name Comments Breast Cancer Maternal Aunt Cancer Maternal Grandfather Lung Cancer Maternal Grandfather Cancer Mother Melanoma Mother Colon Cancer Neg Hx Ovarian Cancer Neg Hx Pancreatic Cancer Neg Hx Relation Name Status Comments Maternal Aunt Maternal Grandfather Mother Social History Tobacco Use Types Packs/Day Years Used Date Smoking Tobacco: Never Smokeless Tobacco: Never Tobacco Cessation:Counseling Given: Not Answered Alcohol Use Standard Drinks/Week Comments Yes 0 (1 standard drink = 0.6 oz pur e alcohol) Comments No Sex and Gender Information Value Date Recorded Sex Assigned at Not on file Legal Sex Female 1:08 PM CDT Gender Identity Not on file Sexual Orientation Not on file Last Filed Vital Signs Vital Sign Reading Time Taken Comments Blood Pressure 111/71 12/10/2021 10:22 AM CDT Pulse 78 12/10/2021 10:22 AM CDT Temperature 36.7 C (98.1 F) 12/10/2021 10:22 AM CDT Respiratory Rate - - Oxygen Saturation 96% 12/10/2021 10:22 AM CDT Inhaled Oxygen Concentration - - Weight 102.5 kg (226 lb) 12/10/2021 10:22 AM CDT Height 162.6 cm (5' 4 ) 12/10/2021 10:22 AM CDT Body Mass Index 38.79 12/10/2021 10:22 AM CDT Plan of Treatment Health Maintenance Due Date Last Done Comments HEPATITIS B VACCINES (1 of 3 - 19+ 3-dose series) 1997 DTAP/TDAP/TD VACCINES (2 - Td or Tdap) 03/12/2017 03/12/2007 COLORECTAL SCREENING 2023 Colorectal Cancer Screening 2023 FIT-DNA Q 3 years 2023 FIT/FOBT Q 1 year 2023 Flex Sig/CT Colonography Q 5 years 2023 INFLUENZA VACCINE (#1) 2023 BREAST CANCER SCREENING 12/17/2023 12/17/19 23, 12/10/2021, 12/06/2020, Additional history exists HPV VACCINES Aged Out No longer eligi ble based on patient's age to complete this topic Procedures Procedure Name Priority Date/Time Associated Diagnosis Comments MAMMO 3D BRUCE SCREEN BILAT W OR WO CAD Routine 12/16/2022 10:20 AM CDT Visit for screening mammogram from Last 3 Months or Most Recently Relevant to Health Maintenance Results * MAMMO SCRN BILAT 3D BRUCE W OR WO CAD (12/16/2022 10:20 AM CDT) Anatomical Region Laterality Modality Breast Bilateral Mammography 12/16/2022 10:4 9 AM CDT Impressions 12/16/2022 3:33 PM CDT IMPRESSION: 1. No concerning findings. OVERALL FINAL ASSESSMENT: BI-RADS CATEGORY 1 - Negative. RECOMMENDATIONS: 1. Recommend annual mammography. Narrative 12/16/2022 3:33 PM CDT BILATERAL SCREENING DIGITAL MAMMOGRAM WITH 3D TOMOSYNTHESIS AND CAD DATE: 12/16/2022 10:20 AM DICTATION LOCATION: [facility] HISTORY: Routine yearly screening exam. TECHNIQUE: Low-dose full-field digital breast tomosynthesis examination was performed of both breasts with 2D and 3D acquisitions. CAD was utilized. COMPARISON: Studies dating back to December 06, 2020. BREAST COMPOSITION: There are scattered areas of fibroglandular density. FINDINGS: No concerning dominant masses, suspicious calcifications, parenchymal asymmetries or areas of architectural distortion are identified in either breast. Procedure Note Kelechi Farrar MD - 12/16/2022 BILATERAL SCREENING DIGITAL MAMMOGRAM WITH 3D TOMOSYNTHESIS AND CAD DATE: 12/16/2022 10:20 AM DICTATION LOCATION: [facility] HISTORY: Routine yearly screening exam. TECHNIQUE: Low-dose full-field digital breast tomosynthesis examination was performed of both breasts with 2D and 3D acquisitions. CAD was utilized. COMPARISON: Studies dating back to December 06, 2020. BREAST COMPOSITION: There are scattered areas of fibroglandular density. FINDINGS: No concerning dominant masses, suspicious calcifications, parenchymal asymmetries or areas of architectural distortion are identified in either breast. IMPRESSION: 1. No concerning findings. OVERALL FINAL ASSESSMENT: BI-RADS CATEGORY 1 - Negative. RECOMMENDATIONS: 1. Recommend annual mammography. Matthew Ramirez DO MAMMO ORDERABLES Final Result from Last 3 Months or Most Recently Relevant to Health Maintenance Insurance [employer] BLUE ACCESS/TRUE BLUE PPO Care Teams Coke Still Cleaner Relationship Specialty Start Date End Date Carlos Rivas MD PCP - General Internal Medicine 12/09/18
--- OUTSIDE RECORDS SUMMARY | 2024-08-05 16:38 | XMS_ITS | Clinical Summary ---
Author Organization [facility] Address [address] [place] [address] Care Team Providers Care Filler Shredder Name Role Phone Matthew Ramirez DO Primary Care Provider [phone] Source Comments [facility],non-owned Affiliates and Associated Physician Practices is amultiple site organization consisting of ambulatory clinics and hospital sitesin [place], [place], [place] and [place]. This disclosure is being madepursuant to the Care Everywhere program and may not contain all information available regarding this patient. Last updated 17.[facility] Allergies Active Allergy Reactions Criticality Noted Date Comments Moxifloxacin Rash Medium 08/16/2020 Contrast-Iodinated Agents For Ct/Other Rash Medium 08/16/2020 Medications * Be aware that medications may not be up to date on this document. Alwaysverify current medications with the patient. amLODIPine (Norvasc) 5 MG tablet 3 Active atorvastatin (Lipitor) 10 MG tablet Take 1 (one) tablet by mouth once daily 3 Active betamethasone dipropionate augmented (Diprolene) 0.05 % ointment 3 Active busPIRone (Buspar) 7.5 MG tablet Take 1 (one) tablet by mouth 2 times daily as needed Active clobetasol (Temovate) 0.05 % solution APPLY TOPICALLY TO THE SCALP UP TO TWICE DAILY NEEDED FOR ITCHING 3 Active escitalopram (Lexapro) 10 MG tablet escitalopram 10 mg tablet Active esomeprazole (NexIUM) 20 MG capsule take 1 capsule by oral route every day at least 1 hour before a meal swallowing whole. Do not crush or chew granules. 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 Never 12/23/2022 Q2: How many drinks containi ng alcohol do you have on a typical day when you are drinking? Patient does not drink 3 Frequency of Binge Drinking Not on file 11/29 Comments No Sex and Gender Information Value Date Recorded Sex Assigned at Not on file Legal Sex Female 7:13 PM CDT Gender Identity Not on file Sexual Orientation Not on file Last Filed Vital Signs Vital Sign Reading Time Taken Comments Blood Pressure 121/81 01/05/2023 1:27 PM CDT Pulse 60 01/05/2023 1:27 PM CDT Temperature 36.8 C (98.2 F) 01/05/2023 1:27 PM CDT Respiratory Rate 18 01/05/2023 1:27 PM CDT Oxygen Saturation 99% 01/05/2023 1:27 PM CDT Inhaled Oxygen Concentration - - Weight 106.6 kg (235 lb) 01/05/2023 1:27 PM CDT Height 162.6 cm (5' 4 ) 01/05/2023 1:27 PM CDT Body Mass Index 40.34 01/05/2023 1:27 PM CDT Plan of Treatment Health Maintenance Due Date Last Done Comments COLOGUARD (AGES 45-75) - COL ON CA SCREENING 1978 COLON MONITORING 1978 COLONOSCOPY - COLON CA SCREENING 1978 CT COLONOGRAPHY - COLON CA SCREENING 1978 Colorectal Cancer Screening 1978 FIT - COLON CA SCREENING 1978 FLEX SIG - COLON CA SCREENING 1978 PAP SMEAR 1978 HIV SCREENING 1993 HEPATITIS C SCREENING 05/19/1996 DTAP/TDAP/TD VACCINES (1 - Tdap) 1997 HEPATITIS B VACCINE (1 of 3 - 19+ 3-dose series) 1997 COVID-19 VACCINE (1 - 2023-2 5 season) 2023 DEPRESSION SCREENING 03/30/2024 INFLUENZA VACCINE (Season Ended) 2024 MAMMOGRAM 12/16/2024 12/16/2022, 12/01/2019 SCREENING FOR DIABETES 12/23/2025 , 12/12/2022, 08/16/2020 ZOSTER VACCINE (1 of 2) 2028 HIB VACCINE Aged Out No longer eligi ble based on patient's age to complete this topic HPV VACCINE Aged Out No longer eligi ble based on patient's age to complete this topic MENINGOCOCCAL (Group B) VACCINE SHARED DECISION-MAKING Aged Out No longer eligible based on patient's age to complete this topic MENINGOCOCCAL GROUPS A/C/Y/W VACCINE Aged Out No longer eligible b ased on patient's age to complete this topic PNEUMOCOCCAL VACCINE Aged Out No long er eligible based on patient's age to complete this topic Procedures Procedure Name Priority Date/Time Associated Diagnosis Comments GLUCOSE - POINT OF CARE Routine 12/23/2022 1:06 PM CDT from Last 3 Months or Most Recently Relevant to Health Maintenance Results * GLUCOSE - POINT OF CARE (12/23/2022 1:06 PM CDT) Glucose WB/POC 98 70 - 115 mg/dL 12/23/2022 1:11 PM CDT [facility] Specimen Type Venous 12/23/2022 1:11 PM CDT [facility] Blood BLOOD SPECIMEN / Unknown 12/23/2022 1:06 PM CDT 12/23/2022 1:10 PM CDT Bar Hill MD LAB - POINT OF CARE ORDERABLES F inal Result [address] [place] [address], [facility] [phone] from Last 3 Months or Most Recently Relevant to Health Maintenance Insurance [facility] SELF PAY NO INSURANCE Member Subscriber Plan / Payer (Ef fective for All Dates) Name:Annalisa Lemus Member ID:Not on file Relation to Subscriber:Not on file Name:ANNALISA LEMUS Subscriber ID:Not on file (Home) Address: [address] [place] [id number] Payer ID:Not on file Group ID:Not on file Type:Self Pay Address: [place], [place] [employer] SELF PAY NO INSURANCE Member Subscriber Plan / Payer (Ef fective for All Dates) Name:Annalisa Lemus Member ID:Not on file Relation to Subscriber:Not on file Name:ANNALISA LEMUS Subscriber ID:Not on file Address: [address] [place] [address] Payer ID:Not on file Group ID:Not on file Type:Self Pay Address: [place], [place] * Guarantor: ANNALISA LEMUS Account Type Relation to Patient Date of Phone Billing Address Personal/Family [address] [place] [address] SELF PAY NO INSURANCE Member Subscriber Plan / Payer (Ef fective for All Dates) Name:Annalisa Lemus Member ID:Not on file Relation to Subscriber:Not on file Name:ANNALISA LEMUS Subscriber ID:Not on file Address: [address] [place], [place] [id number] Payer ID:Not on file Group ID:Not on file Type:Self Pay Address: [place], [place] * Guarantor: ANNALISA LEMUS Account Type Relation to Patient Date of Phone Billing Address Personal/Family [address] [place] [address] SELF PAY NO INSURANCE Member Subscriber Plan / Payer (Ef fective for All Dates) Name:Annalisa Lemus Member ID:Not on file Relation to Subscriber:Not on file Name:ANNALISA LEMUS Subscriber ID:Not on file Address: [address] [place] [address] Payer ID:Not on file Group ID:Not on file Type:Self Pay Address: [place], [place] * Guarantor: ANNALISA LEMUS Account Type Relation to Patient Date of Phone Billing Address Personal/Family [address] [place] [address] SELF PAY NO INSURANCE Member Subscriber Plan / Payer (Ef fective for All Dates) Name:Annalisa Lemus Member ID:Not on file Relation to Subscriber:Not on file Name:ANNALISA LEMUS Subscriber ID:Not on file Address: [address] [place] [address] Payer ID:Not on file Group ID:Not on file Type:Self Pay Address: [place], [place] Care Teams Filler Shredder Relationship Specialty Start Date End Date Matthew Ramirez DO PCP - General Internal Medicine 01/05/23
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
--- OUTSIDE RECORDS SUMMARY | 2024-08-05 16:38 | XMS_ITS | Encounter Summary ---
Author Organization [facility] Address [address] [place] [phone] Phone Care Team Providers Care Green Building Materials Distributor Name Role Phone Carlos Rivas MD Primary Care Provider [phone] Reason for Visit * Reason Onset Date Comments Med Refill 08/18/2019 Encounter Details Date Type Department Care Team (Late st Contact Info) Description 08/18/2019 Refill [facility] Nephrology and Hypertension [address] [facility], [facility] [address] [place] [address] Jazmyne Perez MA Social History Tobacco Use Types Packs/Day Years [...] on file Sexual Orientation Not on file documented as of this encounter Plan of Treatment Not on file documented as of this encounter Visit Diagnoses Not on filedocumented in this encounter Care Teams Green Building Materials Distributor Relationship Specialty Start Date End Date Carlos Rivas MD PCP - General Internal Medicine 07/28/18 documented as of this encounter
--- OUTSIDE RECORDS SUMMARY | 2024-08-05 16:39 | XMS_ITS | Data Portability ---
Author Organization [facility] [place] Address [address] [place] [address] Care Team Providers Care Undercollar Baster Name Role Phone TYRONE STAPLES Primary Care Provider [phone] Assessment Encounter Date Assessment Date Assessment LastModified by Organization Details LastModified Time 12/25/2020 12/25/2020 Annual gynecological exam performed. Patient will come back in a year unless there are new symptoms. [email or web address] Not available 12/25/2020 13:45:57 Plan of Treatment Reminders Order Date Submit Date Provider Last Modified By Organization Details Last Modified Time Details Appointments None recorded. Lab glucose tolerance test, post-75G, 2-hour 2021 022 [facility] (Lab), [address], [place], [address], 2 16:16:25 Referral None recorded. Procedures None recorded. Surgeries None recorded. Imaging None recorded. Medication Orders Bactrim DS 800 mg-160 mg tablet 2021 022 [id number], [address], [place], [place], [id number], 2 10:56:56 Patient TargetsNo targets recorded. Patient InstructionsNo instructions recorded. Reason for Referral None Reported. Results Created Date Observation Date Name Description Value Unit Range Abnormal Flag Note LastModifiedBy Organization Detail LastModifiedTime 08/10/19 21 08/09/2020 HbA1c (hemo globi n A1c), blood hemoglobin A1C 5.3 % 0-5.6 The Ameri can [employer] sun[facility] [employer] iatio n recom mends that a prima ry goal of thera py marinul d be a HBA1C of < 7% and that physi cians shoul d reeva luate the treat ment regim en in patie nts with HBA1C value s consi stent ly > 8%. <5.7% Silvia l 5.7 - 6.4% Incre ased risk for diabe sunita >=6.5 % Diagn ostic of diabe sunita <7.0% Goal of thera py >8.0% Actio n sugge sted Not Available [facility] (Lab) [address], [place], [address], 08/15/2020 14:04:31 08/10/19 21 08/09/2020 lh (lute inizi ng hormo ne), serum luteinizing hormone 6.1 mIU/m L This assay was perfo rmed using [employer] ratio n reage [facility] and test kits. Value s obtai teodora with other assay metho ds or kits canno t be used inter capone eably . Femal es Mid-F ollic ular: 2.4-1 2.6 mIU/m L Mid-C ycle: 14.0- 95.6 mIU/m L Mid-L uteal : 1.0-1 1.4 mIU/m L Postm enopa use: 7.7-5 8.5 mIU/m L Not Available [facility] (Lab) [address], [place], [address], 08/15/2020 14:04:32 08/10/19 21 08/09/2020 estra diol, serum estradiol 385.0 pg/mL This assay was perfo rmed using [employer] ratio n reage nts and test kits. Value s obtai teodora with other assay metho ds or kits canno t be used inter capone eably . Femal e Estra diol Range s: Folli cular phase 12.4- 233 pg/mL Ovula tion phase 41.0- 398 pg/mL Lutea l phase 22.3- 341 pg/mL Postm enopa usal< 5-138 pg/mL Healt hy Pregn ant Women 1st Trime ster1 54-32 43 pg/mL 2nd Trime ster1 561-2 1280 pg/mL 3rd Trime ster8 525-> 73333 pg/mL Not Available [facility] (Lab) [address] [place], [address], 08/15/2020 14:04:32 08/10/19 21 08/09/2020 FSH (foll icle- stimu latin g hormo ne), serum FSH 1.7 mIU/m L This assay was perfo rmed using [employer] ratio n reage nts and test kits. Value s obtai teodora with other assay metho ds or kits canno t be used inter capone eably . Femal es Folli cular : 3.5-1 2.5 mIU/m L Ovula tion: 4.7-2 1.5 mIU/m L Lutea l: 1.7-7 .7 mIU/m L Postm enopa use: 25.8- 134.8 mIU/m L Not Available [facility] (Lab) [address] [place], [address], 08/15/2020 14:04:33 08/10/19 21 08/09/2020 proge stero ne, serum progesterone 0.17 NG/mL 0.05-< 60.00 This assay was perfo rmed using [employer] n reage nts and test kits. Value s obtai teodora with other assay metho ds or kits canno t be used inter capone eably . Femal e Proge stero ne Range s: Folli cular phase 0.06- 0.89 ng/mL Ovula tion phase 0.12- 12.00 ng/mL Lutea l phase 1.83- 23.90 ng/mL Postm enopa usal< 0.05- 0.13 ng/mL Healt hy Pregn ant Women 1st Trime ster1 1.0-4 4.30 2nd Trime ster2 5.40- 83.30 3rd Trime ster5 8.70- 214.0 0 Not Available [facility] (Lab) [address] [place], [address], 08/15/2020 14:04:33 08/10/19 21 08/09/2020 TSH, serum or plasm a TSH 2.29 uIU/m L 0.30-5 .00 Not Available [facility] (Lab) [address] [place], [address], 08/15/2020 14:04:34 08/10/19 21 08/09/2020 dhea- sulfa te, serum DHEA-sulfate 99 ug/dL (based on docume nted legal sex) 61-337 Not Available [facility] (Lab) [address], [place], [address], 08/15/2020 14:04:34 08/10/19 21 08/09/2020 prola ctin, serum prolactin, total 38.50 NG/mL 4.79-2 3.30 high This assay was perfo rmed using [employer] n reage nts and test kits. Value s obtai teodora with other assay metho ds or kits canno t be used inter capone eably . Not Available [facility] (Lab) [address], [place], [address], 08/15/2020 14:04:35 08/10/19 21 08/09/2020 shbg (sex hormo ne-bi nding globu radha), serum sex hormone binding globulin 43.57 nmole s/L 20-130 Not Available [facility] (Lab) [address] [place], [address], 08/15/2020 14:04:35 08/10/19 21 08/09/2020 testo stero ne free/ testo stero ne total , ratio , serum testosterone , total 31 NG/dL 2-45 For addit ional infor yomi duarte e refer to http: //pardeep luis.que stdia gnost ics.c om/fa q/Tot al Testo stero neLCM SMS (This link is being provi ded for infor matio nal/e ducat ional purpo ses only. ) This test was devel oped and its paddy tical perfo rmanc e wes cteri stics have been deter mined by [employer]. It has not been clear ed or appro tai by the FDA. This assay has been valid ated pursu ant to the CLIA regul ation s and is used for clini lucia purpo ses. Not Available [facility] (Lab) [address], [place], [address], 08/15/2020 14:04:35 08/10/19 21 08/09/2020 testo stero ne free/ testo stero ne total , ratio , serum testosterone , free 3.5 pg/mL 0.1-6. 4 This test was devel oped and its paddy tical perfo rmanc e wes cteri stics have been deter mined by [employer]. It has not been clear ed or appro tai by the FDA. This assay has been valid ated pursu ant to the CLIA regul ation s and is used for clini lucia purpo ses. Perfo rming Organ izati on Infor neptali n: Site ID: [id number] Name: [facility]-Terry willa Huerta clarice Addre ss: [id number] [place] [address] Direc tor: Kam christina M.D. Not Available [facility] (Lab) [address] [place], [address], 08/15/2020 14:04:35 08/16/19 21 08/15/2020 surgi lucia patho logy study surgical pathology ([place]) SEE RESULT S BELOW CASE REPOR T: Surgi lucia Patho logy Repor t Case: [id number] Autho marcio lares Provi channing: Sheron Rushing MD Colle cted: 08/15 1618 Order ing Locat ion: [place] Patho logy Recei tai: 08/16 0501 Patho logis t: Jossy Morales MD Speci mens: A) - Endoc ervix , ECC B) - Endom etriu m, EMB FINAL DIAGN OSIS: A. Endoc ervix , curet tage: -Endo cervi x with acute infla mmati on, negat aubrey for dyspl paul. B. Endom etriu m, biops y: -Scan t fragm ents of endom etriu m with lillie al break down. -Hype rplas ia and carci noma are not ident ified . Elect cristal rader d by Jossy Morales MD on 2020 at 1:54 PM ----- ----- ----- ----- ----- ----- ----- ----- ----- ----- ----- ----- ----- ----- ----- ----- ----- ---- CLINI LUCIA INFOR MATIO N: not provi ded MICRO SCOPI C DESCR IPTIO N: A micro scopi c exami natio n was perfo rmed. GROSS DESCR IPTIO N: A. Endoc ervix . The speci men is label ed with the patie nt's name, edel jacques cs and ECC . Recei tai in forma radha is a 2.5 x 2.5 x 0.2 cm aggre gate of mucus and dark red tissu e. The entir e speci men is submi tted in one casse tte. Gross ed by Jus gill B. Endom etriu m. The speci men is label ed with the patie nt's name, edel jacques cs and EMB . Recei tai in forma radha is a 4.5 x 4.5 x 0.2 cm aggre gate of mucus and dark red tissu e. The entir e speci men is submi tted in 3 casse ttes. 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 Order ing Locat ion: [place] Patho logy Recei tai: 12/26 0105 First Scree n: Lanny Solis , CT Speci men: Scree vish Pap - Image d, Cervi x STATE MENT OF ADEQU ACY: Satis facto ry for evalu ation FINAL DIAGN OSIS: Negat aubrey for Intra epith elial Lesio n or Rosa ponce (NIL) Elect cristal lee dior d by Lanny Solis , CT on 2020 at 6:30 AM ----- ----- ----- ----- ----- ----- ----- ----- ----- ----- ----- ----- ----- ----- ----- ----- ----- ---- HPV RESUL TS: HPV mRNA E6/E7 : No HPV mRNA Detec yariel NOTE: This high risk HPV mRNA assay detec ts fourt een high- risk HPV types (16, 18, 31, 33, 35, 39, 45, 51, 52, 56, 58, 59, 66, 68) witho ut diffe renti ation . COMME NT: Note: This speci men was revie wed by a Cytot echno logis t and/o r Patho logis t (as indic ated in this repor t) after evalu ation using the Thinp rep Imagi ng Syste m. CLINI LUCIA INFOR MATIO N: Menst rual Statu s: LMP (if appli cable ): Clini lucia Histo ry/Pr eviou s Pap: Type of Neopl paul (if appli cable ): Signi fican t Clini lucia Findi ngs: Other Histo ry: Hormo dena (if appli cable ): PAP EDUCA VAMSHI L NOTE: The Pap Test is a scree vish test with an inher ent false negat aubrey rate. Liqui d-bas e sampl ing may decre ase, but will not elimi juvenal, false negat aubrey resul ts. A negat aubrey resul t does not precl ude the prese nce and/o r devel opmen t of disea se, since the prese nce of abnor mal cells in the sampl e depen ds on the locat ion of the lesio n and sampl ing techn ique. Yi nued regul ar scree vish is the best metho d of cance r preve ntion . If repor yariel cytol ogic findi ng do not corre late with physi lucia and/o r histo rical findi ngs, furth er inves tigat ion is recom cristina d, as clini sergio greenberg nted. Not Available [facility] (Lab) [address], [place], [address], 12/30/2020 07:32:44 01/18/20 21 01/17/2021 PROLA CTIN prolactin, total 12.90 NG/mL 4.79-2 3.30 This assay was perfo rmed using [employer] ratio n reage nts and test kits. Value s obtai teodora with other assay metho ds or kits canno t be used inter capone eably . Not Available [facility] (Lab) [address], [place], [address], 01/18/2021 02:28:41 08/25/19 21 08/24/2020 US, joao s No observ ation record ed. [facility] [address], [place], [address], 08/24/2020 16:48:36 08/25/1908/24/2020 US, trans vagin al No observ ation record ed. cassia [facility] [address], [place], [address], 08/24/2020 16:48:46 08/25/1908/24/2020 US, pelvi s No observ ation record ed. LISA Cecily [address], [place], [address], 08/27/2020 10:07:38 Result Notes None recorded. Problems Name Problem SNOMED Code Status Onset Date Resolution Date Notes Provider Name and Address Organization Details Recorded Time Emotiona l state finding Completed 201808/13/2020 Anxiety depressi on;Recor ded Elsewher e: No Locat ion: [facility] ource: EHR Media Analyst terry: N Practi ce ID: 0001 Frandy lable Time: 08:15:00 AM Cody Rushing MD [address], [place], [address], [facility] 1 18:30:03 Family planning surveill ance Completed 201308/15/2020 Surveill ance of other contrace ptive method;R ecorded Elsewher e: No Locat ion: [facility] ource: EHR Media Analyst terry: N Practi ce ID: 0001 Frandy lable Time: 04:15:00 PM Monica giang [facility] 18:46:24 Finding of body mass index 122823388 Completed 201808/15/2020 Body mass index (BMI) 40.0-44. 9, adult;Re corded Elsewher e: No Locat ion: [facility] ource: EHR Media Analyst terry: N Practi ce ID: 0001 Frandy lable Time: 08:15:00 AM Monica giang, [facility] 1 18:46:22 Screenin g for malignan t neoplasm of cervix Completed 201408/15/2020 Screenin g for malignan t neoplasm s of the cervix;R ecorded Elsewher e: No Locat ion: [facility] ource: EHR Media Analyst terry: N Saravanan ce ID: 0001 Frandy lable Time: 08:30:00 AM Monica giang, [facility] 1 18:46:16 Clinical finding Completed 201808/13/2020 Encounte r for surveill ance of injectab le contrace ptive;Re corded Elsewher e: No Locat ion: [facility] ource: EHR Media Analyst terry: N Saravanan ce ID: 0001 Frandy lable Time: 04:15:00 PM Cody Rushing MD [address], [place], [address], [facility] 1 18:29:57 Speciali zed medical examinat ion Completed 201008/15/2020 Gynecolo gical Examinat ion;Babatunde rded Elsewher e: No Locat ion: [facility] ource: EHR Media Analyst terry: N Chiragti ce ID: 0001 Frandy lable Time: 03:15:00 PM Monica giang, [facility] 1 18:46:10 Atypical squamous cells of undeterm ined signific ance on cervical Papanico laou smear [id number] Completed 201612/25/2020 Atyp squam cell of undet signfc cyto smr crvx (ASC-US) ;Recorde d Elsewher e: No Locat ion: [facility] ource: EHR Media Analyst terry: N Saravanan ce ID: 0001 Frandy lable Time: 02:30:00 PM May Hanson [facility], [facility] 1 13:30:25 Pregnanc y test negative [id number] Completed 201908/13/2020 Encounte r for pregnanc y test, result negative ;Recorde d Elsewher e: No Locat ion: [facility] ource: EHR Media Analyst terry: N Chiragti ce ID: 0001 Frandy lable Time: 04:45:00 PM Cody Rushing MD [address], [place], [address], [facility] 18:30:11 High grade squamous intraepi thelial lesion on cervical Papanico laou smear [id number] 9107 Completed 201612/25/2020 HGSIL on pap smear of cervix;R ecorded Elsewher e: No Locat ion: [facility] ource: EHR Media Analyst terry: N Saravanan ce ID: 0001 Frandy lable Time: 01:30:00 PM May Hanson [facility] 13:30:29 Lesion of breast Completed 201808/15/2020 Abscess of the breast and nipple;R ecorded Elsewher e: No Locat ion: [facility] ource: EHR Media Analyst terry: N Saravanan ce ID: 0001 Frandy lable Time: 11:00:00 AM Monica Albert [facility] 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 18:30:[address] Concept Completed 201508/13/2020 Encntr for general adult medical exam w/o abnormal findings ;Recorde d Elsewher e: No Locat ion: Sandrarajni saud [facility] ource: EHR Media Analyst terry: N Practi ce ID: 0001 Frandy lable Time: 01:30:00 PM Cody Rushing MD [address], [place], [address], [facility] 18:30:18 Atypical glandula r cells on cervical Papanico laou smear 156151239 Completed 201312/25/2020 Abnormal glandula r Papanico laou smear of cervix;R ecorded Elsewher e: No [facility] ource: EHR Media Analyst terry: N Practi ce ID: 0001 Frandy lable Time: 08:15:00 AM May giang [facility] 13:30:23 Carbuncl e of skin and/or subcutan eous tissue 28265927 Completed 201308/13/2020 Boil;Rec orded Elsewher e: No Locat ion: [facility] ource: EHR Media Analyst terry: N Practi ce ID: 0001 Frandy lable Time: 08:30:00 AM Cody Rushing MD [address], [place], [address], [facility] 18:29:50 At increase d risk of sexually transmit yariel infectio n 092085446 Completed 201108/21/2020 Contact with or exposure to venereal diseases ;Practic e ID: 0001 Monica giang [facility] 12:12:22 Dysfunct ional uterine bleeding Completed 201212/25/2020 DUB;Prac daisy ID: 0001 May giang [facility] 13:30:27 Obesity 209283950 Completed 201408/15/2020 Obesity, unspecif ied;Prac daisy ID: 0001 Monica Albert [facility], [facility] 18:46:18 Evaluati on finding 123811830 Completed 201808/13/2020 Oth abn and inconclu sive findings on dx imaging of breast;R ecorded Elsewher e: No Locat ion: [facility] ource: EHR Media Analyst terry: N Practi ce ID: 0001 Frandy lable Time: 02:32:04 PM Cody Rushing MD [address], [place], [address], [facility] 18:29:55 Screenin g for malignan t neoplasm of rectum Completed 201808/13/2020 Encounte r for screenin g for malignan t neoplasm of rectum;R ecorded Elsewher e: No Locat ion: [facility] ource: EHR Media Analyst terry: N Practi ce ID: 0001 Frandy lable Time: 08:15:00 AM Cody Rushing MD [address], [place], [address], [facility] 1 18:30:15 Low grade squamous intraepi thelial lesion on cervical Papanico laou smear [id number] 9105 Completed 201512/25/2020 Low grade intrepit h lesion cyto smr crvx (LGSIL); Recorded Elsewher e: No Locat ion: [facility] ource: EHR Media Analyst terry: N Practi ce ID: 0001 Frandy lable Time: 01:30:00 PM May Hanson [facility], [facility] 1 13:30:30 Sexually transmit yariel infectio us disease [id number] Completed 201308/15/2020 SPECIAL SCREEN EXAM HPV;Babatunde rded Elsewher e: No Locat ion: [facility] ource: EHR Media Analyst terry: N Practi ce ID: 0001 Frandy lable Time: 08:15:00 AM Monica giang [facility] 18:46:13 Carbuncl e of trunk [id number] Completed 201608/15/2020 Carbuncl e of trunk, unspecif ied;Babatunde rded Elsewher e: No Locat ion: Lenore villavicencio [facility] ource: EHR Media Analyst terry: N Practi ce ID: 0001 Frandy lable Time: 04:30:00 PM Monica giang [facility] 1 18:46:28 Surveill ance of contrace ption Completed 201508/15/2020 Encounte r for surveill ance of contrace ptives, unspecif ied;Babatunde rded Elsewher e: No Locat ion: [facility] ource: EHR Media Analyst terry: N Chiragti ce ID: 0001 Frandy lable Time: 01:30:00 PM Monica giang [facility] 18:46:07 Problem Notes None recorded. Procedures Surgical History Date Name Laterality Status Provider Name and Address Organization Details Recorded Time 022 I&D completed Cody Rushing MD [address], [place], [address], [facility] 04/02/2021 10:55:05 021 Date of Last Mammogram completed Monica Albert [facility] 04/02/2021 10:29:26 021 TOTAL HYSTERECTOMY, LAPAROSCOPIC, WITH BILATERAL SALPINGECTOMY (SURG) completed Destini Cruz [facility] 09/06/2020 10:54:44 021 Endometrial Biopsy completed Cody Rushing MD [address], [place], [address], [facility] 08/16/2020 00:08:27 020 Date of Last Pap Smear completed Monica Albert [facility] 09/12/2020 14:58:53 lithotripsy completed Loraine Martinez [facility] 11/30/2019 15:31:12 Cholecystectomy completed Loraine Martinez [facility] 11/30/2019 15:31:20 Imaging Results Imaging Date Name Status LastModified by Organization Details LastModified Time 08/24/2020 US, pelvis completed cassia Kirkpatrick [address], [place], [address], 08/24/2020 16:48:36 08/24/2020 US, transvaginal completed cassia villavicencio [facility] [address], [place], [address], 08/24/2020 16:48:46 08/24/2020 US, pelvis completed LISA Cecily [address], [place], [address], 08/27/2020 10:07:38 Procedure Notes None recorded. Medical Equipment None Reported. Allergies Allergen ID Allergen Name Allergen Category Reaction Reaction Severity Criticality Documentation Date Start Date Code Code System Note Provider Name and Address Organization Details Recorded Time 1917 Iodine and/or iodine compound (substanc e) Not available Not available Not available Not available 11/30/2019 65248 6004 SNOMED Loraine giang [facility] 0 15:29:26 1918 moxifloxa jenna medicatio n Not available Not available Not available 11/30/2019 80979 2 RxNorm Loraine giang [facility] 0 15:29:32 Medications Name Sig Start Date Stop Date Status Note LastModified by Organization Details LastModified Time buspirone 5 mg tablet take 1 tablet by oral route 2 times every day 09/13 completed Prescrib ed Elsewher e: No Locat ion: Lenore villavicencio [facility] By: christina Marin nter DateTime : 08/25/19 19 03:29:59 PM Not Available Not Available Not Available venlafaxi ne ER 37.5 mg capsule,e xtended release 24 hr take 1 capsule by oral route every day with food 09/13 completed Prescrib ed Elsewher e: Yes Loca tion: Lenore villavicencio [facility] odify By: christina Marin nter DateTime : 05/02/19 15 08:30:00 AM Not Available Not Available Not Available Zyrtec-D 5 mg-120 mg tablet,ex tended release take 1 tablet by oral route every 12 hours 02/25 completed Prescrib ed Elsewher e: Yes Loca tion: Lenore [facility] odify By: benita ramanuntkerri DateTime : 02/24/20 11 06:54:35 PM Not Available Not Available Not Available hydrocodo ne 5 mg-acetam inophen 325 mg tablet TAKE 1 TO 2 TABLETS BY MOUTH EVERY 4 HOURS NEEDED FOR PAIN 12/25 completed Not Available Not Available Not Available Claritin 10 mg tablet take 1 tablet by oral route every day 01/20 completed Prescrib ed Elsewher e: Yes Loca tion: Lenore [facility] odify By: juliana martines DateTime : 08/18/19 12 03:00:00 PM Not Available Not Available Not Available amlodipin e 2.5 mg tablet take 1 tablet by oral route every day 08/09 completed Prescrib ed Elsewher e: Yes [facility] By: paula ramanuntkerri DateTime : 07/07/19 19 08:15:00 AM Not Available Not Available Not Available amlodipin e 5 mg tablet active Not Available Not Available Not Available trimethop rim 100 mg tablet 11/29 completed Not Available Not Available Not Available sulfameth oxazole 800 mg-trimet hoprim 160 mg tablet TAKE 2 TABLETS BY MOUTH EVERY 12 HOURS active Not Available Not Available No t Available omeprazol e 40 mg capsule,d elayed release take 1 capsule (40MG) by oral route every day before a meal 01/20 completed Prescrib ed Elsewher e: Yes Loca tion: Lenore villavicencio [facility] odify By: juliana martines DateTime : 03/04/20 12 01:00:00 PM Not Available Not Available Not Available ketorolac 10 mg tablet 11/29 completed Not Available Not Available Not Available Nexium 20 mg capsule,d elayed release take 1 capsule by oral route every day at least 1 hour before a meal swallowi ng whole. Do not crush or chew granules . active Prescrib ed Elsewher e: Yes Loca tion: Lenore villavicencio [facility] odify By: virgilio Villalpando r DateTime : 02/29/20 19 11:00:00 AM Not Available Not Available Not Available cefadroxi l 500 mg capsule take 1 capsule by oral route every 12 hours for 10 days 10/16 completed Prescrib ed Elsewher e: No Locat ion: Lenore villavicencio [facility] odify By: damian hammonds DateTime : 10/08/19 14 08:30:00 AM Not Available Not Available Not Available potassium 99 mg tablet 08/09 completed Prescrib ed Elsewher e: Yes Loca tion: Lenore villavicencio [facility] odify By: virgilio Villalpando r DateTime : 02/29/20 19 11:00:00 AM Not Available Not Available Not Available Metrogel Vaginal 0.75 % (37.5 mg/5 gram) insert 1 applicat orful (37.5MG) by vaginal route every day at bedtime 03/04 completed Prescrib ed Elsewher e: No Locat ion: Lenore villavicencio [facility] odify By: juliana martines DateTime : 08/20/19 12 04:38:48 PM Not Available Not Available Not Available potassium chloride ER 20 mEq tablet,ex tended release(p art/cryst ) active Not Available Not Available Not Available tamsulosi n 0.4 mg capsule 11/29 completed Not Available Not Available Not Available meclizine 25 mg tablet Take 1 tablet 3 times a day by oral route as needed. 12/25 completed Not Available Not Available Not Available benzonata te 100 mg capsule TAKE 1 CAPSULE BY MOUTH THREE TIMES DAILY NEEDED FOR COUGH active Not Available Not Available No t Available cephalexi n 500 mg capsule take 1 capsule by oral route every 6 hours 07/06 completed Prescrib ed Elsewher e: No Locat ion: Lenore villavicencio [facility] odify By: paula hammonds DateTime : 07/17/19 17 04:30:00 PM Not Available Not Available Not Available Claritin 5 mg/5 mL oral solution take 10 millilit er by oral route every day active Prescrib ed Elsewher e: Yes Loca tion: Lenore villavicencio [facility] odify By: delfino martines DateTime : 05/02/19 15 08:30:00 AM Not Available Not Available Not Available progester one micronize d 200 mg capsule TAKE 2 CAPSULES BY MOUTH EVERY DAY FOR 12 DAYS 12/25 completed Not Available Not Available Not Available hydrochlo rothiazid e 12.5 mg capsule take 2 capsule by oral route every day 02/28 completed Prescrib ed Elsewher e: Yes Loca tion: Lenore villavicencio [facility] odify By: virgilio Villalpando r DateTime : 07/07/19 19 08:15:00 AM Not Available Not Available Not Available buspirone 7.5 mg tablet TAKE 1 TABLET BY MOUTH TWICE DAILY NEEDED FOR ANXIETY active Not Available Not Available No t Available hydrochlo rothiazid e 25 mg tablet active Not Available Not Available Not Available Transderm -Scop 1 mg over 3 days transderm al patch apply 1 patch by transder mal route every 3 days to prevent nausea 02/28 completed Prescrib ed Elsewher e: No Locat ion: Lenore villavicencio [facility] odify By: virgilio Villalpando r DateTime : 07/30/19 17 09:25:42 AM Not Available Not Available Not Available Vitamin D2 1,250 mcg (50,000 unit) capsule take 1 capsule by oral route every week 10/26 completed Prescrib ed Elsewher e: No Locat ion: Lenore villavicencio [facility] odify By: amsandee hammonds DateTime : 07/09/19 19 02:45:58 PM Not Available Not Available Not Available ondansetr on 4 mg disintegr ating tablet Place 1 tablet 3 times a day by translin gual route as needed. 12/25 completed Not Available Not Available Not Available medroxypr ogesteron e 150 mg/mL intramusc ular suspensio n ADMINIST ER 1 ML IN THE MUSCLE EVERY 3 MONTHS 11/29 completed Not Available Not Available Not Available amoxicill in 875 mg-potass ium clavulana te 125 mg tablet TAKE 1 TABLET BY MOUTH TWICE DAILY 04/18 completed Not Available Not Available Not Available buspirone 15 mg tablet take 1 tablet by oral route 2 times every day 08/09 completed Prescrib ed Elsewher e: No Locat ion: [facility] odify By: christina tz Juan Jou nter DateTime : 09/14/19 03:00:00 PM Not Available Not Available Not Available Depo-Prov era 150 mg/mL intramusc ular syringe inject 1 millilit er by intramus cular route every 3 months 02/28 completed Prescrib ed Elsewher e: No Locat ion: [facility] odify By: virgilio bojorquez DateTime : 02/16/20 04:32:40 PM Not Available Not Available Not Available escitalop tony 10 mg tablet 12/25 completed Not Available Not Available Not Available Ortho-Cyc ethan (28) 0.25 mg-35 mcg tablet take 1 tablet by oral route every day 10/07 completed Prescrib ed Elsewher e: No Locat ion: [facility] odify By: ankit hammonds DateTime : 12/07/19 02:29:49 PM Not Available Not Available Not Available potassium acetate 08/09 completed Not Available Not Available Not Available Claritin 08/09 completed Not Available Not Available Not Available amlodipin e 11/29 completed Not Available Not Available Not Available buspirone 08/09 completed Not Available Not Available Not Available Nexium 08/09 completed Not Available Not Available Not Available AzaSite 1 % eye drops instill 1 drop by ophthalm ic route every day into affected eye(s) 01/20 completed Prescrib ed Elsewher e: Yes Loca tion: [facility] odify By: juliana martines DateTime : 03/04/20 12 01:00:00 PM Not Available Not Available Not Available Zyrtec [address] by Topical route every USE ASS NEEDED WITH INTERCOU RSE 05/02 completed Prescrib rizwan Houser e: Yes Loca tion: [facility] odify By: delfino martines DateTime : 01/21/20 13 10:15:00 AM Not Available Not Available Not Available Vitals Date Recorded Body height Body mass index (BMI) Body weight Systolic blood pressure Diastolic blood pressure Provider Name and Address Organization Details Last Updated DateTime 09/12/2020 162.56 cm 41.4 kg/m2 608974.7 6 g 118 mm[Hg] 77 mm[Hg] [facility] 1 14:51:43 Date Recorded Body height Body mass index (BMI) Body weight Systolic blood pressure Diastolic blood pressure Provider Name and Address Organization Details Last Updated DateTime 12/25/2020 160.02 cm 43 kg/m2 616910.9 5 g 123 mm[Hg] 81 mm[Hg] May Hanson [facility] 1 13:46:35 Date Recorded Body height Body mass index (BMI) Body weight Systolic blood pressure Diastolic blood pressure Systolic blood pressure Diastolic blood pressure Provider Name and Address Organization Details Last Updated DateTime 2 160.02 cm 46.4 kg/m2 329976. 2 g 156 mm[Hg] 90 mm[Hg] 158 mm[Hg] 97 mm[Hg] [facility] 2 10:29:22 Date Recorded Body height Body mass index (BMI) Body weight Systolic blood pressure Diastolic blood pressure Provider Name and Address Organization Details Last Updated DateTime 04/18/2021 160.02 cm 45.9 kg/m2 713286.4 2 g 128 mm[Hg] 83 mm[Hg] Geovanna Cantrell [facility] 2 15:40:12 Social History Question Answer Notes LastModified by Organizat ion Details LastModified Time Tobacco Smoking Status Never Smoker Lorie giang [facility] 04/18/2021 15:36:52 Do You Have An Advance Directive? No Information n ot available 08/09/2020 What Is Your Level Of Alcohol Consumption? Occasional Information not available 08/09/2020 How Many Years Have You Consumed Alcohol? 20 Information not available 08/09/2020 Are You Blind Or Do You Have Difficulty Seeing? No Information n ot available 08/09/2020 What Is Your Level Of Caffeine Consumption? Occasional Information not available 08/09/2020 How Much Tobacco Do You Chew? None Information not available 08/09/2020 In The 14 Days Before Symptom Onset, Have You Had Close Contact With A Laboratory-confirm ed COVID-19 While That Case Was Ill? No Information n ot available 08/09/2020 In The 14 Days Before Symptom Onset, Have You Had Close Contact With A Person Who Is Under Investigation For COVID-19 While That Person Was Ill? No Information not available 08/09/2020 Have You Been To An Area Known To Be High Risk For COVID-19? No Information not available 08/09/2020 Are You Deaf Or Do You Have Serious Difficulty Hearing? No Information not available 08/09/2020 What Type Of Diet Are You Following? REGULAR Information n ot available 08/09/2020 What Is The Highest Grade Or Level Of School You Have Completed Or The Highest Degree You Have Received? 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 No Information not available 08/09/2020 Do You Use Protection During Sex? Usually Information not available 08/09/2020 Do You Use Your Seat Belt Or Car Seat Routinely? Yes Information not available 08/09/2020 Do You Have Smoke And Carbon Monoxide Detectors In Your Home? Yes Information not available 08/09/2020 How Much Tobacco Do You Smoke? No Information not available 08/09/2020 Do You Feel Stressed (tense, Restless, Nervous, Or Anxious, Or Unable To Sleep At Night)? [id number] Information not available 08/09/2020 Do You Use Any Illicit Or Recreational Drugs? No Information not available 08/09/2020 Do You Use Sunscreen Routinely? Yes Information not available 08/09/2020 Have You Used IV Drugs? No Information not available 08/09/2020 Sex: Unknown Functional Status Question Answer Note LastModified by Organizat ion Details LastModified Time Are you able to walk? YESWOREST Information not available 08/09/2020 What is your exercise level? Occasional Information not available 08/09/2020 Mental Status None recorded. Family History Relationship Description Onset Age of this Age Resolved Age Notes LastModified by Organization Details LastModified Time Maternal Grandmother Coronary arterioscler osis [email or web address] Not available 2021 15:36:52 Maternal Grandmother Carcinoma in situ of lung [email or web address] Not available 15:36:52 Mother Coronary arterioscler osis [email or web address] Not available 2021 15:36:52 Mother Hypertensive disorder [email or web address] Not available 2019 15:30:50 Medical History Condition Response History of abnormal pap Y Kidney or Bladder Problems Y Gynecological History Statement/Question Response Abnormal Pap Yes Date of Last Mammogram 11/11/2020 Date of LMP 08/06/2020 On BCP's at Conception? N N Was last menstrual period normal N STIs/STDs N HPV Vaccine N Duration of Flow (days) 30 Current Control Method Abstinence Age at First Child 28 Frequency of Cycle (Q days) 7 Sexually Active? N Abstinence Menses Monthly N Age of first menstrual cycle 10 Date of Last Pap Smear 11/30/2019 Sexual Problems? N Desired Control Method Abstinence LMP Approximate N Obstetrics History GPAL:G 1 P 0 0 0 1 Type Value Living 1 Total 1 Past Encounters Encounter ID Performer Location Encounter Start Date Encounter Closed Date Diagnosis/Indication Diagnosis SNOMED-CT Code Diagnosis ICD10 Code Diagnosis Note [id number] Yoana Maravilla [facility] [address] [address] 11/30/2019 15:47:41 11/30/2019 16:51:24 Gynecologic examination 66994769 Z01.419 Suggested Calcium with Vitamin D 1200-1500m g daily. Patient advised to get an annual flu shot in the fall and she could obtain at [facility] or [facility] take care clinic. Also to obtain TDap vaccinatio n if you have not had one in the last 10 years. Recommend yearly mammograms . Encouraged monthly self breast exams. Encourage safe sexual practices, to use condoms and limit partners if not already in a monogamous relationsh ip. Engage in daily exercise of low impact aerobic exercise 45-60 minutes 4-5 times weekly. Avoid tobacco and illicit drugs as well as using moderation with alcohol intake less than 1-2 8 oz beverages daily. This lifestyle behavior pattern will lead to less health conditions and longer life span. If BMI greater than 25 weight watchers or dietary consult advised. All questions have been answered. Patient appears to understand informatio n, but if you have any questions please call or respond to this email. Secondary amenorrhea 156 007490 N91.1 Hx of regular menses. On depo for >5yrs. Amenorrhei c on this BC. Did not f/u for last Depo injection due July 2019 due to covid exposure. She is not SA & has not yet started a menses. She is considerin g d/c of Depo but knows if wants to restart will need HCG day before then depo injection day after since no menses. Monitor menses. If does not start in another 3mos f/u in office to ensure no issues. Likely depo effect but want to be sure lining staying thin. She agrees. [id number] Cody Rushing MD [facility] [address] [address] 08/09/2020 10:20:52 08/09/2020 11:55:09 Abnormal uterine bleeding [id number] 9100 N93.9 This patient is a 40-year-ol d female who presents for follow-up on cystic structure within the pelvis. She was evaluated for kidney stones and a cyst in the pelvis was observed on CT scan. We discussed the nature of this cyst and its location. It is uncertain where this cyst comes from. Informed that she needs a pelvic ultrasound to determine the origin of the cyst and to discuss those results. We agreed to proceed with that. She has 4 months of abnormal uterine bleeding. Patient was on Depo-Prove ra for many years. She has irregularl y irregular bleeding at this time. We discussed diagnostic possibilit ies. We discussed her contracept ion history. she has been on hormonal contracept ion for many years. We are going to get labs for the evaluation of abnormal uterine bleeding. She is going to have an ultrasound . We will reconvene and discuss those results. In the short term we [place]. [id number] Cody Rushing MD [facility] [address] [address] 08/13/2020 17:38:54 08/14/2020 16:40:46 Abnormal uterine bleeding [id number] 9100 N93.9 Lump of cervix 326320992 R19.09 this patient was seen in the emergency department yesterday. She has severe pelvic pain. She was evaluated there. She was found to have a cystic structure within the cervix of 5 cm. There is proteinace ous tissue within the cystic structure. We discussed these findings today. She was examined. This cystic structure could not be visualized through the cervix or palpated. there was significan t amount of bleeding, old dark blood. She was nontender. The cervix was palpated and not tender. She has had uncontroll ed bleeding for several weeks. We have started progestero ne. Today we started some topical estrogen to try to control her bleeding. We discussed treatment options. We talked about total laparoscop ic hysterecto my. Talked about getting that on the schedule. After the patient left, I decided we should probably get endometria l biopsy and endocervic al curettage. This should be done immediatel y. I'm going to discuss this case with Gyne Onc. [id number] Cody Rushing MD [facility] [address] [address] 08/15/2020 15:25:16 08/16/2020 14:37:30 Screening procedure [id number] Z13.9 Abnormal u terine bleeding [id number] 9100 N93.9 this patient is a 40-year-ol d female with abnormal uterine bleeding. She has a cervical mass that is cystic and contained blood it appears. She came in for endocervic al curettage and endometria l biopsy. She had copious amounts of thick dark blood that egressed from the cervix persistent ly for the 1st few minutes. The patient fainted after the procedure. She had a friend come to a haul driver home. She appeared stable for a prolonged period of time after the procedure. Will follow-up on the samples and. We will consult consider other ultrasound of the mass of the cervix. Perhaps this was blood from that mass. [id number] Cody Rushing MD [facility] [address],[place] [address] 08/21/2020 12:07:12 08/21/2020 22:59:28 Abnormal uterine bleeding [id number] 9100 N93.9 Menorrhagia 499842859 N9 2.0 Menometrorrhagia 2217901 08 N92.1 Lump of cervix 352414277 R19.09 this patient is a 40-year-ol d female severe menometror rhagia and cervical mass. We have agreed to perform total laparoscop ic hysterecto my. She understand s the risks, benefits, and alternativ es. She has completed the informed consent process is ready to proceed. [id number] Cody Rushing MD [facility] [address],[place] [address] 08/24/2020 09:23:06 08/24/2020 10:08:08 Abnormal uterine bleeding 0309683607 9100 N93.9 R93.89 [id number] Cody Rushing MD [facility] [address],[place] [address] 09/06/2020 09:44:30 09/06/2020 09:45:42 [id number] Cody Rushing MD [facility] [address],[place] [address] 09/12/2020 14:46:20 09/12/2020 15:33:10 Postoperative care [id number] Z48.89 This patient is a 40-year-ol d female presents for postop follow-up. She is 9 days postop from a total laparoscop ic hysterecto my and bilateral salpingect danelle with cystectomy . She is recovering normally. Her incisions are clean dry and intact. We reviewed her pathology. We talked about her recovery. It appears that she is doing well and recovering normally. She is going to repeat her prolactin in the a.m. while she is fasting. No further follow-up required for the surgery. [id number] GRACIELA [facility] [address] [address] 12/25/2020 13:27:37 12/25/2020 15:03:39 Gynecologic examination 50388287 Z01.419 Suggested Calcium with Vitamin D 1200-1500m g daily. Patient advised to get an annual flu shot in the fall and she could obtain at [facility] or [facility] take care clinic. Also to obtain TDap vaccinatio n if you have not had one in the last 10 years. Recommend yearly mammograms . Encouraged monthly self breast exams. Encourage safe sexual practices, to use condoms and limit partners if not already in a monogamous relationsh ip. Engage in daily exercise of low impact aerobic exercise 45-60 minutes 4-5 times weekly. Avoid tobacco and illicit drugs as well as using moderation with alcohol intake less than 1-2 8 oz beverages daily. This lifestyle behavior pattern will lead to less health conditions and longer life span. If BMI greater than 25 weight watchers or dietary consult advised. All questions have been answered. Patient appears to understand informatio n, but if you have any questions please call or respond to this email. Mammo done at [facility]/ pv hopefully 1 last pap if it is wnlHystere ctomy not for cancer but has had abn +HPV in past so want at least 3 pap/hpv in a row to ensure no issues [id number] Cody Rushing MD [facility] [address] [address] 04/02/2021 10:16:19 04/02/2021 11:02:22 Abscess of skin and/or subcutaneous tissue [id number] L02.91 40-year-ol d female with recurrent skin abscess. Concerned about diabetes and MRSA colonizati on. Will send culture for MRSa and treat for MRSA. To have 2 hour glucose tolerance test. To return in 1 week. [id number] Cody Rushing MD [facility] [address] [address] 04/18/2021 15:34:13 04/19/2021 11:23:21 Abscess of skin and/or subcutaneous tissue 35115997 L02.91 this patient is a 40-year-ol d female presents for follow-up on subcutaneo us skin abscess. She was treated with antibiotic s in the abscess was I and D. On her abdominal skin superiorly . The incision is well healed. There is no erythema. No induration . She will follow-up as needed. Health Concerns Section Related Observation LastModified by Organization Detai ls LastModified Time None Recorded Concern Status LastModified by Organization Details LastModified Time None Recorded Advance Directives Directive N: Payers Encounter Date Sequence Insurance Name Policy Number Policy Cowan Covered Member ID Cowan Member ID Guarantor Name 09/03/2020 1 [place] [id number] Crystal D Schallenberg [id number] Crystal D Schallenberg 09/12/2020 1 [place] [id number] Crystal D Schallenberg [id number] Crystal D Schallenberg 12/25/2020 1 [place] [id number] Crystal D Schallenberg [id number] Crystal D Schallenberg 04/02/2021 1 [place] [id number] Crystal D Schallenberg [id number] Crystal D Schallenberg 04/18/2021 1 [place] [id number] Crystal D Schallenberg [id number] Crystal D Schallenberg Notes Date Note Type Note Provider Name and Address Organization Details Recorded Time 09/12/2020 text/html This patient is a 40-year-old female presents for postop follow-up. She is 9 days postop from a total laparoscopic hysterectomy and bilateral salpingectomy with cystectomy. She is recovering normally. Her incisions are clean dry and intact. We reviewed her pathology. We talked about her recovery. It appears that she is doing well and recovering normally. She is going to repeat her prolactin in the a.m. while she is fasting. No further follow-up required for the surgery. Cody Rushing MD [address], [place], [address], [facility] 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 Urinary symptoms:No hematuria; No incontinence Vulva:No genital lesion Vagina:Normal vaginal discharge Breast:No breast pain; No breast lump; No nipple discharge Current Contraception:Monog amous relationship Sexual complaints:No sexual complaints; No pain during intercourse; Normal libido Menopausal Symptoms:No menopausal symptoms; Normal vaginal lubrication Psychological symptoms:No depression; No anxiety; No PMDD Preventive measures:Encourage self breast examination; Encourage regular exercise; Encourage no tobacco use; Encourage regular mammograms starting age 40; Followed with Q3 year pap smear and high risk HPV typing; Mammogram performed within the past year ([facility] from [facility]) Yoana Maravilla [facility] [address], [place], [address], [facility] 12/25/2020 14:19:41 04/02/2021 text/html patient reports painful nodule on the abdominal skin below the left breast. It was examined and found to be an abscess. A flocculent center. We agreed to incise and drain. Cody Rushing MD [address], [place], [address], [facility] 04/02/2021 11:01:50 04/18/2021 text/html this patient is a 40-year-old female presents for follow-up on subcutaneous skin abscess. She was treated with antibiotics in the abscess was I and D. On her abdominal skin superiorly. The incision is well healed. There is no erythema. No induration. She will follow-up as needed. Cody Rushing MD [address], [place], [address], [facility] 04/18/2021 18:31:31 OBGyn Episode Ob Episode Information Episode Created Date Number of Fetuses Patient Bloodtype Patient rh Status Prepregnancy Weight lbs Domestic Partner Domestic Partner Phone Father Name Senior Manufacturing Supervisor Status 09/13/19 21 1 CLOSED Fetus Data First Name Last Name Admitted to NICU Weight (g) Sex Living Outcome Pediatric Complications Fetus ID Race Codes Race Delivery Type [id number] Vaginal Delivery Chuck Calculation Initial Chuck Date Initial Exam Date Initial Exam Provider Initial Ultrasound Date Last Menstrual Period Date Ultra Sound Weeks Gestation 0 Eighteen To Twenty Week Chuck Update Ultra Sound Date Fundal Height At Umbil Quickening Date Ultra Sound Latest Weeks Gestation Final Chuck Confirmed By Final Chuck Confirmed Date Final Chuck Date Ultra Sound Latest Days Gestation 0 0 Menstrual History Last Menstrual Date Menses Monthly On Bcp Conception Prior Menses Frequency Hcg Plus Date Menarche Onset Age Delivery Information Delivery Date Delivery Type Labor Anesthesia Weeks Gestation Incision Type Labor Labor Length Hrs Delivered By Post Complications Tubal Sterilization Discharge Date Comments 9 Discharge Information Feeding Method Contraceptive Method Maternal HG B and HCT Levels
== END 2024-08-05 16:31 | disposition home or self-care (01) ==
LOC: ANHIMG 16:36
PROVIDERS: PCP Nurse Practitioner; Visit Provider Urology
DX: N20.0 Calculus of kidney (principal)
CPT/HCPCS: 74018

== ENCOUNTER 2024-11-22 21:18 | Emergency (ER) | payer BC, SELFPAY ==
[2024-11-22] VITALS (15 sets, daily range): BP systolic 131–177; BP diastolic 78–104; PULSE 79–95; RESP 13–27; TEMP 36.6; O2SAT 96–100
--- NOTE | ~2024-11-22 | XR_ITS ---
EXAMINATION: XR chest 1V portable 11/22/2024 21:55 INDICATION: Chest pain PROCEDURE: AP portable chest COMPARISON: 12/18/2023 FINDINGS: The lungs are clear. The cardiomediastinal silhouette is within normal limits. There are no pleural effusions. There is no pneumothorax suspected. IMPRESSION: 1: NO ACUTE CARDIOPULMONARY DISEASE. Reviewed, dictated and finalized at location O.
--- NOTE | 2024-11-22 21:19 | ECG_ITS ---
Test Date: 2024-11-22 21:27:00 Measurements Intervals [place] Rate: 85 P: 53 [place]: 175 QRS: 40 QRSD: 95 T: 55 QT: 359 QTc: 429 Interpretive Statements SINUS RHYTHM WITH SINUS ARRHYTHMIA BASELINE ARTIFACT- I, III, AVR, AVL NORMAL ECG No previous ECG available for comparison Electronically Signed On 11-23-2024 06:37:21 CDT by Kyle Fontanez D.O.
--- OUTSIDE RECORDS SUMMARY | 2024-11-22 21:19 | XMS_ITS | Encounter Summary ---
Author Organization [facility] Address [address] [place] [address] Phone Care Team Providers Care Preboarder Name Role Phone Carlos Rivas MD Primary Care Provider [phone] Reason for Visit * Reason Onset Date Comments Med Refill 08/18/2019 Encounter Details Date Type Department Care Team (Late st Contact Info) Description 08/18/2019 Refill [facility] Nephrology and Hypertension [address] [facility], [facility] [address] [place] [address] Jazmyne Perez MA Social History Tobacco Use [...] on filedocumented in this encounter Care Teams Preboarder Relationship Specialty Start Date End Date Carlos Rivas MD PCP - General Internal Medicine 07/28/18 documented as of this encounter
--- OUTSIDE RECORDS SUMMARY | 2024-11-22 21:20 | XMS_ITS | Clinical Summary ---
Author Organization [facility] Address [address] [place] [phone] Phone Care Team Providers Care Paver Layer Name Role Phone Carlos Rivas MD Primary [...] 10:22 AM CDT Height 162.6 cm (5' 4) 12/10/2021 10:22 AM CDT Body Mass Index [...] Flex Sig/CT Colonography Q 5 years 2023 BREAST CANCER SCREENING 12/17/2023 12/17/19 23, 12/10/2021, 12/06/2020, Additional history exists INFLUENZA VACCINE (#1) 2024 HPV VACCINES Aged Out No longer eligi [...] CAD DATE: 12/16/2022 10:20 AM DICTATION LOCATION: [facility] HISTORY: Routine yearly screening exam. TECHNIQUE: Low-dose [...] CAD DATE: 12/16/2022 10:20 AM DICTATION LOCATION: [facility] HISTORY: Routine yearly screening exam. TECHNIQUE: Low-dose [...] BCBS BLUE ACCESS/TRUE BLUE PPO Care Teams Paver Layer Relationship Specialty Start Date End Date Carlos Rivas MD PCP - General Internal Medicine 12/09/18
--- OUTSIDE RECORDS SUMMARY | 2024-11-22 21:20 | XMS_ITS | Clinical Summary ---
Author Organization [facility] Address [address] [place] [address] Care Team Providers Care Telephone Station Installer Name Role Phone Carlos Rivas MD Primary Care Provider [phone] Allergies Active Allergy Reactions Criticality Noted Date [...] 04/06/2019 Assessment & Plan (04/20/2019 9:20 AM EVALUATOR): Improving. Cnt. With Lexapro as prior prescribed. Refilled BuSpar to take twice daily p.r.n.. S/Es of medication once encouraged, follow-up in office as scheduled or sooner as needed to discuss tapering off medication if desired Assessment & Plan (04/06/2019 2:34 PM EVALUATOR): Straight Pt on low dose of Lexapro [...] 04/20/2019 Assessment & Plan (04/20/2019 9:22 AM EVALUATOR): Ongoing fatigue with labs reviewed, detailed above, and WNL. Given her concerns of mono- EBV titers ordered along with PSG testing given mention of poor sleep pattern, snoring. Developing exercise regimen was also encouraged. From mg Hx of heart disease, per/for HTN, I did encourage her to F/U with marble cutter operator and discuss desire for stress testing if fatigue persist as well offered to order test today, she declined office. Further recommendations pending upcoming EBV titers, PSG testing. Low grade fever 04/06/2019 04/20/2019 Assessment & Plan (04/06/2019 2:33 PM EVALUATOR): Uncertain etiology, likely more associated with circadian [...] 11/11/2018 Assessment & Plan (05/08/2018 5:04 PM EVALUATOR): Excessive Ear Wax Prevention Cerumen accumulation or excessive ear wax can cause symptoms like-Hearing loss ?Earache ?Ear fullness ?Itchiness ?Reflex cough ?Dizziness ?Tinnitus Normal ears use a cotton ball dipped in mineral oil, olive oil, Baby oil, or [place] oil and place in the external canal [...] rhinitis allergic rhiniti s Hx Other Medical 01-BUSINESS SUPPORT LIAISON Hx Other Medical 02-Urologist Hx Other Medical [...] on file Legal Sex Female 9:06 AM EVALUATOR Gender Identity Not on file Sexual Orientation Not on file Obstetrics History Last Filed Vital Signs Vital Sign Reading Time Taken Comments Blood Pressure 118/78 05/21/2020 2:26 PM EVALUATOR Pulse 79 05/21/2020 2:26 PM EVALUATOR Temperature 36.6 C (97.9 F) 05/21/2020 2:26 PM EVALUATOR Respiratory Rate 18 05/21/2020 2:26 PM EVALUATOR Oxygen Saturation 95% 02/24/2019 4:00 AM EVALUATOR Inhaled Oxygen Concentration - - Weight 112.5 kg (248 lb) 05/21/2020 2:26 PM EVALUATOR Height 162.6 cm (5' 4) 05/21/2020 2:26 PM EVALUATOR Body Mass Index 42.57 05/21/2020 2:26 PM EVALUATOR Plan of Treatment Not on file Insurance [facility] Care Teams Telephone Station Installer Relationship Specialty Start Date End Date Carlos Rivas MD PCP - General 03/12/07
--- OUTSIDE RECORDS SUMMARY | 2024-11-22 21:20 | XMS_ITS | Clinical Summary ---
Author Organization [facility] Address [address] [facility] [place] [address] Care Team Providers Care Counterintelligence Specialist Name Role Phone Matthew Ramirez DO Primary Care Provider [phone] Source Comments [facility],non-owned Affiliates and Associated Physician Practices is amultiple site organization consisting of ambulatory clinics and hospital sitesin [place], [place], [place] and [place]. This disclosure is being madepursuant to the Care Everywhere program and may not contain all information available regarding this patient. Last updated 17.[facility] Allergies Active Allergy Reactions Criticality Noted Date [...] 1:27 PM CDT Height 162.6 cm (5' 4) 01/05/2023 1:27 PM CDT Body Mass Index 40.34 01/05/2023 1:27 PM CDT Plan of Treatment Health Maintenance Due Date Last Done Comments COLOGUARD (AGES 45-75) - COLON CA SCREENING 1978 COLON MONITORING 1978 COLONOSCOPY - COLON CA SCREENING 1978 CT COLONOGRAPHY - COLON CA SCREENING 1978 Colorectal Cancer Screening 1978 FIT - COLON CA SCREENING 1978 FLEX SIG - COLON CA SCREENING 1978 HIV SCREENING 1993 HEPATITIS C SCREENING 05/19/1996 DTAP/TDAP/TD VACCINES (1 - Tdap) 1997 HEPATITIS B VACCINE (1 of 3 - 19+ 3-dose series) 1997 PAP SMEAR 1999 COVID-19 VACCINE (1 - season) 2023 DEPRESSION SCREENING 03/30/2024 INFLUENZA VACCINE (#1) 2024 MAMMOGRAM 12/16/2024 12/16/2022 SCREENING FOR DIABETES 12/23/2025 3, 12/12/2022, 08/16/2020, Additional history exists ZOSTER VACCINE (1 of 2) 2028 HIB [...] A/C/Y/W VACCINE Aged Out No longer eligible based on [...] - 115 mg/dL 12/23/2022 1:11 PM CDT [facility] Specimen Type Venous 12/23/2022 1:11 PM CDT [facility] Blood BLOOD SPECIMEN / Unknown 12/23/2022 1:06 PM CDT 12/23/2022 1:10 PM CDT Bar Hill MD LAB - POINT OF CARE ORDERABLES F inal Result [facility] [address] [place], [place] [id number], [place] [phone] from Last 3 Months or Most Recently Relevant to Health Maintenance Insurance [facility] SELF PAY NO INSURANCE Member Subscriber Plan / Payer (Ef fective for All Dates) Name:Annalisa Lemus Member ID:Not on file Relation to Subscriber:Not on file Name:ANNALISA LEMUS Subscriber ID:Not on file (Home) Address: [address] [place] [id number] Payer ID:Not on file Group ID:Not on file Type:Self Pay Address: [place], [place] ANTHEM SELF PAY NO INSURANCE Member Subscriber Plan / Payer (Ef fective for All Dates) Name:Annalisa Lemus Member ID:Not on file Relation to Subscriber:Not on file Name:ANNALISA LEMUS Subscriber ID:Not on file Address: [address] [place] [address] Payer ID:Not on file Group ID:Not on file Type:Self Pay Address: [place], [place] * Guarantor: ANNALISA LEMUS Account Type Relation to Patient Date of Phone Billing Address Personal/Family [address] [place] [address] SELF PAY NO INSURANCE Member Subscriber Plan / Payer (Ef fective for All Dates) Name:Annalisa Lemus Member ID:Not on file Relation to Subscriber:Not on file Name:ANNALISA LEMUS Subscriber ID:Not on file Address: [address] [place], [place] [id number] Payer ID:Not on file Group ID:Not on file Type:Self Pay Address: [place], [place] * Guarantor: ANNALISA LEMUS Account Type Relation to Patient Date of Phone Billing Address Personal/Family [address] [place] [address] SELF PAY NO INSURANCE Member Subscriber Plan / Payer (Ef fective for All Dates) Name:Annalisa Lemus Member ID:Not on file Relation to Subscriber:Not on file Name:ANNALISA LEMUS Subscriber ID:Not on file Address: [address] [place] [address] Payer ID:Not on file Group ID:Not on file Type:Self Pay Address: [place], [place] * Guarantor: ANNALISA LEMUS Account Type Relation to Patient Date of Phone Billing Address Personal/Family [address] [place] [address] SELF PAY NO INSURANCE Member Subscriber Plan / Payer (Ef fective for All Dates) Name:Annalisa Lemus Member ID:Not on file Relation to Subscriber:Not on file Name:ANNALISA LEMUS Subscriber ID:Not on file Address: [address] [place], [place] [id number] Payer ID:Not on file Group ID:Not on file Type:Self Pay Address: [place], [place] Care Teams Counterintelligence Specialist Relationship Specialty Start Date End Date Matthew Ramirez DO PCP - General Internal Medicine 01/05/23
--- OUTSIDE RECORDS SUMMARY | 2024-11-22 21:20 | XMS_ITS | Clinical Summary ---
Author Organization [facility] Address [address] [place] [id number] Phone Care Team Providers Care Glass Maker Name Role Phone Carlos Rivas MD Primary Care Provider [phone] Allergies Active Allergy Reactions Criticality Noted Date [...] Comments Blood Pressure 118/70 02/02/2019 3:55 PM CHEF Pulse 84 02/02/2019 3:55 PM CHEF Temperature 36.3 C (97.4 F) 02/02/2019 3:55 PM CHEF Respiratory Rate - - Oxygen Saturation - - Inhaled Oxygen Concentration - - Weight 109 kg (240 lb) 02/02/2019 3:55 PM CHEF Height 162.6 cm (5' 4) 02/02/2019 3:55 PM CHEF Body Mass Index 41.2 02/02/2019 3:55 PM CHEF Plan of Treatment Health Maintenance Due Date Last Done Comments Influenza Vaccine (#1) 2024 Insurance [facility] Care Teams Glass Maker Relationship Specialty Start Date End Date Carlos Rivas MD PCP - General Internal Medicine 07/28/18
[2024-11-22 21:48] LABS: Hematocrit 41.4 % (37.0-47.0); Hemoglobin 13.5 g/dL (12.0-15.0); Immature Granulocyte Percent A 0.1 % (0-0.5); Lymphocytes Absolute Auto 2.17 K/mm3 (0.9-3.2); Mean Corpuscular HGB Conc 32.6 g/dl (32-36); Mean Corpuscular Hemoglobin 27.1 pg (26-34); Mean Corpuscular Volume 83.1 fl (80-100); Nucleated Red Blood Cells Absolute Auto 0.000 K/mm3 (0.0-0.012); Nucleated Red Blood Cells Perc 0.0 % (0.0-0.2); Platelet Count Result 211 k/mm3 (150-375); Red Blood Count 4.98 M/mm3 (4.2-5.4); White Blood Count 7.0 K/mm3 (4.5-10.0)
[2024-11-22] MEDS: ASPIRIN 81 MG CHEWABLE TABLET 324 MG PO (22:00)
[2024-11-22 22:02] LABS: INR 1.0; Partial Thromboplastin Time 26.4 Seconds (22.3-36.8); Prothrombin Time 13.2 Seconds (11.1-14.7)
[2024-11-22 22:06] LABS: Alanine Aminotransferase 69 U/L (6-35); Albumin Level 4.4 g/dL (3.5-5.1); Alkaline Phosphatase 86 U/L (38-126); Anion Gap 10 mmol/L (4-12); Aspartate Amino Transferase 59 U/L (14-36); Bilirubin,Total 0.7 mg/dL (0.2-1.3); Blood Urea Nitrogen 11 mg/dL (7-17); Calcium 9.3 mg/dL (8.4-10.2); Carbon Dioxide 26 mmol/L (22-30); Chloride 99 mmol/L (98-107); Estimated CRCL calculation 103 ml/min; Estimated Glomerular Filt Rate > 60; Glucose 196 mg/dL (65-110); Lipase 168 U/L (23-300); Potassium 3.8 mmol/L (3.4-5.0); Sodium 135 mmol/L (137-145); Total Protein 8.4 g/dL (6.3-8.2)
[2024-11-22 22:16] LABS: Troponin I < 0.012 ng/mL (0.000-0.034)
[2024-11-22 22:29] LABS: Magnesium 1.7 mg/dL (1.6-2.3)
--- NOTE | 2024-11-23 00:01 | ED.CHESTPAIN ---
HPI - Chest Pain General Chief Complaint: Chest Pain Stated Complaint: I'm having chest pains Time Seen by Provider: 11/22/24 21:43 History of Present Illness HPI narrative: Patient is a 44-year-old female who presents emergency department this evening complaining of midsternal chest pain that started on 8:00 p.m. this evening. Patient was not doing anything strenuous, she was resting. She does not have any history of cardiovascular disease outside of hypertension. patient states that she did have 1 previous episode where she had similar chest pain at that time was due to a low potassium. Otherwise denies any additional symptoms or concerns, any recent illness, fevers or chills. Related Data Home Medications ?Medication ?Instructions ?Recorded ?Confirmed ?Last Taken ?Type esomeprazole magnesium 20 mg 20 mg PO DAILY 08/12/20 04/27/24 12/18/23 History capsule,delayed release (Nexium) loratadine 10 mg tablet (Claritin) 10 mg PO DAILY 08/12/20 04/27/24 12/18/23 History Allergies Allergy/AdvReac Type Severity Reaction Status Date / Time iodine Allergy Mild Rash Verified 11/22/24 21:22 iohexol (From CONTRAST - CT, Allergy Mild Rash Verified 11/22/24 21:22 XRAY) moxifloxacin Allergy Mild Rash Verified 11/22/24 21:22 Review of Systems Review of Systems: All systems are reviewed and are negative unless stated otherwise in the HPI. [facility] Past Medical History Medical History Melanoma of forearm Hyperlipidemia Scalp psoriasis Diabetes Positive ALAN (antinuclear antibody) Obesity, Class III, BMI 40-49.9 (morbid obesity) Vitamin D deficiency Elevated glucose level Anemia Polymyalgia Allergies Anxiety GERD (gastroesophageal reflux disease) ES (obstructive sleep apnea) Left ureteral injury Breast abscess HTN (hypertension) Kidney stones Surgical History Surgical History H/O: hysterectomy Hx of cholecystectomy H/O lithotripsy History of extraction of renal calculus Family History Family History Mother Hypertension Family history of heart disease in male family member before age 55 Father Family history of elevated blood lipids Other Family history of allergic disorder Social History Social History Smoking status: Never smoker Second hand tobacco smoke exposure: No Alcohol intake: never Alcohol use details: RARE Substance use: never Substance use type: does not use Do You Feel Safe in your Home?: Yes Lack of Transportation: No Lack of Food: Never True Current Housing: I Have Housing Concerned About Future Housing: No Difficulty Paying Gas/Electric Bills: No Difficulty Paying for Meds: No Currently Unemployed: No Education: Bachelor's Degree Difficulty w/ Childcare or Family Care: No Living arrangements: with family Additional living arrangements comments: DAUGHTER Gender identity (if verbalized by the patient): Female Sexual Orientation (if Verbalized by the Patient): Straight or Heterosexual Spiritual care concerns: No Exam Narrative: General: Alert, awake, afebrile, in no acute distress. HEENT: PERRL, no rhinorrhea, no post nasal drip, oropharynx clear. Neck: Trachea midline, no JVD, no lymphadenopathy. Cardiovascular: Regular rate and rhythm, no murmurs, rubs or gallops, no peripheral edema. Respiratory: Clear to auscultation bilaterally, no tachypnea, no wheezing, no rhonchi, no rubs, no respiratory distress. Abdomen: Soft, nontender, nondistended, no rebound, no guarding, no peritoneal signs. Musculoskeletal: No joint swelling or deformity, normal muscle tone. Skin: No rashes or petechia, no signs of infection. Psychiatric: Alert and oriented, normal behavior and judgment for situation. Neurological: Alert and oriented to person, place, and time. Follows all commands. No focal deficits, speech is clear and fluent. Course Vital Signs Vital signs: Vital Signs Temperature 97.9 F 11/22/24 21:20 Pulse Rate 93 11/22/24 21:20 Respiratory Rate 20 11/22/24 21:20 Blood Pressure 177/104 H 11/22/24 21:20 Pulse Oximetry 97 11/22/24 21:20 Oxygen Delivery Room Air 11/22/24 21:20 Temperature 97.9 F 11/22/24 21:20 Pulse Rate 83 11/22/24 23:45 Respiratory Rate 21 H 11/22/24 23:45 Blood Pressure 131/80 11/22/24 23:15 Pulse Oximetry 97 11/22/24 23:45 Oxygen Delivery Room Air 11/22/24 21:35 MDM - Chest Pain MDM Narrative Medical decision making narrative: The patient was evaluated by myself in the emergency department. History is obtained from patient who is an independent historian and physical exam was performed. External medical records were reviewed at this time. IV was established and pertinent tests were ordered. EKG was obtained which revealed sinus rhythm rate of 85 beats per min. No ST changes, T wave inversions or evidence of acute ischemia. EKG was independently interpreted by me and is currently pending official cardiology read. Laboratory results obtained revealing no acute process. Two sets of troponins were obtained and both noted to be negative. Imaging studies obtained included CXR which was independently interpreted by me revealing no acute process, which is pending final radiology interpretation. Differential diagnosis considerations include acute stress reaction, anxiety, dehydration, electrolyte derangements, acute viral syndrome, infectious process such as pneumonia, acute coronary syndrome. Comorbidities impacting this visit include none. I have evaluated and discussed social determinants of health with the patient that could potentially impact subsequent diagnosis and treatment plans. On repeat assessment of the patient, reevaluation revealed that the patient is doing well and is in no acute distress. Patient symptoms have improved since she arrived to our emergency department. Repeat vital signs were all reviewed and noted to be stable. Differential diagnosis and treatment plan were discussed with the patient at bedside. Patient agrees with discussion and after shared medical decision making agrees with discharge. All questions were answered to the patient's satisfaction. Patient will follow up with cardiology in 3-5 days. Patient was provided with strict return precautions and instructed to return to the emergency department if any new or worsening symptoms develop. The patient was discharged in stable condition. Lab Data 11/22/24 21:42 11/22/24 21:42 Labs: Lab Results 11/22/24 11/23/24 Range/Units 21:42 00:25 WBC 7.0 (4.5-10.0) K/mm3 RBC 4.98 (4.2-5.4) M/mm3 Hgb 13.5 D (12.0-15.0) g/dL Hct 41.4 (37.0-47.0) % MCV 83.1 (80-100) fl MCH 27.1 (26-34) pg MCHC 32.6 (32-36) g/dl RDW 14.0 (11.5-14.5) % Plt Count 211 (150-375) k/mm3 MPV 9.5 (7.4-10.4) fl Immature Gran % (Auto) 0.1 (0-0.5) % Neut % (Auto) 55.4 (45.5-73.1) % Lymph % (Auto) 31.1 (18.3-44.2) % [place] % (Auto) 9.0 H (2.6-8.5) % Eos % (Auto) 3.4 (0-4.4) % Baso % (Auto) 1.0 (0.2-1.2) % Lymph # (Auto) 2.17 (0.9-3.2) K/mm3 [place] # (Auto) 0.6 (0.1-0.6) K/mm3 Eos # (Auto) 0.2 (0-0.3) K/mm3 Baso # (Auto) 0.1 (0.0-0.1) K/mm3 Abs Immat Gran (auto) 0.01 (0.00-0.031) K/mm3 Absolute Neuts (auto) 3.9 (1.3-6.7) K/mm3 Absolute Nucleated RBC 0.000 (0.0-0.012) K/mm3 Nucleated RBC % 0.0 (0.0-0.2) % PT 13.2 (11.1-14.7) Seconds INR 1.0 APTT 26.4 (22.3-36.8) Seconds Sodium 135 L (137-145) mmol/L Potassium 3.8 (3.4-5.0) mmol/L Chloride 99 (98-107) mmol/L Carbon Dioxide 26 (22-30) mmol/L Anion Gap 10 (4-12) mmol/L BUN 11 (7-17) mg/dL Creatinine 0.73 (0.7-1.0) mg/dL Estim Creat Clear Calc 103 ml/min Estimated GFR > 60 (59 - ) Glucose 196 H (65-110) mg/dL Calcium 9.3 (8.4-10.2) mg/dL Magnesium 1.7 (1.6-2.3) mg/dL Total Bilirubin 0.7 (0.2-1.3) mg/dL AST 59 H (14-36) U/L ALT 69 H (6-35) U/L Alkaline Phosphatase 86 (38-126) U/L Troponin I < 0.012 < 0.012 (0.000-0.034) ng/mL Total Protein 8.4 H (6.3-8.2) g/dL Albumin 4.4 (3.5-5.1) g/dL Lipase 168 (23-300) U/L Discharge Plan Discharge Clinical Impression: Chest pain Patient Disposition: Home Condition: Improved Instructions: Antibiotic Form, Chest Pain (ED) Additional Instructions: Please follow-up with the legal summer intern you were provided with you today regarding your chest pain within the next 3-5 days. Workup was negative in the emergency department. Return to emergency department if any new or worsening symptoms develop. Patient Language: German Prescriptions: No Action metformin 500 mg tablet 500 mg PO BID 90 Days Qty: 180 1RF loratadine [Claritin] 10 mg Tablet 10 mg PO DAILY esomeprazole magnesium [Nexium] 20 mg Capsule,Delayed Release(Dr/Ec) 20 mg PO DAILY atorvastatin 20 mg tablet See Rx Instructions .ROUTE .COMPLEX Qty: 90 1RF Dose Instruction: TAKE 1 TABLET BY MOUTH EVERY DAY AT BEDTIME Rx Instructions: TAKE 1 TABLET BY MOUTH EVERY DAY AT BEDTIME amlodipine 5 mg tablet See Rx Instructions .ROUTE .COMPLEX Qty: 90 1RF Dose Instruction: TAKE 1 TABLET BY MOUTH AT BEDTIME Rx Instructions: TAKE 1 TABLET BY MOUTH AT BEDTIME escitalopram oxalate [Lexapro] 20 mg tablet 20 mg PO DAILY Qty: 90 1RF Follow-up/Referrals: Nikita Coleman MD [Physician, Cardiology] - 3 Days Ermelinda Santoyo NP [Primary Care Provider, Internal Medicine] Time of Disposition: 01:17
--- NOTE | 2024-11-23 00:19 | ECG_ITS ---
Test Date: 2024-11-23 00:41:05 Measurements Intervals [place] Rate: 67 P: 40 ND: 181 QRS: 34 QRSD: 96 T: 42 QT: 395 QTc: 419 Interpretive Statements SINUS RHYTHM BASELINE ARTIFACT- I, II, AVR, AVL NORMAL ECG Compared to ECG 11/22/2024 21:27:00 Sinus arrhythmia no longer present Electronically Signed On 11-23-2024 06:42:05 CDT by Kyle Fontanez D.O.
[2024-11-23 00:59] LABS: Troponin I < 0.012 ng/mL (0.000-0.034)
[2024-11-23 01:29] VITALS: BP 115/75; PULSE 80; RESP 18; TEMP 36.7; O2SAT 96
== END 2024-11-23 01:31 | disposition home or self-care (01) ==
PROVIDERS: Emergency Provider Emergency Medicine; PCP Nurse Practitioner
DX: R07.9 Chest pain, unspecified (principal); E78.5 Hyperlipidemia, unspecified; E11.9 Type 2 diabetes mellitus without complications; D64.9 Anemia, unspecified; F41.9 Anxiety disorder, unspecified; K21.9 Gastro-esophageal reflux disease without esophagitis; G47.30 Sleep apnea, unspecified; I10 Essential (primary) hypertension; Z87.442 Personal history of urinary calculi
CPT/HCPCS: 36415; 71045; 80053; 83690; 83735; 84484; 85025; 85610; 85730; 93005; 99284; A9270

== ENCOUNTER 2025-02-07 17:26 | Outpatient (CLI) | payer BC, SELFPAY ==
--- NOTE | ~2025-02-07 | XR_ITS ---
EXAMINATION: XR abdomen/kub 1V, 02/07/2025 17:33 SERVICE ESTABLISHMENT ATTENDANT HISTORY: Right ureteral stone, FOLLOW UP COMPARISON: No comparisons available. Technique: 3 view. Findings: Bowel gas pattern unremarkable. No obstruction. There are multiple right-sided renal calculi the largest mid pole 4 x 5 mm. There are calculi in the left kidney the largest lower pole 2 x 3 mm, there are no definite ureteral calculi identified. No acute osseous abnormality. Impression: 1. Bilateral renal calculi. No definite ureteral calculus. CT suggested to assess as clinically warranted Reviewed, dictated and finalized at location P. ICE ESTABLISHMENT ATTENDANT Impression: 1. Bilateral renal calculi. No definite ureteral calculus. CT suggested to asse ss as clinically warranted
== END 2025-02-07 17:27 | disposition home or self-care (01) ==
PROVIDERS: PCP Nurse Practitioner; Visit Provider Urology
DX: N20.1 Calculus of ureter (principal)
CPT/HCPCS: 74018